=== PATIENT | female | born 1965 | race Caucasian/White ===

== ENCOUNTER 2018-10-11 | Emergency (ER) | payer OTHER ==
[~2018-10-11] VITALS: Ht 175.3 cm; Wt 68.0 kg
[2018-10-11 00:02] VITALS: BP 132/76
== END 2018-10-11 00:31 | disposition home or self-care (01) ==
LOC: ER
DX: S81.802A Unspecified open wound, left lower leg, initial encounter (principal); S81.801A Unspecified open wound, right lower leg, initial encounter; N89.8 Other specified noninflammatory disorders of vagina; Z86.14 Personal history of Methicillin resistant Staphylococcus aureus infection; X58.XXXA Exposure to other specified factors, initial encounter; Y93.89 Activity, other specified; Y92.89 Other specified places as the place of occurrence of the external cause; Y99.8 Other external cause status

== ENCOUNTER 2018-12-15 23:40 | Inpatient (IN) | payer OTHER ==
[~2018-12-15] VITALS: Ht 175.3 cm; Wt 68.5 kg
[2018-12-15 23:43] VITALS: BP 124/65; BP 134/65
[2018-12-16 00:36] LABS: ABSOLUTE NEUTROPHILS 4.2 thou/uL (1.4-8.2); BASOPHILS 0.7 % (0.0-2.0); EOSINOPHILS 11.8 % (0.0-3.0); HEMATOCRIT 31.1 % (37.0-47.0); HEMOGLOBIN 10.6 gm/dL (12.0-15.0); LYMPHOCYTES 20.8 % (24.0-44.0); MCH 29.1 pg (26.0-34.0); MCHC 33.9 g/dL (28.0-37.0); MCV 85.7 fL (80.0-100.0); MONOCYTES 7.7 % (1.0-8.0); PLATELET COUNT 303 thou/uL (150-400); RBC 3.63 mil/uL (4.20-5.00); RDW 14.3 % (10.5-14.5); WBC 7.1 thou/uL (4.0-11.0)
[2018-12-16 00:48] LABS: CALCIUM 8.6 mg/dL (8.5-10.1); CREATININE 0.6 mg/dL (0.6-1.0); POTASSIUM 3.3 mmol/L (3.5-5.1)
[2018-12-16 00:53] LABS: ALBUMIN 2.9 g/dL (3.4-5.0); DIRECT BILIRUBIN < 0.1 mg/dL (<0.1-0.3); SGOT 21 U/L (15-37); SGPT 22 U/L (30-65); TOTAL BILIRUBIN 0.3 mg/dL (<0.1-1.0); TOTAL PROTEIN 6.9 g/dL (6.4-8.2)
[2018-12-16 04:03] VITALS: BP 101/72
[2018-12-16 04:50] VITALS: BP 130/75
--- NOTE | 2018-12-16 06:23 | NUR ---
FOLLOWING POC WITH IVF/IVPB. ADMISSION CAME HERE AT 0400. ADMISSION COMPLETED, CARE PLAN UPDATED WITH DATES, AND INTERVENTIONS. 3 WOUND PICTURES TAKEN. PT IN ISOLATION FOR MRSA PER VISIT IN SEPTEMBER 2018. PT HAS NO COMPLAINTS OF PAIN. K+ REPLACED ORALLY.
[2018-12-16 07:46] VITALS: BP 104/59
[2018-12-16 16:19] VITALS: BP 125/65
[2018-12-16 19:45] VITALS: BP 115/68
[2018-12-17 04:55] VITALS: BP 131/73
[2018-12-17 05:48] LABS: HEMATOCRIT 30.6 % (37.0-47.0); HEMOGLOBIN 10.5 gm/dL (12.0-15.0); MCH 29.1 pg (26.0-34.0); MCHC 34.2 g/dL (28.0-37.0); MCV 85.1 fL (80.0-100.0); RBC 3.6 mil/uL (4.20-5.00); RDW 13.9 % (10.5-14.5); WBC 8.1 thou/uL (4.0-11.0)
--- NOTE | 2018-12-17 05:56 | NUR ---
DRESSING CHANGE TO LOWER EXTREMITIES COMPLETED. DENIES PAIN. SHE IS VERY COOPERATIVE AND FRIENDLY. CONTINUES ON IV FLUIDS.
--- NOTE | 2018-12-17 06:03 | NUR ---
READY FOR HER DEBRIDMENT THIS MORNING. SHE HAS BEEN NPO SINCE MIDNIGHT. SHE IS AWARE OF THE PLAN FOR THE DAY. PRGRESSING SLOWLY TOWARD DISCHARGE GOALS. CAREPLAN REVIEWED.
[2018-12-17 06:09] LABS: CALCIUM 8.5 mg/dL (8.5-10.1); CREATININE 0.8 mg/dL (0.6-1.0); POTASSIUM 3.9 mmol/L (3.5-5.1)
[2018-12-17 08:00] VITALS: BP 122/72
--- NOTE | 2018-12-17 09:21 | NUR ---
RD consult received for pt with BLLE wounds, venous stasis. NPO for debridement, previously on regular diet. No wt loss, no concerns appetite. Can add leticia bid once diet readvanced. Physician has indicated moderate protein calorie malnutrition: Will defer. Consider low nutrition risk at this time
--- NOTE | 2018-12-17 11:51 | HC ---
[facility] [address] [place] [address] CONSULTATION Name: JOSSELYN HARRIS Room #: 353-P ADM IN M.R.#: [id number] Admission: 12/16/18 Attend Phys: Sandra Leon Discharge: Date of : 63 Report #: [id number] THIS REPORT FOR: //name// CC: TEX physician/PCP Curry Valdez DATE OF SERVICE: 12/16/2018 WOUND CARE CONSULTATION NOTE REASON FOR CONSULTATION: Ulcers of both legs. HISTORY OF PRESENT ILLNESS: The patient is a very pleasant 53-year-old woman, who gives a history of having had ulcers of her medial aspect of her left lower leg for the past 2-1/2 years, followed by 1 year ago new ulcer on the inner aspect of her right leg. These have been diagnosed as venous stasis ulcer. She had been treated at [facility], but has not been seen in [facility] Care Center on a constant basis. The patient came in because she felt the ulcers were worse with more pain, drainage, swelling and they appeared worse. She felt her legs were more swollen, more sharp pain, gotten worse over the past 2 weeks. She does have a history of MRSA in the past. Has had debridements in the past. She was seen at [facility] 5 months ago and has been treated at [facility]. She has not had any routine followup in Wound Care Center. PAST MEDICAL HISTORY: The patient is nondiabetic. She is a nonsmoker. ALLERGIES: No known drug allergies. PAST MEDICAL HISTORY: Chronic wounds of the legs and history of MRSA. PAST SURGICAL HISTORY: Surgical debridement of ulcer of the left lower extremity in the past. PHYSICAL EXAMINATION: GENERAL: Shows a thin, well-appearing woman, who is alert, conversant, pleasant and oriented. She talks very fast, but is completely articulate and lucid. HEENT: Mucous membranes are moist. NECK: Supple. LUNGS: Respirations unlabored. ABDOMEN: Scaphoid and soft. EXTREMITIES: Examination of the lower extremities shows left leg appears to be slightly more swollen than the right. Ultrasound of both legs done in the Emergency Room showed no evidence of deep venous thrombosis. There are some signs of chronic venous stasis of both legs, particularly on the left with some skin discoloration and hemosiderin deposition. There is a major large ulcer of [address] [address] CONSULTATION Name: JOSSELYN HARRIS Room #: 353-P [facility] IN ..#: [id number] Admission: 12/16/18 Attend Phys: Sandra Leon Discharge: Date of : 63 Report #: [id number] her left medial lower leg measuring approximately 12 cm x 4 cm, which is irregular and demarcated in a typical location for venous stasis ulcer. The majority of this wound is coated with a very dense, thick, necrotic eschar, wound cultures of which are taken. The patient has a smaller ulcer approximately 2 x 3 cm on the right medial leg. Pulses are not easily palpable. IMPRESSION: Clinical venous stasis ulcers, chronic of bilateral lower extremities in typical location for venous stasis ulcers, negative for deep venous thrombosis by ultrasound. Ulcers appear clinically infected. The patient is on piperacillin and Zosyn. PLAN: Wound culture done of the left leg. Ordered lower extremity arterial Dopplers of both lower extremities. We will apply Silvadene, Xeroform, Kerlix, ABD. If arterial supply is good, then more effective long-term compression will be needed. I have consulted with Dr. Britt Alvarado, general surgeon director internal control today for a surgical debridement of the venous stasis ulcer of the left leg. Wound Care team will follow. <ELECTRONICALLY SIGNED> By: Olvin Lee MD 12/17/18 1151 [id number] Olvin Lee MD /nt
--- NOTE | 2018-12-17 12:08 | NUR ---
INITIAL ASSESSMENT: Received consult for discharge planning. AZAM reviewed chart and spoke with nursing and attending physician. Pt was admitted from home due to BLE ulcers. Pt has had chronic leg ulcers since 2017. Pt to have debridement today. Pt is on IV abx: vanco and zosyn. Awaiting culture results. AZAM met with pt at bedside. Introduced role of SW. Pt is alert/orientated x 4. Pt reports she lives at home alone. Pt was independent with ADLs prior to admission. No use of DME. Pt states she has been contacting insurance companies ([employer] policies) to get insurance. Pt has been unable to get connected with an insurance company. Pt states she is not employed at the time and is looking for a job. Pt has received care at [facility] in the past. The physician she was seeing graduated and she does not have a PCP. Pt states she would like HH services at time of discharge. AZAM explained that she may have to pay privately for HH. Pt verbalized understanding. AZAM faxed face sheet to [employer]. Plan is for pt to discharge home when medically stable. AZAM is following to assist as needed with discharge planning.
--- NOTE | 2018-12-17 18:03 | NUR ---
RECEIVED PT APPROX 1700. A/O. PAIN MANAGED BY MEDS ORDERED. NO NOTED SOA. NO NV. PT RESTING IN BED AT THIS TIME. BLE DRESSING CDI. ANTIBIOTIC INFUSING. WILL CONT. TO MONITOR.
[2018-12-17 19:28] VITALS: BP 92/50
--- NOTE | 2018-12-18 03:47 | NUR ---
ASSESSMENT COMPLETED.PT DENIED PAIN SO FAR.BLE DRSG C/D/I.PT STATED THAT SHE DIDN'T EAT DINNER,PER REPORT SHE GOT TWO TRAYS.PT RECIEVED BOX LUNCH WITH SOME JUICE,ATE EVERYTHING.PT CONT ON IVF AND IV ABX ORDRED.FALL AND ISOLATION PRECAUTIONS MAINTAINED.CALL LIGHT WITHIN REACH.
[2018-12-18 05:27] VITALS: BP 116/69
[2018-12-18 07:21] VITALS: BP 122/70
[2018-12-18 16:08] VITALS: BP 129/75
--- NOTE | 2018-12-18 17:03 | NUR ---
AAOX4 PLESANT AND COOPERTIVE. DENIES PAIN. GOOD APPETITE FOR MEALS. DRESSING CHANGE COMPLETED WITH MORPHINE/SYLVADYNE CREAM AND WRAPPED WTIH KERLIX - WOUNDS APPEAR CLEAN WITH GOOD GRANULATION TISSUE. IV INFUSING RIGHT ARM WITHOUT SIGNS OF INFILTRATION.
[2018-12-18 19:26] VITALS: BP 122/71
--- NOTE | 2018-12-19 04:26 | NUR ---
Assumed care at 1900. Pt. continues on IV ABT Zosyn and NS at 125 ml/hr. She c.o. pain bilateral LE and requested Tylenol and it was effective. She asked about when she was going to be discharged. A MRSA test swab per mouth was collected per lab reqest. She was talkative with a bright affect when caring for her. Bilateral LE wounds were treated per order.
[2018-12-19 04:28] VITALS: BP 119/69
[2018-12-19 08:17] VITALS: BP 120/77
--- NOTE | 2018-12-19 15:57 | NUR ---
CASE DISCUSSED WITH ATTENDING, DR Lizbet CONNELL AND WITH WOUND CARE TEAM. PLAN WILL BE FOR ADDITIONAL SURGICAL PROCEDURE TOMORROW. AWAITING CULTURES FOR APPROPRIATE DC ABX. FOLLOWING TO ASSIST WITH DC PLANNING.
--- NOTE | 2018-12-19 16:06 | NUR ---
CARE TEAM INDICATED THAT PT IS TO GO TO THE OR TOMORROW 12/20/18 FOR ECM PLACEMENT. CM TO FOLLOW INDICATED WITH DC PLANNING.
[2018-12-19 17:06] VITALS: BP 122/79
[2018-12-19 19:26] VITALS: BP 125/67
--- NOTE | 2018-12-20 02:05 | NUR ---
ASSUMED CARE FROM DAY SHIFT PT RESTING IN BED DRESSING CHANGES ORDERD TOLERATED WELL TYLENOL PO GIVEN FOR PAIN.DISCUSSED PLAN OF CARE AND VERBALIZED UNDERSTANDING , PT RESTING WEL THROUGHOUT HOURLY ROUNDS, WILL REPORT CHANGES OR ANBORMAL FINDINSG.
[2018-12-20 04:31] VITALS: BP 107/66
[2018-12-20 07:30] VITALS: BP 98/62
--- NOTE | 2018-12-20 16:40 | NUR ---
PATIENT RETURNED TO ROOM FROM POST OP. SLEEPY BUT EASILY AROUSED. DRESSING'S TO [place] [facility]. DRY AND INTACT. PT STATES NO PAIN NO RESP DISTRESS NOTED. WILL LET PATIENT SLEEP UNTIL DINNER.
[2018-12-20 19:10] VITALS: BP 119/50
[2018-12-20 20:25] VITALS: BP 99/60
[2018-12-20 20:45] VITALS: BP 108/64
--- NOTE | 2018-12-21 03:12 | NUR ---
ASSUMED PT CARE 1899. PT ALERT AND ORIENTED. REASSESSMENT COMPLETE. VSS. IV DRESSING C/D/I. DENEIS N/V. REPORTS PAIN, SEE EMAR. UP X1 ASSIST TO BATHROOM, STEADY ON FEET. LLE DRESSING REINFORCED WITH ABD AND KURLEX. WORKING TOWARD POC. CALL LIGHT AND PERSONAL BELONGINGS WITHIN REACH. WILL CONTINUE POC UNTIL EOS.
[2018-12-21 04:10] VITALS: BP 112/62
[2018-12-21 07:55] VITALS: BP 112/61
--- NOTE | 2018-12-21 08:09 | NUR ---
LATE ENTRY: AT 1715 PT UP TO BATHROOM GETTING READY FOR DINNER. VS: 98.1 18 72 120/68 PT STATES LE'S FEEL BETTER. DRSG'S INTACT TO [place] [facility].
--- NOTE | 2018-12-21 08:59 | NUR ---
AT THIS TIME WOUND DOCTOR HERE TO SEE PATIENT. DRESSINGS REMOVED. NEW TREATMENT ORDERS FOLLOWED TO REDRESS ALSO WOUND PICTURES TAKEN AT THIS TIME. PT GIVEN PRN PAIN MED BEFORE TX STARTED.
--- NOTE | 2018-12-21 16:05 | NUR ---
CASE DISCUSSED WITH ATTENDING, IElvin. AND WITH DR PINO FROM WOUND CARE. CHECKING TO SEE IF PT CAN BE SEEN IN THE WOUND CARE CLINIC FOR FOLLOW-UP IN 2 WEEKS. ANTICIPATE PO ABX PER DR CONNELL AT [place].
[2018-12-21 16:56] VITALS: BP 112/69
[2018-12-21 20:45] VITALS: BP 115/66
--- NOTE | 2018-12-22 04:52 | NUR ---
ASSUMED PT CARE 1899. PT ALERT AND ORIENTED. REASSESSMENT COMPLETE. VSS. IV DRESSING C/D/I. DENIES PAIN, DENIES N/V. WORKING TOWARD POC. CALL LIGHT AND PERSONAL BELONIGNS WITHIN REACH, WILL CONTINUE POC UNTIL POC.
[2018-12-22 05:15] VITALS: BP 121/76
[2018-12-22 07:53] VITALS: BP 121/76
[2018-12-22] MEDS ORDERED: ACETAMINOPHEN325 M1 PO (10:28)
[2018-12-22] MEDS ORDERED: AMPICILLIN TRI500 MG PO (10:28)
[2018-12-22 13:40] VITALS: BP 121/76
--- NOTE | 2018-12-22 16:29 | NUR ---
DC ORDERS RECEIVED. IV REMOVED FROM R HAND. DC INSTRUCTIONS, SCRIPTS AND FOLLOW APPOINTMENT WITH DR. ALEENA OH. TEACHING PROVIDED FOR DRSG CHANGES, DRSG SUPPLIES ALSO POVIDED. PT CALLED CAB SERVICE FOR RIDE HOME. [facility]BUL[facility] TRANSFERED PT BY W/C TO ED ENTRANCE.
== END 2018-12-22 16:10 | disposition home or self-care (01) | DRG 580 ==
LOC: ER 23:40 → 3W 12-16 02:59 → 4E 12-16 02:59 → EROBS 12-16 02:59 → 3W 12-16 04:16 → 4E 12-17 17:10
PROVIDERS: Emergency Medicine; Nurse Practitioner Family; ADMIT Hospitalist
PROC: 0KBT0ZZ Excision of Left Lower Leg Muscle, Open Approach (ICD-10-PCS; 2018-12-17)
PROC: 0KBS0ZZ Excision of Right Lower Leg Muscle, Open Approach (ICD-10-PCS; 2018-12-17)
PROC: 0KBS0ZZ Excision of Right Lower Leg Muscle, Open Approach (ICD-10-PCS; principal; 2018-12-20)
PROC: 0KBT0ZZ Excision of Left Lower Leg Muscle, Open Approach (ICD-10-PCS; principal; 2018-12-20)
DX: L03.116 Cellulitis of left lower limb (principal); L97.929 Non-pressure chronic ulcer of unspecified part of left lower leg with unspecified severity; L97.919 Non-pressure chronic ulcer of unspecified part of right lower leg with unspecified severity; E44.0 Moderate protein-calorie malnutrition; I87.2 Venous insufficiency (chronic) (peripheral); B95.2 Enterococcus as the cause of diseases classified elsewhere; Z86.14 Personal history of Methicillin resistant Staphylococcus aureus infection; Z91.048 Other nonmedicinal substance allergy status; Z68.22 Body mass index [BMI] 22.0-22.9, adult; Z79.899 Other long term (current) drug therapy
CPT/HCPCS: 10080; 10783; 50010; 50101; 50386; 51412; 56524; 57091; 57119; 57120; 57141; 62110; 62900; 70005

== ENCOUNTER 2019-01-11 16:03 | Inpatient (IN) | payer OTHER ==
[~2019-01-11] VITALS: Ht 175.3 cm; Wt 63.5 kg
--- NOTE | ~2019-01-11 | HC ---
[facility] [address] [place] [address] CONSULTATION Name: JOSSELYN HARRIS Room #: 443-P ADM IN M.R.#: [id number] Admission: 01/11/19 ������������������ Attend Phys: Haroldo Dickens MD Discharge: ������������������ Date of : 63 Report #: [id number] THIS REPORT FOR: //name// CC: Haroldo Dickens [facility] physician/PCP DATE OF SERVICE: 01/12/2019 WOUND CARE CONSULTATION REASON FOR CONSULTATION: Bilateral chronic venous stasis ulcers, status post allograft application several weeks ago. HISTORY OF PRESENT ILLNESS: The patient is a 54-year-old woman, very well known to the wound care service. She has large chronic venous stasis ulcers of bilateral lower extremities, larger on the left than on the right. Several weeks ago, the patient underwent operative debridement by Dr. Chavez and Dr. Villela at [facility] operating room with placement of allograft staple to the wound. The patient gives a history that she attempted to make a followup visits in wound care clinic, but for insurance reasons, was not able to be seen. She had more pain of the leg ulcers, was admitted through the Emergency Room. PAST MEDICAL HISTORY: 1. Chronic venous stasis of lower extremities. 2. History of cerebral edema. 3. Recent fall, admitted to the Emergency Room. ALLERGIES: No drug allergies. MEDICATIONS: Include acetaminophen and ampicillin. PAST SURGICAL HISTORY: Tonsillectomy, lower extremity wound debridement, and allograft placement. SOCIAL HISTORY: The patient does not smoke or drink. REVIEW OF SYSTEMS: Leg pain. PHYSICAL EXAMINATION: GENERAL: Shows a thin, alert woman appearing her stated age. HEENT: Mucous membranes are moist. NECK: Supple. LUNGS: Respirations unlabored. ABDOMEN: Soft. EXTREMITIES: Examination of the legs shows Kerlix dressings, which are removed. [facility] [address] [place] [address] CONSULTATION Name: JOSSELYN HARRIS Room #: 443-P [facility] IN [facility].#: [id number] Admission: 01/11/19 ������������������ Attend Phys: Haroldo Dickens MD Discharge: ������������������ Date of : 63 Report #: [id number] On the right leg, there is a chronic venous stasis ulceration measuring approximately 3.5 x 4 cm on the medial ankle. Surgical ramon are present around the periphery, these are removed. There is granulation tissue at the base with some adherent fibrinous exudate. Examination of the left leg shows a much larger ulcer measuring approximately 10 cm x 12 cm circumferential around the posterior leg. This also has ramon around the periphery, which are removed. There is granulation tissue at the wound base and some adherent slough and fibrinous exudate. No overt cellulitis, but wounds are mildly tender. IMPRESSION: Chronic venous stasis ulcerations of bilateral lower extremities with status post OR debridement several weeks ago and allograft placement. All the ramon have been removed. Wounds have some adherent slough. PLAN: Order morphine, Silvadene dressings covered with Xeroform, Kerlix wrap to be changed twice daily. Dr. Villela and Dr. Chavez will reassess. ��������������������������������������������� ���������������������������������������� By: ��������������������������������������������� [id number] Olvin Lee MD /nt
[~2019-01-11 16:03] MED LIST: ACETAMINOPHEN325 M1 PO; AMPICILLIN TRI500 MG PO
[2019-01-11 16:04] VITALS: BP 120/74
[2019-01-11 17:00] LABS: HEMATOCRIT 30.7 % (37.0-47.0); HEMOGLOBIN 10.3 gm/dL (12.0-15.0); MCH 29.1 pg (26.0-34.0); MCHC 33.6 g/dL (28.0-37.0); RBC 3.55 mil/uL (4.20-5.00)
[2019-01-11 17:02] LABS: MCV 86.5 fL (80.0-100.0); RDW 14.7 % (10.5-14.5); WBC 12.6 thou/uL (4.0-11.0)
[2019-01-11 18:06] LABS: ANION GAP 10 mmol/L (7-16); BUN 10 mg/dL (7-18); CALCIUM 8.5 mg/dL (8.5-10.1); CHLORIDE 98 mmol/L (98-107); CO2 25 mmol/L (21-32); CREATININE 0.7 mg/dL (0.6-1.0); GLUCOSE 117 mg/dL (74-106); POTASSIUM 3.2 mmol/L (3.5-5.1); SODIUM 133 mmol/L (136-145)
[2019-01-11 18:07] LABS: ABSOLUTE NEUTROPHILS 9.1 thou/uL (1.4-8.2)
[2019-01-11 18:08] LABS: ANISOCYTOSIS SLIGHT; LARGE PLATELETS OCCASIONAL; PLATELET COUNT 465 thou/uL (150-400); POIKILOCYTOSIS SLIGHT
[2019-01-11 18:11] VITALS: BP 118/68
[2019-01-11 18:11] LABS: ALBUMIN 3.1 g/dL (3.4-5.0); MAGNESIUM 1.8 mg/dL (1.8-2.4); SGOT 20 U/L (15-37); SGPT 12 U/L (30-65); TOTAL BILIRUBIN 0.4 mg/dL (<0.1-1.0); TOTAL PROTEIN 7.2 g/dL (6.4-8.2); TROPONIN-I <0.06 ng/mL (<0.06)
[2019-01-11 19:19] VITALS: BP 104/62
[2019-01-11 19:45] VITALS: BP 113/63
[2019-01-12] VITALS (7 sets, daily range): BP systolic 103–130; BP diastolic 61–74
[2019-01-12 05:27] LABS: HEMATOCRIT 26.1 % (37.0-47.0); HEMOGLOBIN 8.7 gm/dL (12.0-15.0); MCHC 33.3 g/dL (28.0-37.0); RDW 14.9 % (10.5-14.5); WBC 6.1 thou/uL (4.0-11.0)
--- NOTE | 2019-01-12 05:33 | NUR ---
PT ARRIVED TO UNIT APPROX 192, RECEIVED BEDSIDE REPORT FROM ED NURSE. ADMISSION AND ASSESSMENT COMPLETED, CONSENTS SIGNED INCLUDING TELE DISCLAIMER. PT A&Ox4, DENIES SOB OR NAUSEA. REPORTS OCCASIONAL PAIN IN LEGS AND BACK OF HEAD. FELL RECENTLY, HITTING HER HEAD ON THE STAIRS, HAS A NICKEL-SIZED WOUND AT LEFT OCCIPITAL SKULL, WITH DRIED/SCABBED BLOOD. FALL PRECAUTIONS IN PLACE D/T RECENT FALL AND THAT PT REPORTS OCCASIONAL DIZZINESS. PT HAS A LARGE WOUND ON LEFT CALF THAT WRAPS FROM MEDIAL TO POSTERIOR SIDE, AND ANOTHER WOUND ON THE RIGHT MEDIAL CALF; PHOTOGRAPHS TAKEN OF BOTH LEG WOUNDS THEN CLEANED AND DRESSED WITH XEROFORM, ABD, AND KERLIX. MRI SCREENING FILLED OUT AND FAXED. NO OTHER CONCERNS, WILL CONTINUE TO MONITOR.
[2019-01-12 05:46] LABS: CALCIUM 8.2 mg/dL (8.5-10.1); CREATININE 0.7 mg/dL (0.6-1.0); POTASSIUM 3.9 mmol/L (3.5-5.1)
--- NOTE | 2019-01-12 17:22 | NUR ---
ASSUMED CARE OF PATIENT 0700. CARE TODAY CONSISTED OF WOUND CARE AND NEURLOGICAL CHECKS DUE TO HER LOWER EXTREMITY WOUNDS AND PREVIOUS FALL. PATIENT'S DYLAN FROM PREVIOUS GRAFT WERE TAKEN OUT BY PHYSICIAN AND NURSES REAPPLIED WOUND TREATMENT AND BANDAGES. PATIENT HAS SILVERDYNE AND MORPHINE APPLIED TO WOUND BED AND COVERED WITH XEROFORM, GAUZE, AND ABD PADS. PATIENT HAD REMAINED AT BASELINE TODAY FOR NEUROLOGICAL CHECKS WITH NO NEUROLOGICAL DEFICITS. PATIENT RECIEVED IV ANITBIOTIC THERAPY THROUGHOUT DAY.
[2019-01-13 03:34] VITALS: BP 103/58
--- NOTE | 2019-01-13 05:09 | NUR ---
Patient making slow progress towards outcome goals. Vital sings and rhythm stable. Uses call light appropriately for needs. Wound care as ordered.
[2019-01-13 07:18] VITALS: BP 85/53
--- NOTE | 2019-01-13 14:11 | EKG ---
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 : 1965 Requested By: [place] Order Number: [id number] MD: Artur Palma Measurements Intervals [place] Rate: 81 P: 50 IN: 141 QRS: 20 QRSD: 107 T: 27 QT: 398 QTc: 462 Interpretive Statements Sinus rhythm RSR' in V1 or V2, right VCD No previous ECG available for comparison Electronically Signed On 01-13-2019 14:10:47 CDT by Artur Palma [email or web address] ��������������������������������������������� <ELECTRONICALLY SIGNED> ���������������������������������������� By: Artur Palma MD, [facility] ��������������������������������������������� 01/13/19 1410 [id number] Artur Palma MD, [facility] /EPI
[2019-01-13 15:48] VITALS: BP 99/62
--- NOTE | 2019-01-13 18:31 | NUR ---
PT is A&OX3, PT is continuing wound care and iv abt, pt's vs are stable, pt denies pain at this time.pt has slowly meeting care plan goals.
[2019-01-13 19:03] VITALS: BP 108/53
[2019-01-14] VITALS (11 sets, daily range): BP systolic 98–139; BP diastolic 56–79
--- NOTE | 2019-01-14 03:37 | NUR ---
Patient making slow progress towards outcome goals. Vital signs and rhythm stable. Up with standby assists. Wound care done. Appetite excellent blood sugars 60-70 patient is asymptomatic and states that is usual for her. Wounds pool cleaner looking and patient states they look better.
[2019-01-14] MEDS ORDERED: NEURONTIN 300300 M1 PO (11:58)
--- NOTE | 2019-01-14 13:25 | NUR ---
Nutrition: pt admitted with BLE wounds, S/P fall with SDH. Wound to L occipital skull in addition to chronic vascular wounds. PO 100% most meals. Understands protein needs and how to order meals. Agrees to beneprotein powder on trays, leticia BID to assist with wound healing. Stable weights reported. Should discharge today. Low risk.
--- NOTE | 2019-01-14 14:58 | NUR ---
LIDA SENT REFERRAL TO Katie AT [facility], ALSO LEFT KATIE A MESSAGE TO LET HER KNOW FAX WAS SENT OVER.
--- NOTE | 2019-01-14 16:55 | NUR ---
CM RECEIVED CALL FROM BEDSIDE RN STATING PATIENT NEEDS A CAB/HELP WITH MEDICATION. CM MET WITH BEDSIDE RN AND PHYSICIAN ON THE UNIT. PT HAS NO INSURANCE. SW/CLIENT RELATIONS REPRESENTATIVE HAVE ASKED [facility] IF THEY CAN DO MU VISITS FOR HH FOR PATIENT SHE HAS NO INSURANCE, THEY ARE REVIEWING AND WE ARE WAITING TO HEAR BACK. LON SPOKE WITH BEDSIDE RN ABOUT GIVING PATIENT SUPPLIES FOR HOME AND SHE IS TO FOLLOW UP OUTPATIENT WITH PHYSICIAN. PT WILL NEED MORPHINE SILVADENE CREAM 200G WHICH CAN BE COMPUNDED AT OUR OUTPATIENT PHARMACY. CM SPOKE WITH OUTPATIENT PHARMACY WHO STATES THEY CAN COMPOUND IT BUT WILL TAKE ABOUT 45 MINS. CM UPDATED BEDSIDE RN, TOOK SCRIPT TO PHARMACY AND THEY ARE TO CALL BEDSIDE RN WHEN IT IS READY. CM WILL VOUCHER FOR SILVADENE CREAM WELL GABAPENTIN. CM APPROVED THIS THROUGH CM DIRECTOR. CM ALSO PROVIDED PATIENT WITH A CAB VOUCHER AND HEALTH RESOURCE GUIDE.
--- NOTE | 2019-01-14 18:00 | NUR ---
PT DISCHARGED HOME WITH HOME HEALTH IF THEY WILL DO MU VISITS...GIVEN MEDS PROVIDED FROM OUR PHARMACY AND SUPPLIES...
== END 2019-01-14 18:40 | disposition home health service (06) | DRG 82 ==
LOC: ER 16:03 → EROBS 18:00 → 4S 19:20
PROVIDERS: Emergency Medicine; ADMIT Hospitalist
DX: S06.5X9A Traumatic subdural hemorrhage with loss of consciousness of unspecified duration, initial encounter (principal); G93.6 Cerebral edema; L03.116 Cellulitis of left lower limb; L97.829 Non-pressure chronic ulcer of other part of left lower leg with unspecified severity; L97.819 Non-pressure chronic ulcer of other part of right lower leg with unspecified severity; E44.1 Mild protein-calorie malnutrition; L03.115 Cellulitis of right lower limb; I87.2 Venous insufficiency (chronic) (peripheral); I73.9 Peripheral vascular disease, unspecified; G89.29 Other chronic pain; Z68.20 Body mass index [BMI] 20.0-20.9, adult; Z86.14 Personal history of Methicillin resistant Staphylococcus aureus infection; Z79.899 Other long term (current) drug therapy; Z88.8 Allergy status to other drugs, medicaments and biological substances; Z91.018 Allergy to other foods; W18.39XA Other fall on same level, initial encounter; Y93.89 Activity, other specified; Y92.89 Other specified places as the place of occurrence of the external cause; Y99.8 Other external cause status
CPT/HCPCS: 10100

== ENCOUNTER 2019-01-24 21:17 | Emergency (ER) | payer OTHER ==
[~2019-01-24] VITALS: Ht 175.3 cm; Wt 68.0 kg
[~2019-01-24 21:17] MED LIST changes: +NEURONTIN 300300 M1 PO
[2019-01-25] MEDS ORDERED: NORCO 5-325 TA1 EAC1 PO (00:52)
[2019-01-25 01:11] VITALS: BP 106/70
== END 2019-01-25 01:00 | disposition home or self-care (01) ==
LOC: ER 21:17
DX: S92.402A Displaced unspecified fracture of left great toe, initial encounter for closed fracture (principal); S92.502A Displaced unspecified fracture of left lesser toe(s), initial encounter for closed fracture; Z86.14 Personal history of Methicillin resistant Staphylococcus aureus infection; Z90.89 Acquired absence of other organs; Z91.018 Allergy to other foods; Z91.048 Other nonmedicinal substance allergy status; W10.9XXA Fall (on) (from) unspecified stairs and steps, initial encounter; Y92.89 Other specified places as the place of occurrence of the external cause; Y93.89 Activity, other specified; Y99.8 Other external cause status

== ENCOUNTER 2019-02-07 02:04 | Inpatient (IN) | payer OTHER ==
[~2019-02-07] VITALS: Ht 175.3 cm; Wt 68.9 kg
[~2019-02-07 02:04] MED LIST changes: +NORCO 5-325 TA1 EAC1 PO
[2019-02-07 02:09] VITALS: BP 122/77
[2019-02-07 02:49] LABS: ABSOLUTE NEUTROPHILS 3.7 thou/uL (1.4-8.2); BASOPHILS 1.1 % (0.0-2.0); EOSINOPHILS 13.6 % (0.0-3.0); HEMATOCRIT 33.9 % (37.0-47.0); LYMPHOCYTES 22.7 % (24.0-44.0); MCH 28.1 pg (26.0-34.0); MCHC 32.5 g/dL (28.0-37.0); MCV 86.7 fL (80.0-100.0); MONOCYTES 7.8 % (1.0-8.0); PLATELET COUNT 334 thou/uL (150-400); POLYS 54.8 % (36.0-66.0); RBC 3.91 mil/uL (4.20-5.00); RDW 15.4 % (10.5-14.5); WBC 6.7 thou/uL (4.0-11.0)
[2019-02-07 02:52] LABS: CALCIUM 8.7 mg/dL (8.5-10.1); CREATININE 0.8 mg/dL (0.6-1.0); POTASSIUM 3.4 mmol/L (3.5-5.1)
[2019-02-07 02:58] LABS: ALBUMIN 3.2 g/dL (3.4-5.0); TOTAL BILIRUBIN 0.1 mg/dL (<0.1-1.0); TOTAL PROTEIN 7.2 g/dL (6.4-8.2)
[2019-02-07 04:47] VITALS: BP 116/67
[2019-02-07 05:25] VITALS: BP 125/77
[2019-02-07 08:00] VITALS: BP 124/73
[2019-02-07 15:00] VITALS: BP 112/62
[2019-02-07 19:38] VITALS: BP 101/61
[2019-02-08] VITALS (8 sets, daily range): BP systolic 95–131; BP diastolic 47–73
[2019-02-08 05:31] LABS: HEMATOCRIT 32.4 % (37.0-47.0); HEMOGLOBIN 10.9 gm/dL (12.0-15.0); MCH 29.3 pg (26.0-34.0); MCHC 33.6 g/dL (28.0-37.0); MCV 87.4 fL (80.0-100.0); RBC 3.71 mil/uL (4.20-5.00); RDW 15.3 % (10.5-14.5); WBC 6.9 thou/uL (4.0-11.0)
[2019-02-08 05:48] LABS: CALCIUM 8.6 mg/dL (8.5-10.1); CREATININE 0.7 mg/dL (0.6-1.0); POTASSIUM 4.3 mmol/L (3.5-5.1)
[2019-02-09 00:21] VITALS: BP 121/64
[2019-02-09 04:24] VITALS: BP 105/60
[2019-02-09 08:12] VITALS: BP 107/69
[2019-02-09 15:20] VITALS: BP 103/45
[2019-02-09 19:10] VITALS: BP 100/55
[2019-02-10 05:16] VITALS: BP 112/71
[2019-02-10 07:26] VITALS: BP 109/72
[2019-02-10 15:14] VITALS: BP 108/73
--- NOTE | 2019-02-10 16:17 | HC ---
[facility] [address] [place] [address] CONSULTATION Name: JOSSELYN HARRIS Room #: 459-P ADM IN M.R.#: [id number] Admission: 02/07/19 Attend Phys: Trina Carlisle MD Discharge: Date of : 63 Report #: [id number] THIS REPORT FOR: //name// CC: NO PCP Trina Carlisle DATE OF SERVICE: 02/07/2019 REQUESTING PHYSICIAN: Dr. Valdez. CHIEF COMPLAINT: Bilateral lower extremity ulcers. HISTORY OF PRESENT ILLNESS: This is a 54-year-old white female with chronic venous insufficiency and chronic bilateral lower extremity ulcers, who states that over the past several days, she has noticed increasing pain, swelling and a foul odor coming from her lower extremity ulcerations, which prompted her to come to the Emergency Department last night, will be admitted to the hospital. The patient states that she felt like she had a fever; however, was afebrile here in the Emergency Department. Due to her lack of insurance, the patient has been unable to follow up in our clinic for continued care. However, had been referred to [facility] given that she is a [place] resident. The patient, however, states that she has not followed up with anyone since her last hospitalization, which was approximately 6 weeks ago. The patient also states that she was since last time she was evaluated, she had a head injury and was evaluated for possible concussion. The patient states that with that she still reports ongoing headache, dizziness, nausea, memory issues. The patient denies any other new wounds at this time. We were asked to follow the patient for the wound care while she is here. PAST MEDICAL HISTORY: Significant for chronic venous stasis ulcerations, venous insufficiency with edema, mild peripheral arterial disease, recent head injury. CURRENT MEDICATIONS: Multiple, I reviewed the patient's medication list. DRUG ALLERGIES: INCLUDE CLOTRIMAZOLE, MICONAZOLE. SOCIAL HISTORY: The patient does not smoke. Drinks alcohol socially. FAMILY HISTORY: Not pertinent to current medical condition. REVIEW OF SYSTEMS: CONSTITUTIONAL: The patient states she has a subjective fever at home, but denies chills or sweats. EYES: No complaints. ENT: No complaints. CARDIAC: The patient has chronic lower extremity edema, but no associated chest [address] [address] CONSULTATION Name: JOSSELYN HARRIS Room #: 459-P [facility] IN [facility].#: [id number] Admission: 02/07/19 Attend Phys: Trina Carlisle MD Discharge: Date of : 63 Report #: [id number] pain or palpitation. RESPIRATORY: The patient denies shortness of breath, cough or wheezes. GASTROINTESTINAL: The patient complains of nausea, but no vomiting, diarrhea or abdominal pain. GENITOURINARY: The patient denies urgency or frequency. MUSCULOSKELETAL: No complaints. SKIN: There are chronic ulcerations on bilateral lower extremities. PHYSICAL EXAMINATION: VITAL SIGNS: Temperature 36.3, pulse 77, respirations 20, BP 124/73. GENERAL: This is an alert and oriented x 3 white female who is in absolutely no distress. HEENT: Normocephalic, atraumatic. Mucous membranes are moist. Pupils are round. Sclerae white. NECK: Supple, nontender. LUNGS: Clear. HEART: Regular. ABDOMEN: Soft, nontender. EXTREMITIES: The patient moves all extremities without difficulty. There is 2+ edema bilateral lower extremities. There is mild increased erythema, warmth and tenderness to bilateral lower extremities along the pretibial region. Both pretibial regions have open ulcerations, which are full thickness with exposed subcutaneous tissue. They are mix of approximately 25% granulation tissue, 75% yellowish slough. There is a slight odor noted from the serosanguineous drainage, which is moderate. Periwound is erythematous and tender. There is no significant undermining or tunneling. Distal pulses are 1+ and symmetric. NEUROLOGIC: Cranial nerves 2-12 grossly intact. Motor and sensory grossly intact. WOUND CARE COURSE: I spoke to the patient about possible bedside debridement; however, she adamantly refused as it was too painful and if any debridement will be performed, she needed to be sedated in the operating room where she had approximately 6 weeks ago. I said I will speak with the surgeon and see if that was a possibility. LABORATORY DATA: White count 6.7, hemoglobin 11.0. BUN 18, creatinine 0.8, albumin 3.2. Lower extremity venous Doppler showed the left leg shows no evidence of DVT. CT scan of the head shows no intracranial process. IMPRESSION: 1. Chronic ulceration, left lower extremity limited to breakdown of subcutaneous tissue with concern for cellulitis. 2. Chronic ulcer, right lower extremity, limited breakdown subcutaneous tissue with concern for cellulitis. [address] [address] CONSULTATION Name: GOLDIE HARRISSE Medrano Room #: 459-P [facility] IN M.R.#: [id number] Admission: 02/07/19 Attend Phys: Trina Carlisle MD Discharge: Date of : 63 Report #: [id number] 3. Venous insufficiency with edema. 4. Protein-calorie malnutrition -- mild. Albumin 3.2. 5. History of recent closed head injury with persistent postconcussion syndrome symptoms. 6. Generalized debility. PLAN: We will place Xeroform over both the open ulcerations at this time, cover this with ABD and Kerlix. We will put a consult out to Dr. Villela who has done previous Misonix debridements on this patient in the past. We will make sure we maximize the patient's oral protein supplementation for healing. Continue all other current medications including antibiotics. We will continue to follow the patient. <ELECTRONICALLY SIGNED> By: Eric Chavez MD 02/10/19 1617 1207 [id number] Eric Chavez MD /nt
[2019-02-10 20:42] VITALS: BP 105/63
[2019-02-11 04:23] VITALS: BP 120/74
[2019-02-11 07:56] VITALS: BP 111/66
[2019-02-11 15:45] VITALS: BP 111/65
[2019-02-11 19:43] VITALS: BP 109/67
[2019-02-12 05:51] LABS: CALCIUM 8.9 mg/dL (8.5-10.1); CREATININE 0.8 mg/dL (0.6-1.0); POTASSIUM 4.2 mmol/L (3.5-5.1)
[2019-02-12 05:53] LABS: HEMATOCRIT 35.1 % (37.0-47.0); HEMOGLOBIN 11.6 gm/dL (12.0-15.0); MCH 28.7 pg (26.0-34.0); MCHC 32.9 g/dL (28.0-37.0); MCV 87.2 fL (80.0-100.0); RBC 4.03 mil/uL (4.20-5.00); RDW 14.9 % (10.5-14.5); WBC 5.8 thou/uL (4.0-11.0)
[2019-02-12 08:25] VITALS: BP 110/68
[2019-02-12 16:49] VITALS: BP 114/62
[2019-02-12 20:20] VITALS: BP 126/66
[2019-02-13 07:51] VITALS: BP 114/64
[2019-02-13] MEDS ORDERED: ACETAMINOPHEN325 M1 PO (13:20)
[2019-02-13] MEDS ORDERED: TRAMADOL 50 MG50 MG PO (13:20)
[2019-02-13] MEDS ORDERED: TRIAMCINOLONE A15 G3 TOP (13:20)
[2019-02-13] MEDS ORDERED: AUGMENTIN 875-1 EACH PO (13:20)
[2019-02-13 17:29] VITALS: BP 122/70
[2019-02-13 17:46] VITALS: BP 122/70
== END 2019-02-13 19:32 | disposition home or self-care (01) | DRG 580 ==
LOC: ER 02:04 → EROBS 04:16 → 4W 04:16 → EROBS 04:16 → 4W 05:04
PROVIDERS: Emergency Medicine; Nurse Practitioner Family; ADMIT Internal Medicine
PROC: 0KBS0ZZ Excision of Right Lower Leg Muscle, Open Approach (ICD-10-PCS; principal; 2019-02-08)
PROC: 0KBT0ZZ Excision of Left Lower Leg Muscle, Open Approach (ICD-10-PCS; principal; 2019-02-08)
DX: L03.116 Cellulitis of left lower limb (principal); L97.929 Non-pressure chronic ulcer of unspecified part of left lower leg with unspecified severity; L97.919 Non-pressure chronic ulcer of unspecified part of right lower leg with unspecified severity; E44.1 Mild protein-calorie malnutrition; I73.9 Peripheral vascular disease, unspecified; I87.2 Venous insufficiency (chronic) (peripheral); G62.9 Polyneuropathy, unspecified; Z28.21 Immunization not carried out because of patient refusal; Z88.8 Allergy status to other drugs, medicaments and biological substances; Z91.02 Food additives allergy status; Z68.22 Body mass index [BMI] 22.0-22.9, adult; Z86.14 Personal history of Methicillin resistant Staphylococcus aureus infection; Z79.899 Other long term (current) drug therapy
CPT/HCPCS: 10040; 50010; 50101; 50386; 57091; 57119; 57120; 62110; 62850; 70005

== ENCOUNTER 2019-02-23 05:09 | Emergency (ER) | payer OTHER ==
[~2019-02-23] VITALS: Ht 175.3 cm; Wt 61.2 kg
[~2019-02-23 05:09] MED LIST changes: +AUGMENTIN 875-1 EACH PO; +TRAMADOL 50 MG50 MG PO; +TRIAMCINOLONE A15 G3 TOP
[2019-02-23] MEDS ORDERED: CIPROFLOXACIN500 M1 PO (07:17)
[2019-02-23 07:56] VITALS: BP 151/76
== END 2019-02-23 07:57 | disposition home or self-care (01) ==
LOC: ER 05:09
DX: L03.115 Cellulitis of right lower limb (principal); L03.116 Cellulitis of left lower limb; L97.228 Non-pressure chronic ulcer of left calf with other specified severity; L97.218 Non-pressure chronic ulcer of right calf with other specified severity; Z90.89 Acquired absence of other organs; Z86.14 Personal history of Methicillin resistant Staphylococcus aureus infection; Z91.018 Allergy to other foods; Z88.1 Allergy status to other antibiotic agents

== ENCOUNTER 2019-02-27 21:50 | Inpatient (IN) | payer OTHER ==
[~2019-02-27] VITALS: Ht 175.3 cm; Wt 70.3 kg
[~2019-02-27 21:50] MED LIST changes: +CIPROFLOXACIN500 M1 PO
[2019-02-27 21:55] VITALS: BP 116/66
[2019-02-28 00:35] LABS: ABSOLUTE NEUTROPHILS 3.2 thou/uL (1.4-8.2); BASOPHILS 1.1 % (0.0-2.0); EOSINOPHILS 12.6 % (0.0-3.0); HEMATOCRIT 32.8 % (37.0-47.0); HEMOGLOBIN 10.8 gm/dL (12.0-15.0); LYMPHOCYTES 24.9 % (24.0-44.0); MCH 28.4 pg (26.0-34.0); MCHC 32.8 g/dL (28.0-37.0); MCV 86.8 fL (80.0-100.0); MONOCYTES 9.5 % (1.0-8.0); PLATELET COUNT 302 thou/uL (150-400); POLYS 51.9 % (36.0-66.0); RBC 3.79 mil/uL (4.20-5.00); RDW 14.8 % (10.5-14.5); WBC 6.2 thou/uL (4.0-11.0)
[2019-02-28 00:44] LABS: CALCIUM 8.6 mg/dL (8.5-10.1); CREATININE 0.7 mg/dL (0.6-1.0); POTASSIUM 3.3 mmol/L (3.5-5.1)
[2019-02-28 00:50] LABS: ALBUMIN 3.1 g/dL (3.4-5.0); TOTAL BILIRUBIN 0.2 mg/dL (<0.1-1.0); TOTAL PROTEIN 6.9 g/dL (6.4-8.2)
[2019-02-28 01:06] LABS: URINE BILIRUBIN NEGATIVE (Negative); URINE BLOOD NEGATIVE (Negative); URINE CLARITY CLEAR; URINE COLOR YELLOW; URINE GLUCOSE-RANDOM* NEGATIVE (Negative); URINE KETONES NEGATIVE (Negative); URINE LEUKOCYTES-REFLEX NEGATIVE (Negative); URINE NITRITE-REFLEX NEGATIVE (Negative); URINE PROTEIN (DIPSTICK) NEGATIVE (Negative); URINE SPECIFIC GRAVITY >= 1.030 (1.005-1.035); URINE UROBILINOGEN 0.2 E.U./dl (0.2-1.0)
[2019-02-28 12:00] VITALS: BP 115/59
[2019-02-28 18:35] VITALS: BP 113/56
[2019-02-28 18:48] VITALS: BP 110/61
[2019-02-28 18:54] VITALS: BP 110/61
--- NOTE | 2019-02-28 19:30 | NUR ---
PT TRANSFERED TO INPATIENT CARE, ALL BELONGINGS SENT WITH PT.
[2019-02-28 19:55] VITALS: BP 130/76
--- NOTE | 2019-03-01 | NUR ---
Pt came up from ED at change of shift. pt originally came in the hospital on 02/27/2019 but was being held in the ER. pt has bilateral wounds that are infected. pt on contact prec for MRSA. pictures were taken. pt is a&ox4. ambulates with standby assist to the bathroom. wound dressing changes and covered with xeroform, kerlix, abd and tape. pt recieved pain med onces overnight. no concerns overnight. legs elevated with pillows. fall prec in place. call light within reach. no s/s of distress. will cont to monitor
[2019-03-01 03:00] VITALS: BP 132/73
--- NOTE | 2019-03-01 05:14 | NUR ---
assumed care of pt @1900. pt a&ox3. pt can be confused at times. pt was stting in the chair, pt transfered with 1 person assist with a walker back to bed. pt used the bedpan. Picc line intact and patent but not able to be used for line draw. Line doesnot produces enough blood return for lab testing. lab is aware and will come and draw pt morning labs. no c/o of pain overnight. no s/s of distress. call galvez within reach. fall prec in place. will cont to measure
--- NOTE | 2019-03-01 08:57 | NUR ---
Recurrent admit from earlier this month for pt with chronic venous stasis wounds, PVD. Appetite is good, wts stable at 155 lb. Has received multiple educations on high protein intake adequacy. Note food allergies to mushrooms and strawberries. Restart Roel bid. Otherwise low nutrition risk.
[2019-03-01 09:19] VITALS: BP 118/60
[2019-03-01 15:50] VITALS: BP 122/70
--- NOTE | 2019-03-01 16:44 | NUR ---
PT ADMITTED RELATED TO BLE WOUNDS THAT ARE PAINFUL. CM REVIEWED CHART AND SPOKE WITH CARE TEAM. PT IS FAMILIAR TO CM FROM PREVIOUS ADMISSIONS. FROM CHART REVIEW PT RESIDES IN A HOUSE ALONE AND HAD BEEN INDEPDENENT WITH GAIT AND ADLS [employer] MA[employer]. PT IS PATIENT PAY BUT IS ABLE TO AFFORD MEDICATIONS AND WOUND CARE SUPPLIES UPON DC. PT HAD BEEN TRYING TO PAY AKERS FOR TREATMENT IN [facility]. PT IS TO REACH OUT TO BUSINESS OFFICE TO ARRANGE NUMBER PUT IN DC INFO. CM TO FOLLOW INDICATED WITH DC PLANNING.
[2019-03-01 16:47] VITALS: BP 122/70
--- NOTE | 2019-03-01 16:50 | HC ---
[facility] [place] [address] CONSULTATION Name: JOSSELYN HARRIS BRANDI Room #: 459-P ADM IN M.R.#: [id number] Admission: 02/28/19 Attend Phys: Janis Metz MD Discharge: Date of : 63 Report #: [id number] THIS REPORT FOR: //name// CC: Janis Metz [facility] physician/PCP DATE OF SERVICE: 02/28/2019 INFECTIOUS DISEASE CONSULTATION REASON FOR CONSULTATION: I was asked to evaluate concerning polymicrobial infection of bilateral lower extremity wounds. HISTORY OF PRESENT ILLNESS: A 54-year-old with chronic venous stasis disease and lower extremity nonhealing wounds. She has been hospitalized several times within the last 3 months regarding this issue. Presents now with increased pain and darkening of her wounds. She was concerned about further tissue loss. No fever, chills, or sweats. Occasional nausea and reflux symptoms. No definite vomiting, abdominal pain, or diarrhea. No dysuria or frequency. No cough or sputum production. She has been on several different antibiotics over the last several months and her most recent hospitalization was completed on 02/13/2019. She was discharged on Augmentin. Most recent cultures from the wound have revealed Proteus and Serratia. REVIEW OF SYSTEMS: A 10-point review was negative other than what has been described above. ALLERGIES: CLOTRIMAZOLE, MICONAZOLE, MOLD, MUSHROOMS, and STRAWBERRIES. MEDICATIONS: As noted on her JUN. Now, on meropenem. She did receive vancomycin and Zosyn in the Emergency Room. Review of her previous medications, most recently was on Augmentin and then later ciprofloxacin was added prior to this hospital stay. PAST MEDICAL HISTORY: Tonsillectomy, chronic wounds since 2017, peripheral vascular disease, several debridements of her wounds, and concussion. FAMILY HISTORY: Noncontributory. SOCIAL HISTORY: Nonsmoker and occasional alcohol use. PHYSICAL EXAMINATION: GENERAL: She was afebrile and hemodynamically stable. She is alert, cooperative, pleasant, and in no acute distress. VITAL SIGNS: Stable. EYES: Without scleral icterus. [facility] [address] [place] [address] CONSULTATION Name: GOLDIE HARRISSE [facility] Room #: 459-P ADM IN M.R.#: [id number] Admission: 02/28/19 Attend Phys: Janis Metz MD Discharge: Date of : 63 Report #: [id number] MOUTH: Without mucositis. NECK: Supple. LUNGS: Clear. HEART: Regular, without murmur. ABDOMEN: Soft and nontender. EXTREMITIES: With 1+ right lower extremity edema and 2+ left lower extremity edema with right lower leg medial wound with a fairly large left medial and posterior wound in the similar location. These were significantly tender with a rim of erythema surrounding. No purulent drainage. Pulse in her feet was palpable. Sensation in her feet was normal. Strength was normal. LABORATORY STUDIES: Arterial ultrasound showed no high-grade arterial obstruction. Creatinine 0.7 and liver function test is normal. Hemoglobin 10.8, WBC is 6.2, and platelet count 302,000. Differential showed 12% eosinophils. Urinalysis unremarkable. Review of her previous cultures dated 02/12/2019, Proteus vulgaris sensitive to third generation cephalosporins, quinolones, carbapenems, Zosyn, tobramycin, gentamicin, and Bactrim and Serratia marcescens sensitive to third generation cephalosporins, quinolones, aminoglycosides, carbapenems, and sulfa. On 02/07/2019, she had venous ultrasound, which showed no evidence of left leg thrombus. IMPRESSION: Venous stasis disease with nonhealing venous stasis wounds and polymicrobial gram-negative secondary infection. RECOMMENDATIONS: Agree with meropenem and will continue this as wound care continues. Attempt to control edema. The patient may benefit from a venous ablation procedure, especially on the left side. We will discuss further with the wound care service after their evaluation. <ELECTRONICALLY SIGNED> By: Tacos Aponte MD 03/01/19 1650 [id number] Tacos Aponte MD /nt
[2019-03-01 19:44] VITALS: BP 125/67
--- NOTE | 2019-03-01 20:04 | NUR ---
Received awake on bed. Due medications given as prescribed. A+O 3-4. On room lair. On heart healthy diet- tolerating well; no nausea, no vomiting or abdominal pain noted. Complained of headache, PRN pain medication given as prescribed. With NS at 80cc/hr, infusing well at L AC. Pt had a bowel movement today. AO1 going to the bathroom. With bilateral leg dressings, C/D/I. Pt seen by hospitalist today, MRI requested and done. Maintained on isolation due to MRSA in wound. Assisted in ADLs. Falls bundle in place.
--- NOTE | 2019-03-02 05:48 | NUR ---
patient aox4 makes needs known. patient denied pain or discomfort. ble wounds done minimum drainage no odor, no s/s of infection.patient ambulates with steady gaits to the bathroom. patient in bed asleep at this time breathing regular and unlaboured.
[2019-03-02 07:37] VITALS: BP 99/66
--- NOTE | 2019-03-02 14:23 | NUR ---
Received awake on bed. Due medications given as prescribed, able to swallow meds w/o difficulty. On room air. On heart healthy diet- tolerating well; no nausea, no vomiting, no abdominal pain noted. With NS at 80cc/hr, infusing well at L AC- intact and flushing. AO1 going to the bathroom. Vital signs stable. With bilateral leg dressing- C/D/I. A+Ox4.
[2019-03-02 16:42] VITALS: BP 113/62
[2019-03-02 19:50] VITALS: BP 112/72
[2019-03-03 07:52] VITALS: BP 102/67
--- NOTE | 2019-03-03 08:54 | NUR ---
progress pt a/o x 4 gets a little confused at times states its related to her concussion from december. vss, bilateral wounds cleansed and redressed. iv antibiotics continue pt up with sba continue poc.
--- NOTE | 2019-03-03 17:21 | NUR ---
PT HAS BILAT LOWER EXTREMITY WOUNDS WITH DAILY
--- NOTE | 2019-03-03 17:22 | NUR ---
ASSUMED CARE AT 0700. PT IS A&OX4. PT EXPLAINED TO RN AT BEGINNING OF SHIFT THAT SHE OCCASIONALLY HAS BILAT LOWER LEG PAIN. PT HAS DENIED PAIN THIS SHIFT. PT ALSO STATES SHE HAD HEADACHES FROM RECENT CONCUSSION. PT HAS DENIED HEADACHE PAIN WELL. PT GET UP WITH STANDBY ASSIST. WILL CONTINUE TO MONITOR PT.
[2019-03-03 17:31] VITALS: BP 116/67
[2019-03-03 20:03] VITALS: BP 97/60
[2019-03-04 00:46] VITALS: BP 109/72
--- NOTE | 2019-03-04 07:43 | NUR ---
ASSUMED CARE AROUND 193. AXOX4. BLE DRESSING DONE AROUND 010. NO S/S ACUTE DISTRESS NOTED OR REPORTED AT THIS TIME. CARE TRANSFRERRED TO DAY RN AT THIS TIME.
[2019-03-04 08:50] VITALS: BP 107/64
[2019-03-04 11:43] LABS: HEMATOCRIT 40.2 % (37.0-47.0); MCHC 32.2 g/dL (28.0-37.0); MCV 86.8 fL (80.0-100.0); RBC 4.64 mil/uL (4.20-5.00); RDW 15.3 % (10.5-14.5); WBC 4.6 thou/uL (4.0-11.0)
[2019-03-04 11:55] LABS: CALCIUM 9.8 mg/dL (8.5-10.1); CREATININE 0.8 mg/dL (0.6-1.0); POTASSIUM 3.9 mmol/L (3.5-5.1)
--- NOTE | 2019-03-04 14:06 | NUR ---
AZAM reviewed chart and spoke with nursing and attending physician. Pt is progressing towards goals for discharge. Pt remains on IV abx at this time. Pt may need to continue on IV abx at time of discharge. AZAM paged ID physician in house and through his office. Awaiting call back at this time. Depending on timeframe, pt may be able to do outpatient infusion. AZAM discussed with Director of Case Mgmt, who will authorize transportation to and from [facility] for outpt infusion. AZAM is following to assist as needed with discharge planning.
[2019-03-04 15:05] VITALS: BP 113/75
--- NOTE | 2019-03-04 19:37 | NUR ---
Assumed patient care at 0715. Patient's vital signs have been stable throughout this shift. She has not complained of pain to her lower extremity ulcers. Patient has been compliant with all medications and treatments. Patient has a good appetite, has been consuming 100% of all meals and consuming adequate fluids. Patient to possibly Discharge tommorow.
[2019-03-04 21:23] VITALS: BP 106/70
--- NOTE | 2019-03-05 05:55 | NUR ---
PROGRESS PT A/O X4. UP WITH SBA. LUNGS CLEAR, ABDOMEN SOFT WITH POSITIVE BS. VOIDING QS, PT REPORTS A DAILY STOOL THAT IS GETTING A LITTLE LOOSE FROM ANTIBIOTICS. BILATERAL LEG WOUNDS CLEANSED WITH SALINE AND DRESSED WITH XEROFORM ABD'S AND KERLIX AND KOBAN. IV ANTIBIOTICS ADMINISTERED ORDERED CONTINUE POC.
[2019-03-05 08:33] VITALS: BP 104/74
[2019-03-05] MEDS ORDERED: CEFDINIR300 MG PO (10:42)
--- NOTE | 2019-03-05 11:23 | NUR ---
Assumed patient care at 0715. Patient's vital signs are stable. She rates her pain to her bilateral lower extremeties at a leven "two", she was given Tylenol 650mg po at 1033. Patient continues to have a good appetite consuming 100% of all meals. She is drinking plenty of fluids. Dressings are clean, dry et intact to bilateral lower extremeties. Patient is to Discharge today on oral antibiotics.
[2019-03-05 14:13] VITALS: BP 122/70
--- NOTE | 2019-03-05 16:27 | NUR ---
CARE TEAM INDICATED THAT PT IS MEDICALLY STABLE TO DC HOME THIS DAY WITH PO ABX AND OP WOUND CARE. CM MET WITH PT AND PROVIDED HER THE NUMBER FOR [employer] SO SHE COULD CALL FOR A CONTINUATUATION FOR A COURT APPEARANCE. CM PROVIDED PT WITH PHONE NUMBERS AND CONTACT PEOPLE IN BUSINESS OFFICE AND AT [facility]'S OFFICE TO ARRANGE AKERS PAYMENTS FOR FOLLOW UP CARES. NO OTHER CM INTERVENTION INDICATED. CASE CLOSED.
== END 2019-03-05 19:33 | disposition home or self-care (01) | DRG 603 ==
LOC: ER 21:50 → EROBS 02-28 00:47 → 4W 02-28 00:47
PROVIDERS: Emergency Medicine; Internal Medicine; ADMIT Hospitalist
DX: L03.116 Cellulitis of left lower limb (principal); L97.829 Non-pressure chronic ulcer of other part of left lower leg with unspecified severity; L97.819 Non-pressure chronic ulcer of other part of right lower leg with unspecified severity; E44.1 Mild protein-calorie malnutrition; I10 Essential (primary) hypertension; L03.115 Cellulitis of right lower limb; I87.8 Other specified disorders of veins; E83.42 Hypomagnesemia; E87.6 Hypokalemia; E11.51 Type 2 diabetes mellitus with diabetic peripheral angiopathy without gangrene; I73.9 Peripheral vascular disease, unspecified; D64.9 Anemia, unspecified; Z86.14 Personal history of Methicillin resistant Staphylococcus aureus infection; Z88.1 Allergy status to other antibiotic agents; Z88.8 Allergy status to other drugs, medicaments and biological substances; Z91.018 Allergy to other foods; Z79.84 Long term (current) use of oral hypoglycemic drugs; Z68.22 Body mass index [BMI] 22.0-22.9, adult
CPT/HCPCS: 10040

== ENCOUNTER 2019-03-17 20:16 | Emergency (ER) | payer OTHER ==
[~2019-03-17] VITALS: Ht 175.3 cm; Wt 63.5 kg
[~2019-03-17 20:16] MED LIST changes: +CEFDINIR300 MG PO
[2019-03-17 21:24] VITALS: BP 138/80
== END 2019-03-17 21:24 | disposition home or self-care (01) ==
LOC: ER 20:16
DX: L97.929 Non-pressure chronic ulcer of unspecified part of left lower leg with unspecified severity (principal); L97.919 Non-pressure chronic ulcer of unspecified part of right lower leg with unspecified severity; Z90.49 Acquired absence of other specified parts of digestive tract; Z86.14 Personal history of Methicillin resistant Staphylococcus aureus infection; Z86.711 Personal history of pulmonary embolism; Z77.120 Contact with and (suspected) exposure to mold (toxic); Z91.018 Allergy to other foods; Z88.8 Allergy status to other drugs, medicaments and biological substances

== ENCOUNTER 2019-04-13 18:22 | Emergency (ER) | payer OTHER ==
[~2019-04-13] VITALS: Ht 175.3 cm; Wt 63.5 kg
[2019-04-13 21:35] LABS: CALCIUM 8.9 mg/dL (8.5-10.1); CREATININE 0.7 mg/dL (0.6-1.0); POTASSIUM 3.2 mmol/L (3.5-5.1)
[2019-04-13 21:36] LABS: ABSOLUTE NEUTROPHILS 5.1 thou/uL (1.4-8.2); BASOPHILS 0.7 % (0.0-2.0); EOSINOPHILS 5.7 % (0.0-3.0); HEMOGLOBIN 10.9 gm/dL (12.0-15.0); LYMPHOCYTES 18.7 % (24.0-44.0); MCH 28.6 pg (26.0-34.0); MCV 86.4 fL (80.0-100.0); MONOCYTES 6.8 % (1.0-8.0); PLATELET COUNT 258 thou/uL (150-400); POLYS 68.1 % (36.0-66.0); RBC 3.81 mil/uL (4.20-5.00); RDW 14.7 % (10.5-14.5); WBC 7.4 thou/uL (4.0-11.0)
[2019-04-13] MEDS ORDERED: CEFDINIR300 MG PO (23:20)
[2019-04-13 23:59] VITALS: BP 122/68
== END 2019-04-13 23:59 | disposition home or self-care (01) ==
LOC: ER 18:22
PROVIDERS: Emergency Medicine
DX: L97.829 Non-pressure chronic ulcer of other part of left lower leg with unspecified severity (principal); L97.819 Non-pressure chronic ulcer of other part of right lower leg with unspecified severity; Z90.89 Acquired absence of other organs; Z86.14 Personal history of Methicillin resistant Staphylococcus aureus infection; Z91.018 Allergy to other foods; Z88.8 Allergy status to other drugs, medicaments and biological substances

== ENCOUNTER 2019-04-23 17:33 | Inpatient (IN) | payer OTHER ==
[~2019-04-23] VITALS: Ht 175.3 cm; Wt 61.2 kg
--- NOTE | ~2019-04-23 | HC ---
[facility] [place] [address] CONSULTATION Name: JOSSELYN HARRIS BRANDI Room #: 441-P ADM IN M.R.#: [id number] Admission: 04/23/19 Attend Phys: Haroldo Dickens MD Discharge: Date of : 63 Report #: [id number] THIS REPORT FOR: //name// CC: Haroldo Dickens [facility] physician/PCP DATE OF SERVICE: 04/24/2019 CHIEF COMPLAINT: Bilateral lower extremity ulcerations and wound infection. HISTORY OF PRESENT ILLNESS: This is a 54-year-old female patient with whom I am familiar from multiple hospitalizations. She has had multiple visits to the Emergency Department with increasing drainage and odor from her lower extremity ulcerations. She feels overall she has been doing better. Her care has certainly been hampered by the fact that she has had no insurance and has not been able to arrange any followup with anyone including primary care outside of the hospital. She notes some pain associated with this, but notes also some increased drainage and odor, but denies any fever, chills, or nausea or vomiting at this time. PAST MEDICAL HISTORY: Positive for history of chronic venous ulcers, bilateral lower extremities. She has had previous surgical debridement and placement of skin substitutes. She has had a closed head injury in the past and has had a history of mild protein-calorie malnutrition. ALLERGIES: Include CLOTRIMAZOLE, MICONAZOLE, MOLD, MUSHROOMS and STRAWBERRIES. CURRENT MEDICATIONS: Include acetaminophen, ceftriaxone, enoxaparin, ondansetron and vancomycin. SOCIAL HISTORY: Negative for tobacco or drug use. Occasional alcohol consumption on special occasions only. FAMILY HISTORY: Noncontributory. REVIEW OF SYSTEMS: CONSTITUTIONAL: The patient denies fever, chills, or weight loss. NEUROLOGICAL: The patient denies focal weakness, numbness and tingling. EYES: The patient denies visual changes, redness, or drainage. ENT: The patient denies earache, nasal drainage, sore throat. CARDIOVASCULAR: The patient denies chest pain, palpitations or diaphoresis. PULMONARY: The patient denies cough or shortness of breath. GASTROINTESTINAL: The patient denies nausea, vomiting, diarrhea or abdominal pain. ORTHOPEDIC: The patient does complain of pain, swelling, drainage and redness from both lower extremities. Other systems in a 14-point review of systems are [address] [address] CONSULTATION Name: JOSSELYN HARRIS [facility] Room #: 441-P [facility] IN M.R.#: [id number] Admission: 04/23/19 Attend Phys: Haroldo Dickens MD Discharge: Date of : 63 Report #: [id number]. PHYSICAL EXAMINATION: VITAL SIGNS: At this time include temperature 36.7, pulse 71, respiratory rate 17, and blood pressure 129/71. GENERAL: This is a chronically ill-appearing female patient who appears to be in minimal distress. HEENT: Head normocephalic. Nose and throat are clear. NECK: Supple. LUNGS: Diminished. HEART: Regular rate. ABDOMEN: Soft. Bowel sounds present. EXTREMITIES: Lower extremities demonstrate palpable distal pulses. She has venous ulcers on both lower extremities, both ____ infected and draining. The right side is much improved since I last saw her. The left side is still quite large covered with a very thick leathery layer of slough with a ring of granulation tissue. I am not able to mechanically debride it at the bedside today. NEUROLOGIC: The patient is alert and oriented and appropriate. LABORATORY DATA: Include wound culture and sensitivity pending. White blood cell count 6.1, hemoglobin 12.0, hematocrit 35.8. Sodium 143; potassium 3.3, up from 2.8 on admission. Chloride 106, CO2 of 25, BUN 10, creatinine 0.9, and albumin is 3.5. CLINICAL IMPRESSION: 1. Chronic venous ulcerations, bilateral lower extremities. 2. Wound infection and cellulitis, bilateral lower extremities. 3. History of peripheral vascular disease. 4. History of mild protein-calorie malnutrition. 5. Questionable history of previous diabetes. 6. Medical noncompliance due to lack of insurance and resources to obtain medical care outside of the hospital. RECOMMENDATIONS: At this point in time, I have discussed with the patient in detail that I think that she would need surgical debridement of the left lower extremity such as with Misonix device. She is reluctant to consider such and does not want me to ask one of the surgeons to see her at this point in time. We will recommend pulsatile lavage to both legs and then quarter strength Dakin's moist gauze wet to dry type dressings b.i.d. If we are able to get more of the slough off the wound surface at the bedside, we can continue with local care; however, if not, I will once again recommend a surgical debridement for optimal wound healing and retreatment of the underlying infection. She is on empiric antibiotic therapy, with which I agree. She will need aggressive nutritional support. We will recommend compression with Kerlix and Eduardo, elevation of lower extremities. Edema control will certainly also be a sharma in [address] [place] [address] CONSULTATION Name: JOSSELYN HARRIS BRANDI Room #: 441-P ADM IN M.R.#: [id number] Admission: 04/23/19 Attend Phys: Haroldo Dickens MD Discharge: Date of : 63 Report #: [id number] her recovery here. The patient also notes that she believes that she will have medical insurance beginning 05/01/2019 which will certainly make it easier for her to obtain outpatient care. I appreciate being asked to see her in consultation. By: [id number] Rohan Pugh MD /ainsley
[2019-04-23 17:34] VITALS: BP 139/80
[2019-04-23 18:41] LABS: BASOPHILS 0.7 % (0.0-2.0); HEMATOCRIT 35.8 % (37.0-47.0); LYMPHOCYTES 18.6 % (24.0-44.0); MCH 28.1 pg (26.0-34.0); MCHC 33.6 g/dL (28.0-37.0); MCV 83.7 fL (80.0-100.0); MONOCYTES 6.8 % (1.0-8.0); PLATELET COUNT 291 thou/uL (150-400); POLYS 65.9 % (36.0-66.0); RBC 4.28 mil/uL (4.20-5.00); RDW 14.7 % (10.5-14.5); WBC 6.1 thou/uL (4.0-11.0)
[2019-04-23 18:57] LABS: ALBUMIN 3.5 g/dL (3.4-5.0); CALCIUM 9.2 mg/dL (8.5-10.1); CREATININE 0.8 mg/dL (0.6-1.0); TOTAL BILIRUBIN 0.3 mg/dL (<0.1-1.0); TOTAL PROTEIN 7.2 g/dL (6.4-8.2)
[2019-04-23 19:01] LABS: POTASSIUM 2.8 mmol/L (3.5-5.1)
[2019-04-23 20:03] VITALS: BP 139/80
[2019-04-23 20:09] VITALS: BP 139/80
[2019-04-23 20:40] VITALS: BP 139/78
[2019-04-23 20:47] VITALS: BP 136/74
--- NOTE | 2019-04-24 02:28 | NUR ---
New pt from the ER with bilateral lower ext. cellulitis. pt a&ox4. ambulates with standby assist. left leg is worse than right. pictures taken and wound care done-xerofoam and kerlix. K was critical at 2.8 in the ER and was replaced. pt is on contact prec for MRSA. v/s stable. pt declines narco and would only take tylenol for pain. no s/s of distress. will cont to monitor
[2019-04-24 04:00] VITALS: BP 141/78
[2019-04-24 06:40] LABS: CREATININE 0.9 mg/dL (0.6-1.0); POTASSIUM 3.3 mmol/L (3.5-5.1)
[2019-04-24 08:11] VITALS: BP 129/71
--- NOTE | 2019-04-24 13:22 | NUR ---
Received awake on bed. Due medications given as prescribed. A+Ox4. On room air. Vital signs stable. Assisted in ADLs. On regular diet- tolerating well; no nausea, no vomiting and no abdominal pain noted. With bilateral leg ulcers- dressing changed by assistant shift supervisor nurse this AM, dressing C/D/I. With SL at R AC- intact and flushing well, on IV antibiotics.
[2019-04-24 17:21] VITALS: BP 144/84
[2019-04-24 20:15] VITALS: BP 160/77
--- NOTE | 2019-04-25 07:57 | NUR ---
PT AMBULATING TO BATHROOM INDEPENDENTLY AND IS TOLERATING WELL. TYLENOL PROVIDING PAIN RELIEF. RESTING COMFORTABLY. NO NEEDS VOICED. CALL LIGHT WITHIN REACH. WILL CONTINUE TO PROVIDE FREQUENT OBSERVATION.
[2019-04-25 08:07] VITALS: BP 127/73
--- NOTE | 2019-04-25 09:51 | NUR ---
Nutrition: Assessed due to wound consult. Admit: bilateral LE cellulitis w/ ulcerations. Hx chronic ulcers, PVD. Has been seen by RDs 4x in the last 4 months. She denies wt loss, states she usually weighs between 135-140# which is her personal goal. EMR indicated past UBW near 152-155# from Nov-Mar 2019 but pt feels these weights are inaccurate as multiple heavy blankets were always on bed when weighed in past. At W, BMI healthy at 19.9 kg/m2 and no overt wasting noted on exam. Reports good, normal appetite. Given recent increased wound/leg pain, has been sleeping more and can't walk as far to store, but still eating multiple times/day. Nutrition plan includes adding Roel BID to meals, adding double protein portions of eggs at breakfast, and encouraged additional protein snacks between meals such as yogurt, nut butter. Pt ate 100% of all meals yesterday. Low nutrition risk w/ interventions.
--- NOTE | 2019-04-25 13:49 | NUR ---
ASSESSMENT-PT LIVES ALONE IN A HOUSE. SHE USES NO DME. SHE WALKS ON HER OWN AND DOES HER OWN ADLS. PT USES THE BUS TRANSPORTATION. PT SAYS SHE SIGNED UP FOR INS THAT WILL BE EFFECTIVE MAY 01 AND THINKS IT IS [facility]ETTER. PT SAYS SHE WAS UNABLE TO FOLLOW-UP WITH THE WOUND CARE CLINIC AND HAD CALLED A SAFETY NET CLINIC BUT HAD NOT HEARD BACK FROM THEM. FOLLOWING TO ASSIST WITH DC PLANNING.
[2019-04-25 16:32] VITALS: BP 154/74
[2019-04-25 16:55] VITALS: BP 138/75
--- NOTE | 2019-04-25 20:13 | NUR ---
Assumed care of pt at 0700. Alert and oriented x4. Up ad endy. Dressing changed on bilateral extremities. IV antibiotics infusing. Pain meds administered per pt request. Report given to aisha NORMAN.
--- NOTE | 2019-04-26 03:09 | NUR ---
PT C/O PAIN ON HER BLE,MANAGED WITH MED.PT UP ADLIB IN ROOM.PT REF DRSG CHANGE TO BLE,STATED THE DRSG DRY AND INTACT.SNACK PROVIDED PER PT'S REQUEST.PT RESTING ON HER BED AT THIS TIME.ISOLATION PRECAUTIONS IN PLACE.CALL LIGHT WITHIN REACH.
[2019-04-26 03:34] VITALS: BP 139/66
[2019-04-26 07:44] VITALS: BP 155/79
[2019-04-26] MEDS ORDERED: ULTRAM50 MG PO (09:59)
[2019-04-26] MEDS ORDERED: PRENATAL PO (09:59)
[2019-04-26 13:14] VITALS: BP 155/79
--- NOTE | 2019-04-26 15:28 | NUR ---
Assumed care of pt at 0700. Pt a&ox4. Dressing changed. Tolerated well. Up ad endy. Good appetite. Call light within reach. Pt will discharge to home. Cab voucher obtained by case management.
--- NOTE | 2019-04-26 15:51 | NUR ---
PT PROVIDED WITH A CAB VOUCHER FOR A RIDE HOME. PT WILL CALL [facility] TO SEE IF THEY ACCEPT HER NEW INSURANCE NEXT WEEK.
== END 2019-04-26 16:36 | disposition home or self-care (01) | DRG 603 ==
LOC: ER 17:33 → 4S 19:19 → EROBS 19:19 → 4S 20:25
PROVIDERS: Emergency Medicine; Nurse Practitioner Acute Care; ADMIT Hospitalist
DX: L03.116 Cellulitis of left lower limb (principal); L97.829 Non-pressure chronic ulcer of other part of left lower leg with unspecified severity; L97.819 Non-pressure chronic ulcer of other part of right lower leg with unspecified severity; E44.1 Mild protein-calorie malnutrition; L03.115 Cellulitis of right lower limb; I73.9 Peripheral vascular disease, unspecified; I87.2 Venous insufficiency (chronic) (peripheral); E87.6 Hypokalemia; E83.42 Hypomagnesemia; Z91.81 History of falling; Z79.899 Other long term (current) drug therapy; Z88.8 Allergy status to other drugs, medicaments and biological substances; Z68.1 Body mass index [BMI] 19.9 or less, adult; Z86.14 Personal history of Methicillin resistant Staphylococcus aureus infection; Z91.018 Allergy to other foods; Z91.14 Patient's other noncompliance with medication regimen
CPT/HCPCS: 10195

== ENCOUNTER 2019-05-10 18:27 | Inpatient (IN) | payer OTHER ==
[~2019-05-10] VITALS: Ht 175.3 cm; Wt 70.8 kg
[2019-05-10 18:27] VITALS: BP 132/96
[~2019-05-10 18:27] MED LIST changes: +PRENATAL PO; +ULTRAM50 MG PO
[2019-05-10 22:27] LABS: ABSOLUTE NEUTROPHILS 3.6 thou/uL (1.4-8.2); EOSINOPHILS 16.1 % (0.0-3.0); HEMATOCRIT 37.4 % (37.0-47.0); HEMOGLOBIN 12.3 gm/dL (12.0-15.0); LYMPHOCYTES 18.1 % (24.0-44.0); MCHC 32.8 g/dL (28.0-37.0); MCV 85.4 fL (80.0-100.0); PLATELET COUNT 338 thou/uL (150-400); POLYS 58.8 % (36.0-66.0); RBC 4.38 mil/uL (4.20-5.00); RDW 15.1 % (10.5-14.5); WBC 6.2 thou/uL (4.0-11.0)
[2019-05-10 22:31] LABS: ANION GAP 11 mmol/L (7-16); BUN 12 mg/dL (7-18); CALCIUM 9.7 mg/dL (8.5-10.1); CHLORIDE 101 mmol/L (98-107); CO2 26 mmol/L (21-32); CREATININE 0.8 mg/dL (0.6-1.0); GLUCOSE 90 mg/dL (74-106); POTASSIUM 3.5 mmol/L (3.5-5.1); SODIUM 138 mmol/L (136-145)
[2019-05-10 22:37] LABS: ALBUMIN 3.6 g/dL (3.4-5.0); SGOT < 5 U/L (15-37); SGPT 32 U/L (30-65); TOTAL BILIRUBIN 0.3 mg/dL (<0.1-1.0); TOTAL PROTEIN 8.6 g/dL (6.4-8.2)
[2019-05-10 23:28] VITALS: BP 125/68
--- NOTE | 2019-05-10 23:30 | NUR ---
Pt. admitted to the unit from the emergency room accompanied by staff. She is alert and oriented. Pt. requesting something to eat and box lunch was given. No c/o discomfort at this time.
[2019-05-10 23:36] VITALS: BP 149/79
--- NOTE | 2019-05-11 00:31 | NUR ---
Pt. resting quietly in bed watching television. Admission assessment and history is completed. Isolation precautions taken due to history of MRSA in leg wounds. Pictures taken of bilateral leg wounds.
[2019-05-11 05:07] LABS: CREATININE 0.8 mg/dL (0.6-1.0); POTASSIUM 3.7 mmol/L (3.5-5.1)
[2019-05-11 08:57] VITALS: BP 11/67
--- NOTE | 2019-05-11 12:52 | NUR ---
PT ALERT AND ORIENTED TIMES FOUR. VSS, IVF INFUSING PER ORDER. PT C/O PAIN PRN MEDICATIONS GIVEN. PT UP TO RESTROOM WITH STANDBY ASSIST. PT TOLERATES MEDS AND MEALS. DRESSING TO BLE CHANGED. WILL CONTINUE TO MONITOR.
[2019-05-11 17:26] VITALS: BP 132/76
[2019-05-11 19:15] VITALS: BP 115/65
--- NOTE | 2019-05-12 04:33 | NUR ---
AQUIRED CARE OF PATIENT AT 1900. PATIENT ALERT AND ORIENTED X4. DRESSING ON BILATERAL EXT CHANGED. L WOUND HAD YELLOW ESCHAR AND THE RIGHT HAD BLACK ESCHAR. IV PATENT RW. UP AD EDIN TO BATHROOM. REMAINS IN ISO FOR MRSA. WOUND CULTURE OBTAINED AND SENT TO LAB. C/O PAIN. MED GIVEN WITH GOOD RESULTS. SLEPT OFF AND ON DURING NIGHT.
[2019-05-12 08:00] VITALS: BP 135/76
[2019-05-12 15:00] VITALS: BP 134/78
--- NOTE | 2019-05-12 17:21 | NUR ---
A/O, calm and pleasant; vss, afebrile; compains pain in legs, pain medication given and worked; small amount of yellow drainage was found on the left leg dressing, dressing change on both sides; Consent for excisional dehrigement signed. Lying in bed watching TV, will keep monitoring.
[2019-05-12 19:39] VITALS: BP 142/75
--- NOTE | 2019-05-13 03:34 | NUR ---
Assessments completed. pt a&ox4. ambulates independently to the BSC. pain controlled with tylenol. dressings to bilateral lower ext changed. pt had been npo after midnight for a possible surgical debridement by Dr Foster. v/s stable. no s/s of distress. will cont to monitor
[2019-05-13 08:00] VITALS: BP 132/84
--- NOTE | 2019-05-13 10:19 | NUR ---
Nutrition: pt admit with wound infection, need for debridement. Familiar with pt from prior admits. Hx chronic ulcers, PVD. Usual intake is good, noted 95-100% meal intake documented on 05/11. Pt UBW 135-140#. Current weight 156# and suspected inaccurate with bedscale/past RD notes. Will initiate nutrition interventions from recent admit, Roel BID, double eggs at breakfast, encourage high protein snacks. Pt currently in surgery. Will followup 05/14.
[2019-05-13 11:45] VITALS: BP 135/67
--- NOTE | 2019-05-13 15:02 | O ---
[facility] [place] [address] [place] [address] OPERATIVE REPORT Name: JOSSELYN HARRIS BRANDI Room #: 459-P ADM IN M.R.#: [id number] Admission: 05/10/19 Attend Phys: Wolfgang Abarca MD Discharge: Date of : 63 Report #: [id number] THIS REPORT FOR: //name// CC: TEX physician/PCP Wolfgang Abarca DATE OF SERVICE: 05/13/2019 PROCEDURE PERFORMED: Sharp excisional debridement of bilateral lower extremity wounds. PREOPERATIVE DIAGNOSIS: Infected bilateral lower extremity venous stasis wounds. POSTOPERATIVE DIAGNOSIS: Infected bilateral lower extremity venous stasis wounds. SURGEON: Dr. Foster. DIRECTIONAL BORE OPERATOR: None. ANESTHESIA: General. ESTIMATED BLOOD LOSS: Less than 5 mL. URINE OUTPUT: Not measured. SPECIMENS: Left lower extremity tissue sent for culture. INDICATIONS FOR PROCEDURE: The patient is a 54-year-old female with history of bilateral lower extremity venous stasis ulcers, who has had both debrided in the past and underwent grafting in the past as well. She presents with severe infection of bilateral lower extremity wounds. The risks, benefits and alternatives of the procedure were discussed with the patient. The risks discussed included but were not limited to the risk of bleeding, worsening infection, damage to any nearby anatomy such as muscle, bone, nerves, blood vessels, tendons, ligaments, etc., joints, anesthesia (cardiac, pulmonary and neurologic type complications) and . The patient had the opportunity to ask questions. All questions were answered to the best of my ability. At the end of the discussion, she did wish to proceed with surgery. FINDINGS: Right lower extremity wound with 4 x 4 cm x 0.2 cm deep. Left lower extremity wound is 12 x 6 cm x 0.2 cm deep. DESCRIPTION OF PROCEDURE: After informed consent was obtained as above, the patient was taken to the operating room and placed in supine position. [address] [address] OPERATIVE REPORT Name: JOSSELYN HARRIS [facility] Room #: 459-P ADM IN .R.#: [id number] Admission: 05/10/19 Attend Phys: Wolfgang Abarca MD Discharge: Date of : 63 Report #: [id number] anesthesia was induced. Preprocedure antibiotics had already been administered on the floor. Her bilateral lower extremities were prepped and draped in the usual sterile fashion and timeout was performed. Mixture of curette, scissors and electrocautery were used to dissect the tissue off of the wound bed. Misonix device was used to debride the wound entirely free of any necrotic debris. The wound bed was pink and healthy and had the typical punctate bleeding following debridement. Hemostasis was obtained with electrocautery. Wounds were irrigated. The wounds were wrapped with Dakin-soaked dressings. The patient tolerated the procedure well and there were no adverse events throughout the course of the procedure. <ELECTRONICALLY SIGNED> By: Leobardo Foster MD 05/13/19 1502 1013 1045 MD antony Branch
[2019-05-13 19:16] VITALS: BP 144/93
--- NOTE | 2019-05-13 19:52 | NUR ---
ASSUMED CARE OF PT AT APPROX 0700. PT IS ALERT AND ORIENTED. VSS. ASSESSMENT CHARTED. PT WENT FOR I AND D THEN RETURNED TO UNIT. I AND D OF BLE WAS SUCCESSFUL AND PT IS IN STABLE CONDITION. PAIN TREATED WITH PRN PAIN MEDICATIONS. PT UPDATED ON STATUS. NO CURRENT CONCERNS OR COMPLAINTS. WILL CONTINUE TO MONITOR.
--- NOTE | 2019-05-14 01:53 | NUR ---
PATIENT CARE ASSUMED AT 1900 WITH PT WATCHING TV.PT IS A/O X4.PT HAD AN I AND D TODAY.DRESSING STILL INTACT/CLEAN/DRY.PT C/O OF PAIN AND PAIN MANAGEMENT WITH TRAMADOL.WILL CONTINUE TO MONITOR
[2019-05-14 07:24] VITALS: BP 111/67
[2019-05-14 10:34] LABS: HEMATOCRIT 30.4 % (37.0-47.0); HEMOGLOBIN 9.9 gm/dL (12.0-15.0); MCHC 32.6 g/dL (28.0-37.0); MCV 86.1 fL (80.0-100.0); RBC 3.53 mil/uL (4.20-5.00); RDW 14.5 % (10.5-14.5); WBC 10.3 thou/uL (4.0-11.0)
[2019-05-14 10:51] LABS: CALCIUM 9.1 mg/dL (8.5-10.1); CREATININE 0.8 mg/dL (0.6-1.0); MAGNESIUM 1.7 mg/dL (1.8-2.4)
--- NOTE | 2019-05-14 14:20 | NUR ---
WOUND CARE F/U; ROUNDING WITH DR NERI AND LEVI ALDRIDGE. THE WOUNDS SHOW SOMWE IMPROVEMENT SINCE LAST VISIT. THERE IS SOME NECROTIC TISSUE TO THE RIGHT LE POSTERIOR. NO CHANGES NEEDED AT THIS TIME. CONTINUE CURRENT TREATMENT.
[2019-05-14 16:26] VITALS: BP 113/64
[2019-05-14 19:08] VITALS: BP 118/63
--- NOTE | 2019-05-15 03:52 | NUR ---
PT CARE ASSUMED WITH PT IN BED WATCHING TV.PT IS A/O X4.PT APPEARED TO BE IN NO DISTRESS .PT DIDNOT C/O OF PAIN OF THIS TIME.PT IS ON ABX AND NS AT 100CC/HR.PT IV ACCESS ON RFA AND LH.PT WOUND DRESSING I/D/C.DRESSING WAS DONE BT WOUND NURSE 05/14/2019.WILL CONTINUE TO MONITOR POC
[2019-05-15 06:26] LABS: HEMATOCRIT 28.7 % (37.0-47.0); HEMOGLOBIN 9.4 gm/dL (12.0-15.0); MCH 28.1 pg (26.0-34.0); MCHC 32.6 g/dL (28.0-37.0); MCV 86.4 fL (80.0-100.0); RBC 3.33 mil/uL (4.20-5.00); RDW 15.3 % (10.5-14.5); WBC 7.7 thou/uL (4.0-11.0)
[2019-05-15 06:40] LABS: CALCIUM 8.3 mg/dL (8.5-10.1); CREATININE 0.8 mg/dL (0.6-1.0); MAGNESIUM 1.6 mg/dL (1.8-2.4); POTASSIUM 4.3 mmol/L (3.5-5.1)
[2019-05-15 07:15] VITALS: BP 116/54
--- NOTE | 2019-05-15 10:17 | NUR ---
PT ADMITTED RELATED TO INFECTED ULCER OF SKIN. CM REVIEWED CHART AND SPOKE WITH CARE TEAM. PT IS FAMILIAR TO CM FROM PREVIOUS ADMIT. PT RESIDES IN A HOUSE ALONE WITH 1 STEP TO ENTER AND NO STEPS INSIDE. 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 PT GOT [facility] INSURANCE COVERAGE OF 05/01/19. PT HAD BEEN PROVIDED INFO TO ARRANGE [facility] PAYMENT FOR OP WOUND CARE IN OUR WOUND CLINIC IN THE PAST AND HADN'T EVER FOLLOWED THROUGH. PT HAD I&D. WOUND CARE AND ID FOLLOWING. CM TO FOLLOW INDICATED WITH DC PLANNING.
--- NOTE | 2019-05-15 15:26 | NUR ---
WOUND CARE FOLLOW UP; ROUNDING WITH DR NERI. NO CHANGES SINCE LAST ASSESSMENT. THE WOUNDS ARE STABLE AND THE PATIENT IS FREE OF PAIN EXCEPT PROCEEDURAL WITH DRESSING CHANGES. CONTINUE CURRENT POC DISCUSSED WITH ESTER
[2019-05-15 15:40] VITALS: BP 132/74
--- NOTE | 2019-05-15 18:30 | NUR ---
PT ASSESSED AT START OF SHIFT. WOUND DRASSINGS DONE PER WOUND TEAM. PT STATES ICE PACK HELPS PAIN ALMOST BETTER THAN PAIN MED. EATING AND DRINKING WELL. AMBULATED THE HALLS SOME THIS AFTERNOON.
[2019-05-16 05:55] LABS: HEMATOCRIT 30.7 % (37.0-47.0); HEMOGLOBIN 10.1 gm/dL (12.0-15.0); MCH 28.3 pg (26.0-34.0); MCV 85.8 fL (80.0-100.0); RBC 3.58 mil/uL (4.20-5.00); RDW 14.8 % (10.5-14.5); WBC 6.4 thou/uL (4.0-11.0)
--- NOTE | 2019-05-16 06:00 | NUR ---
Pt. rested quietly at intervals during the night when checked on during frequent rounds. She was given pain meds (see emar) for c/o pain to her bilateral lower legs with some relief noted. Treatment done to her lower legs as ordered and per her request.
[2019-05-16 06:07] LABS: CALCIUM 8.6 mg/dL (8.5-10.1); CREATININE 0.7 mg/dL (0.6-1.0); POTASSIUM 4.1 mmol/L (3.5-5.1)
[2019-05-16 07:38] VITALS: BP 110/62
--- NOTE | 2019-05-16 09:28 | NUR ---
Nutrition: Seen for follow up. S/p sharp excisional debridement on 05/13 of bilateral LE infected wounds. This RD very familiar to pt from multiple recent admits. She is on a regular diet. Readded her common protein modulars with Roel BID that she uses while hospitalized. She ate 95-100% of all meals on 05/11, but no other meals have been recorded since. Pt admits appetite is good, at her baseline and eating normally. Denies any oral intake concerns. Is receiving double egg orders for increased protein needs. Very aware of protein sources and her increased needs. No repeat education needed. Recent BM 05/15. K+ WNL per 05/16, Mag low per 05/15 - recommend replacing. Low nutrition risk.
[2019-05-16] MEDS ORDERED: SSD CREAM 1% 5050 GM TOP (14:51)
[2019-05-16] MEDS ORDERED: LEVAQUIN 750 M750 MG PO (14:51)
--- NOTE | 2019-05-16 15:19 | NUR ---
per voice message from glenn osman with am better they got our letter and if pt is stable and still needs to be in hospital she can go to [facility], [facility] or [facility]. cm notified cm team and notified MD. pt being notified as well by cm team.
[2019-05-16 15:34] VITALS: BP 110/62
--- NOTE | 2019-05-16 16:30 | NUR ---
DISCHARGE ORDERS COMPLETED. DISCHARGE TO HOME WITH HOME HEALTH SERVICES. PATIENT REFERRAL FAXED TO [facility] PER REQUEST. UNIT SW AWARE. AWAITING RESPONSE.
[2019-05-16 17:51] VITALS: BP 110/62
--- NOTE | 2019-05-16 17:54 | NUR ---
Retail Greeter visited with the pt at bedside to discuss hh referral and/or outpt wound clinic options. Pt also notified that this facility is oon with her insurance plan and she does not have oon benefits. She does not anticipate being home bound as she is job hunting. She does not feel hh is needed at this time. She was given a list of clinics and hospitals that are in network with her insurance to include [facility], [facility] and . She is familiar with [facility] and [facility]. She is also interested in coming to our wound clinic as a pt pay per the paymd program. Information provided. Discussed with the care team. HH referral was sent to [facility];however cm will cancel the referral per pt request. Pt to be sent home with wound care supplies. Cab voucher provided for ride home.
--- NOTE | 2019-05-16 18:24 | NUR ---
Assumed pt care this am, VS have been stable. Wound dressing and pictures taken. Pt is up at [facility] and walked the halls this am on her own. Medications and diet are well tolerated. POC followed, IV removed, no signs or verbalizations of distress have been noted.. DC instruction and cab voucher given to the pt. Pt is now DC.
--- NOTE | 2019-05-18 11:55 | HC ---
[facility] [place] [place] [address] CONSULTATION Name: JOSSELYN HARRIS BRANDI Room #: 459-P [facility] IN M.R.#: [id number] Admission: 05/10/19 Attend Phys: Wolfgang Abarca MD Discharge: 05/16/19 Date of : 63 Report #: [id number] THIS REPORT FOR: //name// CC: Janis NICE physician/PCP DATE OF SERVICE: 05/11/2019 WOUND CARE CONSULTATION NOTE LOCATION: [facility]. REASON FOR CONSULTATION: Cellulitis of right and left lower leg associated with chronic venous stasis ulcers, worsened in condition with increased drainage, pain, redness and cellulitis. HISTORY OF PRESENT ILLNESS: The patient is a 54-year-old woman, very well known to the wound care team from previous care. She is nondiabetic. She has a history of severe venous stasis ulcers of bilateral lower extremities, worse on the left than on the right. She had been previously treated by wound care team and debrided by Dr. Villela. She returned to the Emergency Room due to worsening of her lower extremity wound with increased pain, odor, drainage and redness. The patient indicates she had been on antibiotics, but may have resistant organisms. The patient apparently had not had followup in Wound Care Clinic. Admitted now for worsened lower extremity venous ulcers. PAST MEDICAL HISTORY: History of chronic venous stasis ulceration of the lower legs. History of recurrent cellulitis of the legs. History of closed head injury. ALLERGIES: CLOTRIMAZOLE, MICONAZOLE. LABORATORY DATA: Albumin 3.6. White blood count 6.2, creatinine 0.8. X-ray of the lower extremities normal. MEDICATIONS: Include Tramadol, vancomycin. PAST SURGICAL HISTORY: Tonsillectomy, debridement of bilateral lower extremity wounds in the past. Past medical history of MRSA, peripheral vascular disease. Lower extremity wound debridement, 12/16/2018. History of fall with head trauma, loss of consciousness, 12/2018. History of mild protein-calorie malnutrition. PHYSICAL EXAMINATION: GENERAL: Shows chronically ill-appearing, alert, thin 54-year-old woman. She is a good historian. [address] [address] CONSULTATION Name: JOSSELYN HARRIS [facility] Room #: 459-P [facility] IN M.R.#: [id number] Admission: 05/10/19 Attend Phys: Wolfgang Abarca MD Discharge: 05/16/19 Date of : 63 Report #: [id number] VITAL SIGNS: Temperature 36.5, pulse 85, respirations 18, blood pressure is normal. HEENT: Mucous membranes are moist. NECK: Supple. LUNGS: Respirations unlabored. ABDOMEN: Soft. EXTREMITIES: Examination of the lower extremities shows large chronic venous stasis ulcer of the left lower leg medially. There is a large ulcer measuring approximately 15 cm x 10 cm with a thick dense crusted adherent grayish brown eschar with moderate drainage. There is a small venous stasis ulcer of the right medial lower leg. Some tenderness and mild cellulitis. Wounds will be cultured, redressed with Silvadene, Xeroform and a Kerlix wrap. IMPRESSION: 1. History of closed head injury and altered mental status. 2. Peripheral vascular disease of lower extremities. 3. Severe chronic venous stasis ulcers of bilateral lower extremities, left greater than the right. PLAN: We will order wound cultures of both lower extremities. The patient will continue on vancomycin. The patient is being seen by Infectious Disease. We will reconsult Dr. Villela on Monday to consider again surgical debridement. We will base antibiotic coverage on cultures done. We will treat with IV antibiotics over the weekend. Consult Dr. Villela on Monday to consider repeat debridement. Wound care team will follow. <ELECTRONICALLY SIGNED> By: Olvin Lee MD 05/18/19 1155 1147 2043 Olvin Lee MD /nt
== END 2019-05-16 18:37 | disposition home health service (06) | DRG 264 ==
LOC: ER 18:27 → 4W 22:51 → EROBS 22:51 → 4W 23:19
PROVIDERS: Hospitalist; Nurse Practitioner Family; Physician Assistant; ADMIT Internal Medicine
PROC: 0JBN0ZZ Excision of Right Lower Leg Subcutaneous Tissue and Fascia, Open Approach (ICD-10-PCS; principal; 2019-05-13)
PROC: 0JBP0ZZ Excision of Left Lower Leg Subcutaneous Tissue and Fascia, Open Approach (ICD-10-PCS; principal; 2019-05-13)
DX: I87.2 Venous insufficiency (chronic) (peripheral) (principal); L03.116 Cellulitis of left lower limb; I73.9 Peripheral vascular disease, unspecified; Z86.14 Personal history of Methicillin resistant Staphylococcus aureus infection; Z88.8 Allergy status to other drugs, medicaments and biological substances; Z91.048 Other nonmedicinal substance allergy status; Z79.899 Other long term (current) drug therapy
CPT/HCPCS: 10040; 50010; 50101; 50386; 57092; 57119; 57120; 62110; 62900; 70005

== ENCOUNTER 2020-02-27 21:52 | Inpatient (IN) | payer OTHER ==
[~2020-02-27] VITALS: Ht 175.3 cm; Wt 60.6 kg
--- NOTE | ~2020-02-27 | O ---
[facility] [place] [address] [place] [address] OPERATIVE REPORT Name: JOSSELYN HARRIS Room #: 207-P ADM IN M.R.#: [id number] Admission: 02/28/20 Attend Phys: Janis Metz MD Discharge: Date of : 63 Report #: [id number] THIS REPORT FOR: cc: TEX - Belkys family physician/PCP TEX - No family physician/PCP Jose Dueñas MD ~ CC: Janis NICE physician/PCP DATE OF SERVICE: 03/05/2020 PREOPERATIVE DIAGNOSIS: Bilateral lower extremity venous stasis ulcers. POSTOPERATIVE DIAGNOSIS: Bilateral lower extremity venous stasis ulcers. OPERATION: 1. Excision of left lower extremity venous stasis ulcer 13 x 7 cm. 2. Excisional debridement of right lower extremity venous stasis ulcer 7 x 4 cm. SURGEON: Jose Dueñas MD ANESTHESIA: General. ESTIMATED BLOOD LOSS: Minimal. SPECIMEN: None. DESCRIPTION OF PROCEDURE: After informed consent was obtained, the patient was brought to the operating room and placed supine. SCDs were placed and working, preoperative antibiotics were administered, general anesthesia was induced. The bilateral lower extremities were prepped and draped in the usual sterile fashion. These were excisional debridement. Depth was subcutaneous. 100% of the wounds were debrided. Post-debridement wound areas were 13 x 7 x 0.1 cm on the left and a 7 x 6 x 0.1 cm on the right. I used the Misonix device to debride away the necrotic tissue. This was excisional. Depth was subcutaneous. Sterile dressings were applied with Aquacel Ag and sterile gauze. COMPLICATIONS: None. DISPOSITION: The patient was taken to recovery in satisfactory condition. By: 1215 1225 Jose Dueñas MD /nt
[2020-02-27 21:52] VITALS: BP 87/63
[~2020-02-27 21:52] MED LIST changes: +LEVAQUIN 750 M750 MG PO; +SSD CREAM 1% 5050 GM TOP
[2020-02-27 23:18] LABS: ABSOLUTE NEUTROPHILS 8.6 thou/uL (1.4-8.2); BASOPHILS 0.2 % (0.0-2.0); HEMATOCRIT 38.3 % (37.0-47.0); HEMOGLOBIN 12.7 gm/dL (12.0-15.0); LYMPHOCYTES 2.7 % (24.0-44.0); MCH 28.7 pg (26.0-34.0); MCHC 33.2 g/dL (28.0-37.0); MCV 86.4 fL (80.0-100.0); MONOCYTES 2.4 % (1.0-8.0); PLATELET COUNT 283 thou/uL (150-400); POLYS 94.7 % (36.0-66.0); RBC 4.44 mil/uL (4.20-5.00); RDW 15.2 % (10.5-14.5); WBC 9.1 thou/uL (4.0-11.0)
[2020-02-27 23:31] LABS: CREATININE 0.9 mg/dL (0.6-1.0); MAGNESIUM 1.7 mg/dL (1.8-2.4)
[2020-02-28] VITALS (27 sets, daily range): BP systolic 76–135; BP diastolic 40–68
--- NOTE | 2020-02-28 00:10 | NUR ---
Patien's legs are unwrapped at this time. There is much yellowish drainage to dressings. Pt reports she has not changed her dressings in 2 weeks because she ran out of supplies. Xereform gauze is blackened on both leg dressings.
[2020-02-28 00:26] LABS: URINE BILIRUBIN NEGATIVE (Negative); URINE BLOOD TRACE (Negative); URINE CLARITY SL CLOUDY; URINE COLOR YELLOW; URINE GLUCOSE-RANDOM* NEGATIVE (Negative); URINE KETONES 1+ (Negative); URINE LEUKOCYTES-REFLEX TRACE (Negative); URINE NITRITE-REFLEX POSITIVE (Negative); URINE PROTEIN (DIPSTICK) TRACE (Negative); URINE SPECIFIC GRAVITY >= 1.030 (1.005-1.035); URINE UROBILINOGEN 0.2 E.U./dl (0.2-1.0)
[2020-02-28 00:31] LABS: LIPASE 434 U/L (73-393); TROPONIN-I <0.06 ng/mL (<0.06)
[2020-02-28 00:37] LABS: BACTERIA-REFLEX >30 Many /HPF (None Seen); HYALINE CASTS 4-10 Moderate /LPF (None Seen); MUCUS 0-3 Light strn/LPF (None Seen); SQUAMOUS 0-3 Few /LPF (0-3); URINE RBC 3-10 Few /HPF (0-2); URINE WBC-REFLEX 6-15 Few /HPF (0-5)
[2020-02-28 00:38] LABS: CRYSTALS None Seen /LPF (None Seen)
[2020-02-28] MEDS ORDERED: XEROFLO GAUZE1 EAC1 TOP (02:16)
--- NOTE | 2020-02-28 05:50 | NUR ---
ALERT AND ORIENTED X 4, LUNGS CLEAR-ROOM AIR. C/O SIGNIFICANT DIZZINESS, EVEN AT REST. BLOOD PRESSURE STABLE. BLE WOUNDS CLEANSED WITH NS AND DRESSED WITH XEROFORM, AND GAUZE. PICTURES TAKEN, PLACED IN CHART. PAIN PARTIALLY CONTROLLED WITH IV FENTANYL AND PO TYLENOL. DISCUSSED ALL ADMISSION INFORMATION, VERBALIZED UNDERSTANDING. FALL PRECAUTIONS IN PLACE, CALLS APPROPRIATELY FOR ANY NEEDED ASSISTANCE.
--- NOTE | 2020-02-28 06:32 | NUR ---
LEFT TOES HAVE DARK DISCOLORATION, AND ARE PAINFUL TO TOUCH. TOES ARE WARM, AND PATIENT ABLE TO WIGGLE AND MOVE THEM.
[2020-02-28 06:35] LABS: ALBUMIN 2.6 g/dL (3.4-5.0)
--- NOTE | 2020-02-28 07:42 | EKG ---
[facility] [place] [address] [place] [address] ELECTROCARDIOGRAM REPORT Name: JOSSELYN HARRIS BRANDI Room #: 449-I ADM IN M.R.#: [id number] Admission: 02/28/20 Attend Phys: Janis Metz MD Discharge: Date of : 63 Report #: [id number] THIS REPORT FOR: cc: TEX - Belkys family physician/PCP TEX - Belkys family physician/PCP Shiva Garcia MD [facility] THIS REPORT FOR: //name// [facility] ED Test Date: 2020-02-27 Test Time: 22:23:41 Pat Name: JOSSELYN HARRIS Department: Room: [facility] Gender: F Foundry Manager: JUAN DIEGO : 1965 Requested By: Jonathan Babb Order Number: [id number] MD: Shiva Garcia Measurements Intervals [place] Rate: 56 P: 69 OR: 161 QRS: 62 QRSD: 118 T: 60 QT: 553 QTc: 534 Interpretive Statements Sinus rhythm Nonspecific intraventricular conduction delay Compared to ECG 01/11/2019 17:44:21 Intraventricular conduction delay now present Electronically Signed On 02-28-2020 7:42:10 CDT by Shiva Garcia [email or web address] <ELECTRONICALLY SIGNED> By: Shiva Garcia MD, FACC 02/28/20 0742 22 22 Shiva Garcia MD, [facility] /EPI
[2020-02-28 09:47] LABS: CALCIUM 9.2 mg/dL (8.5-10.1); CREATININE 0.8 mg/dL (0.6-1.0); TOTAL BILIRUBIN 0.3 mg/dL (0.2-1.0); TOTAL PROTEIN 5.6 g/dL (6.4-8.2)
--- NOTE | 2020-02-28 10:54 | NUR ---
Assess due to RD consult received. Admit with sepsis, bilateral cellulitis and UTI. Pt has hx multiple debridements and hospitalizations. Venous stasis ulcers. Visit with pt this am, still has NPO order, but pt mentioned not sure about debridement and that diet may advance. Has good appetite and "wants all the protein I can get." Requests double egg portions every am. Agrees to oral supplements-ensure max and ensure enlive. Wt hx shows fluctuating wts 130s or 150s. Pt reports usual is 137 lb. Physician has indicated protein calorie malnutrition: RD will defer. Pt presents at low nutrition risk with appropriate nutrition interventions in place.
--- NOTE | 2020-02-28 14:09 | NUR ---
PT ADMITTED RELATED TO CELLULITIS,SEPSIS,UTI. CM REVIEWED CHART AND SPOKE WITH CARE TEAM. CM CALLED PT AND SPOUSE WITH HER OVER THE PHONE THIS MORNING. PT APPEARED TO BE A&O X4. CM ROLE INTRODUED. PT INDICATED SHE LIVES IN A HOUSE ALONE WITH 9 STEPS TO ENTER AND 12 STEPS INSIDE. 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 PT INDICATED THAT [facility] FOR CARES IN THE COMMUNITY. PT HAD BEEN GIVEN INFO TO RECIEVE WC AN OP HERE IN THE CLINIC IN THE PAST AND NEVER FOLLOWED UP WITH IT. PT INDICATED THAT SHE IS CURRENTLY PATIENT PAY. SHE INDICATED SHE PLANS TO RETURN HOME ONCE MEDICALLY STABLE. PT WILL NEED MEDICATIONS VOUCHERED UPON DC. CM NOTIFIED PHYSICIAN WHO INDICATED PT MAY BE MEDICALLY STABLE TO DC MONDAY. WC CONSULTED. CM TO FOLLOW INDICATED WITH DC PLANNING.
[2020-02-28 17:18] LABS: APTT 33.8 Seconds (24.5-32.8); FIBRINOGEN 263.1 mg/dL (210-360); INR 1.2
--- NOTE | 2020-02-28 18:01 | NUR ---
ASSUMED CARE OF PATIENT AT SHIFT CHANGE. ASSESSMENT CHARTED. MEDS HELD IN AM FOR NPO STATUS. BP WAS LOW; PROVIDER NOTIFIED. BOLUS ADMINISTERED AND BP DID NOT IMPROVE. AFTER SECOND BOLUS BP IMPROVED. PATIENTS R TOES ARE DUSKY W LITTLE CIRCULATION. ULTRASOUND, CT AND XRAY COMPLETED. CURRENTLY RECIEVING NS ON R FA W NO ISSUES. CONTINUES C/O DIZZINESS AND NAUSEA; STATES "SEEING DOUBLE" ORDERS IN TO TRANSFER TO THE INTENSIVE CARE UNIT. REPORT CALLED OVER TO MATERIALS BRANCH CHIEF. PATIENT AWAITING TRANSFER
--- NOTE | 2020-02-28 19:33 | NUR ---
VAT CONSULED FOR A PICC FOR PRESSORS WHEN TSF TO ICU. CXR REVEALS TIP 5.5CM BELOW THE EUGENE AND IN PERFECT POSITION AT THE CAJ. LINE RELEASED TO RN FOR USE. PLEASE SEE NI FOR DETAILS
[2020-02-28 19:54] LABS: BE(vivo) -1.4 mmol/L (-2 to +3); HCO3 22.1 mmol/L (22.0-26.0); PCO2 32.5 mmHg (35.0-45.0); PO2 88.1 mmHg (80.0-100.0); sO2 97.2 % (92.0-98.0)
--- NOTE | 2020-02-28 20:10 | NUR ---
This RN to bedside upon transfer to unit at 1905. Patient started on Levophed and receiving fluids. This RN spoke to Yuri Clinton regarding patient status and care. All questions answered. Blood pressure rising, will continue to monitor.
[2020-02-29] VITALS (88 sets, daily range): BP systolic 40–138; BP diastolic 24–80
[2020-02-29 02:31] LABS: ABSOLUTE NEUTROPHILS 3.6 thou/uL (1.4-8.2); BASOPHILS 0.3 % (0.0-2.0); EOSINOPHILS 0.2 % (0.0-3.0); HEMATOCRIT 29.3 % (37.0-47.0); LYMPHOCYTES 21.7 % (24.0-44.0); MCH 29.5 pg (26.0-34.0); MCHC 33.3 g/dL (28.0-37.0); MCV 88.6 fL (80.0-100.0); MONOCYTES 8.7 % (1.0-8.0); POLYS 69.1 % (36.0-66.0); RDW 15.4 % (10.5-14.5); WBC 5.2 thou/uL (4.0-11.0)
[2020-02-29 02:36] LABS: CREATININE 0.9 mg/dL (0.6-1.0); MAGNESIUM 1.6 mg/dL (1.8-2.4)
[2020-02-29 02:41] LABS: POTASSIUM 4.8 mmol/L (3.5-5.1)
[2020-02-29 02:42] LABS: HEMOGLOBIN 9.8 gm/dL (12.0-15.0); PLATELET COUNT 182 thou/uL (150-400)
--- NOTE | 2020-02-29 05:24 | NUR ---
Patient has been off levophed gtt for over an hour and is sustaining a MAP of 65. Patients blood sugar this morning was 69, this RN gave the patient 2 apple juices to drink, will recheck in an hour. Patient very anxious, and seems to slur words, and talks so fast it is hard to understand. Told this was a residual from prior concussion and subdural hematoma. Patient also requested a neuro consult for her ongoing dizziness. Will pass on to day shift to discuss with hospitalist. VSS and urine output adequate. Overall, patient is progressing towards goals.
[2020-02-29 11:24] LABS: HEMATOCRIT 28.4 % (37.0-47.0); HEMOGLOBIN 9.4 gm/dL (12.0-15.0)
--- NOTE | 2020-02-29 18:03 | NUR ---
PT CONTINUES TO BE HYPOTENSIVE AFTER FLUID BOLUS, PER SEPSIS PROTOCAL. PT LEVOPHED TITRATED FROM 5 TO 1. NO S/S OF BLEEDING. PT IS A & 0 X 4 BUT HAS RAPID SPEECH THAT CAN BE DIFFICULT TO COMPREHEND. WOUNDS ON BILATERAL LEGS HAVE BEEN CLEANED AND DRESSED. AFEBRILE, NO BM. LOMELI CATH WAS INSERTED DUE TO STRICT I/O. POSSIBLE I & D OF LOWER EXTREMITIES TOMORROW. PROBABLE ANGIOGRAM OF LE ON 03/02. PT AND FAMILY HAVE BEEN UPDATED AND EDUCATED ON PT CONDITION AND POC. PT PROGRESSING TOWARDS POC.
--- NOTE | 2020-02-29 23:45 | NUR ---
call to pharmacy to confirm ok to hang next dose of vancomycin with trough of 11. confirmed ok to hang
[2020-03-01] VITALS (62 sets, daily range): BP systolic 87–128; BP diastolic 40–71
[2020-03-01 05:45] LABS: CALCIUM 8.8 mg/dL (8.5-10.1); CREATININE 0.9 mg/dL (0.6-1.0); POTASSIUM 5.3 mmol/L (3.5-5.1)
[2020-03-01 05:49] LABS: ABSOLUTE NEUTROPHILS 2.1 thou/uL (1.4-8.2); BASOPHILS 1.1 % (0.0-2.0); EOSINOPHILS 3.4 % (0.0-3.0); HEMATOCRIT 29.9 % (37.0-47.0); LYMPHOCYTES 39.9 % (24.0-44.0); MCH 29.6 pg (26.0-34.0); MCHC 33.5 g/dL (28.0-37.0); MCV 88.5 fL (80.0-100.0); MONOCYTES 11.1 % (1.0-8.0); PLATELET COUNT 138 thou/uL (150-400); POLYS 44.5 % (36.0-66.0); RBC 3.37 mil/uL (4.20-5.00); RDW 15.9 % (10.5-14.5); WBC 4.7 thou/uL (4.0-11.0)
--- NOTE | 2020-03-01 05:57 | NUR ---
PT HAD 4 BEATS VTACH, FOLLOWED BY A NORMAL BEAT THEN 13 BEATS VTACH ONE NORMAL BEAT THEN 7 BEATS VTACH. STRIP IN CHART. ELECTROLYTES DRAWN, DOROTHY BAR NOTIFIED, ORDERS TO CONSULT CARDIOLOGY. PT WAS ASYMPTOMATIC DURING EVENT, RESTING QUIETLY WITH EYES CLOSED, THIS RN WOKE HER, SHE DENIES CP OR DIZZINESS. BP STABLE
[2020-03-01 06:13] LABS: MAGNESIUM 1.7 mg/dL (1.8-2.4); POTASSIUM 5.6 mmol/L (3.5-5.1)
--- NOTE | 2020-03-01 09:32 | NUR ---
ESTER PAGING DR. HERRERA DUE TO RUNS OF [facility] THIS SHIFT.
--- NOTE | 2020-03-01 18:46 | 2DMMODE ---
[facility] [place] [address] 2 D/M-MODE ECHOCARDIOGRAM Name: JOSSELYN HARRIS BRANDI Room #: 247-P ADM IN M.R.#: [id number] Admission: 02/28/20 Attend Phys: Janis Metz MD Discharge: Date of : 63 Report #: [id number] THIS REPORT FOR: cc: FAM - No family physician/PCP FAM - No family physician/PCP Nba Constantino MD ~ APPROVED REPORT Study performed: 03/01/2020 13:04:47 EXAM: Comprehensive 2D, Doppler, and color-flow Echocardiogram Patient Location: ICU Room #: 247 Status: on-call BSA: 1.76 HR: 93 bpm BP: 100/48 mmHg Rhythm: Sinus arrhtyhmia Other Information Study Quality: Adequate Indications Hypotension, PVD. 2D Dimensions RVDd: 39.74 mm IVSd: 8.45 (7-11mm) LVOT Diam: 18.43 (18-24mm) LVDd: 42.87 mm PWd: 10.27 (7-11mm) Ascending Ao: 31.59 (22-36mm) LVDs: 30.60 (25-40mm) Aortic Root: 38.55 mm Volumes Left Atrial Volume (Systole) Single Plane 4CH: 29.22 mL Aortic Valve AoV Peak Heath.: 1.51 m/s AO Peak Gr.: 9.08 mmHg LVOT Max P.07 mmHg LVOT Max V: 1.13 m/s LLUVIA Vmax: 1.99 cm2 Mitral Valve [facility] [address] [place] [address] 2 D/M-MODE ECHOCARDIOGRAM Name: JOSSELYN HARRIS BRANDI Room #: 247-P ADM IN M.R.#: [id number] Admission: 02/28/20 Attend Phys: Brisa Berger Discharge: Date of : 63 Report #: [id number] E/A Ratio: 0.8 MV Decel. Time: 232.85 ms MV E Max Heath.: 0.73 m/s MV A Heath.: 0.88 m/s MV PHT: 67.53 ms IVRT: 48.44 ms Pulmonary Valve PV Peak Heath.: 1.05 m/s PV Peak Gr.: 4.38 mmHg Tricuspid Valve TR Peak Heath.: 2.99 m/s RAP Estimate: 5.00 mmHg TR Peak Gr.: 36.00 mmHg PA Pressure: 41.00 mmHg Left Ventricle The left ventricle is normal size. There is normal LV segmental wall motion. There is normal left ventricular wall thickness. Left ventricular systolic function is normal. LVEF is 55%. Mild diastolic dysfunction is present (impaired relaxation pattern). Right Ventricle The right ventricle is normal size. The right ventricular systolic function is normal. Atria The left atrium size is normal. The right atrium size is normal. Aortic Valve The aortic valve is normal in structure. No aortic regurgitation is present. There is no aortic valvular stenosis. Mitral Valve The mitral valve is normal in structure. Trace mitral regurgitation. Tricuspid Valve The tricuspid valve is normal in structure. Mild to moderate tricuspid regurgitation. Estimated PAP is 40-45mmHg. Pulmonic Valve The pulmonary valve is normal in structure. There is no pulmonic valvular regurgitation. Great Vessels [facility] [address] [place] [address] 2 D/M-MODE ECHOCARDIOGRAM Name: JOSSELYN HARRIS BRANDI Room #: 247-P ADM IN .R.#: [id number] Admission: 02/28/20 Attend Phys: Brisa Berger Discharge: Date of : 63 Report #: [id number] Aortic root is mildly dilated. IVC is normal in size and collapses >50% with inspiration. Pericardium There is no pericardial effusion. <Conclusion> The left ventricle is normal size. LVEF is 55%. The aortic valve is normal in structure. The mitral valve is normal in structure. Trace mitral regurgitation. The tricuspid valve is normal in structure. Mild to moderate tricuspid regurgitation. Estimated PAP is 40-45mmHg. The pulmonary valve is normal in structure. There is no pericardial effusion. <ELECTRONICALLY SIGNED> By: Nba Constantino MD 03/01/20 1846 45 [id number] Nba Constantino MD /INF
[2020-03-02] VITALS (29 sets, daily range): BP systolic 80–121; BP diastolic 45–76
--- NOTE | 2020-03-02 04:43 | NUR ---
Assumed pt care at 1900. Pt is alert and oriented with no sign of distress noted in pt. Denies pain. Pt is laying in bed, resting comfortably. Assessment completed and documented. Fall precaution in place. Scheduled meds administered to pt. Pt is NPO after midnight for a scheduled arteriogram. No acute events overnight. Continue to monitor. No further needs at this time
[2020-03-02 06:22] LABS: CALCIUM 8.5 mg/dL (8.5-10.1); CREATININE 0.9 mg/dL (0.6-1.0); POTASSIUM 4.7 mmol/L (3.5-5.1)
--- NOTE | 2020-03-02 08:02 | NUR ---
Pt TRANSFERRED TO ICU. WILL PLACE ON HOLD AND AWAIT NEW ORDERS TO RESUME WHEN APPROPRIATE
--- NOTE | 2020-03-02 09:28 | NUR ---
UPON ASSESSMENT, PT STATED SHE HAD A HEADACHE AND RATED PAIN AT A 6. PT DENIED NEED FOR ANY PAIN MEDICATION AT THIS TIME. RN OFFERED IV PAIN MEDICATON AND PT STATED SHE ONLY HAD A HEADACHE BECAUSE SHE IS NPO AND THAT SHE DOES NOT NEED ANY PAIN MEDICATION AT THIS TIME BUT SHE WILL LET RN KNOW IF THAT CHANGES.
--- NOTE | 2020-03-02 14:19 | NUR ---
cm unable to visit with her, she possible going for procedure today. gurwinder tried speak with vu has nurse in with her. will cont following needed for dc needs. she from home.
--- NOTE | 2020-03-02 15:43 | NUR ---
1430- PT ARRIVED BACK TO ROOM FROM IR. RIGHT GROIN SITE SOFT, NO HEMATOMA PRESENT, MYNX CLOSURE DEVICE. PT IS ON BEDREST UNTIL 1730. DENIES PAIN, A&OX4. VSS.
[2020-03-03] VITALS (7 sets, daily range): BP systolic 92–111; BP diastolic 51–74
--- NOTE | 2020-03-03 01:28 | NUR ---
PT UP WITH STAND BY ASSIST. PT HAD LARGE BM. PT HYPOTENSIVE; MAP RANGES FROM 60-70. PT HAD TEMP 101.2 F. PRN TYLENOL GIVEN. TEMP RECHECK WAS 100.7 F. PT TO TRANSFER TO CCU. CALLED PT REPORT TO NEREIDA NORMAN. INFORMED PT OF TRANSFER FROM ICU.
--- NOTE | 2020-03-03 04:22 | NUR ---
PT TRANSFERED FROM ICU TO ROOM 214, RESTARTED FLUIDS AND ANTIBIOTIC IN L UPPER PICC, NO C/O PAIN, DRESSINGS ON LE REMAIN CDI, LOMELI WITH CLEAR YELLOW URINE, VSS, WILL CON'T TO MONITOR PER PPOC.
--- NOTE | 2020-03-03 12:26 | NUR ---
ON-GOING ASSESSMENT: CM REVIEWED CHART. PT REMAINS ON IV ANTIBIOTICS AND SENSITIVITIES ARE PENDING. PT HAS NO INSURANCE AND CURRENTLY FOLLOWS AT [facility]. PT IS NOT MEDICALLY STABLE FOR DISCHARGE AT THIS TIME. PT WILL LIKELY NEED MEDICATIONS VOUCHERED AT DISCHARGE. CM WILL CONTINUE TO FOLLOW TO ASSIST NEEDED.
--- NOTE | 2020-03-03 12:41 | NUR ---
AAOX4. DYSARTHRIA NOTED. DENIES CP, SOA. DRESSINGS CHANGED. SR PER TELE. FOLLOWING CLOSELY.
--- NOTE | 2020-03-04 04:43 | NUR ---
Assumed pt care at 1900. Pt is alert and oriented. No sign of distress noted in pt. Denies pain. Pt is stable. Fall precaution in place. Assessment completed and documented. Scheduled meds administered to pt. No acute events overnight. No further needs at this time.
[2020-03-04 05:22] VITALS: BP 102/62
[2020-03-04 09:16] VITALS: BP 103/58
[2020-03-04 11:08] VITALS: BP 110/60
[2020-03-04 15:06] VITALS: BP 111/73
--- NOTE | 2020-03-04 17:34 | NUR ---
ASSUMED CARE AT CHANGE OF SHIFT. ALERT X4, FROM HOME ALONE, STAND BY ASSIST TO BATHROOM, LOMELI FOR STRICT I/O, LARGE BM TODAY. WOUND CARE GIVEN PER ORDERS WITH PICTURE TAKEN. DENIES PAIN, DENIES SOB. SCHEDULED MEDS GIVEN PER ORDERS. FALL PRECATIONS IN PLACE. CALL LIGHT AND PERSONAL ITEMS IN REACH.
[2020-03-04 20:05] VITALS: BP 103/61
[2020-03-05] VITALS (7 sets, daily range): BP systolic 94–115; BP diastolic 58–69
--- NOTE | 2020-03-05 05:05 | NUR ---
ASSUMED CARE OF PATIENT AT 1900; AOX4 /SPEAKS FAST AND CAN BE HARD TO UNDERSTAND AT TIMES; SR ON THE MONITOR/HR 80-90s; NO C/O OF PAIN; RESTED QUIETLY THROUGHOUT MOST OF THE NOC; NPO AFTER MIDNIGHT FOR PROCEDURE TODAY; WOUNDS TO BOTH LOWER EXTREMITIES/SEE ASSESSMENTS FOR MORE INFO; WILL CONTINUE TO MONITOR
--- NOTE | 2020-03-05 16:58 | NUR ---
Pt had surgical debridement today of le wound. Continues on iv atbs with sensitivities pending. The pt has been screened by [facility] and [place]. [facility] Will ask for PT/OT re evals as she was put on hold when transfered to the ICU. Will follow along for possible home infusion needs. Pt may be able to due private pay for wound care clinic f/u visits.
--- NOTE | 2020-03-05 19:45 | NUR ---
ASSUMED CARE AT CHANGE SHIFT. SURGERY TODAY TO BILATERAL LE. DRESSING INTACT. PT AND OT CONSULTED. LOMELI REMOVED AT SURGERY. UP TO COMMODE TO VOID. FALL PRECAUTIONS IN PLACE. CALLS FOR ASSISTANCE.
[2020-03-06 04:11] VITALS: BP 130/63
--- NOTE | 2020-03-06 05:29 | NUR ---
ASSUMED CARE OF PATIENT AT 1900; ASSESSMENTS CHARTED; AOX4 WITH ASSIST TO TOILET; BILATERAL LOWER EXTREMITY SURGICAL DRESSINGS C/D/I; C/O OF PAIN TO BILATERAL LOWER EXTREMITY MANAGED WELL WITH MEDICATION; PLAN IS TO CONTINUE IV ABX; WILL CONTINUE TO MONITOR
[2020-03-06 07:45] VITALS: BP 118/61
[2020-03-06 12:00] VITALS: BP 109/68
--- NOTE | 2020-03-06 12:33 | HC ---
[facility] [address] [place] [address] CONSULTATION Name: JOSSELYN HARRIS Room #: 207-P ADM IN M.R.#: [id number] Admission: 02/28/20 Attend Phys: Janis Metz MD Discharge: Date of : 63 Report #: [id number] THIS REPORT FOR: cc: FAM - No family physician/PCP FAM - No family physician/PCP Evin Will MD ~ DATE OF SERVICE: 02/28/2020 INFECTIOUS DISEASE CONSULTATION ATTENDING PHYSICIAN: Dr. Metz. REASON FOR EVALUATION: Multiple lower extremity wounds complicated by inflammation, likely secondary skin and soft tissue infection. HISTORY OF PRESENT ILLNESS: Chart reviewed, patient examined. This is a 55-year-old with fairly extensive medical history given her age, admitted through the Emergency Room with complaints of nausea with emesis. She notes had fallen yesterday due to dizziness, diagnosed with intracranial hematoma. She is noted to have chronic lower extremity ulcerations, was hospitalized recently, underwent operative debridement. She reports polymicrobial growth. Had been on parenteral therapy. At this point, she still has persistent dizziness and she is noted to be hypotensive fact they are transferring her to the Intensive Care Unit to add norepinephrine. She is fairly lucid. She complains of bilateral lower extremity pain. She is not clear if she had any fevers, although she does admit to some chills and shakes. Had wound cultured. Gram stain with gram-negative rods and few gram-positive cocci. Arterial Doppler showed multifocal stenosis. Chest x-ray was otherwise unremarkable. Lactic acid was elevated at 2.3 on admission. Urinalysis did show some moderate pyuria. Empirically started on broad-spectrum therapy with meropenem and vancomycin. ALLERGIES: Listed to TOPICAL ANTIFUNGALS. CURRENT MEDICATIONS: Include vancomycin 1 gram q. 12, hydrocodone, famotidine, meropenem, acetaminophen, ondansetron. PAST MEDICAL HISTORY: As noted above, history of bilateral lower extremity venous stasis insufficiency with ulcers, degree of peripheral vascular disease, malnutrition with weight loss. SOCIAL HISTORY: Nonsmoker, occasional ethanol, no illicit drug use. FAMILY HISTORY: Noncontributory. [facility] [address] [place] [address] CONSULTATION Name: STEVENJOSSELYN [facility] Room #: 207-P [facility] IN .R.#: [id number] Admission: 02/28/20 Attend Phys: Janis Metz MD Discharge: Date of : 63 Report #: [id number] REVIEW OF SYSTEMS: Otherwise, unremarkable 10-point review of systems. Denies any pulmonary-related complaints. PHYSICAL EXAMINATION: GENERAL: She appears chronically ill, undernourished. She is generally pleasant, in moderate distress. VITAL SIGNS: Temperature 97.7, pulse 77, respirations 16, blood pressure is 76/42, saturation 100% on room air. SKIN: No rashes. HEENT: Normocephalic. Extraocular muscles intact. NECK: Supple. LUNGS: Diminished breath sounds. HEART: Regular. I do not appreciate a murmur. ABDOMEN: Soft, nontender. EXTREMITIES: Bilateral lower extremities have compressive layered dressings. GENITOURINARY AND RECTAL: Deferred. LABORATORY DATA: Initial CBC: White count 9.1, H and H 12.7 and 38.3, platelets of 283. Electrolytes: Sodium 146, potassium 3.0, chloride 106, bicarbonate is 26, anion gap of 14, BUN and creatinine 30 and 0.9, glucose of 103. GFR 65. CRP of 46.4, lipase of 434 with a troponin of less than 0.06. Urinalysis 6-15 white cells, greater than 30 bacteria. Lactic acid 2.3. Sed rate of 20. Chest x-ray, no acute process. CT of the head is pending. Procalcitonin less than 0.06. Liver function tests otherwise unremarkable. Albumin 2.6, total protein is 5.6. Arterial Doppler showed monophasic waveforms involving the distal aortic or common iliac artery, focal acceleration in the mid to distal right superficial artery with [id number]-ep-[id number] arterial narrowing, left common femoral artery with minimal velocity separation compared to study 05/12. There has been decrease in the pulsatility inflow waveforms area of narrowing velocity developed in the right superficial femoral artery. Culture in progress. ASSESSMENT: Multiple bilateral lower extremity wounds. this is a chronic issue, continue wound care as prescribed. Await culture results. Continue broad spectrum therapy with Merrem and vancomycin. May need additional imaging or vascular evaluation as well. At this point, she is not overtly toxic, but clearly is quite ill at risk for additional nosocomial related complications including infection. We will add incentive spirometry. We will discuss with Dr. Aponte. <ELECTRONICALLY SIGNED> By: Evin Will MD 03/06/20 1233 [id number] Evin Will MD /nt
--- NOTE | 2020-03-06 13:55 | NUR ---
Nutrition followup on pt with venous stasis ulcers, hx multiple debridements/hospitalizations. S/P latest debridement 03/05. Pt continues to eat well 75-100% of meals and drinks ensure enlive and ensure max daily. Likes both supplements and will continue this and double eggs at breakfast per request. Last weight 131#. Questioned accuracy so obtained standing scale weight at 136# which would be accurate. Continue as low nutrition risk.
[2020-03-06 15:50] VITALS: BP 103/64
--- NOTE | 2020-03-06 18:19 | NUR ---
PT CARE ASSUMED AT 0700. ASSESSMENTS CHARTED. MEDICATION CHARTED. AUGUSTIN 2L PICC. SINUS RHYTHM. HX OF HEAD TRAUMA; PT MUMBLES; SPEAKS QUICKLY. SHEEBA LE WOUNDS; DR ODETTE BLANCHARD THE MICHAELA LEFT PT WITH AQUACELL COVERINGS ONLY; 03/07/20 ORDERED TO RESUME WRITTEN.
[2020-03-06 19:00] VITALS: BP 111/62
--- NOTE | 2020-03-07 03:56 | NUR ---
ASSUMED CARE OF PATIENT AT 1900. PATIENT C/O PAIN IN LEFT LOWER EXTREMITY. PATIENT RATED PAIN 6/10. OFFERED HYDROCODONE/APAP. PATIENT DECLINED AND REQUESTED TYLENOL INSTEAD. ADMINISTERED PRN TYLENOL ORDERED. NO FURTHER C/O PAIN AT THIS TIME
[2020-03-07 04:30] VITALS: BP 104/59
[2020-03-07 07:50] VITALS: BP 106/56
[2020-03-07 12:10] VITALS: BP 107/75
[2020-03-07 15:55] VITALS: BP 102/65
--- NOTE | 2020-03-07 17:44 | NUR ---
ASSUMED CARE AT SHIFT CHANGE, VSS AND AFEBRILE. WOUNDCARE COMPLETED, AND PATIENT FOUND PICKING SOME OF THE SCABS OF, PATIENT WAS ADVICED NOT TO TOUCH SCABS AND ULCERS, SHE VERBALIZED UNDERSTANDING AND WILL CONTINUE WITH POC.
[2020-03-07 19:45] VITALS: BP 110/83
--- NOTE | 2020-03-08 02:40 | NUR ---
PATIENT ASSESSED AND IS ALERT X 4. SKIN WARM AND DRY. ASSUMMED CARE. IV SITE ION RIGHT PICC THAT FLUSHES WELL.iv fluids cont with antibiotics.NO NNAUSEA OR VOMITING. UP TYO BSC WITH ASSISTANCE. LUNGS CTA. TELE- SHOWS NSR. TYLENOL GIVEN FOR HEADACHE. DRESSING TO BILAT LEGS WITH DRESSING ON. SHE CONT TO PICK AT HER WOUNDS . ENCOURGED TO LEAVE THEM ALONE. HAD A BM X 3. VOIDING WELL LUNGS CTA-DISM. CONT PLAN OF CARE.
[2020-03-08 03:30] VITALS: BP 105/61
[2020-03-08 08:30] VITALS: BP 110/60
[2020-03-08] MEDS ORDERED: GENTAMICIN SULF15 GM TOP (08:35)
[2020-03-08] MEDS ORDERED: LEVOFLOXACIN750 MG PO (08:37)
[2020-03-08 15:45] VITALS: BP 122/66
--- NOTE | 2020-03-08 17:21 | NUR ---
ASSUMED CARE AT SHIFT CHANGE, ALERT AND ORIENTED X4. ASSESSMENT CHARTED, SR ON THE MONITOR AND VSS. WOUND CARE WAS DONE PER ORDERS. PROGRESSING TOWARDS GOALS, PLAN IS TO DISCHARGE TOMORROW HOME, AND WILL CONTINUE WITH POC.
[2020-03-08 19:45] VITALS: BP 110/74
--- NOTE | 2020-03-09 00:31 | NUR ---
ASSUMED CARE OF PATIENT AT 1900. DAY NURSE, ESTER BASS STATES PATIENT WAS TRANSFERRED FROM CCU TO OUR UNIT AT 1830. VSS. PATIENT A/0X4. PATIENT HAS DRESSINGS ON BLE'S COVERED WITH GAUZE AND BILATERAL TOES WITH OINTMENT AND YELLOW SOCKS ON. LEFT TOES ARE BRUISED AND SORE AND RIGHT GREAT TOE AND ONE NEXT TO IT WITH SOME BRUISING. BLE'S WARM TO TOUCH. POSITIVE PEDAL PULSES 1+. PATIENT HAS DOUBLE LUMEN PICC LINE IN LEFT UPPER ARM. SHE HAS A SALINE LOCK IV SITE IN RIGHT HAND THAT HAS CLEAR DRESSING AND DRY AND INTACT. PATIENT IS ASSIST X 1 WITH AMBULATING. PATIENT IS ON RA. SHE DENIES PAIN AT THIS TIME. SHE IS PLEASANT AND COOPERATIVE AND TAKES HER MEDS WHOLE. SHE DOES HAVE IV ANTIBIOTICS THAT ARE SCHEDULED THRUOUT DAY. BED IN LOW POSITION AND BED ALARM IS ON. CONTINUING TO MONITOR.
--- NOTE | 2020-03-09 04:05 | NUR ---
PATIENT HAVING 5/10 PAIN IN BLE'S. SHE REQUESTED TYLENOL 650MG PO. THIS WAS GIVEN TO HER AT 0400. PATIENT RESTING IN BED. BED IN LOW POSITION AND BED ALARM IS ON. CONTINUING TO MONITOR.
[2020-03-09 10:10] VITALS: BP 99/55
--- NOTE | 2020-03-09 14:10 | NUR ---
ASSUMED CARE OF PT AT APPROXIMATELY 0835. PT IS A&OX4. IS ON ROOM AIR. DENIES PAIN BILAT LES. MALIK C/D/I. THIS NURSE TO TAKE PICS & REDRESS. PT TO BE DISCHARGED TODAY. THIS NURSE LEFT MESSAGE FOR DR. CONNELL. PT IS REQUESTING INFORMATION REGARDING CONTINUED ABT THERAPY POST DISCHARGE. AWAITING RETURN CALL. PT IS STABLE. LABS REVEIWED. VITALS ASSESSED. PT IS CURRENTLY IN ROOM IN BED. CALL LIGHT WITHIN REACH. WILL CONTINUE TO MONITOR.
[2020-03-09 16:23] VITALS: BP 110/74
--- NOTE | 2020-03-09 16:32 | NUR ---
CARE TEAM INDICATED THAT PT IS MEDICALLY STABLE TO DC HOME THIS DAY. PT WAS CHANGED TO ORAL ABX. PT HAD KAY GIVEN INFO ON HOW TO GO ABOUT FOLLOWING UP WITH THE WC CLINIC HERE AT [facility] AND PAYING PRIVATELY. PT TO FOLLOW UP AT THE REFF CLINIC SHE HAD BEEN UPON DC. CM HAD SPOKEN WITH PT AND SHE INDICATED THAT SHE NEEDED CAB TRNASPORT VOUCHER PROVIDED. NO OTHER CM INTERVENTION INDICATED. CASE CLOSED.
--- NOTE | 2020-03-09 18:40 | HC ---
[facility] [place] [address] CONSULTATION Name: JOSSELYN HARRIS Room #: 463-P [facility] IN M.R.#: [id number] Admission: 02/28/20 Attend Phys: Janis Metz MD Discharge: 03/09/20 Date of : 63 Report #: [id number] THIS REPORT FOR: cc: FAM - No family physician/PCP FAM - No family physician/PCP Rohan Pugh MD ~ DATE OF SERVICE: 02/28/2020 CHIEF COMPLAINT: Lower extremity ulcerations and ischemia. HISTORY OF PRESENT ILLNESS: This is a 55-year-old female patient with whom I am familiar from previous evaluations, who was admitted through the Emergency Department with generalized weakness, nausea, and pain in her lower extremities. She has had chronic lower extremity ulcerations that we have seen for her in the past. She has not followed here at the wound clinic; however, she was recently at [facility]. She has had previous arterial Dopplers in the past, which did not show significant peripheral vascular disease. She has undergone previous surgical debridement of the ulcerations. PAST MEDICAL HISTORY: Positive for history of venous stasis dermatitis and venous ulcerations, bilateral lower extremity cellulitis, MRSA, protein-calorie malnutrition, history of a concussion. SOCIAL HISTORY: Negative for alcohol or tobacco use. She normally lives alone at home. FAMILY HISTORY: Positive for diabetes. ALLERGIES: CLOTRIMAZOLE, MICONAZOLE, MOLDS, MUSHROOMS, STRAWBERRIES. MEDICATIONS: Silvadene and tramadol. REVIEW OF SYSTEMS: CONSTITUTIONAL: The patient does complain of mild fever or chills. Denies recent weight loss. ENT: The patient denies earache, nasal drainage or sore throat. NEUROLOGIC: The patient denies focal weakness, numbness or tingling. EYES: The patient denies visual changes, redness, or drainage. ENT: The patient denies earache, nasal drainage, or sore throat. CARDIOVASCULAR: The patient denies chest pain, palpitations or diaphoresis. PULMONARY: The patient denies cough or shortness of breath. GASTROINTESTINAL: Does complain of nausea, but denies abdominal pain. ORTHOPEDIC: The patient complains of significant pain in her lower extremities bilaterally. [facility] [address] [place] [address] CONSULTATION Name: JOSSELYN HARRIS [facility] Room #: 463-P [facility] IN .R.#: [id number] Admission: 02/28/20 Attend Phys: Janis Metz MD Discharge: 03/09/20 Date of : 63 Report #: [id number] Other systems in a 14-point review of systems are negative. PHYSICAL EXAMINATION: VITAL SIGNS: Include temperature 36.5, pulse 77, respiratory rate 16, blood pressure 76/42. GENERAL: This is a chronically ill-appearing female patient who appears to be in moderate distress. HEENT: Head normocephalic. Nose and throat are clear. NECK: Supple. LUNGS: Clear. ABDOMEN: Soft. EXTREMITIES: Lower extremities demonstrate significant breakdown on both lower extremities. She has discoloration of the toes of her left foot that would suggest ischemia. She has venous ulcerations on both lower extremities that appear to be infected with odor and drainage. CLINICAL IMPRESSION: 1. Venous ulcers, bilateral lower extremities. 2. Ischemic toes on the left foot. 3. Moderate protein-calorie malnutrition. 4. Generalized debility. 5. History of alcohol abuse. RECOMMENDATIONS: At this point in time, the patient is going to be transferred to the Intensive Care Unit. We will recommend local care with gentamicin, Xeroform, and Kerlix. She is noted to have an abnormal arterial Doppler today and Interventional Radiology will be consulted for possible intervention for revascularization. She will need antibiotic therapy, intravenous fluids, likely pressor support as well. I appreciate being asked to see her in consultation. We will follow her closely here in the hospital. <ELECTRONICALLY SIGNED> By: Rohan Pugh MD 03/09/20 1840 08 [id number] Rohan Pugh MD /nt
--- NOTE | 2020-03-09 21:29 | NUR ---
PT DC'D HOME THIS EVENING. THIS NURSE DISCUSSED DISCHARGE ORDERS WITH PT & CONFIRMED PHARMACY. PICC & PERIPHERAL IV WAS DC'D, TIPS INTACT. PT PACKED UP ROOM & TOOK BELINGINGS IN WITH HER IN 1 BAG. PT ATE DINNER BEFORE LEAVING. CABE VOUCHER PROVIDED. WOUND CARE COMPLETED. PICS IN CHART.
== END 2020-03-09 17:50 | disposition home or self-care (01) | DRG 853 ==
LOC: ER 21:52 → 4W 02-28 02:05 → EROBS 02-28 02:05 → 4W 02-28 02:39 → ICU 02-28 19:21 → 2N 03-03 02:12 → 4S 03-08 18:04 → 4W 03-08 18:28
PROVIDERS: Emergency Medicine; Internal Medicine Pulmonary Disease; Nurse Practitioner Family; ADMIT Hospitalist; ATTEND Hospitalist
PROC: 02H633Z Insertion of Infusion Device into Right Atrium, Percutaneous Approach (ICD-10-PCS; principal; 2020-02-28)
PROC: 0JBN0ZZ Excision of Right Lower Leg Subcutaneous Tissue and Fascia, Open Approach (ICD-10-PCS; 2020-03-05)
PROC: 0JBP0ZZ Excision of Left Lower Leg Subcutaneous Tissue and Fascia, Open Approach (ICD-10-PCS; 2020-03-05)
DX: A41.9 Sepsis, unspecified organism (principal); R65.21 Severe sepsis with septic shock; L03.116 Cellulitis of left lower limb; L03.115 Cellulitis of right lower limb; E44.0 Moderate protein-calorie malnutrition; I47.2 Ventricular tachycardia; N39.0 Urinary tract infection, site not specified; Z68.1 Body mass index [BMI] 19.9 or less, adult; I73.9 Peripheral vascular disease, unspecified; E87.6 Hypokalemia; E83.42 Hypomagnesemia; F10.11 Alcohol abuse, in remission; D64.9 Anemia, unspecified; Z20.828 Contact with and (suspected) exposure to other viral communicable diseases; Z83.3 Family history of diabetes mellitus; Z88.8 Allergy status to other drugs, medicaments and biological substances; Z90.89 Acquired absence of other organs; Z91.018 Allergy to other foods; Z79.899 Other long term (current) drug therapy
CPT/HCPCS: 10040; 10078; 10081; 10203; 50010; 50101; 50386; 57091; 57119; 57120; 62110; 62900; 70005

== ENCOUNTER 2020-03-24 23:02 | Inpatient (IN) | payer OTHER ==
[~2020-03-24] VITALS: Ht 175.3 cm; Wt 61.7 kg
[~2020-03-24 23:02] MED LIST changes: +GENTAMICIN SULF15 GM TOP; +LEVOFLOXACIN750 MG PO; +XEROFLO GAUZE1 EAC1 TOP
[2020-03-24 23:22] VITALS: BP 100/56
[2020-03-25 02:54] LABS: HEMATOCRIT 33.9 % (37.0-47.0); HEMOGLOBIN 11.4 gm/dL (12.0-15.0); MCH 29.7 pg (26.0-34.0); MCHC 33.6 g/dL (28.0-37.0); MCV 88.4 fL (80.0-100.0); RBC 3.84 mil/uL (4.20-5.00); RDW 14.8 % (10.5-14.5); WBC 9.5 thou/uL (4.0-11.0)
[2020-03-25 03:02] LABS: CALCIUM 9.2 mg/dL (8.5-10.1); CREATININE 0.9 mg/dL (0.6-1.0); POTASSIUM 3.6 mmol/L (3.5-5.1)
[2020-03-25 04:08] VITALS: BP 100/45
[2020-03-25 04:19] VITALS: BP 112/41
[2020-03-25 04:50] VITALS: BP 101/66
--- NOTE | 2020-03-25 07:51 | NUR ---
VSS-AFEBRILE. ROOM AIR. C/O SIGNIFICANT BLE PAIN RELATED TO VASCULAR WOUNDS, PARTIAL RELIEF NOTED WITH PO AND IV PAIN MEDICATIONS. PICTURES TAKEN AND PLACED IN CHART. WOUND CLEANSED WITH NS, AND DRESSED WITH XEROFORM AND KERLEX. FALL PRECAUTIONS IN PLACE.
--- NOTE | 2020-03-25 10:38 | NUR ---
Assess d/t consult for malnutrition. Pt admitted d/t BLE cellulitis and pain, and chronic BLE wounds. PMHx hypotension, PVD, PAD. Pt reports she has been struggling financially and d/t severe pain has been struggling to obtain access to a safe food source/pantry. Reports she has been educated on importance of high protein and requests double protein portions at breakfast and lunch, and Ensure Max in AM and Ensure Enlive at lunch. Eating well since diet advanced. Denies recent wt loss, ubw ~137lb. documents severe protein calorie malnutrition - RD to defer dx. Pt at a low nutrition risk with appropriate interventions in place.
--- NOTE | 2020-03-25 11:42 | NUR ---
WOUND CARE NOTE; ROUNDING W/ DR NERI, PT ALERT AND COOPERATIVE, BILAT LOWER LEG ULCERS, AND R GREAT TOE, TO ORDER GENTAMICIN OINT, UNTIL GENT AVAILABLE ULCERS CLEANED W/ NS AND REWRAPPED W/ XEROFORM AND KERLIX WELL DRILLER AWARE
--- NOTE | 2020-03-25 15:52 | NUR ---
Chart reviewed and case discussed with the care team including wound care. Pt known to cm from several recent admissions for recurrent lower ext cellulitis. The pt dc'd to home on 03-09-20 on po atb and info was provided for her to make appt with our wound clinic as pvt pay pt. She reports that she attempted to make an appt with the [facility], the [facility] used in the past; but they were too busy and could not get her in. She did not fill her script at dc either. The pt lives alone in her own home and has 9 steps to enter and 12 inside. She has been indep with gait and adl's. Follow through with dc instructions is a concern and she has been over resourced when screened for [place] medicaid application. DC timeframe is uncertain. Will ask [employer] to revisit with her regarding her financial resources and application for [place] Medicaid. She reports she can not afford f/u care. Dc need are uncertain at this time pending her plan of care. Will follow.
[2020-03-25 17:28] VITALS: BP 93/63
--- NOTE | 2020-03-25 18:04 | NUR ---
ASSUMED CARE OF PATIENT AT APPROX 0730. ASSESSMENT CHARTED. MEDS GIVEN PER JUN. VSS; SOFT BP BASELINE. PATIENT IS A&OX4 AND MAKES NEEDS KNOWN. C/O PAIN ON BLE 12/08. PRN ANALGESICS ADMINISTERED PER ORDERS. WOUND CARE DONE ON ADMISSION BY GEENA RN. WOUND CARE COMPLETED BY SENIOR ENVIRONMENTAL SCIENTIST AND PROVIDER AGAIN AT APPROX 1130. THIS NURSE ATTEMPTED TO PERFORM WOUND CARE ON PATIENT BUT IT WAS TOO PAINFUL TO TOLERATE EVEN AFTER PAIN MED WAS GIVEN. C/O OCCASIONAL NAUSEA RELIEVED BY EATING. TOO PAINFUL TO AMBULATE; PATIENT ENCOURAGED TO REPOSITION OFTEN. FLUIDS INFUSING ON R AC W NO ISSUES. FALL PRECAUTIONS IN PLACE. WILL CONTINUE TO MONITOR AND ENDORSE TO GEENA RN.
[2020-03-25 20:21] VITALS: BP 90/46
--- NOTE | 2020-03-25 21:07 | NUR ---
I AGREE WITH NURSING ASSESSMENT AND NURSING NOTE DONE BY MELANY/LAYOUT ARTIST.
--- NOTE | 2020-03-26 05:31 | NUR ---
PATIENT AOX4 MAKES NEEDS KNOWN. PATIENT NEEDS MINIMUM ASSISTASNCE WITH ADL, BED MOBILITY, TRANSFER AND TOILETING.PAIN CONTROLLED THIS SHIFT. DRESSING ON BLE ARE C/D/I. PATIENT USES BEDSIDE COMMODE. PATIENT IN BED ASLEEP AT THIS TIME BREATHING REGULAR AND UNLABOURED.
[2020-03-26 05:55] LABS: HEMATOCRIT 26.8 % (37.0-47.0); MCH 29.6 pg (26.0-34.0); MCV 89.8 fL (80.0-100.0); RBC 2.98 mil/uL (4.20-5.00); RDW 15.2 % (10.5-14.5); WBC 5.5 thou/uL (4.0-11.0)
[2020-03-26 06:13] LABS: HEMOGLOBIN 8.8 gm/dL (12.0-15.0)
[2020-03-26 06:32] LABS: CALCIUM 8.1 mg/dL (8.5-10.1); MAGNESIUM 1.4 mg/dL (1.8-2.4); POTASSIUM 4.5 mmol/L (3.5-5.1)
[2020-03-26 07:48] VITALS: BP 95/53
--- NOTE | 2020-03-26 11:17 | NUR ---
legs dressing changed, tolerated well.
[2020-03-26 20:13] VITALS: BP 11/58
[2020-03-27 07:04] VITALS: BP 118/63
--- NOTE | 2020-03-27 08:21 | NUR ---
PROGRESS PT A/O X4 VSS, DRSG TO LEFT LEG C/D/I RIGHT LEG DRSG SOILED SO CHANGED WITH ABD'S KERLIX XEROFORM. TOOK ONE HYDROCODONE FOR PAIN AND THEN WAS NAUSEOUS AND ZOFRAN GIVEN WITH EFFECT PT SLEPT AFTER VANCO TROUGH WAS 13 MANAGED BY PHARMACY THEY GAVE THE GO AHEAD AND GIVE DOSE SHE WAS WITHIN THE GUIDELINES. UP WITH SBA CONTINUE POC.
[2020-03-27 16:49] VITALS: BP 97/31
--- NOTE | 2020-03-27 18:34 | NUR ---
ASSUMED CARE OF PATIENT CARE AT APPROX 0900. ASSESSMENT CHARTED. MEDICATIONS ADMINISTERED PER MAR. VSS. PATIENT IS A&OX4 AND VOICES NEEDS. WOUNDS ON BLE C/D/I. VOICES PAIN MOSTLY ON LLE. PRN ANALGESICS ADMINISTERED. PATIENT REMAINS ON FLUIDS INFUSING ON R AC. ID PHYSICIAN SAW PATIENT TODAY; WILL REMAIN ON IV ABX. TOLERATES PO INTAKE WELL AND GETS UP SBA/X1 TO BATHROOM SLOWLY AND PAINFUL. FALL PRECAUTIONS IN PLACE AND AGREES TO CALL FOR ASSISTANCE. VOICED NO FURTHER NEEDS. WILL CONTINUE TO MONITOR AND ENDORSE TO NOC ESTER
[2020-03-27 18:56] VITALS: BP 111/52
[2020-03-28 07:53] VITALS: BP 119/71
--- NOTE | 2020-03-28 14:44 | HC ---
[facility] [place] [address] CONSULTATION Name: JOSSELYN HARRIS Room #: 464-P ADM IN M.R.#: [id number] Admission: 03/25/20 Attend Phys: Wolfgang Abarca MD Discharge: Date of : 63 Report #: [id number] THIS REPORT FOR: cc: [facility] - Clinic physician unknown [facility] - Clinic physician unknown Rohan Pugh MD ~ DATE OF SERVICE: 03/25/2020 CHIEF COMPLAINT: Lower extremity ulcerations. HISTORY OF PRESENT ILLNESS: This is a 55-year-old female patient with whom we are familiar from multiple hospitalizations. She was hospitalized earlier this month and underwent a debridement by Dr. Dueñas. She has now been readmitted with increasing pain and drainage from her lower extremities. She received intravenous meropenem and was discharged home on Levaquin. She did not make any followup arrangements. She normally goes to a free clinic at [address] [place] [address]. She did not make any attempt to have an appointment in the Wound Center here. She bandages her legs as best she can with materials that she has at her home. PAST MEDICAL HISTORY: Positive for peripheral vascular disease, stasis dermatitis and ulcerations, MRSA. SOCIAL HISTORY: Negative for any tobacco or alcohol use. Currently lives at home by herself. FAMILY HISTORY: Positive for diabetes. ALLERGIES: INCLUDE CLOTRIMAZOLE, MICONAZOLE, MOLD, MUSHROOMS AND STRAWBERRIES. MEDICATIONS: Include gentamicin topical and Levaquin. REVIEW OF SYSTEMS: CONSTITUTIONAL: The patient denies fever, chills or weight loss. NEUROLOGICAL: The patient denies focal weakness, numbness or tingling. EYES: The patient denies visual changes, redness, or drainage. ENT: The patient denies earache, nasal drainage or sore throat. CARDIOVASCULAR: The patient denies chest pain, palpitation or diaphoresis. PULMONARY: The patient denies cough or shortness of breath. GASTROINTESTINAL: The patient denies nausea, vomiting, diarrhea or abdominal pain. ORTHOPEDIC: The patient does complain of pain, swelling, drainage and ulcerations to both lower extremities as well as the toes of both feet. Other systems in a 14-point review of systems are negative. [facility] [address] [place] [address] CONSULTATION Name: JOSSELYN HARRIS [facility] Room #: 464-P ADM IN .R.#: [id number] Admission: 03/25/20 Attend Phys: Wolfgang Abarca MD Discharge: Date of : 63 Report #: [id number] PHYSICAL EXAMINATION: VITAL SIGNS: At this time include temperature 36.6, pulse 84, respiratory rate 18, blood pressure 101/66. GENERAL: This is a well-developed, well-nourished female patient who appears to be in minimal distress. HEENT: Head normocephalic. Nose and throat are clear. NECK: Supple. ABDOMEN: Bowel sounds present. EXTREMITIES: Examination of the lower extremities demonstrates palpable distal pulses. She has open ulcerations to both lower legs as well as to the toes, mainly on the left, but some on the right as well. There is granulation tissue, a little bit of superficial eschar, but overall seem improved from previous evaluations. LABORATORY STUDIES: Include sodium 138, potassium 3.6, chloride 104, CO2 of 19, BUN 16, creatinine 0.9, glucose of 81. White blood cell count 9.5 with hemoglobin 11.4. CLINICAL IMPRESSION: 1. Venous type ulcerations, bilateral lower extremities including the toes of both feet, left greater than right. 2. Cellulitis, bilateral lower extremities. 3. Previous angiogram noted no significant stenoses. 4. Moderate protein-calorie malnutrition. RECOMMENDATIONS: At this point in time, we will recommend topical gentamicin, Xeroform gauze and Eduardo wrap to both lower extremities. I do not think she will need a surgical debridement on this admission. We will recommend antibiotics per Infectious Disease. No further vascular intervention or workup will be required at this time. We will recommend aggressive nutritional support to maximize wound healing. Recommend elevation of her legs, do recommend compression. She often refuses the Eduardo wraps; however. <ELECTRONICALLY SIGNED> By: Rohan Pugh MD 03/28/20 1444 [id number] [id number] Rohan Pugh MD /nt
[2020-03-28 15:36] VITALS: BP 128/75
--- NOTE | 2020-03-28 19:33 | NUR ---
Wound dressing changed, tolerated well.
--- NOTE | 2020-03-28 20:11 | HC ---
[facility] [place] [address] CONSULTATION Name: JOSSELYN HARRIS Room #: 464-P ADM IN M.R.#: [id number] Admission: 03/25/20 Attend Phys: Wolfgang Abarca MD Discharge: Date of : 63 Report #: [id number] THIS REPORT FOR: cc: [facility] - Clinic physician unknown [facility] - Clinic physician unknown Tacos Aopnte MD ~ DATE OF SERVICE: 03/25/2020 INFECTIOUS DISEASE CONSULTATION REASON FOR CONSULTATION: Evaluate lower extremity wound infection. HISTORY OF PRESENT ILLNESS: A 55-year-old with chronic venous stasis disease, who has been in and out of the hospital multiple times over the last year. Last seen end of January. Treated with IV antibiotic therapy and discharged on Levaquin. She had polymicrobial growth from her lower extremity wounds, left greater than right. She does have underlying venous stasis disease and noncompliance with some of her medical care. She does attempt to care for herself, but has limited resources. Returns now with worsening wounds. No fever, chills or sweats. Has significant amount of pain. No nausea, vomiting or diarrhea. No dysuria or frequency. No cough or sputum production. PHYSICAL EXAMINATION: VITAL SIGNS: She was afebrile and hemodynamically stable. GENERAL: Alert and cooperative. She was in no distress. Wounds were dressed. She did have healing wounds to her toes on the left. CHEST: Clear. HEART: Regular. ABDOMEN: Soft and nontender. EXTREMITIES: Pulses were palpable in her feet. LABORATORY STUDIES: Reviewed. IMPRESSION: Bilateral lower extremity venous stasis ulcers with associated cellulitis. Peripheral vascular disease. Malnutrition. Chronic pain. [facility] [address] [place] [address] CONSULTATION Name: JOSSELYN HARRIS BRANDI Room #: 464-P ADM IN M.R.#: [id number] Admission: 03/25/20 Attend Phys: Wolfgang Abarca MD Discharge: Date of : 63 Report #: [id number] RECOMMENDATIONS: We will continue IV antibiotic therapy, wound care and director social assistance. <ELECTRONICALLY SIGNED> By: Tacos Aponte MD 03/28/202010 2207 0507 Tacos Aponte MD /nt
[2020-03-28 20:17] VITALS: BP 119/61
--- NOTE | 2020-03-28 22:28 | NUR ---
Care assumed of patient at 1915: Patient seated quietly in bed at start of shift. Patient alert and oriented x4. Calm, pleasant and cooperative. Dressings in place to bilateral lower extremities. 1+ pitting edema to left lower extremity, trace pitting edema to right lower extremity. When asked if experiencing any pain, patient states "I don't know". Reports that PRN Fentanyl was effective in reducing pain. Fluids infusing right AC. Education completed on using call light before using bedside commode. High fall risk precautions in place. Ate 100% HS snack. Took HS medication without difficulty. Watching TV in bed at this time.
[2020-03-29 07:00] VITALS: BP 103/57
--- NOTE | 2020-03-29 11:52 | NUR ---
Pt transferred from 4W at change of shift this am. C/o some pain in lower extremities. Dressings changed. A&ox4. SBA to bedside commode. Room air. Call light within reach. Will continue to monitor.
[2020-03-29 16:40] VITALS: BP 97/58
[2020-03-29 18:59] VITALS: BP 118/61
[2020-03-29 21:21] VITALS: BP 118/61
--- NOTE | 2020-03-30 03:25 | NUR ---
PT AOX4. PT REPORTS PAIN IN BOTH FEET, NOTED TO WORSEN WITH TACTILE STIMULATION AND ACTIVITY. PT RECEIVING PRN PO NORCO Q6HR AND PRN PO APAP Q6HR WITH PRN IV FENTANYL Q4HR AVAILABLE. PT REPORTS RELUCTANCY IN TAKING FENTANYL DUE TO INCREASED DROWSINESS AND CLOUDY THOUGHTS AFTER PREVIOUS ADMINISTRATION. PT REPORTS NUMBNESS IN BILATERAL TOES, CAPILLARY REFILL INTACT LESS THAN 3SEC IN ALL EXTREMITIES. PT TOLERATING PO INTAKE OF FLUIDS AND REGULAR DIET WITHOUT ISSUE. PT REPORTS NAUSEA X1 WITHOUT EMESIS. PT REFUSING PRN IV ZOFRAN Q6HR, PREFERS TO LET NAUSEA RESOLVE WITHOUT MEDICATION. PT DENIES SOB WHILE ON ROOM AIR. PT AMBULATING WITH STANDBY ASSIST TO BEDSIDE COMMODE. PT ENCOURAGED TO NOTIFY STAFF FOR ALL NEEDS, CALL LIGHT WITHIN REACH, BED ALARM ON, BED IN LOWEST POSITION, FREQUENT MONITORING WILL CONTINUE.
[2020-03-30 03:28] VITALS: BP 118/64
[2020-03-30 05:41] LABS: ALBUMIN 2.5 g/dL (3.4-5.0); CALCIUM 8.3 mg/dL (8.5-10.1); PHOSPHORUS 4.7 mg/dL (2.5-4.9); POTASSIUM 4.1 mmol/L (3.5-5.1)
[2020-03-30 08:04] VITALS: BP 112/67
[2020-03-30] MEDS ORDERED: LEVOFLOXACIN500 MG PO (10:56)
--- NOTE | 2020-03-30 11:16 | NUR ---
ASSUMED CARE AT 0700. PT IS A&O X 4. PT HAS IV ON RIGHT AC GOING AT 75 ML/HR. IV SHOWS NO SIGNS OF REDNESS OR SWELLING. PT DENIES ANY PAIN RIGHT NOW BUT PT WILL LET ME KNOW IF SHE WANTS MORE PAIN MEDICATION. WOUND CARE WAS GIVEN THIS AM WITH GENATANCIN, XEROFORM, ABD, AND KHOA WRAPPING. PT COMPLAINS OF NUMBNESS AND TINGLING WHEN I WAS CHANGING THE DRESSING BUT ABSIDE AFTER 1 HOUR OF CHANGING DRESSING. PT DENIES SOA, DIZZINES, N/V. PT IS ON STANDBY ASSIST. FAL PRECAUTION. CALL LIGHT WITHIN REACH.
--- NOTE | 2020-03-30 13:23 | NUR ---
I have reviewed the documentation by JUAN PABLO COSTA from 03/30/20 to 03/30/20 and I concur with it. RADHA SULLIVAN, PT, DPT
--- NOTE | 2020-03-30 13:47 | NUR ---
on-going assessment: CM REVIWED CHART AND SPOKE WITH ATTENDING. PT WAS MEDICALLY STABLE FOR DISCHARGE AND HAS NO INSURANCE. MED-ASSIST MED WITH PT BUT SHE IS NOT WILLING TO SPEND DOWN HER MONEY TO QUALIFY FOR ASSISTANCE WITH MEDICAID. PT NEEDING ASSISTANCE WITH FILLING PRESCRIPTION. CM RECEIVED RX FOR LEVAQUIN FROM ATTENDING FOR 7 DAYS AND CM SPOKE WITH OUTPATIENT PHARMACY AT [facility] AND COST $10. THIS MEDICATION WILL BE VOUCHERED THROUGH CASE MANAGEMENT. CM ALSO SPOKE WITH WOUND CARE WHO PUT TOGETHER A PACKAGE FOR PATIENT TO TAKE HOME SOME SUPPLIES TO ASSIST WITH WOUNDCARE DUE TO HER NO INSURANCE. CM PROVIDED PT WITH OUTPATIENT RESOURCES FOR FOLLOW UP (HEALTH/RESOURCE PACKET). CM MET WITH PT WHO IS REQUESTING TO DISCHARGE TOMORROW DUE TO HER HEATER NOT WORKING. SHE REPORTS IF WE CAN KEEP HER THIS EVENING SHE WILL CONTACT SOMEONE TO MEET HERE THERE TOMORROW TO FIX IT. LON ALSO PROVIDED PT WITH THE [employer] CONTACT NUMBER [phone]. CM SPOKE WITH [employer] WHO REPORTS THEY ARE THERE 21/11 TO HELP PROVIDE ASSISTANCE/RESOURCES AND STATED TO HAVE THE PATIENT CALL THEM. THEY ALSO PROVIDED PT WITH [employer] WHO HAS A WEATHERIZATION PROGRAM TO HELP ASSIST WITH HEATING BILLS [phone]. CM PROVIDED THIS TO PATIENT. CM NOTIFIED CM DIRECTOR WELL ATTENDING. PLAN IS TO DISCHARGE PATIENT HOME TOMORROW.
[2020-03-30 14:59] VITALS: BP 112/67
[2020-03-30 16:45] VITALS: BP 117/64
[2020-03-30 19:04] VITALS: BP 118/63
--- NOTE | 2020-03-31 00:54 | NUR ---
Care assumed of patient at 1915: Patient alert and oriented x4. Calm, cooperative. Reports pain 2/10 to left lower extremity, requested PRN Tylenol, medication provided, reports reduced pain to 1/10. Dressings re-enforced to bilateral lower extremities. Denies numbness, tingling to BLE. Denies N/V. Fluid running in right AC without issue. Up to BS with stand by assist x1. Gait steady, good balance. Happy to be returning to home 03/31/20. Resting quietly in bed at this time.
[2020-03-31 04:46] VITALS: BP 114/70
[2020-03-31 08:10] VITALS: BP 107/68
--- NOTE | 2020-03-31 09:47 | NUR ---
assumed care at 0700. pt is a&o x 4. pt complains of numbness of foot when dressing is being changed. pt complains of pain and was given tynolel. pt denies n, v, d. vss. pt last bm was 03/30/20. wound care was changed during this morning. skilled nursing case manager gave me antibiotics to give to pt and wound care supply. pt is being taught how to change wound on bilateral legs. right ac iv is intact and shows no signs of redness or swelling. fall precaution. call light within reach. pt will be d/c today.
--- NOTE | 2020-03-31 10:15 | NUR ---
ON-GOING ASSESSMENT: LON REVIEWED CHART AND SPOKE WITH PT. PT REPORTS SHE GOT [employer] OF A COMPANY THAT IS COMING TO REPLACE HER MOTOR IN HER HEATER AT HOME. SHE REPORTS IF IT IS NOT FIXED BY TONIGHT SHE WILL STAY WITH HER NEIGHBOR. LON PROVIDED BEDSIDE RN WITH LEVAQUIN ANTIBIOTIC THAT LON VOUCHERED FOR AT [facility] (APPROVAL FROM CM DIRECTOR COSTING 9.24). BEDSIDE RN ALSO HAS PACKAGE OF SOME WOUND CARE SUPPLIES TO SEND WITH PATIENT. CM PROVIDED PT WITH HEALTH RESOURCE PACKET AND ENCOURAGED HER TO FOLLOW UP OUTPATIENT. MED ASSIST FOLLOWED PT BUT SHE IS NOT WILLING TO SPEND DOWN HER RESOURCES TO QUALIFY FOR MEDICAID.
--- NOTE | 2020-03-31 10:36 | NUR ---
Patient is comfortably resting in bed, has eaten breakfast, waiting dishcarge home. Last bowel movement was 03/31. Dressing change included gentamicin gel, gauze, abd pads, saline water, and krillex wrap. Patient tollerated well, did not have any compaints of pain.
[2020-03-31] MEDS ORDERED: ACETAMINOPHEN325 M1 PO (11:26)
[2020-03-31] MEDS ORDERED: HYDROCODON-ACE1 EAC7 PO (11:26)
--- NOTE | 2020-03-31 12:00 | NUR ---
I have reviewed the student documentation.
== END 2020-03-31 15:45 | disposition home or self-care (01) | DRG 603 ==
LOC: ER 23:02 → EROBS 03-25 03:28 → 4W 03-25 03:28 → EROBS 03-25 03:28 → 4W 03-25 04:20 → 4S 03-29 07:13
PROVIDERS: Emergency Medicine; Nurse Practitioner Family; ADMIT Internal Medicine; ATTEND Internal Medicine
DX: L03.116 Cellulitis of left lower limb (principal); L97.829 Non-pressure chronic ulcer of other part of left lower leg with unspecified severity; L97.819 Non-pressure chronic ulcer of other part of right lower leg with unspecified severity; E44.0 Moderate protein-calorie malnutrition; L03.115 Cellulitis of right lower limb; I87.8 Other specified disorders of veins; I73.9 Peripheral vascular disease, unspecified; G89.29 Other chronic pain; I95.9 Hypotension, unspecified; Z91.14 Patient's other noncompliance with medication regimen; Z88.8 Allergy status to other drugs, medicaments and biological substances; Z68.20 Body mass index [BMI] 20.0-20.9, adult; Z83.3 Family history of diabetes mellitus; Z79.899 Other long term (current) drug therapy
CPT/HCPCS: 10040; 10102

== ENCOUNTER 2020-04-07 18:21 | Emergency (ER) | payer OTHER ==
[~2020-04-07] VITALS: Ht 175.3 cm; Wt 62.1 kg
[~2020-04-07 18:21] MED LIST changes: +HYDROCODON-ACE1 EAC7 PO; +LEVOFLOXACIN500 MG PO
[2020-04-07 20:03] LABS: ABSOLUTE NEUTROPHILS 5.3 thou/uL (1.4-8.2); BASOPHILS 0.7 % (0.0-2.0); HEMATOCRIT 32.7 % (37.0-47.0); HEMOGLOBIN 11.4 gm/dL (12.0-15.0); LYMPHOCYTES 13.6 % (24.0-44.0); MCH 31.2 pg (26.0-34.0); MCHC 34.8 g/dL (28.0-37.0); MCV 89.5 fL (80.0-100.0); MONOCYTES 6.3 % (1.0-8.0); PLATELET COUNT 429 thou/uL (150-400); POLYS 76.4 % (36.0-66.0); RBC 3.66 mil/uL (4.20-5.00); RDW 15.7 % (10.5-14.5)
[2020-04-07 20:10] LABS: CALCIUM 9.2 mg/dL (8.5-10.1); CREATININE 0.7 mg/dL (0.6-1.0); MAGNESIUM 2.1 mg/dL (1.8-2.4)
[2020-04-07 20:11] LABS: POTASSIUM 5.7 mmol/L (3.5-5.1)
[2020-04-07 21:41] VITALS: BP 131/68
--- NOTE | 2020-04-08 07:22 | EKG ---
[facility] [place] [address] ELECTROCARDIOGRAM REPORT Name: JOSSELYN HARRIS BRANDI Room #: DEP M.R.#: [id number] Admission: 04/07/20 Attend Phys: Discharge: 04/07/20 Date of : 63 Report #: [id number] THIS REPORT FOR: cc: TEX Rizvi family physician/PCP TEX Rizvi family physician/PCP Shiva Garcia MD MERGED WITH [facility] THIS REPORT FOR: //name// [facility] ED Test Date: 2020-04-07 Test Time: 20:26:48 Pat Name: JOSSELYN HARRIS Department: Room: Gender: F Tree Specialist: ankush : 1965 Requested By: Jonathan Babb Order Number: [id number] MD: Shiva Garcia Measurements Intervals [place] Rate: 78 P: 79 HI: 145 QRS: 48 QRSD: 83 T: 64 QT: 395 QTc: 450 Interpretive Statements Sinus rhythm Probable left atrial enlargement RSR' in V1 or V2, right VCD or RVH Compared to ECG 02/27/2020 22:23:41 Right ventricular hypertrophy now present RSR' in V1 or V2 now present Intraventricular conduction delay no longer present Electronically Signed On 04-08-2020 7:22:31 [employer] by Shiva Garcia [email or web address] <ELECTRONICALLY SIGNED> By: Shiva Garcia MD, FACC 04/08/20721 25 25 Shiva Garcia MD, [facility] /EPI
== END 2020-04-07 21:41 | disposition home or self-care (01) ==
LOC: ER 18:21
PROVIDERS: Emergency Medicine
DX: L97.929 Non-pressure chronic ulcer of unspecified part of left lower leg with unspecified severity (principal); L97.919 Non-pressure chronic ulcer of unspecified part of right lower leg with unspecified severity; Z90.49 Acquired absence of other specified parts of digestive tract; Z79.899 Other long term (current) drug therapy; Z88.8 Allergy status to other drugs, medicaments and biological substances; Z91.018 Allergy to other foods

== ENCOUNTER 2020-05-16 12:58 | Inpatient (IN) | payer OTHER ==
[~2020-05-16] VITALS: Ht 175.3 cm; Wt 64.3 kg
[2020-05-16 13:03] VITALS: BP 136/80
[2020-05-16 16:21] LABS: ABSOLUTE NEUTROPHILS 6.9 thou/uL (1.4-8.2); BASOPHILS 0.5 % (0.0-2.0); EOSINOPHILS 0.7 % (0.0-3.0); HEMATOCRIT 34.8 % (37.0-47.0); HEMOGLOBIN 11.3 gm/dL (12.0-15.0); LYMPHOCYTES 10.3 % (24.0-44.0); MCH 28.9 pg (26.0-34.0); MCHC 32.3 g/dL (28.0-37.0); MCV 89.4 fL (80.0-100.0); PLATELET COUNT 316 thou/uL (150-400); POLYS 79.5 % (36.0-66.0); RDW 14.7 % (10.5-14.5); WBC 8.7 thou/uL (4.0-11.0)
[2020-05-16 16:32] LABS: CALCIUM 9.3 mg/dL (8.5-10.1); CREATININE 0.8 mg/dL (0.6-1.0); POTASSIUM 3.6 mmol/L (3.5-5.1)
[2020-05-16 17:58] VITALS: BP 136/80
[2020-05-16 18:47] VITALS: BP 126/41
[2020-05-16 19:24] VITALS: BP 112/59
--- NOTE | 2020-05-16 22:31 | NUR ---
PT ARRIVED FROM THE ER @1900 A&0X4. CELLULITIS ON BLE NOTED. WOUND PICTURES TAKEN. ADMISSION DONE AND PT ORIENTED TO THE UNIT. IV INTACT WITH FLUIDS INFUSING. WOUND DRESSED IN KHOA WRAP AND KYRLIX. FALL PREC IN PLACE AND CALL LIGHT AT REACH.
--- NOTE | 2020-05-17 04:59 | NUR ---
THIS NURSE ASSUMED CARE OF PATIENT AT APPROX. 2300. PATIENT IS A NEW ADMIT FROM THE ED 05/16/20. COOPERATIVE AND PLEASANT. IVF INFUSING W/O COMPLICATION. UP TO BSC WITH ONE ASSIST TO VOID AND HAVE A BM DURING THE NIGHT. DRESSING TO LOWER LEGS D/I. REQUESTED AND GIVEN SNACK. WILL MONITOR.
[2020-05-17 05:23] LABS: HEMATOCRIT 31.2 % (37.0-47.0); HEMOGLOBIN 10.3 gm/dL (12.0-15.0); MCHC 32.9 g/dL (28.0-37.0); RBC 3.54 mil/uL (4.20-5.00); RDW 14.3 % (10.5-14.5)
[2020-05-17 05:24] LABS: CALCIUM 8.5 mg/dL (8.5-10.1); CREATININE 0.7 mg/dL (0.6-1.0); POTASSIUM 3.6 mmol/L (3.5-5.1)
[2020-05-17 08:31] VITALS: BP 114/68
--- NOTE | 2020-05-17 16:57 | NUR ---
PT CARE ASSUMED AT 0700. A&Ox4. IV PATENT WITH NO REDNESS OR EDEMA, FLUIDS INFUSING. TYLENOL GIVEN FOR PAIN. SWABBED FOR MRSA OF THE NARES TODAY. PT/OT/ST ON BOARD. WOUNDCARE CONSULTED. ARTERIAL DOPPLER COMPLEETED TODAY. UP TO THE BEDSIDE COMMODE OR BATHROOM. FALL PROTOCOL IN PLACE. CALL LIGHT IN REACH. WILL CONTINUE TO MONITOR.
[2020-05-17 17:10] VITALS: BP 108/61
[2020-05-17 19:40] VITALS: BP 116/58
--- NOTE | 2020-05-18 05:46 | NUR ---
PATIENT ALERT AND ORIENTED X4. REQUESTED TO GET OOB AND WALK AT SHIFT CHANGE. THIS NURSE ASSISTED PATIENT. GIVEN TYLENOL PER REQUEST FOR LOWER LEG PAIN WITH GOOD RESULTS. DR. FARRELL IN DURING THE LATE EVENING AND GAVE DRESSING CHANGE ORDERS - THIS WAS DONE AND PATIENT TOLERATED WELL. IVF REDUCED FROM 80ML/HR TO 40ML/HR AND ABX ADDED. COOPERATIVE AND PLEASANT. WILL MONITOR.
[2020-05-18 06:11] LABS: ABSOLUTE NEUTROPHILS 2.5 thou/uL (1.4-8.2); BASOPHILS 0.6 % (0.0-2.0); EOSINOPHILS 3.2 % (0.0-3.0); HEMATOCRIT 32.9 % (37.0-47.0); HEMOGLOBIN 10.8 gm/dL (12.0-15.0); LYMPHOCYTES 29.5 % (24.0-44.0); MCHC 32.8 g/dL (28.0-37.0); MCV 88.6 fL (80.0-100.0); MONOCYTES 13.1 % (1.0-8.0); PLATELET COUNT 262 thou/uL (150-400); POLYS 53.6 % (36.0-66.0); RBC 3.71 mil/uL (4.20-5.00); RDW 14.4 % (10.5-14.5); WBC 4.7 thou/uL (4.0-11.0)
[2020-05-18 06:33] LABS: ALBUMIN 2.4 g/dL (3.4-5.0); CALCIUM 8.4 mg/dL (8.5-10.1); CREATININE 0.8 mg/dL (0.6-1.0); MAGNESIUM 1.6 mg/dL (1.8-2.4); POTASSIUM 3.9 mmol/L (3.5-5.1); TOTAL BILIRUBIN 0.1 mg/dL (0.2-1.0); TOTAL PROTEIN 5.7 g/dL (6.4-8.2)
[2020-05-18 08:23] VITALS: BP 135/79
--- NOTE | 2020-05-18 08:24 | NUR ---
Assumed care of pt at 0700. Pt a&ox4. States pain is minimal this am. IVF and IV antibiotics infusing. Pt wants dressing changed after wound care has seen her today. OT working with pt at the moment. Call light within reach. SBA to bedside commode. Will continue to monitor.
--- NOTE | 2020-05-18 09:05 | NUR ---
ASSESSMENT: CM REVIEWED CHART AND SPOKE WITH PT. PT HAS HAD PREVIOUS ADMISSIONS HERE AT [facility] DUE TO HER CELLULITIS. PT REPORTS THAT SHE LIVES IN A HOUSE BY HERSELF. PT REPORTS ABOUT 12 STEPS WITH HANDRAILS FROM THE GARAGE TO HER TOP FLOOR. PT STATES ABOUT 9 STEPS WITH HANDRAILS TO HER BEDROOM. PT REPORTS BEING FULLY INDEPENDENT WITH ADLS AND AMBULATION. PT CURRENTLY HAS NO INSURANCE AND HAS BEED SCREENED BY MED ASSIST HERE RECENTLY BUT WAS UNWILLING TO SPEND DOWN. PT REPORTS THAT SHE FOLLOWS UP AT [facility] AT [address]. PT DOES NOT ANTICIPATE HAVING ANY NEEDS FROM CM. CM WILL CONTINUE TO FOLLOW TO ASSIST NEEDED.
--- NOTE | 2020-05-18 14:25 | NUR ---
Multiple admission for pt with chronic bilateral lower extremity wound and multiple toe wounds. Pt generally eats better in hospital vs home. Likes to drink oral supplements and aware of high protein needs. Double eggs for breakfast. On B12, folate, thiamine supplementation. Add ensure enlive and Max. Wts are very stable past year. Physician has indicated chronic malnutrition: RD will defer. Low nutrition risk with interventions in place
[2020-05-18 16:10] VITALS: BP 157/91
[2020-05-18 20:18] VITALS: BP 128/66
--- NOTE | 2020-05-19 04:45 | NUR ---
ASSUMED PT CARE AT AROUND 1915 HRS. PT ALERT AND ORIENTED. MAKES NEEDS KNOWN. DRSG TO LLE FRESHLY CHANGED BY WOUND CARE AT ABOUT SHIFT CHANGE TIME. PT GIVEN TYLENOL FOR C/O BURNING PAIN TO THE LEGS. PT HAS A STEADY BALANCE WHILE TRANFERRING.SHE USES THE BSC, VOIDING ADEQUATELY, ALSO HAD A BM. PT HAS GOOD APPETITE, ASKING FOR SNACKS THRO THE NOC. PT IS AFEBRILE. CONTINUES ON GENTLE HYDRATION WELL IV ABTS.NO FURTHER CONCERNS AT THIS TIME.
[2020-05-19 08:31] VITALS: BP 125/69
--- NOTE | 2020-05-19 09:08 | NUR ---
ASSUMED CARE AT 0700. PT IS CALM AND A&O X4. PT STATES THAT SHE WAS VERY HUNGRY AND FOOD WAS PROVIDED FOR HER. TOOK PILLS WHOLE. CHANGED WOUND DRESSING OF LLE, RLE, L. TOE WITH WOUND CLEANSER, DAKIN, ABD, KERLIX AND KHOA WRAP WITH TAPE. PT DENIES PAIN AT THIS MOMENT BUT SHE WOULD LET ME KNOW WHEN SHE WANTS PAIN MEDICATION. PT DENIES SOA, N/V. LUNGS AND HEART SOUNDS ARE REGULAR AND CLEAR. SKIN INTACT. IV ON L . AC IS INTACT AND SHOWS NO SIGNS OF REDNESS OR SWELLLING .WILL CONTINUE TO MONITOR.
[2020-05-19] MEDS ORDERED: CIPRO500 M1 PO (10:37)
[2020-05-19 12:03] VITALS: BP 125/69
--- NOTE | 2020-05-19 13:24 | NUR ---
ON-GOING ASSESSMENT: CM REVIEWED CHART AND SPOKE WITH ATTENDING. PT IS MEDICALLY STABLE TO DISCHARGE TODAY. PT WAS CHANGED TO ORAL ANBX. PT REPORTS NEEDING ASSISTANCE WITH ANBX COVERAGE. CM REACHED OUT TO [facility] AND ANTIBIOTIC COST 9.75. (APPROVED BY CM DIRECTOR). PT STATES SHE WILL FOLLOW UP AT [facility] AND HAS BEEN FOLLOWING UP THERE SHE HAS NO INSURANCE. PT REPORTS NO FURTHER NEEDS FROM CM.
== END 2020-05-19 18:15 | disposition home or self-care (01) | DRG 603 ==
LOC: ER 12:58 → EROBS 17:40 → 4S 19:03
PROVIDERS: Nurse Practitioner; ADMIT Internal Medicine; ATTEND Internal Medicine
DX: L03.115 Cellulitis of right lower limb (principal); D63.8 Anemia in other chronic diseases classified elsewhere; E44.0 Moderate protein-calorie malnutrition; I73.9 Peripheral vascular disease, unspecified; Z86.14 Personal history of Methicillin resistant Staphylococcus aureus infection; Z88.8 Allergy status to other drugs, medicaments and biological substances; Z91.02 Food additives allergy status; Z83.3 Family history of diabetes mellitus; Z82.49 Family history of ischemic heart disease and other diseases of the circulatory system; Z68.20 Body mass index [BMI] 20.0-20.9, adult; Z72.89 Other problems related to lifestyle; Z79.899 Other long term (current) drug therapy
CPT/HCPCS: 10195

== ENCOUNTER 2020-06-12 20:38 | Emergency (ER) | payer OTHER ==
[~2020-06-12] VITALS: Ht 175.3 cm; Wt 63.5 kg
[~2020-06-12 20:38] MED LIST changes: +CIPRO500 M1 PO
[2020-06-12 21:20] LABS: ABSOLUTE NEUTROPHILS 4.6 thou/uL (1.4-8.2); BASOPHILS 0.6 % (0.0-2.0); EOSINOPHILS 3.4 % (0.0-3.0); HEMATOCRIT 35.6 % (37.0-47.0); HEMOGLOBIN 11.6 gm/dL (12.0-15.0); LYMPHOCYTES 18.2 % (24.0-44.0); MCH 28.7 pg (26.0-34.0); MCHC 32.5 g/dL (28.0-37.0); MCV 88.4 fL (80.0-100.0); MONOCYTES 7.1 % (1.0-8.0); PLATELET COUNT 237 thou/uL (150-400); POLYS 70.7 % (36.0-66.0); RBC 4.03 mil/uL (4.20-5.00); RDW 14.9 % (10.5-14.5); WBC 6.5 thou/uL (4.0-11.0)
[2020-06-12 21:44] LABS: CALCIUM 8.7 mg/dL (8.5-10.1); CREATININE 0.8 mg/dL (0.6-1.0); POTASSIUM 3.2 mmol/L (3.5-5.1)
[2020-06-12 22:02] VITALS: BP 126/78
== END 2020-06-12 22:05 | disposition home or self-care (01) ==
LOC: ER 20:38
PROVIDERS: Nurse Practitioner
DX: I87.2 Venous insufficiency (chronic) (peripheral) (principal); I73.9 Peripheral vascular disease, unspecified; Z86.14 Personal history of Methicillin resistant Staphylococcus aureus infection; Z90.89 Acquired absence of other organs; Z88.8 Allergy status to other drugs, medicaments and biological substances; Z91.018 Allergy to other foods

== ENCOUNTER 2020-06-30 17:43 | Inpatient (IN) | payer OTHER ==
[~2020-06-30] VITALS: Ht 175.3 cm; Wt 63.0 kg
[2020-06-30 18:00] VITALS: BP 118/64
[2020-06-30 19:16] LABS: BASOPHILS 0.6 % (0.0-2.0); EOSINOPHILS 2.5 % (0.0-3.0); HEMATOCRIT 29.2 % (37.0-47.0); HEMOGLOBIN 9.7 gm/dL (12.0-15.0); LYMPHOCYTES 18.9 % (24.0-44.0); MCH 28.8 pg (26.0-34.0); MCHC 33.4 g/dL (28.0-37.0); MCV 86.2 fL (80.0-100.0); MONOCYTES 9.1 % (1.0-8.0); PLATELET COUNT 295 thou/uL (150-400); POLYS 68.9 % (36.0-66.0); RBC 3.38 mil/uL (4.20-5.00); RDW 14.4 % (10.5-14.5); WBC 7.3 thou/uL (4.0-11.0)
[2020-06-30 19:34] LABS: CALCIUM 8.5 mg/dL (8.5-10.1); CREATININE 0.8 mg/dL (0.6-1.0); POTASSIUM 3.2 mmol/L (3.5-5.1)
[2020-06-30 19:45] LABS: ALBUMIN 2.9 g/dL (3.4-5.0); TOTAL BILIRUBIN 0.2 mg/dL (0.2-1.0); TOTAL PROTEIN 6.8 g/dL (6.4-8.2)
[2020-07-01 00:08] VITALS: BP 103/58; BP 103/711
[2020-07-01 01:13] VITALS: BP 103/58
[2020-07-01 02:08] VITALS: BP 102/60
--- NOTE | 2020-07-01 02:27 | NUR ---
ADMISSION COMPLETED. PT IS ALERT AND ORIENTED, VERY PLEASANT AND COOPERATIVE. WOUND PIC TAKEN AND DRSG DONE TO BLE. PT IS AFEBRILE. ONLY WANTS TYLENOL FOR PAIN. DENIES ANY GI OR DISCOMFORT. ON ROOM AIR W/O ANY DISTRESS. CALLS WITH NEEDS. IVF INFUSING VIA RFA. CALL LIGHT WITHIN REACH, WILL CONTINUE WITH POC TILL EOS.
[2020-07-01 05:03] LABS: HEMATOCRIT 30.4 % (37.0-47.0); HEMOGLOBIN 10.2 gm/dL (12.0-15.0); MCH 29.4 pg (26.0-34.0); MCHC 33.6 g/dL (28.0-37.0); MCV 87.4 fL (80.0-100.0); RBC 3.48 mil/uL (4.20-5.00); RDW 14.5 % (10.5-14.5); WBC 6.8 thou/uL (4.0-11.0)
[2020-07-01 05:12] LABS: CALCIUM 8.1 mg/dL (8.5-10.1); CREATININE 0.9 mg/dL (0.6-1.0)
[2020-07-01 05:39] LABS: POTASSIUM 4.5 mmol/L (3.5-5.1)
[2020-07-01 07:20] VITALS: BP 100/62
--- NOTE | 2020-07-01 09:05 | NUR ---
Multiple admissions for pt with chronic venous stasis wounds/PVD. Pt eats well, maintains wt, and uses oral supplement drinks. Low nutrition risk.
--- NOTE | 2020-07-01 11:34 | NUR ---
ASSESSMENT: CM REVIEWED CHART AND SPOKE WITH PATIENT AT THE BEDSIDE. PT IS KNOWN TO CASE MANAGEMENT FROM PAST VISITS. PT CURRENTLY LIVES IN A HOME ALONE. PT HAS NO ACTIVE INSURANCE AND GETS FOLLOW UP CARE AT THE [facility]. PT IS ADMITTED WITH BILATERAL LEG ULCERS. GENERAL SURGERY HAS BEEN CONSULTED AND PT MAY NEED POSSIBLE DEBRIDEMENT AND IS ON IV ANBX. PT REPORTS THAT SHE HAS BEEN GOING TO [facility] BUT HER LEGS HAVE GOTTEN WORSE SO SHE CAME TO THE HOSPITAL. PT REPORTS THAT SHE IS FULLY INDEPENDENT WITH ADLS AND AMBULATION. PT STATES HAVING ABOUT 14 STEPS FROM WHEN SHE ENTERS THE THROUGH THE GARAGE TO THE MAIN LEVEL. PT DENIES HAVING ANY DME OR THE NEED FOR IT. CM WILL CONTINUE TO FOLLOW TO ASSIST NEEDED.
--- NOTE | 2020-07-01 15:42 | NUR ---
PT ALERT AND ORIENTED TIMES FOUR. VSS, IVF INFUSING PER ORDER. PT DENIES PAIN/SOA AT THIS TIME. PT TOLERATES MEDS AND MEALS. BLE DRESSING CHANGED PER WOUND CARE NURSE. PT UP TO BSC WITH STANDBY ASSIST. PT WILL BE NPO AFTER MIDNIGHT FOR SURGERY TOMORROW. WILL CONTINUE TO MONITOR.
[2020-07-01 16:25] VITALS: BP 105/66
[2020-07-01 18:56] VITALS: BP 105/59
[2020-07-02 04:09] VITALS: BP 90/53
--- NOTE | 2020-07-02 06:00 | NUR ---
NPO SINCE [facility].DRSG CHANGED TO BLE. PLAN FOR I/D TODAY.
[2020-07-02 10:08] VITALS: BP 106/73
[2020-07-02 10:26] LABS: HEMATOCRIT 33.5 % (37.0-47.0); HEMOGLOBIN 10.9 gm/dL (12.0-15.0); MCH 28.7 pg (26.0-34.0); MCHC 32.6 g/dL (28.0-37.0); RBC 3.81 mil/uL (4.20-5.00); RDW 14.6 % (10.5-14.5); WBC 6.6 thou/uL (4.0-11.0)
--- NOTE | 2020-07-02 14:14 | NUR ---
ON-GOING ASSESSMENT: CM REVIEWED CHART. PT HAD DEBRIDEMENT THIS AM. PT REMAINS ON IV ANBX. CM WILL CONTINUE TO FOLLOW TO ASSIST NEEDED.
[2020-07-02 16:00] VITALS: BP 100/54
--- NOTE | 2020-07-02 16:21 | HC ---
[facility] [place] [address] CONSULTATION Name: JOSSELYN HARRIS Room #: 444-P ADM IN M.R.#: [id number] Admission: 06/30/20 Attend Phys: Sandra [place] Discharge: Date of : 63 Report #: [id number] THIS REPORT FOR: cc: TEX - No family physician/PCP TEX - No family physician/PCP Eric Chavez MD ~ DATE OF SERVICE: 07/01/2020 WOUND CARE CONSULTATION PERSONAL PHYSICIAN: None on staff. CHIEF COMPLAINT: Bilateral venous leg ulcers. HISTORY OF PRESENT ILLNESS: This is a 55-year-old white female who has been a patient of ours in the past for chronic ulcerations of bilateral lower extremities. These are venous insufficiency ulcerations. Due to lack of insurance, the patient was not able to follow up in my clinic after her last discharge from the hospital. The patient states she has been going to the free clinic to try to get wound care supplies. The patient states otherwise she has not been able to do any other wound care followup. The patient states approximately 5 days ago, she ran out of her wound care supplies and noticed that the wounds have been getting progressively worse. The patient states when she noticed that the wounds were getting worse, she decided to come to the Emergency Department to be evaluated and was found to have bilateral lower extremity cellulitis and was admitted for IV antibiotics. The patient denies any other associated ulcerations at this time. PAST MEDICAL HISTORY: Significant for chronic venous stasis with venous stasis ulcerations and multiple debridements. Recurrent cellulitis, bilateral lower extremities. Chronic anemia. CURRENT MEDICATIONS: Multiple, I reviewed the patient's medication list. DRUG ALLERGIES: CLOTRIMAZOLE, MICONAZOLE. SOCIAL HISTORY: The patient does not smoke or drink alcohol. FAMILY HISTORY: Not pertinent to current medical condition. REVIEW OF SYSTEMS: CONSTITUTIONAL: The patient denies fevers or chills. NEUROLOGIC: The patient complains of mild overall generalized weakness, but no isolated weakness in arms or legs. EYES: No complaints. [facility] [address] [place] [address] CONSULTATION Name: GOLDIE HARRISSE [facility] Room #: 444-P ADM IN M.R.#: [id number] Admission: 06/30/20 Attend Phys: Sandra [place] Discharge: Date of : 63 Report #: [id number] ENT: No complaints. CARDIAC: The patient has chronic lower extremity edema, but denies chest pain or palpitation. RESPIRATORY: The patient denies shortness of breath, cough or wheezes. GASTROINTESTINAL: The patient denies nausea, vomiting, abdominal pain. GENITOURINARY: The patient denies urgency or frequency. MUSCULOSKELETAL: No complaints. SKIN: There is chronic ulcerations to bilateral pretibial region. PHYSICAL EXAMINATION: VITAL SIGNS: Temperature 36.9, pulse 81, respirations 18, BP 105/66. GENERAL: This is an alert and oriented x 3, pleasant white female who is in absolutely no distress. HEENT: Normocephalic, atraumatic. Mucous membranes are dry. Pupils are round. Sclerae white. NECK: Without JVD. LUNGS: Clear. HEART: Regular. ABDOMEN: Soft, nontender. EXTREMITIES: The patient has 2+ edema bilateral lower extremities. Distal pulses are 1+. Bilateral heels are intact. Pretibial area reveals venous ulcerations, which are 100% slough filled. Periwound is otherwise intact. There is no significant undermining or tunneling. Moderate amount of serosanguineous drainage noted with slight odor. There is increased erythema, warmth and tenderness surrounding the ulcerations. NEUROLOGIC: Cranial nerves 2-12 grossly intact. Motor and sensory grossly intact. LABORATORY DATA: White count 6.8, hemoglobin 10.2. Sed rate 47. BUN 22, creatinine 0.9. C-reactive protein is 24.5, albumin is 2.9. IMPRESSION: 1. Chronic pretibial venous leg ulcers with surrounding cellulitis. 2. Venous insufficiency with edema. 3. Protein-calorie malnutrition, moderate, with an albumin of 2.9. 4. Generalized debility. PLAN: We will start Dakin's quarter strength wet to dry dressings to the venous leg ulcers twice daily and p.r.n. We will elevate her legs as much as possible. We will put on Kerlix and Eduardo from toes to knee bilaterally. I think the patient would benefit from Misonix surgical debridement to clean these ulcerations up better so that I could perform at the bedside. We will make sure we maximize the patient's oral protein supplementation for healing. We utilize [address] [address] CONSULTATION Name: STEVENJOSSELYN BRANDI Room #: 444-P ADM IN M.R.#: [id number] Admission: 06/30/20 Attend Phys: Sandra [place] Discharge: Date of : 63 Report #: [id number] physical and occupational therapy for strengthening. We will continue to follow the patient. We will continue all other current medications. <ELECTRONICALLY SIGNED> By: Eric Chavez MD 07/02/20 1621 1730 [id number] Eric Chavez MD /nt
[2020-07-02 19:13] VITALS: BP 107/60
--- NOTE | 2020-07-02 20:13 | NUR ---
PT A&OX4, VSS, PAIN IN BILAT LEGS. I&D DONE TODAY, DRESSING C/D/I. NO SIGNS OF DISTRESS. WILL CONTINUE TO MONITOR.
[2020-07-03 03:40] VITALS: BP 119/70
--- NOTE | 2020-07-03 04:32 | NUR ---
RECIEVED CARE OF THIS PATIENT AT 1900. PATIENT ALERT AND ORIENTED X4. UP TO BSC. HAS [place]OL[place] DRESSING ON LWER EXTS. C/O MILD PAIN. SLEPT MOST OF NIGHT.
[2020-07-03 08:22] VITALS: BP 121/74
--- NOTE | 2020-07-03 11:54 | NUR ---
Received awake on bed. Due medications given as prescribed, able to swallow meds w/o difficulty. On room air. Vital signs stable. On MS, not on telemetry; no complains and signs of chest pain, crushing sensation and heaviness. Assisted in ADLs. On regular diet- tolerating well; no nausea, no vomiting and no abdominal pain noted. Continent of bowel and bladder, able to use bedside commode. With SL at L hand, on IV antibiotics. Bilat LE wounds- POD 1, s/p I&D- dressing in place; pt initially refused dressing change, wanting physician to see and change wound dressing; pt seen and examined by Dr Foster- wound dressing changed. To continue monitoring patient.
--- NOTE | 2020-07-03 12:49 | NUR ---
ON-GOING ASSESSMENT: CM REVIEWED CHART. PT REMAINS ON IV ANBX AND IS RECEIVING WOUND CARE. PER ATTENDING PT WILL REMAIN IN THE HOSPITAL ON ANBX FOR A FEW MORE PAYS AND WAITING ON C/S. PT HAS NO INSURANCE AND FOLLOWS UP AT THE [facility]. CM WILL CONTINUE TO FOLLOW TO ASSIST NEEDED.
[2020-07-03 16:45] VITALS: BP 117/73
[2020-07-03 20:36] VITALS: BP 115/71
--- NOTE | 2020-07-04 00:39 | NUR ---
PT AOX4. PT REPORTS PAIN IN BLE. PT RECEIVING PRN PO TRAMADOL Q4HR. PT REPORTS PAIN RELIEF WITH DRESSING CHANGE PER ORDERS. PT DENIES SOB WHILE ON ROOM AIR. PT TOLERATING PO INTAKE OF FLUIDS AND REGULAR DIET WITHOUT ISSUE. PT WITHOUT NAUSEA OR EMESIS. PT AMBULATING INDEPENDENTLY TO BEDSIDE COMMODE AND WITH STANDBY ASSIST IN ROOM, RESTING IN BED OTHERWISE. FREQUENT REPOSITIONING ENCOURAGED WHILE IN BED, PT NOTED TO SHIFT INDEPENDENTLY WHILE IN BED. PT ENCOURAGED TO NOTIFY STAFF FOR ALL NEEDS, CALL LIGHT WITHIN REACH, BED LOCKED IN LOWEST POSITION, FREQUENT MONITORING WILL CONTINUE.
[2020-07-04 08:13] VITALS: BP 105/68
[2020-07-04 17:11] VITALS: BP 108/63
--- NOTE | 2020-07-04 19:51 | NUR ---
PT CARE ASSUMED AT 0700.A&Ox4. WOUND DRESSING CHANGED. PT UP WALKING THE HALLWAYS. IV ABX GIVEN. IV PATENT WITH NO REDNESS OR EDEMA, SALINE LOCKED. CALL LIGHT IN REACH. WILL CONTINUE TO MONITOR.
[2020-07-04 20:22] VITALS: BP 109/63
--- NOTE | 2020-07-05 03:05 | NUR ---
ASSUMED CARE OF PT AT 1900. PT IS A/O X4 AND IS UP WITH SBA TO THE BSC OR CHAIR.ROOM AIR. VOIDS PER BSC, NO BM THIS SHIFT. DRSG TO RLE IS C/D/I. REPLACED DRSG WITH LLE DUE TO PINK/YELLOW DRAINAGE. C/O PAIN. PRN PAIN MEDICATION GIVEN DIRECTED. VSS. AFEBRILE. RIGHT FA IV INFILTRATED. REMOVED WITH CATHETER INTACT. REPLACED IV TO RIGHT HAND. HS MEDICATION GIVEN PER JUN. FALL PRECAUTIONS IN PLACE, CALL LIGHT IS WITHIN REACH. WILL CONTINUE TO MONITOR.
[2020-07-05 08:12] VITALS: BP 103/67
--- NOTE | 2020-07-05 11:41 | NUR ---
PT ALERT AND ORIENTED TIMES FOUR. VSS. PT C/O PAIN PRN PAIN MEDICATIONS CONTROLLING PAIN WELL. DRESSING TO BLE CHANGED. PT TOLERATES MEDS AND MEALS. PT UP WITH STANDBY ASSIST. PT PROGRESSING TOWRADS POC GOALS.
[2020-07-05 15:51] VITALS: BP 96/59
[2020-07-05 19:03] VITALS: BP 99/59
[2020-07-06 03:07] VITALS: BP 98/61
--- NOTE | 2020-07-06 06:01 | NUR ---
PT TRANSFERRING TO BEDSIDE COMMODE INDEPENDENTLY AND IS TOLERATING FAIR. TRAMADOL PROVIDING PAIN RELIEF. BILAT LEG DRSGS CHANGED. POSSIBLE DISCHARGE HOME 07/06. RESTING COMFORTABLY. NO NEEDS VOICED. CALL IGHT WITHIN REACH. FREQUENT OBSERVATION.
[2020-07-06 07:50] VITALS: BP 105/60
[2020-07-06] MEDS ORDERED: CLEOCIN HCL300 MG PO (08:38)
[2020-07-06] MEDS ORDERED: LEVOFLOXACIN750 MG PO (08:44)
[2020-07-06 12:55] VITALS: BP 105/60
[2020-07-06 15:02] VITALS: BP 105/60
--- NOTE | 2020-07-06 15:04 | NUR ---
Pt dcing home today. Two atb scripts vouchered per the [facility] pharmacy for a total of $27.21. Nursing to send pt with dressing supplies. Pt indicates she will f/u with [facility] and wound clinic. Pt reports she is job hunting and does not want to [place]. This has been a struggle for her for some time now and she has had mutiple readmissions. She is aware of need for wound care f/u to prevent readmission. Pt is indep with gait and adl's. Case closed.
--- NOTE | 2020-07-06 18:52 | NUR ---
ASSUMED CARE OF PATIENT AT SHIFT CHANGE. ASSESSMENT CHARTED. MEDS/ABX ADMINISTERED PER EMAR. VSS. PATIENT SEEN BY PROVIDER AND DETERMINED MEDICALLY STABLE TO D/C HOME. WOUND CARE COMPLETE W DISCHARGE PICS TAKEN. IV DISCONTINUED AND MEDS GIVEN TO PATIENT W ASSIST FROM RENAL SOCIAL WORKER. DISCHARGE INSTRUCTIONS SENT HOME W PATIENT. PATIENT TO LEAVE W PUBLIC TRANSPORTATION ([facility]) SOON AFTER SHIFT CHANGE. ENDORSED TO UNIT/CONCRETE FORM SETTER
== END 2020-07-06 19:46 | disposition home or self-care (01) | DRG 571 ==
LOC: ER 17:43 → 4S 20:45 → EROBS 20:45 → 4S 07-01 01:14
PROVIDERS: Nurse Practitioner Family; Physician Assistant; ADMIT Hospitalist; ATTEND Hospitalist
PROC: 0JBN0ZZ Excision of Right Lower Leg Subcutaneous Tissue and Fascia, Open Approach (ICD-10-PCS; principal; 2020-07-02)
PROC: 0JBP0ZZ Excision of Left Lower Leg Subcutaneous Tissue and Fascia, Open Approach (ICD-10-PCS; principal; 2020-07-02)
DX: L97.919 Non-pressure chronic ulcer of unspecified part of right lower leg with unspecified severity (principal); E44.0 Moderate protein-calorie malnutrition; L03.116 Cellulitis of left lower limb; L03.115 Cellulitis of right lower limb; L97.929 Non-pressure chronic ulcer of unspecified part of left lower leg with unspecified severity; I87.8 Other specified disorders of veins; D64.9 Anemia, unspecified; I73.9 Peripheral vascular disease, unspecified; Z20.822 Contact with and (suspected) exposure to COVID-19; Z88.8 Allergy status to other drugs, medicaments and biological substances; Z91.018 Allergy to other foods; Z68.20 Body mass index [BMI] 20.0-20.9, adult
CPT/HCPCS: 10195; 50010; 50101; 50386; 57119; 57120; 62110; 62900; 70005

== ENCOUNTER 2020-07-18 19:52 | Inpatient (IN) | payer OTHER ==
[~2020-07-18] VITALS: Ht 152.4 cm; Wt 64.9 kg
[~2020-07-18 19:52] MED LIST changes: +CLEOCIN HCL300 MG PO
[2020-07-18 20:04] VITALS: BP 99/55
[2020-07-18 21:21] LABS: ABSOLUTE NEUTROPHILS 4.4 thou/uL (1.4-8.2); BASOPHILS 0.8 % (0.0-2.0); EOSINOPHILS 1.7 % (0.0-3.0); HEMATOCRIT 32.9 % (37.0-47.0); HEMOGLOBIN 11.1 gm/dL (12.0-15.0); LYMPHOCYTES 21.1 % (24.0-44.0); MCH 29.2 pg (26.0-34.0); MCHC 33.8 g/dL (28.0-37.0); MCV 86.4 fL (80.0-100.0); MONOCYTES 9.3 % (1.0-8.0); PLATELET COUNT 345 thou/uL (150-400); POLYS 67.1 % (36.0-66.0); RBC 3.81 mil/uL (4.20-5.00); RDW 15.1 % (10.5-14.5); WBC 6.6 thou/uL (4.0-11.0)
[2020-07-18 21:30] LABS: CALCIUM 9.2 mg/dL (8.5-10.1); CREATININE 0.9 mg/dL (0.6-1.0)
[2020-07-18 21:36] LABS: POTASSIUM 3.9 mmol/L (3.5-5.1)
[2020-07-18 21:37] LABS: ALBUMIN 3.4 g/dL (3.4-5.0); TOTAL BILIRUBIN 0.6 mg/dL (0.2-1.0); TOTAL PROTEIN 7.5 g/dL (6.4-8.2)
[2020-07-18 21:53] VITALS: BP 111/62
[2020-07-18 22:10] VITALS: BP 117/65
--- NOTE | 2020-07-19 02:06 | NUR ---
ADMISSION COMPLETED. PT ALERT AND COOPERATIVE. DOES NOT APPEAR TO BE IN DISTRESS. WOUND PICS TAKEN. PT ASKING FOR DIFFERENT SNACKS. EDUCATED ABOUT FALL PREVENTION. CALL LIGHT AND NEEDED ITEMS WITHIN REACH.
[2020-07-19 04:50] VITALS: BP 97/58
[2020-07-19 05:39] LABS: HEMATOCRIT 30.3 % (37.0-47.0); HEMOGLOBIN 10.2 gm/dL (12.0-15.0); MCH 29.2 pg (26.0-34.0); MCHC 33.7 g/dL (28.0-37.0); MCV 86.5 fL (80.0-100.0); RBC 3.51 mil/uL (4.20-5.00); RDW 15.1 % (10.5-14.5); WBC 4.8 thou/uL (4.0-11.0)
[2020-07-19 05:41] LABS: CALCIUM 8.5 mg/dL (8.5-10.1); CREATININE 0.8 mg/dL (0.6-1.0); POTASSIUM 3.2 mmol/L (3.5-5.1)
[2020-07-19 08:00] VITALS: BP 102/68
[2020-07-19 12:01] LABS: ABSOLUTE RETIC COUNT 0.0282 10^6/uL; OBSERVED RETIC COUNT 0.79 % (0.6-2.6)
[2020-07-19 12:07] LABS: % SATURATION 17 % (20-39); IRON 48 ug/dL (50-170); TIBC 275 ug/dL (250-450)
[2020-07-19 13:05] LABS: FOLIC ACID 23.9 ng/mL (8.6-58.9)
[2020-07-19 16:45] VITALS: BP 105/67
[2020-07-19 19:33] VITALS: BP 102/72
--- NOTE | 2020-07-19 20:37 | NUR ---
ASSUMED PT CARE AROUND 0730. PT ALERT X ORIENTED X 4. ON ROOM AIR. IV LEFT WRIST/SALINE LOCKED. CONTINENT OF ELIDA SILVEIRA ON 07/18/20.WOUND DRESSINGS ON FEET.REGULAR DIET. FALL PRECAUTION IN PLACE. CALL LIGHT IN REACH. WILL CALL APPROPRIATELY. HOURLY ROUNDING DONE. SHIFT REPORT GIVEN TO FIFI NORMAN.
[2020-07-19 21:19] VITALS: BP 102/72
[2020-07-20 04:43] VITALS: BP 83/52
--- NOTE | 2020-07-20 05:16 | NUR ---
PT AOX4. PT REPORTS PAIN IN BLE. PT RECEIVING PRN PO APAP Q6HR. PT EXPRESSES TRAMADOL EFFECTIVE. REVIEWED MEDICATIONS, TRAMADOL GIVEN IN PAST HOSPITALIZATIONS. ONCALL MATERIALS COORDINATOR NOTIFIED, ORDERS RECEIVED FOR 50MG PRN PO TRAMADOL Q6HR. TRAMADOL GIVEN WITH NOTED POSITIVE EFFECT. PT TOLERATING PO INTAKE OF FLUIDS AND REGULAR DIET WITHOUT ISSUE. PT AMBULATING INDEPENDENTLY AND WITH STANDBY ASSIST TO BEDSIDE COMMODE, RESTING IN BED OTHERWISE. FREQUENT REPOSITIONING ENCOURAGED WHILE IN BED, PT NOTED TO SHIFT INDEPENDENTLY WHILE IN BED. PT DENIES NUMBNESS, REPORTS TINGLING IN LLE. CAPILLARY REFILL LESS THAN 3SEC IN ALL EXTREMITIES. BLE DRESSINGS REMAIN INTACT, NO DRAINAGE NOTED. PT ENCOURAGED TO NOTIFY STAFF FOR ALL NEEDS, CALL LIGHT WITHIN REACH, BED LOCKED IN LOWEST POSITION, FREQUENT MONITORING WILL CONTINUE.
[2020-07-20 08:30] VITALS: BP 92/57
--- NOTE | 2020-07-20 10:58 | NUR ---
Nutrition: consult for pt with chronic BLE wonds, venous stasis/PVD. Intake 40-70% yesterday. Pt reports noraml/good appetite, however, wants supplement changed from Ensure Clear to Ensure Max and Ensure Enlive daily. Also requests double portion protein with all meals. Wt is stable past year 135-140 lb. Pt is aware of nutrition/protein needs for wound healing. Albumin WNL, K 3.2. Probiotic and other meds reveiwed. Assess at low nutrition risk.
--- NOTE | 2020-07-20 11:47 | NUR ---
ASSUMED PT CARE THIS AM. PT VSS, A&OX4. PATIENT PLEASANT, MAKING NEEDS KNOWN. PATIENT UP AD EDIN. DRESSINGS TO BILATERAL LOWER EXTREMETIES. ON ROOM AIR. REPORTING NO PAIN OF YET. PATIENT ABLE TO REPOSITION SELF INDEPENDENTLY. IV PATENT. TOOK MEDS WITHOUT COMPLAINT.
--- NOTE | 2020-07-20 16:26 | NUR ---
ASSESSMENT: CM REVIEWED CHART AND SPOKE WITH AT THE BEDSIDE. PT WAS ADMITTED DUE TO CELLULITIS AND IS ON IV ANBX. PT IS WELL KNOWN TO CM DEPARTMENT FROM PAST ADMISSIONS. PT LIVES AT HOME ALONE AND IS INDEPENDENT WITH ADLS AND AMBULATION. PT CURRENTLY HAS NO INSURANCE AND HAS BEEN SCREENED MULTIPLE TIME FOR MEDICAID BUT DID NOT QUALIFY AT THAT TIME. MED ASSIST WITH SEE PATIENT. PT REPORTS SHE NORMALLY FOLLOWS UP WITH THE [facility] BUT REPORTS IT HAS BEEN HARD TO GET INTO THERE THROUGHOUT THE PANDEMIC. PT REPORTS SHE IS GOING TO ATTEMP TO SHOP AROUND IN ATTEMPTS TO GET INSURANCE AND REPORTS SHE IS NOT CURRENTLY WORKING BUT IS LOOKING FOR EMPLOYMENT. ID HAS BEEN CONSULTED TO SEE PATIENT. CM WILL CONTINUE TO FOLLOW TO ASSIST NEEDED.
[2020-07-20 16:47] VITALS: BP 122/67
[2020-07-20 19:28] VITALS: BP 103/58
[2020-07-21 04:19] VITALS: BP 110/64
--- NOTE | 2020-07-21 04:19 | NUR ---
RECEIVED CARE OF THIS PATIENT AT 1900. PATIENT ALERT AND ORIENTED X4. C/O PAIN AND NAUSEA, MED GIVEN FOR BOTH. DRESSING ON CAROLINA LOWER EXT D/I. UP TO BSC. SLEPT OFF AND ON DURING NIGHT. TRANSFERED TO VIA BED.
[2020-07-21 04:38] VITALS: BP 115/68
[2020-07-21 05:25] LABS: HEMATOCRIT 30.9 % (37.0-47.0); HEMOGLOBIN 10.2 gm/dL (12.0-15.0); MCH 28.6 pg (26.0-34.0); MCHC 33.1 g/dL (28.0-37.0); MCV 86.3 fL (80.0-100.0); RBC 3.58 mil/uL (4.20-5.00); RDW 15.2 % (10.5-14.5); WBC 5.8 thou/uL (4.0-11.0)
[2020-07-21 05:45] LABS: CALCIUM 8.6 mg/dL (8.5-10.1); CREATININE 1.2 mg/dL (0.6-1.0); POTASSIUM 4.3 mmol/L (3.5-5.1)
--- NOTE | 2020-07-21 14:18 | NUR ---
AZAM reviewed chart and spoke with nursing and attending physician. Pt was transferred to from . Pt is progressing towards goals for discharge. Discharge home is anticipated for tomorrow. Pt is currently on IV abx. AZAM met with pt at bedside to discuss discharge plan. Pt states she has been trying to schedule an appt at the [facility], but is unable to successfully talk with someone at the clinic. Pt state she may go as a walk-in. Pt may need new prescriptions vouched for from [facility] upon discharge. Pt states she will take the bus home. Pt states she is going to be looking online at options for private insurance. Plan is for pt to discharge home when medically stable. AZAM is following to assist as needed with discharge planning.
[2020-07-21 15:44] VITALS: BP 102/59
--- NOTE | 2020-07-21 16:49 | HC ---
[facility] [place] [address] [place] [address] CONSULTATION Name: JOSSELYN HARRIS Room #: 362-P ADM IN M.R.#: [id number] Admission: 07/20/20 Attend Phys: Wolfgang Abarca MD Discharge: Date of : 63 Report #: [id number] THIS REPORT FOR: cc: FAM - No family physician/PCP FAM - No family physician/PCP Rohan Pugh MD ~ DATE OF SERVICE: 07/20/2020 CHIEF COMPLAINT: Lower extremity ulcerations. HISTORY OF PRESENT ILLNESS: This is a 55-year-old female patient with whom I am familiar from multiple previous hospitalizations, who was admitted this weekend with increasing pain, redness and swelling and drainage to her lower extremities. She seeks healthcare typically at a [facility]. She has been having difficulty getting in for additional care. She has not been able to follow up with us in the Wound Care Clinic here. I have seen her multiple times. She has undergone multiple previous Misonix type debridements to her lower extremities and I have been asked to see her again for wound care. PAST MEDICAL HISTORY: Includes chronic venous ulcerations on both lower extremities and toes on both feet, history of both subdural and epidural hematomas. She has a history of mild protein-calorie malnutrition as well as previous tonsillectomy. ALLERGIES: INCLUDE CLOTRIMAZOLE, MOLD, MUSHROOMS AND STRAWBERRIES. MEDICATIONS: Currently include no home medications. She is currently receiving enoxaparin, ondansetron, Zosyn and tramadol. SOCIAL HISTORY: Negative for alcohol or tobacco use. FAMILY HISTORY: Noncontributory. REVIEW OF SYSTEMS: CONSTITUTIONAL: The patient denies fever, chills, or weight loss. NEUROLOGICAL: The patient denies focal weakness, numbness or tingling. EYES: The patient denies visual changes, redness, or drainage. ENT: The patient denies earache, nasal drainage, sore throat. CARDIOVASCULAR: The patient denies chest pain, palpitations or diaphoresis. PULMONARY: The patient denies cough or shortness of breath. GASTROINTESTINAL: The patient denies nausea, vomiting, diarrhea or abdominal pain. ORTHOPEDIC: The patient does have pain, swelling, mainly ulceration to her left lower extremity, small areas on the right. Other systems in a 14-point review of systems are negative. [address] [address] CONSULTATION Name: JOSSELYN HARRIS [facility] Room #: 362-P [facility] IN M.R.#: [id number] Admission: 07/20/20 Attend Phys: Wolfgang Abarca MD Discharge: Date of : 63 Report #: [id number] PHYSICAL EXAMINATION: VITAL SIGNS: At this time include temperature 37.2, pulse 85, respiratory rate 18, blood pressure 103/58. GENERAL: This is a well-developed, well-nourished female patient who appears to be in no distress. HEENT: Head normocephalic. Nose and throat clear. NECK: Supple. ABDOMEN: Soft. Bowel sounds present. EXTREMITIES: Examination of the lower extremities demonstrate small ulceration on the right side, larger ulceration on the left medial lower leg and then again on the left lateral ankle region. The areas are mainly covered with fibrin. There is some granulation tissue beneath. They are tender to palpation. The toes on both feet are much improved and have mostly epithelialized. LABORATORY DATA: Include white blood cell count 4.8 with a hemoglobin of 10.2. Sodium 143, potassium 3.2, chloride 105, CO2 of 25, BUN 19, creatinine 0.8, glucose of 119. Lactic acid is 1.0, albumin is 3.4. CLINICAL IMPRESSION: 1. Chronic venous ulcerations to bilateral lower extremities, left greater than right. She is status post debridement 07/02/2020. 2. Recurrent cellulitis/wound infection, bilateral lower extremities. 3. Peripheral arterial disease. 4. Moderate protein-calorie malnutrition with albumin of 2.9. 5. Generalized debility. RECOMMENDATIONS: At this point in time, we will recommend Xeroform gauze to the open areas to be covered with a Dakin's moist gauze, ABD, Kerlix and tape. She has had previous angiography in 03/2020 without significant stenosis, so no additional vascular workup will be required at this time. We will need to maximise nutrition to promote good wound healing. I appreciate being asked to see her in consultation. <ELECTRONICALLY SIGNED> By: Rohan Pugh MD 07/21/209 99 37 Rohan Pugh MD /nt
--- NOTE | 2020-07-21 22:42 | NUR ---
PT REPOSITIONING SELF IN BED. PT REQUESTED ITEMS FOR BED BATH AND PROVIDED. PT USES BSC INDEP. STEADY GAIT. IV ANTIBIOTICS INTACT. BLE DRESSINGS INTACT. PT PROVIDED HS SNACK. PRN FOR HEADACHE. PT VERY TALKATIVE AND CHEERFUL.
[2020-07-22 04:09] VITALS: BP 108/68
--- NOTE | 2020-07-22 07:49 | NUR ---
ASSUMED PT CARE AT SHIFT CHANGE. PT UP TO BSC, DENIES NEED FOR ASSISTANCE. PT STATES MILD PAIN IN LEGS BUT REFUSED PAIN MEDICATION AT THIS TIME.
[2020-07-22 08:15] VITALS: BP 109/72
--- NOTE | 2020-07-22 13:21 | NUR ---
WOUND CARE F/U; ROUNDING WITH DR NERI AND TENZIN GILL TODAY. THE PATIENTS WOUNDS ARE UNREMARKABLE. NO CHANGES SINCE LAST ASSESSMENT. DISCHARGE IS POSSIBLE TOMORROW. NON ODOROUS. RECOMMENDATIONS; CONTINUE CURRENT DOCTORS ORDERS
[2020-07-22 15:44] VITALS: BP 127/64
[2020-07-22 19:25] VITALS: BP 114/58
[2020-07-23 04:27] VITALS: BP 115/61
[2020-07-23 05:54] LABS: HEMOGLOBIN 11.3 gm/dL (12.0-15.0); MCH 28.5 pg (26.0-34.0); MCHC 33.1 g/dL (28.0-37.0); MCV 86.1 fL (80.0-100.0); RBC 3.95 mil/uL (4.20-5.00); RDW 15.3 % (10.5-14.5); WBC 5.9 thou/uL (4.0-11.0)
[2020-07-23 06:09] LABS: CREATININE 0.7 mg/dL (0.6-1.0); POTASSIUM 4.4 mmol/L (3.5-5.1)
[2020-07-23 07:56] VITALS: BP 120/72
--- NOTE | 2020-07-23 14:42 | NUR ---
SW reviewed chart and spoke with nursing and attending physician. Pt remains on IV abx. Awaiting final recommendations from ID at this time. Discharge home is anticipated for tomorrow. SW met with pt at bedside to provide update and discuss discharge plan. Pt is aware and agreeable with plan. Pt may need assistance with medications at time of discharge. Pt does not have health insurance and does not qualify for Medicaid. AZAM is following to assist as needed with discharge planning.
[2020-07-23 15:26] VITALS: BP 123/70
[2020-07-23 20:40] VITALS: BP 124/74
[2020-07-24 04:27] LABS: CREATININE 0.8 mg/dL (0.6-1.0); POTASSIUM 4.5 mmol/L (3.5-5.1)
[2020-07-24 04:31] LABS: HEMATOCRIT 34.7 % (37.0-47.0); HEMOGLOBIN 11.3 gm/dL (12.0-15.0); MCH 28.3 pg (26.0-34.0); MCHC 32.6 g/dL (28.0-37.0); MCV 86.8 fL (80.0-100.0); RDW 15.4 % (10.5-14.5); WBC 5.8 thou/uL (4.0-11.0)
[2020-07-24 05:00] VITALS: BP 114/68
[2020-07-24 05:05] VITALS: BP 114/68
[2020-07-24 07:29] VITALS: BP 119/66
--- NOTE | 2020-07-24 07:53 | NUR ---
PT MAKING PROGRESS TOWARD GOALS. PT UP AD EDIN TO BED SIDE COMMODE. HAS DENIED NEED ASSISTANCE WITH ANY ADL'S. "GIVE ME THE STUFF, I COULD CHANGE MY OWN BANDAGES." CONTINUE TO MONITOR.
[2020-07-24] MEDS ORDERED: AUGMENTIN 875-1 EACH PO (08:56)
[2020-07-24 11:53] VITALS: BP 119/66
--- NOTE | 2020-07-24 15:36 | NUR ---
DISCHARGE NOTE: SW reviewed chart and spoke with nursing and attending physician. Pt is medically stable for discharge home today. SW took new script for abx to [facility]. Case Mgmt Dept to vouch for meds. Cab voucher provided to pt's nurse when pt is ready for discharge. Meds to be picked up at pharmacy. SW met with pt at bedside to discuss discharge plan. Pt is aware and agreeable with plan. No additional SW needs identified at this time, but is available to assist should needs arise.
[2020-07-24 16:12] VITALS: BP 107/63
--- NOTE | 2020-07-24 16:25 | NUR ---
RN TO PROVIDE DISCHARGE REPORT, PT'S WOUNDS HAVE BEEN TAKEN PICTURE OF AND IS GOING TO LEAVE. PILAR RESENDIZ RN HAD WORKED ON PT;S WOUND AND TOOK DC PICTURES WELL. RN TO SIGN OFF AFTER DICHARGE INSTRUCTIONS ARE GIVEN
== END 2020-07-24 19:30 | disposition home or self-care (01) | DRG 603 ==
LOC: ER 19:52 → EROBS 21:28 → 4S 21:28 → 3W 07-21 04:38
PROVIDERS: Emergency Medicine; Hospitalist; ADMIT Internal Medicine; ATTEND Internal Medicine
DX: L03.115 Cellulitis of right lower limb (principal); E44.0 Moderate protein-calorie malnutrition; L97.829 Non-pressure chronic ulcer of other part of left lower leg with unspecified severity; L97.819 Non-pressure chronic ulcer of other part of right lower leg with unspecified severity; I73.9 Peripheral vascular disease, unspecified; L03.116 Cellulitis of left lower limb; D64.9 Anemia, unspecified; E87.6 Hypokalemia; I87.8 Other specified disorders of veins; I10 Essential (primary) hypertension; Z79.899 Other long term (current) drug therapy; Z88.1 Allergy status to other antibiotic agents; Z91.018 Allergy to other foods; Z68.27 Body mass index [BMI] 27.0-27.9, adult
CPT/HCPCS: 10080; 10195

== ENCOUNTER 2020-08-19 19:49 | Inpatient (IN) | payer OTHER ==
[~2020-08-19] VITALS: Ht 175.3 cm; Wt 63.6 kg
[2020-08-19 19:55] VITALS: BP 122/68
[2020-08-19 20:45] LABS: HEMATOCRIT 36.3 % (37.0-47.0); HEMOGLOBIN 11.9 gm/dL (12.0-15.0); MCH 28.5 pg (26.0-34.0); MCHC 32.8 g/dL (28.0-37.0); MCV 86.7 fL (80.0-100.0); RBC 4.18 mil/uL (4.20-5.00); RDW 15.7 % (10.5-14.5); WBC 7.7 thou/uL (4.0-11.0)
[2020-08-19 21:04] LABS: CALCIUM 9.2 mg/dL (8.5-10.1); CREATININE 0.7 mg/dL (0.6-1.0); POTASSIUM 3.1 mmol/L (3.5-5.1)
[2020-08-19 21:07] LABS: ALBUMIN 3.6 g/dL (3.4-5.0); TOTAL BILIRUBIN 0.5 mg/dL (0.2-1.0); TOTAL PROTEIN 7.9 g/dL (6.4-8.2)
[2020-08-20 05:47] LABS: HEMATOCRIT 28.4 % (37.0-47.0); MCH 28.9 pg (26.0-34.0); MCHC 33.4 g/dL (28.0-37.0); MCV 86.5 fL (80.0-100.0); RBC 3.29 mil/uL (4.20-5.00); RDW 15.5 % (10.5-14.5); WBC 4.6 thou/uL (4.0-11.0)
[2020-08-20 06:01] LABS: HEMOGLOBIN 9.5 gm/dL (12.0-15.0)
[2020-08-20 06:17] LABS: CALCIUM 7.8 mg/dL (8.5-10.1); CREATININE 0.7 mg/dL (0.6-1.0)
[2020-08-20 06:26] LABS: POTASSIUM 4.1 mmol/L (3.5-5.1)
[2020-08-20 12:45] VITALS: BP 107/67
[2020-08-20 15:59] VITALS: BP 107/67
[2020-08-20 16:12] VITALS: BP 114/68
[2020-08-20 16:35] VITALS: BP 106/65
--- NOTE | 2020-08-20 18:30 | NUR ---
PT RECEIVED FROM THE ER AT 1630 PER BED ALERT AND IN NO ACUTE DISTRESS. PT ATE LATE LUNCH. NO C/O PAIN. SETTLED INTO ROOM AND ORIENTED TO UNIT.
[2020-08-20 19:31] VITALS: BP 98/56
--- NOTE | 2020-08-21 01:03 | NUR ---
PT IS ALERT AND ORIENTED. GIVEN TYLENOL FOR BLE PAIN. PT EATS WITH GOOD APPETITE, ASKING FOR DIFFERENT SNACKS. WOUND PICS TAKEN. PT IS AFEBRILE.CALLS WITH NEEDS.
[2020-08-21 04:03] VITALS: BP 86/54
[2020-08-21 07:05] VITALS: BP 94/57
--- NOTE | 2020-08-21 09:55 | NUR ---
RD consulted-pt requesting double entree and ensure max/ensure enlive supplements. Has venous stasis ulcers. Wts are stable. Low nutrition risk
--- NOTE | 2020-08-21 12:19 | NUR ---
ASSUMED PT CARE AROUND 0715. PT ALERT X ORIENTED X4. ON ROOM AIR. EATING AND DRINKING WELL. ON REGULAR DIET. WOUNDS COVERED WITH XEROFORM AND ABD'S.SACRUM SLIGHT RED, BUT NOT OPEN. USES BED SIDE COMMODE. IV RT AC.FALL PRECAUTION IN PLACE. WILL CALL APPROPRIATELY. WILL CONTINUE TO MONITOR.
--- NOTE | 2020-08-21 14:27 | NUR ---
ASSESSMENT: CM REVIEWED CHART AND MET WITH PATIENT AT THE BEDSIDE. PT IS ALERT AND ORIENTED X4. PT IS WELL KNOWN TO CM DEPARTMENT. PT WAS ADMITTED DUE TO BLE VENOUS ULCER/CELLULITIS AND IS CURRENTLY ON IV ANBX. PT LIVES IN A HOUSE BY HERSELF AND IS NORMALLY FULLY INDEPENDENT WITH ADLS AND AMBULATION. PT HAS NO INSURANCE. PT REPORTS SHE NORMALLY FOLLOWS UP WITH [facility] BUT REPORTS SINCE THE PANDEMIC SHE HAS HAD A HARD TIME GETTING IN WITH THEM AND REMAINS ON HOLD ALOT WHEN CALLING THEM. PT REPORTS THEY DO HAVE WALK IN APPOINTMENTS THERE. PT STATING SHE IS TRYING TO GET A JOB AND REPORTS SHE MAY BE CLOSE TO GETTING ONE SO MAY GET INSURANCE SOON. MED ASSIST WITH SEE PATIENT BUT PT HAS DECLINED TO SPEND DOWN HER MONEY TO QUALIFY FOR MEDICAID IN THE PAST. CM AGAIN GAVE PATIENT SAFETY NET CLINICS AND RESOURCE PACKET. CM WILL CONTINUE TO FOLLOW TO ASSIST NEEDED.
[2020-08-21 16:10] VITALS: BP 98/54
[2020-08-21 19:26] VITALS: BP 101/57
[2020-08-22 05:00] VITALS: BP 105/57
--- NOTE | 2020-08-22 06:14 | NUR ---
ASSUMED PT CARE AT 1900.PT C/O PAIN TO HER BLE,MANAGED WITH MED.DRSG TO HER BLE COMPLETED WITH ABHILASH RAYO KERLIX.PT AKIRA WELL.UP WITH SBA TO THE BSC.PT ABLE TO MAKE HER NEEDS KNOWN.CALL LIGHT WITHIN REACH.
[2020-08-22 07:20] VITALS: BP 110/64
--- NOTE | 2020-08-22 13:25 | NUR ---
ASSUMED PT CARE AROUND 0715. PT ALERT X ORIENTED X4. ON ROOM AIR. USES BEDSIDE COMMODE.IV RT FA CAME OUT. TRIED PUTTING IV 3 TIMES, HARD STICK. PAGED IV TEAM, ONCE IV TEAM HERE, PT WAS AT LUNCH. WAIT FOR NEW IV. FALL PRECAUTION IN PLACE. CALL LIGHT IN REACH .WILL CALL APPROPRIATELY. PAIN OF 4 NOTIFIED, BUT PATIENT SAID DIDN'T NEED ANY PAIN MEDICINE. DRESSING CHANGE DONE. WILL CONTINUE TO MONITOR.
[2020-08-22 15:28] VITALS: BP 114/64
[2020-08-22 20:10] VITALS: BP 127/71
--- NOTE | 2020-08-23 02:32 | NUR ---
ASSUMED CARE OF PT AT 1900. PT IS A/O X4 AND IS UP WITH SBA. ROOM AIR. VSS. AFEBRILE. C/O PAIN TO LE. PRN TYLENOL GIVEN DIRECTED. VOIDS PER BSC. NO BM THIS SHIFT. WOUND CARE COMPLETED ON TOES TO LEFT FOOT. DRSGS TO LE ARE C/D/I. SPOKE WITH WOUND CARE PHYSCIAN THIS NOC WHO STATED HE WOULD VISIT WITH PT IN THE AM TO SPEAK WITH HER ON CONTINUED PLAN OF CARE FOR WOUNDS TO LE. FALL PRECAUTIONS IMPLEMENTED, CALL LIGHT IS WITHIN REACH. PT CALLS OUT APPROPRIATELY. PROGRESSING TOWARDS PLAN OF CARE DC GOALS.
[2020-08-23 07:30] VITALS: BP 124/77
--- NOTE | 2020-08-23 12:41 | NUR ---
ASSUMED PT CARE AROUND 07. PT ALERT X ORIENTED X 4. ON ROOM AIR. IV LF FA SALINE LOCKED. WOUND SWAB FOR AEROBIC CULTURE COLLECTED AND SENT TO LAB AROUND 0845. WOUND CLEANED AND DRESSED. PT EATING AND DRINKING WELL. PAIN PARTIALLY CONTROLLED BY PAIN MEDICINE. WOUND DOCTOR CAME AND SAW THE PT TODAY. FALL PRECAUTION IN PLACE. CALL LIGHT IN REACH. WILL CALL APPROPRIATELY. WILL CONTINUE TO MONITOR.
[2020-08-23 15:55] VITALS: BP 105/62
[2020-08-23 19:15] VITALS: BP 112/73
--- NOTE | 2020-08-24 03:56 | NUR ---
ASSUMED PT CARE AT 1900.PT C/O PAIN TO HER BLE,MANAGED WITH MED.DRSG TO HER BLE DONE THIS SHIFT.PT WAS IMPRESSED ON HOW HER WOUNDS LOOK.HS SNACK PROVIDED PER PT'S REQUEST.PT ABLE TO REPOSITION SELF WHILE IN BED.CALL LIGHT WITHIN REACH.
[2020-08-24 04:16] VITALS: BP 102/64
[2020-08-24 07:25] VITALS: BP 100/67
[2020-08-24] MEDS ORDERED: TRAMADOL 50 MG50 MG PO (09:59)
[2020-08-24] MEDS ORDERED: LEVOFLOXACIN500 MG PO (09:59)
[2020-08-24 10:37] VITALS: BP 100/67
--- NOTE | 2020-08-24 11:40 | NUR ---
ON-GOING ASSESSMENT: CM REVIEWED CHART AND SPOKE WITH ATTENDING WELL PATIENT. PT HAS ORDERS TO DISCHARGE HOME TODAY. PT IS NEEDING ASSISTANCE WITH FOLLOW UP WOUND CARE AND CM DISCUSSED CM CAN ATTEMPT TO SEE IF A AGENCY CAN DO 1-2 MU VISITS. PT IS AGREEABLE WITH PLAN. CM SPOKE WITH [facility] AGREED TO DO 1-2 MU VISITS FOR PATIENT. CM FAXED REFERRAL AND DISCHARGE ORDERS TO [facility]. THEY ARE NOTIFIED OF DISCHARGE TODAY. PT NEEDING ASSISTANCE WITH TRANSPORTATION HOME. CM PROVIDED BEDSIDE RN WITH CAB VOUCHER WHICH IS ON THE FRONT OF CHART. PT REPORTS NO FURTHER NEEDS FROM CM. PT ALSO GIVEN OUTPATIENT RESOURCES FOR [facility] [place] [facility]/ [facility].
--- NOTE | 2020-08-24 13:00 | NUR ---
Received awake on bed. Due medications given as prescribed, able to swallow meds w/o difficulty. On room air. Vital signs stable. On MS, not on telemetry; no complains and signs of chest pain, crushing sensation and heaviness. On regular diet- tolerating well; no nausea, no vomiting and no abdominal pain noted. Continent of bowel and bladder, able to use bedside commode; pt report to have several bowel movement in a day- hat provided to check bowel movement consistency- not loose/liquid. Assisted in ADLs. With SL at R FA- on IV antibiotics. With bilateral LE wounds- dressing intact. No complains of pain made during assessment. Pt seen and examined by Dr Leon- discharge orders made- CM informed; pt seen and examined by HH nurse at bedside. Pt refusing to discharge, asking if she can stay 1 more day since she is not ready for d/c yet- relayed this to Dr Leon- he said pt is medically stable for d/c- pt informed; CM talked to patient. Patient now requesting to have wound nurse see her first before discharge- CM contacted wound nurse re: this. A/w response from CM and wound team.
--- NOTE | 2020-08-24 13:00 | NUR ---
Received awake on bed
--- NOTE | 2020-08-25 08:10 | HC ---
[facility] [place] [address] CONSULTATION Name: JOSSELYN HARRIS BRANDI Room #: 442-P [facility] IN M.R.#: [id number] Admission: 08/19/20 Attend Phys: Sandra Leon Discharge: 08/24/20 Date of : 63 Report #: [id number] THIS REPORT FOR: cc: TEX - No family physician/PCP FAM - No family physician/PCP Olvin Lee MD ~ DATE OF SERVICE: 08/23/2020 WOUND CARE CONSULTATION NOTE REASON FOR CONSULTATION: Venous stasis ulcers of left ankle, right ankle and left toes. HISTORY OF PRESENT ILLNESS: The patient is a very pleasant 55-year-old woman, very well known to our wound care service from previous admission to [facility] for chronic venous stasis ulcers of the legs. She had been recently admitted and discharged. She was to be seen and an outpatient wound care was not able to get that arranged. She came to the Emergency Room basically because she ran out of Xeroform dressings. There has been no great change in the status of her leg ulcers, although there may be some cellulitis due to lack of dressing changes. Wound Care is consulted. PAST MEDICAL HISTORY: 1. Chronic bilateral lower extremity venous stasis ulcers. 2. Peripheral vascular disease. 3. Recurrent cellulitis of the legs. 4. Chronic anemia. 5. Peripheral vascular disease. 6. History of MRSA. 7. History of head injury in the past. ALLERGIES: Clotrimazole, miconazole. REVIEW OF SYSTEMS: Noncontributory. LABORATORY DATA: White blood count 7.7, albumin 3.6. PHYSICAL EXAMINATION: GENERAL: Shows a thin, well-appearing middle-aged woman who is alert, pleasant, conversant. HEENT: Mucous membranes are moist. NECK: Supple. ABDOMEN: Soft. LUNGS: Respirations unlabored. EXTREMITIES: Shows a large chronic venous stasis ulceration of the left medial [facility] [address] [place] [address] CONSULTATION Name: JOSSELYN HARRIS [facility] Room #: 442-P [facility] IN [facility].#: [id number] Admission: 08/19/20 Attend Phys: Sandra Leon Discharge: 08/24/20 Date of : 63 Report #: [id number] lower leg at the ankle and this measures approximately 9 cm x 5 cm and extends to the lateral side. This has a dense adherent exudate. There is no overt surrounding cellulitis. She also has ulcerations of the left great and second toe on the dorsal aspect, which are superficial. There is a small venous stasis ulcer of the right medial ankle measuring approximately 2.5 x 3 cm ulcer with a heavy exudate. At the bedside, exudate today was coarsely debrided away with a simple dry gauze, Xeroform and Dakin's dressings with Kerlix wrap were placed. Of note, dorsalis pedis pulses are present bilaterally. Arterial Doppler was normal on 05/16/2020. IMPRESSION: Chronic venous stasis ulcers of lower extremities. The patient came to the hospital because of lack of dressings at home. Wounds appeared chronic with a dense heavy exudate, but no overt cellulitis. The patient is on IV Levaquin. Arterial studies have shown no significant arterial disease of the lower extremities. PLAN: Quarter-strength Dakin's dressings to both legs after the wounds are covered with Xeroform, Kerlix wrap. Wound care team will follow. Maximize nutrition. <ELECTRONICALLY SIGNED> By: Olvin Lee MD 08/25/20 0810 0911 [id number] Olvin Lee MD /nt
== END 2020-08-24 17:31 | disposition home health service (06) | DRG 603 ==
LOC: ER 19:49 → EROBS 23:29 → 4S 08-20 16:25
PROVIDERS: Emergency Medicine; Nurse Practitioner Family; ADMIT Hospitalist; ATTEND Hospitalist
DX: L03.116 Cellulitis of left lower limb (principal); E44.0 Moderate protein-calorie malnutrition; L97.929 Non-pressure chronic ulcer of unspecified part of left lower leg with unspecified severity; L97.919 Non-pressure chronic ulcer of unspecified part of right lower leg with unspecified severity; L03.115 Cellulitis of right lower limb; I10 Essential (primary) hypertension; I73.9 Peripheral vascular disease, unspecified; I87.8 Other specified disorders of veins; D64.9 Anemia, unspecified; S81.802A Unspecified open wound, left lower leg, initial encounter; S81.801A Unspecified open wound, right lower leg, initial encounter; X58.XXXA Exposure to other specified factors, initial encounter; Y93.89 Activity, other specified; Z79.899 Other long term (current) drug therapy; Z68.20 Body mass index [BMI] 20.0-20.9, adult; Z88.1 Allergy status to other antibiotic agents; Z88.8 Allergy status to other drugs, medicaments and biological substances; Z91.018 Allergy to other foods; Y92.89 Other specified places as the place of occurrence of the external cause; Y99.8 Other external cause status
CPT/HCPCS: 10195

== ENCOUNTER 2020-09-12 23:17 | Inpatient (IN) | payer OTHER ==
[~2020-09-12] VITALS: Ht 175.3 cm; Wt 63.5 kg
[2020-09-12 23:18] VITALS: BP 112/56
[2020-09-13] VITALS (8 sets, daily range): BP systolic 86–119; BP diastolic 51–75
[2020-09-13 00:18] LABS: ABSOLUTE NEUTROPHILS 3.6 thou/uL (1.4-8.2); BASOPHILS 0.4 % (0.0-2.0); EOSINOPHILS 5.1 % (0.0-3.0); HEMATOCRIT 35.4 % (37.0-47.0); HEMOGLOBIN 11.5 gm/dL (12.0-15.0); MCH 28.8 pg (26.0-34.0); MCHC 32.5 g/dL (28.0-37.0); MCV 88.6 fL (80.0-100.0); MONOCYTES 8.9 % (1.0-8.0); PLATELET COUNT 241 thou/uL (150-400); POLYS 60.6 % (36.0-66.0); RBC 3.99 mil/uL (4.20-5.00); RDW 16.2 % (10.5-14.5); WBC 5.9 thou/uL (4.0-11.0)
[2020-09-13 00:25] LABS: CALCIUM 8.8 mg/dL (8.5-10.1); CREATININE 0.9 mg/dL (0.6-1.0); POTASSIUM 3.3 mmol/L (3.5-5.1)
--- NOTE | 2020-09-13 04:49 | NUR ---
PT ADMITTED IN TO THE UNIT AT 0245 WITH C/O PROBLEMS WITH BLE WOUNDS X2 YRS.PT REPORT WOUND HAS A FOUL SMELL EVEN AFTER TAKING ANTIBIOTICS.PT IS A/O X4.PT IS UP WITH STANDBY ASSIST .PT ADMISSION COMPLETED AND ASSESSMENT DONE.WOUND PICTURES TAKEN.PT C/O PAIN AND PAIN MANAGED WITH TRAMADOL.IV ACCESS ON RT WRIST WITH NS AT 80CC/HR AND ANTIBIOTICS.WILL CONTINUE TO MONITOR PER POC
[2020-09-13 05:39] LABS: MAGNESIUM 1.6 mg/dL (1.8-2.4)
--- NOTE | 2020-09-13 10:31 | NUR ---
ASSUMED PT CARE AROUND 0700. PT ALERT X ORIENTED X 4. ON ROOM AIR. STAND BY ASST. IV RIGHT WRIST/ NS/80MLS/HR. B/L LOWER EXTREMITY CELLULITIS. PT COMPLAINING OF DIZINESS. CALL LIGHT IN REACH. WILL CALL APPROPRIATELY. WILL CONTINUE TO MONITOR.
--- NOTE | 2020-09-14 05:54 | NUR ---
PT AOX4. PT REPORTS 6/10 PAIN IN BLE, NOTED TO WORSEN WITH MOVEMENT. PT RECEIVING PRN PO TRAMADOL Q6HR WITH PRN PO APAP Q6HR AVAILABLE. PT DENIES SOB WHILE ON ROOM AIR. PT TOLERATING PO INTAKE OF FLUIDS AND REGULAR DIET WITHOUT ISSUE. PT INTERMITTENTLY REPORTING NAUSEA WITHOUT EMESIS. PT RECEIVING PRN IV ZOFRAN Q6HR. PT AMBULATING TO BEDSIDE COMMODE INDEPENDENTLY AND WITH STANDBY ASSIST TO BEDSIDE COMMODE, RESTING IN BED OTHERWISE. PT NOTED TO SHIFT INDEPENDENTLY WHILE IN BED. SENSATION INTACT, CAPILLARY REFILL LESS THAN 3SEC IN ALL EXTREMITIES. +1 EDEMA NOTED TO LLE. PT ENCOURAGED TO NOTIFY STAFF FOR ALL NEEDS, CALL LIGHT WITHIN REACH, BED LOCKED IN LOWEST POSITION, FREQUENT MONITORING WILL CONTINUE.
[2020-09-14 08:07] VITALS: BP 100/58
--- NOTE | 2020-09-14 10:02 | NUR ---
Nutrition: Pt admitted with BLE, chronic nonhealing wounds. Some drainage present. RD familiar with pt from prior admits. Chart reviewed. Eating 100% of meals on regular diet, has double protein portions added as per previous admits. Pt reports she eats "like a pig" and never gains weight. Has increased nutrient needs. Will add ensure max and ensure enlive daily to meals. Pt with no other concerns. Consider low risk with interventions in place.
--- NOTE | 2020-09-14 13:36 | NUR ---
PT ADMITTED RELATED TO BLE WOUNDS. CM REVIEWED CHART AND SPOKE WITH CARE TEAM. PT IS FAMILIAR TO CM FROM PREVIOUS ADMISSIONS. PT WAS LAST HERE AND DISCHARGE HOME 08/24/20. PT HAD 1-2 MU VISITS FROM [facility] UPON LAST DC. PT HAD CAB VOUCHER HOME. PER RECORD PT HADN'T INDICATED THAT SHE NEEDED ASSISTANCE WITH FILLING DC MEDS UPON LAST DISCHARGE. PT RESIDES IN A HOUSE ALONE. PT HAD BEEN INDEPEDNENT WITH ADLS AND AMBULATION BAKER BISCUIT. PT GOES FOR FOLLOW UP CARE AT THE [facility]. PT IS PATIENT PAY. SHE HAS BEEN SEEN BY [facility] IN THE PAST AND SHE ISN'T AGREEABLE TO SPENDING DOWN RESOURCES TO QUALIY FOR MEDICAID. PT HAD BEEN GIVEN RESOURSES AND INFO TO PAY OOP WITH WC AN OP IN PAST AND DOESN'T. CM FOLLOWING REGARDING DC PLANNING NEEDS.
[2020-09-14 15:31] VITALS: BP 110/70
--- NOTE | 2020-09-14 18:19 | NUR ---
ALERT AND ORINTED X4, ON ROOM AIR, UP WITH SBA OR INDEPENDENT, USES COMMODE, DRESSING CHANGED PER ORDER, VITALS STABLE, AND AFEBRILE. CALL LIGHT WITH IN REACH. WILL CONTINUE TO MONITOR.
[2020-09-14 19:39] VITALS: BP 120/69
--- NOTE | 2020-09-15 06:48 | NUR ---
RECEIVED CARE OF THIS PATIENT AT 1900. PATIENT ALERT AND ORIENTED X4. UP IN ROOM BY SELF. DRESSING ON [place] LOWER EXT CHANGED. C/O MILD PAIN. SLEPT OFF AND ON DURING SHIFT.
[2020-09-15 08:23] VITALS: BP 110/66
--- NOTE | 2020-09-15 12:12 | NUR ---
PT CONTINUES ON IV ZOSYN. PT TO HAVE DEBRIDEMENT TOMORROW. CM FOLLOWING REGARDING DC PLANNING.
--- NOTE | 2020-09-15 12:21 | HC ---
[facility] [place] [address] CONSULTATION Name: JOSSELYN HARRIS Room #: 456-P ADM IN M.R.#: [id number] Admission: 09/13/20 Attend Phys: Haroldo Dickens MD Discharge: Date of : 63 Report #: [id number] THIS REPORT FOR: cc: FAM - No family physician/PCP FAM - No family physician/PCP Eric Chavez MD ~ DOC #: [id number] Eric Chavez MD DATE OF SERVICE: 09/14/2020 WOUND CARE CONSULTATION REQUESTING PHYSICIAN: None. CHIEF COMPLAINT: Venous insufficiency ulcers. HISTORY OF PRESENT ILLNESS: This is a 55-year-old white female with chronic venous insufficiency ulcers, who states in the past several days, she noticed she was having increased amount of drainage and odor consistent with an infection. She presented to the Emergency Department and was diagnosed with cellulitis and admitted to the hospital and started on IV antibiotics. The patient had previous admissions for these wounds. She has had a previous debridement with Misonix with Dr. Foster. Due to lack of insurance, the patient has been unable to follow up with us in the wound clinic. The patient denies any other new wounds. PAST MEDICAL HISTORY: Significant for venous insufficiency with chronic ulcers, recurrent cellulitis of lower extremities. CURRENT MEDICATIONS: Multiple, I reviewed the patient's medication list. DRUG ALLERGIES: CLOTRIMAZOLE AND MICONAZOLE. SOCIAL HISTORY: The patient denies tobacco use. FAMILY HISTORY: Not pertinent to current medical condition. REVIEW OF SYSTEMS: CONSTITUTIONAL: The patient denies fevers or chills. NEUROLOGIC: The patient complains of mild generalized weakness, but no isolated weakness in arms or legs. EYES: No complaints. ENT: No complaints. CARDIOVASCULAR: The patient denies chest pain or palpitations. She has chronic lower extremity edema. RESPIRATORY: The patient denies shortness of breath, cough, wheeze. [facility] [address] [place] [address] CONSULTATION Name: JOSSELYN HARRIS [facility] Room #: 456-P [facility] IN [facility].#: [id number] Admission: 09/13/20 Attend Phys: Haroldo Dickens MD Discharge: Date of : 63 Report #: [id number] GASTROINTESTINAL: The patient has nausea, vomiting, abdominal pain. GENITOURINARY: The patient denies urgency or frequency. MUSCULOSKELETAL: No complaints. SKIN: There is chronic venous stasis ulcers bilaterally on the lower extremities. PHYSICAL EXAMINATION: VITAL SIGNS: Temperature 36.7, pulse 76, respirations 18, BP 100/58. GENERAL: This is alert and oriented x3, thin, chronically ill-appearing white female who is in no obvious distress. HEENT: Normocephalic, atraumatic. Mucous membranes are somewhat dry. Pupils are round. Sclerae white. NECK: Without JVD. LUNGS: Clear. HEART: Regular. ABDOMEN: Soft, nontender. EXTREMITIES: Evaluation of bilateral lower extremities reveals 1+ edema. There is a near circumferential ulceration on the left lower extremity, which is a mixture of slough and granulation tissue. There is increased erythema and warmth surrounding this area. Distal pulses are 1+. Evaluation of right lower extremity reveals a medial ulceration which is a mixture of granulation and slough. There is mild erythema, but no actual warmth surrounding the ulceration. Distal pulses are intact. NEUROLOGIC: Cranial nerves II-XII grossly intact. Motor and sensory are grossly intact. LABORATORY DATA: White count 5.9, hemoglobin 11.5, BUN 20, creatinine 0.9, albumin 3.6. ASSESSMENT: 1. Bilateral lower extremity venous stasis ulcerations with associated cellulitis. 2. Venous insufficiency with edema. 3. Generalized debility. PLAN: We will start Silvadene, Xeroform, ABD, Kerlix and Eduardo bilateral lower extremities. We will consult Dr. Leobardo Foster for surgical Misonix debridement. We will continue IV antibiotics. We will have the patient elevate her legs as much as at all times. We will continue all other current medications. Eric Chavez MD [facility] [address] CONSULTATION Name: JOSSELYN HARRIS [facility] Room #: 456-P [facility] IN M.R.#: [id number] Admission: 09/13/20 Attend Phys: Hraoldo Dickens MD Discharge: Date of : 63 Report #: [id number] <ELECTRONICALLY SIGNED> By: Eric Chavez MD 09/15/20 1221 1154 0051 Eric Chavez MD /nt
[2020-09-15 16:35] VITALS: BP 109/64
[2020-09-15 19:49] VITALS: BP 129/68
--- NOTE | 2020-09-15 20:04 | NUR ---
Paitent alert and orinted x4, on room air, dressing changed per order patient tolerated well, up and endy, vitals stable, and afbreile. call light with in reach. will continue to monitor.
[2020-09-16] VITALS (10 sets, daily range): BP systolic 91–114; BP diastolic 48–70
--- NOTE | 2020-09-16 01:55 | NUR ---
PT IS A/O X4 AND IS UP AD EDIN TO BSC IN HER ROOM. IS ON ROOM AIR. MEDSURG STATUS, NO TELE. C/O PAIN TO LE. PRN PAIN MEDICATION GIVEN DIRECTED. WOUND CARE COMPLETED TO BILAT LE PRESCRIBED. DRSG C/D/I. PT IS CURRENTLY NPO AWAITING DEBRIDEMENT PROCEDURE TOMORROW. CALL LIGHT IS WITHIN REACH. WILL CONTINUE TO MONITOR.
[2020-09-16 08:36] LABS: HEMATOCRIT 34.3 % (37.0-47.0); HEMOGLOBIN 11.4 gm/dL (12.0-15.0); MCH 29.2 pg (26.0-34.0); MCHC 33.3 g/dL (28.0-37.0); MCV 87.7 fL (80.0-100.0); RBC 3.91 mil/uL (4.20-5.00); RDW 15.6 % (10.5-14.5); WBC 4.9 thou/uL (4.0-11.0)
[2020-09-16 08:44] LABS: CREATININE 0.8 mg/dL (0.6-1.0); POTASSIUM 4.6 mmol/L (3.5-5.1)
--- NOTE | 2020-09-16 12:17 | NUR ---
PT HAVING DEBRIDEMENT THIS DAY. PT CONTINUES ON IV ABX. CM FOLLOWING REGARDING DC PLANNING. WILL NEEDS MEDS VOUCHERED AND LIKELY CAB VOUCHER UPON DC.
--- NOTE | 2020-09-16 17:06 | NUR ---
PATIENT ALERT AND ORINTED X4, UP WITH SBA, ON ROOM AIR, PAIN MEDICATION GIVEN PER MAR, VITAL SIGNS, AND AFBRILE. CALL LIGHT WITH IN REACH. BED ALARM ON. WILL CONTINE TO MONITOR.
--- NOTE | 2020-09-17 03:41 | NUR ---
PATIENT AOX4 CONFUSED AND FORGETFUL.PAIN CONTROLLED THIS SHIFT.PATIENT IS CONTIENT AND USES BEDSIDE COMMODE.PATIENT HAS BLE WOUNDS, PATIENT HAD I&D DONE, DRESSING ON LUE REINFORSED PER PATIENT REQUEST. FALL PRECAUTION IN PLACE. PATIENT IN BED ASLEEP AT THIS TIME BREATHING REGULAR AND UNLABOURED
[2020-09-17 04:07] VITALS: BP 117/65
[2020-09-17 05:57] LABS: HEMATOCRIT 31.2 % (37.0-47.0); HEMOGLOBIN 10.4 gm/dL (12.0-15.0); MCH 29.3 pg (26.0-34.0); MCHC 33.5 g/dL (28.0-37.0); MCV 87.3 fL (80.0-100.0); RBC 3.57 mil/uL (4.20-5.00); WBC 9.8 thou/uL (4.0-11.0)
[2020-09-17 06:07] LABS: CALCIUM 8.8 mg/dL (8.5-10.1); CREATININE 0.8 mg/dL (0.6-1.0); MAGNESIUM 1.9 mg/dL (1.8-2.4); POTASSIUM 4.2 mmol/L (3.5-5.1)
[2020-09-17 07:48] VITALS: BP 114/64
--- NOTE | 2020-09-17 11:30 | NUR ---
PT IS POD#1 FROM DEBRIDEMENT BL LE. CARE TEAM INDICATED PT MAY BE MEDICALLY STABLE TO DC HOME TODAY OR TOMROROW. CM MET WITH PT AT BEDSIDE THIS DAY. CM INDICATED POSSIBLE DC TODAY OR TOMORROW. SHE INDICATED SHE WOULD PREFER TOMORROW IF POSSIBLE. CM CONVEYED PREFERENCE TO PHYSICIAN. CM REACHED OUT TO [facility] TO SEE IF THEY CAN PROVIDE ANOTHER 2 [facility] VISITS UPON DC. CM FAXED REFERRAL. PT WILL NEED MEDS VOUCHERED AND LIKELY TRANSPORT HOME. CM FOLLOWING REGARDING DC PLANNING.
[2020-09-17] MEDS ORDERED: BACTRIM DS TAB1 EACH PO (12:07)
[2020-09-17 13:52] VITALS: BP 114/64
--- NOTE | 2020-09-17 19:48 | NUR ---
ASSUMED CARE OF PATIENT AT SHIFT CHANGE. ASSESSMENT CHARTED. MEDS ADMINISTERED PER JUN. VSS. PATIENT A&OX4 AND MAKES NEEDS KNOWN. POST OP DAY ONE; PROVIDERS ORDERED SPECIAL CREAM FOR PATIENT. WOUND CARE COMPLETE AFTER MEDICATION DELIVERED. CM WORKED WITH GETTING MEDICATIONS FOR PATIENT. PATIENT WAS CLEARED FOR DISCHARGE THIS DAY & SENT HOME WITH SUPPLIES AND A CAB VOUCHER "AFTER DINNER" PER PATIENT REQUEST. PATIENT VOICED NO FURTHER NEEDS AND DISCHARGED VIA WHEELCHAIR TO HOME
== END 2020-09-17 19:36 | disposition home or self-care (01) | DRG 571 ==
LOC: ER 23:17 → EROBS 09-13 01:05 → 4W 09-13 02:38
PROVIDERS: Emergency Medicine; Internal Medicine; Nurse Practitioner Acute Care; ADMIT Hospitalist; ATTEND Hospitalist
PROC: 0JBQ0ZZ Excision of Right Foot Subcutaneous Tissue and Fascia, Open Approach (ICD-10-PCS; principal; 2020-09-16)
PROC: 0JBR0ZZ Excision of Left Foot Subcutaneous Tissue and Fascia, Open Approach (ICD-10-PCS; principal; 2020-09-16)
DX: L03.116 Cellulitis of left lower limb (principal); E44.0 Moderate protein-calorie malnutrition; I73.9 Peripheral vascular disease, unspecified; I10 Essential (primary) hypertension; L03.115 Cellulitis of right lower limb; R53.81 Other malaise; D64.9 Anemia, unspecified; E87.6 Hypokalemia; S81.802A Unspecified open wound, left lower leg, initial encounter; S81.801A Unspecified open wound, right lower leg, initial encounter; Z20.822 Contact with and (suspected) exposure to COVID-19; I87.2 Venous insufficiency (chronic) (peripheral); X58.XXXA Exposure to other specified factors, initial encounter; Y93.89 Activity, other specified; Y92.89 Other specified places as the place of occurrence of the external cause; Y99.8 Other external cause status; Z68.20 Body mass index [BMI] 20.0-20.9, adult; Z91.02 Food additives allergy status; Z88.8 Allergy status to other drugs, medicaments and biological substances
CPT/HCPCS: 10040; 50010; 50101; 50386; 50403; 57119; 57120; 62110; 62900; 70005

== ENCOUNTER 2020-10-13 23:02 | Inpatient (IN) | payer OTHER ==
[~2020-10-13] VITALS: Ht 175.3 cm; Wt 57.0 kg
[~2020-10-13 23:02] MED LIST changes: +BACTRIM DS TAB1 EACH PO
[2020-10-13 23:14] VITALS: BP 104/65
[2020-10-14] VITALS (7 sets, daily range): BP systolic 92–137; BP diastolic 57–91
[2020-10-14 01:33] LABS: ABSOLUTE NEUTROPHILS 4.5 thou/uL (1.4-8.2); BASOPHILS 0.6 % (0.0-2.0); EOSINOPHILS 0.7 % (0.0-3.0); HEMATOCRIT 32.3 % (37.0-47.0); HEMOGLOBIN 10.5 gm/dL (12.0-15.0); LYMPHOCYTES 16.2 % (24.0-44.0); MCHC 32.7 g/dL (28.0-37.0); MCV 88.7 fL (80.0-100.0); MONOCYTES 9.7 % (1.0-8.0); PLATELET COUNT 172 thou/uL (150-400); POLYS 72.8 % (36.0-66.0); RBC 3.64 mil/uL (4.20-5.00); RDW 15.6 % (10.5-14.5); WBC 6.2 thou/uL (4.0-11.0)
[2020-10-14 01:43] LABS: ALBUMIN 2.5 g/dL (3.4-5.0); CALCIUM 7.1 mg/dL (8.5-10.1); CREATININE 0.8 mg/dL (0.6-1.0); TOTAL BILIRUBIN 0.6 mg/dL (0.2-1.0); TOTAL PROTEIN 5.6 g/dL (6.4-8.2)
[2020-10-14 01:48] LABS: POTASSIUM 2.9 mmol/L (3.5-5.1)
--- NOTE | 2020-10-14 07:09 | EKG ---
[address] [address] ELECTROCARDIOGRAM REPORT Name: JOSSELYN HARRIS BRANDI Room #: 170-10 ADM IN M.R.#: [id number] Admission: 10/14/20 Attend Phys: Wolfgang Abarca MD Discharge: Date of : 63 Report #: [id number] [facility] ED Test Date: 2020-10-14 Test Time: 00:17:01 Pat Name: JOSSELYN HARRIS Department: Room: 170 Gender: F Financial Quantitative Analyst: tabitha pires : 1965 Requested By: Audie Phillips Order Number: [id number] MD: Shiva Garcia Measurements Intervals Cedar Rate: 70 P: 68 TN: 141 QRS: 40 QRSD: 102 T: 33 QT: 405 QTc: 437 Interpretive Statements Sinus rhythm Probable left atrial enlargement RSR' in V1 or V2, right VCD or RVH Borderline T abnormalities, anterior leads Compared to ECG 04/07/2020 20:26:48 T-wave abnormality now present Electronically Signed On 10-14-2020 7:09:41 CDT by Shiva Garcia [email or web address] <ELECTRONICALLY SIGNED> By: Shiva Garcia MD, FAC 10/14/20 0709 0017 0017 Shiva Garcia MD, [facility] /EPI
[2020-10-14 09:45] LABS: MAGNESIUM 1.6 mg/dL (1.8-2.4)
[2020-10-14 09:51] LABS: POTASSIUM 3.9 mmol/L (3.5-5.1)
[2020-10-15 05:18] LABS: HEMATOCRIT 32.9 % (37.0-47.0); HEMOGLOBIN 11.2 gm/dL (12.0-15.0); MCHC 33.9 g/dL (28.0-37.0); MCV 88.6 fL (80.0-100.0); RBC 3.72 mil/uL (4.20-5.00); WBC 6.6 thou/uL (4.0-11.0)
[2020-10-15 06:14] LABS: CALCIUM 7.9 mg/dL (8.5-10.1); CREATININE 0.6 mg/dL (0.6-1.0)
[2020-10-15 06:18] LABS: POTASSIUM 4.9 mmol/L (3.5-5.1)
[2020-10-15 07:25] VITALS: BP 98/59
[2020-10-15] MEDS ORDERED: ZOFRAN ODT4 MG PO (13:45)
[2020-10-15] MEDS ORDERED: FLORANEX GRANU1 EACH PO (13:45)
[2020-10-15] MEDS ORDERED: DAKIN'S473 M2 IRRIG (13:45)
[2020-10-15] MEDS ORDERED: LOPERAMIDE 2 MG2 M1 PO (13:45)
[2020-10-15] MEDS ORDERED: AUGMENTIN 875-1 EACH PO (13:45)
[2020-10-15] MEDS ORDERED: ACETAMINOPHEN325 M1 PO (13:45)
[2020-10-15] MEDS ORDERED: GENTAMICIN SULF15 GM TOP (13:45)
[2020-10-15 13:57] VITALS: BP 98/59
[2020-10-15 14:49] VITALS: BP 98/59
[2020-10-15 15:54] VITALS: BP 122/66
[2020-10-15 20:00] VITALS: BP 109/66
[2020-10-16 04:57] VITALS: BP 83/50
[2020-10-16 07:57] VITALS: BP 95/57
== END 2020-10-16 11:07 | disposition home or self-care (01) | DRG 603 ==
LOC: ER 23:02 → EROBS 10-14 01:29 → 4W 10-14 08:42
PROVIDERS: Emergency Medicine; Internal Medicine; Nurse Practitioner Family; ADMIT Hospitalist; ATTEND Hospitalist
DX: L03.116 Cellulitis of left lower limb (principal); E44.0 Moderate protein-calorie malnutrition; L97.929 Non-pressure chronic ulcer of unspecified part of left lower leg with unspecified severity; L97.919 Non-pressure chronic ulcer of unspecified part of right lower leg with unspecified severity; Z68.1 Body mass index [BMI] 19.9 or less, adult; L03.115 Cellulitis of right lower limb; I73.9 Peripheral vascular disease, unspecified; I87.2 Venous insufficiency (chronic) (peripheral); E87.6 Hypokalemia; D63.8 Anemia in other chronic diseases classified elsewhere; R53.81 Other malaise; S06.9X0A Unspecified intracranial injury without loss of consciousness, initial encounter; X58.XXXA Exposure to other specified factors, initial encounter; Y93.89 Activity, other specified; Y92.89 Other specified places as the place of occurrence of the external cause; Z86.14 Personal history of Methicillin resistant Staphylococcus aureus infection; Z88.8 Allergy status to other drugs, medicaments and biological substances; Z91.02 Food additives allergy status; Y99.8 Other external cause status
CPT/HCPCS: 10040

== ENCOUNTER 2020-11-02 19:35 | Inpatient (IN) | payer OTHER ==
[~2020-11-02] VITALS: Ht 175.3 cm; Wt 57.7 kg
[~2020-11-02 19:35] MED LIST changes: +DAKIN'S473 M2 IRRIG; +FLORANEX GRANU1 EACH PO; +LOPERAMIDE 2 MG2 M1 PO; +ZOFRAN ODT4 MG PO
[2020-11-02 19:49] VITALS: BP 115/66
[2020-11-02 21:14] LABS: ABSOLUTE NEUTROPHILS 3.8 thou/uL (1.4-8.2); BASOPHILS 0.9 % (0.0-2.0); EOSINOPHILS 0.9 % (0.0-3.0); HEMATOCRIT 30.1 % (37.0-47.0); HEMOGLOBIN 10.4 gm/dL (12.0-15.0); LYMPHOCYTES 22.7 % (24.0-44.0); MCH 29.5 pg (26.0-34.0); MCHC 34.4 g/dL (28.0-37.0); MCV 85.8 fL (80.0-100.0); MONOCYTES 10.3 % (1.0-8.0); PLATELET COUNT 200 thou/uL (150-400); POLYS 65.2 % (36.0-66.0); RBC 3.51 mil/uL (4.20-5.00); RDW 15.1 % (10.5-14.5); WBC 5.8 thou/uL (4.0-11.0)
[2020-11-02 21:36] LABS: CALCIUM 8.5 mg/dL (8.5-10.1); CREATININE 0.8 mg/dL (0.6-1.0); POTASSIUM 3.7 mmol/L (3.5-5.1)
[2020-11-02 21:41] LABS: ALBUMIN 2.9 g/dL (3.4-5.0); TOTAL BILIRUBIN 0.8 mg/dL (0.2-1.0); TOTAL PROTEIN 6.5 g/dL (6.4-8.2)
[2020-11-02 22:23] VITALS: BP 115/66
[2020-11-02 22:44] VITALS: BP 115/66
--- NOTE | 2020-11-02 23:49 | NUR ---
NOTED RED RAISED AREAS BY IV SITE RFA. VANCOMYCIN RUNNING. MEDICATION STOPPED. PROVIDER NOTIFIED. PROVIDER STATED TO RESTART AND DCD PREVIOUS ORDERS FOR BENADRYL AND PEPCID.
--- NOTE | 2020-11-02 23:53 | NUR ---
ADMIT FROM ED. PT LIVES AT HOME. STATED HER WOUNDS WERE GETTING WORSE AND SHE STARTED TO FEEL DIZZY. PT STATED SHE HAS HAD HER COVID VACCINE. PT CHEERFUL TALKATIVE, STEADY GAIT, REQUESTED MEAL AND PROVIDED. ED PLACED DRESSING ON BLE. PHOTOS TAKEN. MED HX OF PVD, MRSZA, SEPSIS, HTN, HEAD TRAUMA.
--- NOTE | 2020-11-03 01:30 | NUR ---
PROIVDERR WANTED IV SITE DCD AND NEW RESTARTED. SEVERAL ATTEMPTS TO RESTART IV AND NOT ABLE PROVIDER AND PHARMACY UPDATED.
[2020-11-03 03:05] VITALS: BP 93/58
--- NOTE | 2020-11-03 06:01 | NUR ---
PHARM AWARE THAT RATE OF VANC IS SLOW AND ZOSYN WILL NOT BE GIVEN UNTIL CENTRAL LINE OR ADDITIONAL IV OBTAINED.
[2020-11-03 07:23] VITALS: BP 89/58
--- NOTE | 2020-11-03 10:42 | NUR ---
Recommend Case Management consult/intervention r/t pt need for nutrition resources upon d/c inthe community. Pt reports limited access to transportation, financial hardship, unemployment.
[2020-11-03 15:29] VITALS: BP 97/59
--- NOTE | 2020-11-03 18:08 | NUR ---
ASSUMED PATIENT CARE AT 0700. A/O X4. GOOD APPATITE. VSS. REPORTED POSITIVE BLOOD CULTURE TO DR CONNELL. SLOWLY TOWARDS POC GOALS.
[2020-11-03 20:06] VITALS: BP 103/66
--- NOTE | 2020-11-03 21:54 | NUR ---
PT RESTING IN BED. IVF INTACT. PT USING BSC. PT CALLS FOR ASSISTANCE. BLE DRESSINGS INTACT. PRN FOR BLE PAIN PROVIDED.
[2020-11-04 03:26] VITALS: BP 96/57
[2020-11-04 04:26] LABS: HEMATOCRIT 32.6 % (37.0-47.0); HEMOGLOBIN 10.8 gm/dL (12.0-15.0); MCH 29.1 pg (26.0-34.0); MCHC 33.1 g/dL (28.0-37.0); RBC 3.7 mil/uL (4.20-5.00); RDW 15.2 % (10.5-14.5); WBC 5.3 thou/uL (4.0-11.0)
[2020-11-04 04:45] LABS: CALCIUM 8.2 mg/dL (8.5-10.1); CREATININE 0.8 mg/dL (0.6-1.0); POTASSIUM 4.1 mmol/L (3.5-5.1)
--- NOTE | 2020-11-04 06:03 | NUR ---
PT REQUESTING PROBIOTIC AND PHYSICAL THERAPY, WILL HAVE DAY NURSE TALK WITH DR DURING ROUNDS.
[2020-11-04 07:43] VITALS: BP 96/59
--- NOTE | 2020-11-04 14:46 | NUR ---
INITIAL ASSESSMENT: AZAM reviewed chart and spoke with nursing and attending physician. Pt was admitted from home due to BLE cellulitis. Pt is on IV abx. Wound care following. Surgery consulted for possible debridement. AZAM met with pt at bedside. Introduced role of AZAM. Pt is known to AZAM from prior hospitalizations. Pt was recently discharged home on 10/16 with [facility] visits. Pt does not have health insurance and does not have a PCP. Pt states she is in the process of finding a job that will hopefully have insurance. Pt reports that she is waiting for the [employer]ji to open, so she can go use their computers to search for a job and an insurance policy. Pt states she has a long-term pension through the state of [place]. SW discussed [place]. Pt states she will not qualify as the long-term fund puts her over assets. AZAM provided pt with Health Resource Guide and info for [facility] primary care and wound care services. SW encouraged pt to establish care with [facility] to assist with health services and prescriptions. Pt states she does not have transportation easily accessible. Pt does use the bus and states that it becomes too expensive to take a cab. [facility] care. Pt unable to state when her last appointment was at [facility]. [facility] to screen pt. AZAM is following to assist as needed with discharge planning.
[2020-11-04 15:33] VITALS: BP 106/66
[2020-11-04 21:05] VITALS: BP 98/58
[2020-11-04 21:08] VITALS: BP 117/67
[2020-11-05 05:05] VITALS: BP 98/58
[2020-11-05 05:47] LABS: HEMOGLOBIN 10.1 gm/dL (12.0-15.0); MCH 29.5 pg (26.0-34.0); MCHC 33.8 g/dL (28.0-37.0); MCV 87.3 fL (80.0-100.0); RBC 3.43 mil/uL (4.20-5.00); RDW 15.1 % (10.5-14.5); WBC 4.2 thou/uL (4.0-11.0)
[2020-11-05 05:59] LABS: CALCIUM 8.4 mg/dL (8.5-10.1); CREATININE 0.6 mg/dL (0.6-1.0); POTASSIUM 4.3 mmol/L (3.5-5.1)
[2020-11-05 07:27] VITALS: BP 100/66
--- NOTE | 2020-11-05 13:11 | HC ---
[facility] [place] [address] CONSULTATION Name: JOSSELYN HARRIS Room #: 363-P ADM IN M.R.#: [id number] Admission: 11/02/20 Attend Phys: Curry Valdez MD Discharge: Date of : 63 Report #: [id number] THIS REPORT FOR: cc: [facility] - Clinic physician unknown [facility] - Clinic physician unknown Rohan Pugh MD ~ DOC #: [id number] Rohan Pugh MD DATE OF SERVICE: 11/03/2020 CHIEF COMPLAINT: Bilateral lower extremity venous ulcerations. HISTORY OF PRESENT ILLNESS: This is a 55-year-old female patient with whom I am familiar from multiple hospitalizations with a history of some peripheral arterial disease, but mainly venous stasis ulcerations to both lower extremities. She has a history of recurrent infections. She has a great deal of difficulty getting treatment and medications on an outpatient basis that she is not covered by any sort of health insurance and has limited resources. She is here with increasing pain, swelling, and drainage from her lower extremities. She denies any chest pain, shortness of breath, fever, or chills currently. PAST MEDICAL HISTORY: Positive for a history of chronic venous ulcers as detailed above, history of multiple debridements, mild protein calorie malnutrition, tonsillectomy, and hypertension. She has some remotely noted history of peripheral arterial, but her arterial Doppler earlier this year in May was normal. SOCIAL HISTORY: Negative for alcohol or tobacco use. FAMILY HISTORY: Noncontributory. CURRENT MEDICATIONS: Include acetaminophen, loperamide, acidophilus, topical gentamicin, Augmentin, ondansetron, and tramadol. ALLERGIES: Include CLOTRIMAZOLE, MICONAZOLE, MOLD, MUSHROOMS AND STRAWBERRIES. REVIEW OF SYSTEMS: CONSTITUTIONAL: The patient denies fever, chills or weight loss. NEUROLOGICAL: The patient denies focal weakness. EYES: The patient denies visual changes, redness or drainage. ENT: The patient denies earache, nasal drainage, sore throat. CARDIOVASCULAR: Denies chest pain, palpitations, or diaphoresis. PULMONARY: Denies cough or shortness of breath. GASTROINTESTINAL: Denies nausea, vomiting, diarrhea or abdominal pain. ORTHOPEDIC: The patient complains of pain, swelling, ulcerations with increasing redness and drainage to both lower extremities [address] [address] CONSULTATION Name: JOSSELYN HARRIS [facility] Room #: 363-P [facility] IN M.R.#: [id number] Admission: 11/02/20 Attend Phys: Curry Valdez MD Discharge: Date of : 63 Report #: [id number] Others systems in a 14-point review of systems are negative. PHYSICAL EXAMINATION: VITAL SIGNS: Temperature 98.6, pulse ____, respiratory rate 16, and blood pressure ____. GENERAL: This is a somewhat chronically ill-appearing female patient, appears to be in minimal distress. HEENT: Head is normocephalic. Nose and throat are clear. NECK: Supple. LUNGS: Clear. ABDOMEN: Soft. Bowel sounds present. EXTREMITIES: Without clubbing or cyanosis. There is good capillary refill. She has ulcerations to both lower extremities. Both with moderate fibrin present, some surrounding erythema and mild tenderness. The ulcerations are greater on the left than on the right. NEUROLOGIC: The patient is alert and oriented. LABORATORY DATA: Sodium 140, potassium 3.7, chloride 106, CO2 23, BUN 13, creatinine 0.8, glucose 92. Albumin is 2.9. White blood cell count 5.8 with a hemoglobin of 10.4. CLINICAL IMPRESSION: 1. Persistent venous ulcerations, bilateral lower extremities. 2. History of cellulitis and wound infection, bilateral lower extremities. 3. Mild protein calorie malnutrition. 4. Generalized debility. RECOMMENDATIONS: At this point in time, we will recommend Xeroform and Dakin's moist gauze, Kerlix and Eduardo to bilateral lower extremities, perhaps some bedside aggressive cleaning would be beneficial and removing some of the fibrin present on the surface. She has had prior vascular workup and is not noted to have any significant stenoses at this time. We recommend aggressive nutritional support. Antibiotics as ordered. I appreciate being asked to see her in consultation. MD JOSEFINA Anders/SUSAN/XIOMARA <ELECTRONICALLY SIGNED> By: Rohan Pugh MD 11/05/20 1311 [id number] [id number] Rohan Pugh MD /nt
[2020-11-05 15:50] VITALS: BP 102/64
[2020-11-05 19:46] VITALS: BP 110/65
[2020-11-06 03:50] VITALS: BP 107/67
--- NOTE | 2020-11-06 05:16 | NUR ---
Patient making slow progress rowards outcome goals. Vital signs stable. NPO after MN for leg wound debridement. Consent obtained by previous shift, patient express understanding. Leg dressings intact. Up to BSC without difficulty.
[2020-11-06 05:20] LABS: HEMATOCRIT 31.5 % (37.0-47.0); HEMOGLOBIN 10.3 gm/dL (12.0-15.0); MCH 28.8 pg (26.0-34.0); MCHC 32.7 g/dL (28.0-37.0); RBC 3.58 mil/uL (4.20-5.00); RDW 15.5 % (10.5-14.5); WBC 5.3 thou/uL (4.0-11.0)
[2020-11-06 06:05] LABS: CALCIUM 8.4 mg/dL (8.5-10.1); CREATININE 0.7 mg/dL (0.6-1.0); POTASSIUM 4.5 mmol/L (3.5-5.1)
[2020-11-06 07:50] VITALS: BP 107/67
--- NOTE | 2020-11-06 10:18 | NUR ---
PT OFF UNIT TO SURGERY
--- NOTE | 2020-11-06 12:22 | NUR ---
AZAM reviewed chart and spoke with nursing and attending physician. Pt is currently off the unit having debridement. Pt is currently on IV abx. Pt may be ready to d/c home over the weekend. [facility] has screened pt and [facility] business office has met with pt regarding pt's outstanding bill. Pt to make a payment. Pt is over assets and has been informed that she will need to spend down her resources in order to qualify for Medicaid. Discussed with Director of Case Mgmt today. AZAM has provided pt with Health Resource Guide, prescription discount card and info regarding wound care/primary care at [facility]. AZAM placed contact info for [facility] in pt's discharge summary. Pt may need transportation home. Cab voucher to be obtained from hospitality housekeeper if pt is ready for discharge over the weekend. No additional discharge needs identified at this time. AZAM is available to assist should needs arise.
[2020-11-06 12:28] VITALS: BP 107/67
[2020-11-06 14:37] VITALS: BP 105/70
[2020-11-06 16:13] VITALS: BP 134/62
[2020-11-06 20:26] VITALS: BP 112/61
[2020-11-07 05:14] VITALS: BP 105/61
[2020-11-07 08:00] VITALS: BP 110/69
[2020-11-07 16:00] VITALS: BP 106/70
[2020-11-07 20:15] VITALS: BP 114/67
--- NOTE | 2020-11-07 20:59 | NUR ---
PT ALERT AND ORIENTED X4. VSS. DENIED. PAIN. NO S/S DISTRESS. DRESSINGS INTACT. BED DOWN CALL LIGHT IN REACH. BED ALARM ON.
[2020-11-08 04:21] VITALS: BP 109/69
[2020-11-08 07:50] VITALS: BP 136/89
--- NOTE | 2020-11-08 08:30 | NUR ---
PT PROGRESSING TOWARDS D/C GOALS. VSS AFEBRILE. LE DRESSINGS CHANGES ORDERED. MEDICATED FOR C/O PAIN WITH TYLENOL. PT FELL ASLEEP SHORTLY AFTER. NO S/S DISTRESS. NO BLEEDING NOED.
[2020-11-08 09:00] VITALS: BP 116/67
--- NOTE | 2020-11-08 10:43 | O ---
[facility] [place] [address] OPERATIVE REPORT Name: JOSSELYN HARRIS Room #: 363-P ADM IN M.R.#: [id number] Admission: 11/02/20 Attend Phys: Curry Valdez MD Discharge: Date of : 63 Report #: [id number] THIS REPORT FOR: cc: [facility] - Clinic physician unknown [facility] - Clinic physician unknown Jose Dueñas MD ~ DATE OF SERVICE: 11/06/2020 PREOPERATIVE DIAGNOSES: 1. Left leg venous stasis ulcer measuring 15 x 6 cm. 2. Right leg venous ulcer measuring 7 x 4 cm. POSTOPERATIVE DIAGNOSES: 1. Left leg venous stasis ulcer measuring 15 x 6 cm. 2. Right leg venous ulcer measuring 7 x 4 cm. OPERATIONS: 1. Excisional debridement of left leg venous stasis ulcer measuring 15 x 7 cm. 2. Excisional debridement of right leg ulceration measuring 7 x 4 cm. SURGEON: Jose Dueñas MD ANESTHESIA: General. ESTIMATED BLOOD LOSS: Minimal. SPECIMENS: None. DESCRIPTION OF PROCEDURE: After informed consent was obtained, the patient was brought to the operating room and placed supine. SCDs were placed and working, preoperative antibiotics were administered, general anesthesia was induced. The bilateral legs were prepped and draped in the usual sterile fashion. This was an excisional debridement. Depth is subcutaneous. 100% of wounds were debrided. Post-debridement, wound areas were the same as the preop wound areas. I used the Misonix to sharply debride away necrotic tissue down through the skin. 100% of wounds were debrided. Sterile dressings were applied with Vaseline gauze, 4 x 4, and a Kerlix. COMPLICATIONS: None. DISPOSITION: The patient was taken to recovery in satisfactory condition. <ELECTRONICALLY SIGNED> By: Jose Dueñas MD 11/08/20 1043 1549 1740 Jose Dueñas MD /nt
[2020-11-08 15:31] VITALS: BP 112/71
--- NOTE | 2020-11-08 19:33 | NUR ---
RN ASSUMED PT'S CARE AT 0700-1900PM, PT IS A&OX3 ( PERSON, PLACE AND TIME), PT CAN FOLLOW ALL COMMANDS, PT IS CONTINUING IV ABX AND WOUND CARE, PT 'S VS ARE STABLE.
[2020-11-08 19:50] VITALS: BP 116/67
--- NOTE | 2020-11-08 22:44 | NUR ---
PT ALERT AND ORIENTED X4. VSS T 99. NO S/S DISTRESS PRESENTLY MEDICATED FOR PAIN TO LEs 10/08. PT NOW SLEEPING NO C/O. BED DOWN. CALL LIGHT IN REACH. BED ALARM IS ON.
[2020-11-09 03:58] VITALS: BP 120/73
--- NOTE | 2020-11-09 06:17 | NUR ---
PT PROGRESSING TOWARDS D/C GOALS VSS. AFEBRILE. NO C/O PAIN THIS AM NO S/S DISTRESS LE DRESISNG REMAIN CLEAN DRY AND INTACT.
[2020-11-09 08:03] VITALS: BP 108/71
[2020-11-09 09:30] VITALS: BP 122/83
--- NOTE | 2020-11-09 14:21 | NUR ---
DISCHARGE NOTE: AZAM reviewed chart and spoke with nursing and attending physician. Awaiting input from ID at this time for recommendations for abx. Pt will discharge home later today. AZAM discussed case with Director of Case Mgmt and [employer]. [facility] will not be vouching for meds at time of discharge. Pt has agreed to make a small payment towards her hospital bill for multiple hospitalizations. Pt is not willing to spend down her assets to apply/qualify for [place]-Medicaid. AZAM discussed with [facility] liaison, who states pt refused the [facility]athon visits that were arranged during pt's last hospitalization. AZAM has provided pt with prescription discount card and info for [facility] clinics and how to establish care at [facility]. SW met with pt at bedside to discuss discharge plan. Pt states that she thought she was staying until Monday. SW explained that pending ID's input, she will likely discharge home later today. AZAM confirmed pt's home address for cab voucher. Voucher # [id number] provided. Placed on pt's chart. Along with [employer] $4 prescription list. Pt reports she has the packets of info for primary care, but does not think she will be able to go to [facility]. Pt states that it would work better for her to be discharged home tomorrow morning, so she will have time to get some things done. AZAM explained again that once she is discharged, the nurse can assist with arranging the cab ride home. Pt will be provided with scripts to take to her pharmacy. AZAM updated pt's nurse, attending physician and Director of Case Mgmt. Info regarding follow up care at [facility] and Health Resource Guide placed in pt's discharge summary. No additional SW needs identified at this time, but is available to assist should needs arise.
[2020-11-09 15:49] VITALS: BP 122/83
[2020-11-09] MEDS ORDERED: CEFDINIR300 MG PO (16:52)
[2020-11-09] MEDS ORDERED: DAKIN'S473 M2 IRRIG (17:13)
--- NOTE | 2020-11-09 17:43 | NUR ---
RN ASSUMED PT'S CARE AT 0700, PT IS A&OX4, PT IS CONTINUING WOUND CARE AND IV ABX, PT'S VS ARE STABLE, ID DR , WOUND DR AND HOSPITAL DR HAVE SEEING THIS PT, RN RECEIVED ORDER TO DC PT TO HOME, PT UNDERSTANDS DC TECHING WELL . PT IS EATING DINNER NOW, PT DENIES PAIN AND SOB BY THIS TIME.
--- NOTE | 2020-11-09 18:31 | NUR ---
PT HAD A GOOD DINNER, SW HAS ARRANGING CAB RIDE TO HOME, ENERGY CONSULTANT SENT PT TO CAB AT 1830PM.
--- NOTE | 2020-11-11 16:00 | NUR ---
AZAM placed call to [facility] to hotline pt due to self-neglect and to assess pt's living situation/condition of home. AZAM spoke with Guillermina (agent # [id number]). Provided info to Guillermina. Pt has had 7 hospitalizations in 2020 (31 days total). Pt is admitted with cellulites of bilateral lower extremeties. Pt has refused to spend down assets to help qualify for Medicaid. Pt has refused [facility] HH visits that are arranged by the hospital. Pt has been provided with info for safety net clinics and [facility] for follow up PCP and wound care. Pt appears to have limited social support. SW is available to assist should needs arise.
== END 2020-11-09 18:40 | disposition home or self-care (01) | DRG 571 ==
LOC: ER 19:35 → EROBS 21:43 → 3W 21:43
PROVIDERS: Emergency Medicine; ADMIT Hospitalist; ATTEND Hospitalist
PROC: 0JBN0ZZ Excision of Right Lower Leg Subcutaneous Tissue and Fascia, Open Approach (ICD-10-PCS; principal; 2020-11-06)
PROC: 0JBP0ZZ Excision of Left Lower Leg Subcutaneous Tissue and Fascia, Open Approach (ICD-10-PCS; principal; 2020-11-06)
DX: L03.115 Cellulitis of right lower limb (principal); L97.929 Non-pressure chronic ulcer of unspecified part of left lower leg with unspecified severity; Z68.1 Body mass index [BMI] 19.9 or less, adult; E44.0 Moderate protein-calorie malnutrition; L97.919 Non-pressure chronic ulcer of unspecified part of right lower leg with unspecified severity; L03.116 Cellulitis of left lower limb; I73.9 Peripheral vascular disease, unspecified; I10 Essential (primary) hypertension; D64.9 Anemia, unspecified; Z79.899 Other long term (current) drug therapy; Z88.1 Allergy status to other antibiotic agents; Z88.8 Allergy status to other drugs, medicaments and biological substances; Z91.018 Allergy to other foods
CPT/HCPCS: 10080; 50010; 50101; 50386; 57091; 57119; 57120; 62110; 62900; 70005

== ENCOUNTER 2020-11-28 20:30 | Emergency (ER) | payer OTHER ==
[~2020-11-28] VITALS: Ht 175.3 cm; Wt 63.5 kg
--- NOTE | ~2020-11-28 | EMS ---
[place] [address] EMS Patient Care Report Name: JOSSELYN HARRIS BRANDI Room #: DEP ANALY Stovall#: [id number] Admission: 11/28/20 Attend Phys: Discharge: 11/28/20 Date of : 63 Report #: [id number] THIS REPORT FOR: //name// Report Transmitted: 11/30/2020 13:22 EMS Care Summary [place], [place] Incident [id number] @ 11/28/2020 20:02 Incident Location [address] [place] [address] Patient JOSSELYN GOEL Female, 55 Years 1965 Patient Address [address] [place] [address] Patient History Methicillin-resistant Staphylococcus aureus (MRSA), Patient Allergies Mold allergy, Patient Medications None Reported, Chief Complaint Infected wounds to legs Disposition Transported No Lights/[place] Dispatch Reason Sick Person Transported To [facility] Narrative Arrived on the scene for a 55 y/o female that is sitting on her retaining wall. Pt said that she has wounds to her legs and that she believes they are infected. Pt said that she has been on oral antibiotics but finished them. Pt said that the oral hasn't really helped and only [place] [address] EMS Patient Care Report Name: JOSSELYN HARRIS Room #: DEP ANALY Stovall#: [id number] Admission: 11/28/20 Attend Phys: Discharge: 11/28/20 Date of : 63 Report #: [id number] thing that helps. Pt wants to go back to the hospital for further evaluation. See Pt Assessment Infection to legs See Flowchart. Assisted Pt from the wall to the cot. Transported to the hospital with zero change or incidents. Assisted Pt from the cot to the bed. Transferred care to receiving facility. Initial Vitals @20:18P: 105,R: 18,BP: 112/72,Pain: 0/10,GCS: 15,Revised Trauma: 12, @20:25P: 95,R: 18,BP: 94/65,Pain: 0/10,GCS: 15,Revised Trauma: 12, Assessments @20:15MENTAL:Place Oriented,Event Oriented,Person Oriented,Time Oriented,SKIN:HEENT:Head/Face: No Abnormalities,Eyes: No Abnormalities,Neck/Airway: No Abnormalities,LUNG SOUNDS:General: No Abnormalities,Left Upper: No Abnormalities,Right Upper: No Abnormalities,Left Lower: No Abnormalities,Right Lower: No Abnormalities,ABDOMEN:General: No Abnormalities,Left Upper: No Abnormalities,Right Upper: No Abnormalities,Left Lower: No Abnormalities,Right Lower: No Abnormalities,PELVIS//GI:No Abnormalities,EXTREMITIES:Left Leg: Other,Right Leg: Other,Left Arm: No Abnormalities,Right Arm: No Abnormalities,PULSE:Radial: 2+ Normal,NEURO:No Abnormalities, Impression Generalized Weakness Procedures @20:15ALS AssessmentResponse: UnchangedSucceeded Timeline 20:01,Call Received 20:01,Dispatch Notified 20:02,Dispatched 20:04,En Route 20:14,On Scene 20:15,At Patient 20:15,ALS Assessment,Response: UnchangedSucceeded, 20:18,BP: 112/72 M,PULSE: 105,RR: 18 R,SPO2: Ox,ETCO2: ,BG: ,PAIN: 0,GCS: 15, 20:18,Depart Scene 20:25,At Destination 20:25,BP: 94/65 M,PULSE: 95,RR: 18 R,SPO2: Ox,ETCO2: ,BG: ,PAIN: 0,GCS: 15, 20:44,Call Closed [facility] [address] [place] [address] EMS Patient Care Report Name: JOSSELYN HARRIS BRANDI Room #: DEP M.R.#: [id number] Admission: 11/28/20 Attend Phys: Discharge: 11/28/20 Date of : 63 Report #: [id number] Disclaimer v1.1 Copyright 202 [employer] This EMS Care Summary contains data elements from the applicable legal record (which may be displayed differently). It is designed to provide pertinent information for the following purposes: continuity of care, clinical quality, and state data reporting. The complete legal record is available to ED staff and administrators of the receiving hospital in [employer]'s Patient Tracker. All data is provided "as is."
[2020-11-28 21:03] LABS: ABSOLUTE NEUTROPHILS 6.4 thou/uL (1.4-8.2); BASOPHILS 0.3 % (0.0-2.0); EOSINOPHILS 0.1 % (0.0-3.0); HEMATOCRIT 34.3 % (37.0-47.0); HEMOGLOBIN 11.7 gm/dL (12.0-15.0); LYMPHOCYTES 9.3 % (24.0-44.0); MCH 29.4 pg (26.0-34.0); MCHC 34.1 g/dL (28.0-37.0); MCV 86.4 fL (80.0-100.0); MONOCYTES 5.9 % (1.0-8.0); PLATELET COUNT 243 thou/uL (150-400); POLYS 84.4 % (36.0-66.0); RBC 3.98 mil/uL (4.20-5.00); RDW 15.6 % (10.5-14.5); WBC 7.6 thou/uL (4.0-11.0)
[2020-11-28 21:09] LABS: CALCIUM 8.6 mg/dL (8.5-10.1); CREATININE 1.4 mg/dL (0.6-1.0)
[2020-11-28 21:15] LABS: ALBUMIN 3.3 g/dL (3.4-5.0); TOTAL BILIRUBIN 1.3 mg/dL (0.2-1.0); TOTAL PROTEIN 7.3 g/dL (6.4-8.2)
[2020-11-28 23:13] VITALS: BP 115/69
== END 2020-11-28 23:15 | disposition home or self-care (01) ==
LOC: ER 20:30
PROVIDERS: Student in an Organized Health Care Education/Training Program
DX: Z48.00 Encounter for change or removal of nonsurgical wound dressing (principal); I87.2 Venous insufficiency (chronic) (peripheral); I10 Essential (primary) hypertension; Z90.89 Acquired absence of other organs; Z88.1 Allergy status to other antibiotic agents; Z91.02 Food additives allergy status; Z91.018 Allergy to other foods

== ENCOUNTER 2020-12-06 02:17 | Inpatient (IN) | payer OTHER ==
[~2020-12-06] VITALS: Ht 175.3 cm; Wt 65.8 kg
--- NOTE | ~2020-12-06 | EMS ---
[place] [address] EMS Patient Care Report Name: JOSSELYN HARRIS Room #: 170-10 ADM IN M.R.#: [id number] Admission: 12/06/20 Attend Phys: Haroldo Dickens MD Discharge: Date of : 63 Report #: [id number] THIS REPORT FOR: //name// Report Transmitted: 12/06/2020 06:33 EMS Care Summary [facility] Incident [id number] @ 12/06/2020 01:46 Incident Location [address] [place] [address] Patient JOSSELYN HARRIS Female, 55 Years 1965 Patient Address [address] [place] [address] Patient History Other, Patient Allergies No known allergies,Mold allergy,[place] allergy, Patient Medications None Reported, Chief Complaint leg wounds/pain Disposition Transported No Lights/[place] Dispatch Reason Sick Person Transported To [facility] Narrative Dispatched to a mutual aid call for a woman reported to have infected leg wounds. EMS arrived to find the pt alert, standing in her driveway with [facility] crew nearby. She reports a 2+ year history of leg wound issues, that need more assistance than she can do herself every couple of weeks or so. [place] [address] EMS Patient Care Report Name: JOSSELYN HARRIS Room #: 170-10 ADM IN [place]#: [id number] Admission: 12/06/20 Attend Phys: Haroldo Dickens MD Discharge: Date of : 63 Report #: [id number] injury or new concerns, difficulty breathing, or fever. She says that the pain has increased to a point in the legs that she needs to go to the ER for assistance. [facility] requests [facility] and reports that she does not need pain management medication from EMS. Pt walks to the ambulance with no noted difficulty. Pt is secured to the cot for a no lights or sirens transport to [facility] ER. Pt rests while en route without change in complaint. Pt moves herself laterally to the ER bed in room #10. Care transferred to waiting RN. Initial Vitals @02:08P: 76,R: 16,BP: 105/64,SpO2: 98, @01:58P: 80,R: 16,BP: 116/74,Pain: 4/10,GCS: 15,Temp: 98F,SpO2: 98,Revised Trauma: 12, Impression Pain (Non-Traumatic) Procedures @PTASurgical Mask on PatientResponse: Unchanged Timeline SALES DEVELOPMENT SPECIALIST,Surgical Mask on Patient,Response: Unchanged 01:44,Call Received 01:44,Psap Call 01:46,Dispatched 01:47,En Route 01:56,On Scene 01:57,At Patient 01:58,BP: 116/74 M,PULSE: 80,RR: 16 R,SPO2: 98 Ox,ETCO2: ,BG: ,PAIN: 4,GCS: 15, 02:00,Depart Scene 02:08,BP: 105/64 M,PULSE: 76,RR: 16 R,SPO2: 98 Ox,ETCO2: ,BG: ,PAIN: ,GCS: , 02:08,At Destination 02:24,Call Closed Disclaimer v1.1 Copyright 2020 [employer] This EMS Care Summary contains data elements from the applicable legal record (which may be displayed differently). It is designed to provide pertinent information for the following purposes: continuity of care, clinical quality, and state data reporting. The complete legal record is available to ED staff and administrators of the receiving hospital in [employer]'s Patient Tracker. All data is provided "as is."
[2020-12-06 02:18] VITALS: BP 92/60
[2020-12-06 04:00] LABS: ABSOLUTE NEUTROPHILS 6.2 thou/uL (1.4-8.2); BASOPHILS 0.5 % (0.0-2.0); HEMATOCRIT 40.7 % (37.0-47.0); HEMOGLOBIN 13.7 gm/dL (12.0-15.0); MCH 29.3 pg (26.0-34.0); MCHC 33.6 g/dL (28.0-37.0); MCV 87.3 fL (80.0-100.0); MONOCYTES 6.3 % (1.0-8.0); PLATELET COUNT 256 thou/uL (150-400); POLYS 81.2 % (36.0-66.0); RBC 4.67 mil/uL (4.20-5.00); RDW 15.9 % (10.5-14.5); WBC 7.6 thou/uL (4.0-11.0)
[2020-12-06 04:03] LABS: CALCIUM 9.2 mg/dL (8.5-10.1); CREATININE 1.4 mg/dL (0.6-1.0); POTASSIUM 3.8 mmol/L (3.5-5.1)
[2020-12-06 04:09] LABS: ALBUMIN 3.9 g/dL (3.4-5.0); TOTAL BILIRUBIN 1.7 mg/dL (0.2-1.0); TOTAL PROTEIN 8.7 g/dL (6.4-8.2)
[2020-12-06 07:16] VITALS: BP 102/54
[2020-12-06 09:40] VITALS: BP 100/63
[2020-12-06 19:55] VITALS: BP 102/62
[2020-12-06 20:58] VITALS: BP 91/57
--- NOTE | 2020-12-06 22:44 | NUR ---
ADMITTED TO THE UNIT AT APPROXIMATELY 2030. PT IS A/O X 4 AND IS UP AD EDIN. ROOM AIR. ADMISSION COMPLETED. WOUND CARE DONE TO SHEEBA ROMERO. PICTURES IN CHART. VSS. AFEBRILE. C/O NAUSEA. PRN NAUSEA MEDICATION GIVEN DIRECTED. C/O DIARRHEA. WILL CONTINUE TO MONITOR. PT HAS BEEN EDUCATED ON BED CONTROLS AND USE OF CALL LIGHT. WILL CONTINUE TO MONITOR.
--- NOTE | 2020-12-07 05:03 | HC ---
[facility] [address] CONSULTATION Name: JOSSELYN HARRIS Room #: 438-P ADM IN M.R.#: [id number] Admission: 12/06/20 Attend Phys: Haroldo Dickens MD Discharge: Date of : 63 Report #: [id number] THIS REPORT FOR: cc: [facility] - Clinic physician unknown [facility] - Clinic physician unknown Evin Will MD ~ DATE OF SERVICE: 12/06/2020 INFECTIOUS DISEASE CONSULTATION ATTENDING PHYSICIAN: Dr. Dickens. REASON FOR EVALUATION: Bilateral lower extremity inflammatory eruptions, chronic ulcers with exacerbation, likely component of skin and soft tissue infection. HISTORY OF PRESENT ILLNESS: Chart reviewed. The patient examined. This 55-year-old known to our service. She was last hospitalized roughly a month ago. She has chronic bilateral lower extremity nonhealing venous stasis ulcers, also has peripheral arterial disease and an unstable social situation. She notes over the course of the last couple of days, had increasing pain associated with the wounds in particular and drainage, somewhat difficult to get a history. She appears to be at least moderately encephalopathic. She has been admitted on several occasions for same. Not certain if she had a fever, although did admit to some chills, though she has been dizzy and has had a diminished p.o. intake. Denies significant overall change in her pulmonary status. She was evaluated, found to have a mildly elevated creatinine. She was empirically started on therapy with vancomycin. Review of previous cultures back in September most recently had polymicrobial growth including some gram-negative Alcaligenes and Klebsiella. ALLERGIES: LISTED TO MICONAZOLE, CLOTRIMAZOLE. MEDICATIONS: Include vancomycin, hydrocodone, acetaminophen as needed. PAST MEDICAL HISTORY: As noted above, chronic ulcers in the setting of venous stasis insufficiency with dermatitis, frequent secondary infections, anemia, hypertension, peripheral vascular disease. SOCIAL AND FAMILY HISTORY: Available in chart. REVIEW OF SYSTEMS: Somewhat limited given her encephalopathy. She was talking somewhat tangentially. PHYSICAL EXAMINATION: GENERAL: Appears chronically ill and undernourished disheveled. [facility] [address] [place] [address] CONSULTATION Name: JOSSELYN HARRIS [facility] Room #: 438-P ADM IN M.R.#: [id number] Admission: 12/06/20 Attend Phys: Haroldo Dickens MD Discharge: Date of : 63 Report #: [id number] VITAL SIGNS: Temperature 97.7, pulse 72, respirations 16, blood pressure 100/63. SKIN: Warm, dry, no rashes. HEENT: Normocephalic. Extraocular muscles intact. NECK: Supple. LUNGS: Diminished breath sounds, otherwise clear. HEART: Regular. I do not appreciate a murmur. ABDOMEN: Soft, nontender. EXTREMITIES: Bilateral lower extremities have well defined pretibial ulcers that extend less and circumferentially around the lower extremity, moderate to marked degree of inflammation. There is no particular purulence and quite tender to palpation. GENITOURINARY AND RECTAL: Deferred. LABORATORY DATA: Sed rate 37. Electrolytes: Sodium 134, potassium 3, chloride 94, bicarbonate is 20, anion gap of 20, BUN and creatinine 24 and 1.4, AST of 56, ALT of 48, albumin of 39, total protein of 8.7. CRP of 108.6. CBC: White count 7.6, H and H 13.7 and 40.7, platelets of 256. ASSESSMENT AND PLAN: 1. Bilateral lower extremity inflammatory eruption, likely multifactorial. Certainly, has chronic ulcers, actually appeared almost punched out, underlying venous stasis insufficiency and dermopathy suggests arterial disease as well. Continue empiric therapy with vancomycin and cefepime given her history of gram-negatives. At this point, she remains quite tenuous. Certainly at risk for additional complications. Continue wound care as prescribed. 2. Previously had undergone debridement of the wounds, also there is a great degree of necrotic material at this point. <ELECTRONICALLY SIGNED> By: Evin Will MD 12/07/20 0503 0959 15 Evin Will MD /nt
[2020-12-07 05:35] VITALS: BP 95/64
[2020-12-07 07:45] VITALS: BP 118/89
--- NOTE | 2020-12-07 13:28 | NUR ---
ASSESSMENT: CM REVIEWED CHART AND SPOKE WITH PATIENT AT THE BEDSIDE. PT APPEARS TO BE ALERT AND ORIENTED X4. PT WAS ADMITTED DUE TO CELLULITIS. PT IS BEING SEEN BY ID, WOUND CARE AND IS CURRENTLY ON IV ANBX. PT WILL LIKELY NEED FURTHER DEBRIDEMENT OF ULCER. PT IS WELL KNOWN TO CM DEPARTMENT FROM MULTIPLE PREVIOUS ADMISSIONS THIS YEAR. PT LIVES IN A HOUSE ALONE. PT REPORTS HAVING A COUPLE OF STEPS TO ENTER AND NO STEPS ONCE INSIDE. PT REPORTS BEING FULLY INDEPENDENT WITH ADLS AND AMBULATION. PT CURRENTLY HAS NO INSURANCE. PT WILL BE SCREENED BY [employer] FOR MEDICAID BUT PT REPORTS SHE IS OVER ASSETS DUE TO A SENIOR LIVING PENTION SHE RECEIVES FROM [facility]. PT REPORTS THAT SHE IS STILL LOOKING INTO GETTING ANOTHER INSURANCE AND REPORTS SHE HAS BEEN DOING SOME RESEARCH AT THE TIME LIBRARY IN ATTEMPTS TO SIGN UP FOR ONE DURING OPEN ENROLLMENT. PT REPORTS THAT SHE WAS GOING TO THE WOUND CLINIC BUT REPORTS SHE WAS TOLD IT IS NOT COST EFFECTIVE FOR HER TO CONTINUE TO GO THERE SO SHE IS IN THE PROCESS OF ESTABLISHING CARE AT ANOTHER PLACE AND REPORTS HAVING TWO PLACES IN MIND. CM PROVIDED PATIENT WITH HEALTH RESOURCE PACKET AND AGAIN ENCOURAGEMENT PT TO ESTABLISH FOLLOW UP AND THE IMPORTANCE OF THIS. PT REPORTS SHE WAS ALSO ARRANGING A GO FUND ME PAGE TO ATTEMPT TO RAISE SOME MONEY FOR HER CARES/WOUND CARE. PT [facility]. PT IS CURRENTLY ON IV ANBX AND AWAITING CULTURES AT THIS TIME.
--- NOTE | 2020-12-07 16:29 | NUR ---
ASSUMED CARE OF PT AT 0700 THIS MORNING. PT HAS WOUNDS ON BILAT LOWER EXTREMETIES. BOTH HAVE BEEN DRESSED THIS AFTERNOON WITH ZFORM, ABD PADS AND KEERLEX. ASSESSMENTS AND NOTED ON CHART AND OTHERWISE UNREMARKABLE. CALL LIGHT AND OTHER NEEDS ARE WITHIN REACH. IV IN RT AC WITH NS AT 126ML/HR. PT IS ABULATORY MOD INDEP. MEDS AND TX GIVEN NEEDED AND SCHEDULED. WILL MONITOR PT AN NOTE ANY CHANGES.
--- NOTE | 2020-12-07 17:10 | NUR ---
THIS RN AGREES WITH THE FOOD BEVERAGE SUPERVISOR ASSESSMENT.
[2020-12-07 19:21] VITALS: BP 117/71
--- NOTE | 2020-12-08 02:43 | NUR ---
ASSUMED PT CARE AT 1900.PT UP WITH SAB TO THE BSC.PT HAD DIARRHEA AT START OF SHIFT X1.PT C/O NAUSEA,EMESIS X1.PT'S IV INFILTRATED,TRIED TO GET ONE IN BUT PT IS A HARD STICK.LEGAL SUPPORT ANALYST NOTIFIED.DRSG TO HER BLE COMPLETED BY AM NURSE,C/D/I.PT SLEEPING ON HER BED AT THIS TIME.CALL LIGHT WITHIN REACH.
[2020-12-08 08:02] VITALS: BP 106/69
--- NOTE | 2020-12-08 10:29 | NUR ---
Assumed care of pt at 0700. Pt a&ox4. Cultures obtained from bilateral lower extremity wounds. Pain controlled. IVF and IV antibiotics infusing. Call light within reach. Will continue to monitor.
--- NOTE | 2020-12-08 15:29 | NUR ---
on-going assessment: CM REVIEWED CHART. PT REMAINS ON IV ANBX AND CONTINUING TO RECEIVE WOUND CARE. CM RECEIVED CALL FROM POPEYE YI AT [facility] WHO REPORTS SHE HAS TRIED TO VISIT WITH PATIENT AT HER HOME BUT SHE HAS NOT ANSWERED. CM WILL CONTINUE TO FOLLOW TO ASSIST NEEDED.
[2020-12-08 15:31] VITALS: BP 117/71
[2020-12-08 20:10] VITALS: BP 103/62
--- NOTE | 2020-12-09 04:03 | NUR ---
PT DENIED PAIN SO FAR.PT CONT ON IV ABX ORDERED.PT REMOVED TE KHOA WARP TO HER BLE DUE TO PAIN.MAGANG C/D/I.PT SCHEDULED TO HAVE I&D DONE THIS TODAY.[place] N[place]CE [place].EDEMA NOTED TOHER L FOOT,PT ENCOURAGED TO ELEVATE HER LEG.PT HAD AN EPISODE OF INCONTINENCE,HUNTER CARE DONE BY HER.PT SLEEPING ON HER BED AT THIS TIME.CALL LIGHT WITHIN REACH.
[2020-12-09 04:10] VITALS: BP 89/54
[2020-12-09 06:30] LABS: CALCIUM 8.3 mg/dL (8.5-10.1); CREATININE 0.7 mg/dL (0.6-1.0)
--- NOTE | 2020-12-09 13:11 | NUR ---
ON-GOING ASSESSMENT: CM REVIEWED CHART. PT IS HAVING A DEBRIDEMENT TODAY. CM MET WITH PATIENT AND PROVIDED HER WITH HEALTH RESOURCE PACKET, SAFETY NET CLINICS, FIND A PHYSICIAN RESOURCE FORM, DISCOUNT RX CARD, WELL A SENIOR BLUE BOOK FOR RESOURCES IN THE COMMUNITY. CM WILL CONTINUE TO FOLLOW TO ASSIST NEEDED.
--- NOTE | 2020-12-09 14:00 | NUR ---
A/O x 4. Room air. Stand by assist. No current complains of pain. Is currently downstair for an I/D of bilateral. Tolerating IV abt well. Left foraearm flushes well and dressing dry clean and intact
[2020-12-09 20:12] VITALS: BP 90/54
[2020-12-10 04:24] VITALS: BP 100/60
--- NOTE | 2020-12-10 04:26 | NUR ---
PT C/O PAIN TO HER BLE,MANAGED WITH MED.DRSG TO HER BLE C/D/I.PT CONT ON IVF AND IV ABX ORDERED.NO C/O N/V NOTED.PT UP THE BSC WITH SBA.PT ABLE TO MAKE HER NEEDS KNOWN.CALL LIGHT WITHIN REACH.
--- NOTE | 2020-12-10 10:23 | NUR ---
A/O X 4. Room air. Stand by assist. Has bilateral leg wraps with xerofoam and kerlex dry, clean and intact. Ate 100% of breakfast. Has a right forearm IV, infusing NS @ 75 ml/hr. Iv dressing dry clean Intact and its patent, flushes well. Not wanting any pain medication at this time / pain.
--- NOTE | 2020-12-10 13:01 | NUR ---
ON-GOING ASSESSMENT: CM REVIEWED CHART AND SPOKE WITH ATTENDING. PT REMAINS ON IV ANBX. PER ATTENDING PT IS STILL HAVING DRAINAGE FROM LEGS AND WILL LIKELY DISCHARGE TOMORROW. ID AND WOUND CARE ALSO ON THE CASE. CM WILL COTNINUE TO FOLLOW TO ASSIST NEEDED.
--- NOTE | 2020-12-10 14:29 | NUR ---
WOUND CARE F/U; TODAY IS THE FIRST DRESSING CHANGE S/P SURGERY. BILATERAL LE'S HAVE CLEAN WOUNDBEDS THE ARE A PALE RED COLOR AND ARE TENDER. NONE ODOROUS. THE PERIWOUND HAVE NO ERYTHEMA OR MASCERATION. RECOMMENDATIONS; -XEROFORM,DAKINS MOIST GAUZE,ABD,KERLIX. DISCUSSED WITH ESTER.
--- NOTE | 2020-12-10 15:55 | HC ---
[facility] [place] [address] CONSULTATION Name: JOSSELYN HARRIS Room #: 438-P ADM IN M.R.#: [id number] Admission: 12/06/20 Attend Phys: Janis Metz MD Discharge: Date of : 63 Report #: [id number] THIS REPORT FOR: cc: [facility] - Clinic physician unknown [facility] - Clinic physician unknown Eric Chavez MD ~ DATE OF SERVICE: 12/08/2020 WOUND CARE CONSULTATION PERSONAL PHYSICIAN: None on staff. CHIEF COMPLAINT: Bilateral leg ulcers with cellulitis. HISTORY OF PRESENT ILLNESS: This is a 55-year-old white female well known to our service for multiple admissions for recurrent venous stasis ulcerations and cellulitis. The patient was last hospitalized approximately one month ago. At that time, patient had the ulcers debrided with a Misonix debridement. With this debridement, the patient was discharged with instructions to use Dakin's solution with Xeroform, ABD, Kerlix, and Eduardo. The patient states that she has not been doing this up until about past several days when she ran out of her dressings. The patient is noted that once she stopped doing the appropriate dressing, she started having increasing drainage, redness and pain. The patient was evaluated through the Emergency Department, appeared to have cellulitis and was started on IV antibiotics. The patient has been seen by surgery already about a possible debridement. We have been asked to follow the patient as well. Unfortunately, due to the patient's lack of insurance, the patient has never been able to follow up in our wound care clinic. PAST MEDICAL HISTORY: Significant for chronic ulcers of venous insufficiency type, multiple admissions for cellulitis, history of anemia, hypertension, peripheral vascular disease. CURRENT MEDICATIONS: Multiple, I reviewed the patient's medication list. DRUG ALLERGIES: MICONAZOLE AND CLOTRIMAZOLE. SOCIAL HISTORY: The patient does not smoke. Supposedly lives independently at this time. At one point; however, the patient was homeless in the remote past. FAMILY HISTORY: Not pertinent to current medical condition. REVIEW OF SYSTEMS: CONSTITUTIONAL: The patient denies actual fevers. NEUROLOGIC: The patient does complain of tingling in her feet. Denies any numbness or weakness. [facility] [address] [place] [address] CONSULTATION Name: JOSSELYN HARRIS [facility] Room #: 438-P ADM IN .R.#: [id number] Admission: 12/06/20 Attend Phys: Janis Metz MD Discharge: Date of : 63 Report #: [id number] EYES: No complaints. EARS, NOSE AND THROAT: No complaints. CARDIAC: The patient denies chest pain, palpitations. Does have chronic lower extremity edema. RESPIRATORY: The patient denies shortness of breath, cough or wheezes. GASTROINTESTINAL: The patient denies nausea, vomiting or abdominal pain. GENITOURINARY: The patient denies urgency or frequency. MUSCULOSKELETAL: No complaints. SKIN: The patient has chronic venous stasis ulcers which appear to be cellulitic on both lower extremities. PHYSICAL EXAMINATION: VITAL SIGNS: Temperature 36.6, pulse 68, respirations 16, BP 106/69. GENERAL: This is alert and oriented x3, somewhat disheveled white female who is in no acute distress. HEENT: Normocephalic, atraumatic. Mucous membranes are somewhat dry. Pupils are round. Sclerae white. NECK: Without JVD. LUNGS: Clear. HEART: Regular. ABDOMEN: Soft, nontender. EXTREMITIES: The patient has 1+ dorsalis pedis and posterior tibial pulses on the right. Medial ankle region has an ulceration which is 100% slough filled with moderate amount of discharge with slight odor. There is exquisite tenderness, erythema and warmth. On the left leg, there is an almost near circumferential venous leg ulcer, which is 100% slough filled with moderate drainage, which is slightly foul smelling. It is too tender, erythematous and warm to touch. Bilateral heels are intact. NEUROLOGIC: Cranial nerves II-XII grossly intact. Motor and sensory grossly intact. LABORATORY DATA: White count 7.6, hemoglobin 13.7. Sed rate 37, BUN 24, creatinine 1.4. C-reactive protein was 108.6. Albumin is 3.9. Lower extremity arterial Doppler shows no evidence of occlusion or stenosis. IMPRESSION: 1. Recurrent bilateral venous insufficiency ulcers with secondary cellulitis. 2. Chronic venous insufficiency with edema. 3. Generalized debility. PLAN: At this time, we will start Dakin's solution with Xeroform, ABD, Kerlix, Eduardo to bilateral lower extremities. I would agree with Dr. Cleary's notes that the patient would benefit from a Misonix debridement which the patient has done well with in the past. I will contact Dr. Cleary in regards to this. We will consult PT and OT to assist with strengthening and we should maximize the [facility] [address] [place] [address] CONSULTATION Name: JOSSELYN HARRIS BRANDI Room #: 438-P ADM IN M.R.#: [id number] Admission: 12/06/20 Attend Phys: Janis Metz MD Discharge: Date of : 63 Report #: [id number] patient's oral protein. Continue with continued healing. We will continue IV antibiotics per Infectious Disease. We will continue all other current medications. I appreciate ability to consult. <ELECTRONICALLY SIGNED> By: Eric Chavez MD 12/10/20 1555 1025 1333 Eric Chavez MD /nt
[2020-12-10 16:09] VITALS: BP 102/60
[2020-12-10 21:48] VITALS: BP 107/62
--- NOTE | 2020-12-11 05:53 | NUR ---
PT IS A/O X4 AND IS UP AD EDIN. VSS AFEBRILE. DENIES C/O PAIN OR DISCOMFORT. MEDICATION GIVEN PER MAR. FALL PRECAUTIONS IN PLACE, CALL LIGHT IS WITHIN REACH. ADELAIDA C/D/I. PT CALLS OUT APPROPRIATELY FOR ASSISTANCE.
[2020-12-11 08:00] VITALS: BP 113/60
--- NOTE | 2020-12-11 13:10 | NUR ---
PATIENT ALERT AND ORIENTED X4. UP AD EDIN WITH STANDBY ASSIST. BILATERAL LE WOUNDS CHANGED BY WOUND CARE TEAM. DRY AND INTACT. COMPLAINTS OF PAIN THIS AM. PRN MEDICATION GIVEN. SCHEDULED TO GO HOME TODAY. WILL CONTINUE TO MONITOR.
--- NOTE | 2020-12-11 13:11 | NUR ---
on-going assessment: CM REVIEWED CHART AND SPOKE WITH PATIENT. CM DISCUSSED IMPOARTANCE OF FOLLOW UP CARE AND PT REPORTS SHE STILL HAS THE INFORMATION CM PROVIDED TO HER PREVIOUS DAY. PT HAS HEALTH RESOURCE PACKET, SAFETY NET CLINICS, FIND A PHYSICIAN RESOURCE GUIDE, AND NUMBER FOR [employer]. PT WILL NEED TRANSPORTATION HOME SO CM CONFIRMED PATIENTS ADRESSESS AND PROVIDED BEDSIDE RN WITH A CAB VOUCHER #[id number]. PT REPORTS NO FURTHER NEEDS FROM CM PRIOR TO DISCHARGE.
[2020-12-11] MEDS ORDERED: AUGMENTIN 875-1 EACH PO (13:24)
[2020-12-11] MEDS ORDERED: DOXYCYCLINE HY100 M3 PO (13:24)
[2020-12-11] MEDS ORDERED: ACIDOPHILUS1 EAC4 PO (13:24)
[2020-12-11] MEDS ORDERED: ACETAMINOPHEN325 M1 PO (13:24)
[2020-12-11] MEDS ORDERED: PEPCID20 MG PO (13:24)
[2020-12-11 13:54] VITALS: BP 113/60
[2020-12-11 15:14] VITALS: BP 113/60
--- NOTE | 2020-12-11 15:16 | NUR ---
PATIENT DISCHARGED TO HOME. CAB PROVIDED. LEFT OVER WOUNDCARE SUPPLIES GIVEN. ALL BELONGINGS SENT WITH PATIENT. DISCHARGE INSTRUCTIONS. PATIENT VERBALIZED UNDERSTANDING. LEFT UNIT AT 1500.
== END 2020-12-11 14:57 | disposition home or self-care (01) | DRG 573 ==
LOC: ER 02:17 → 4S 04:54 → EROBS 04:54 → 4S 19:54
PROVIDERS: Emergency Medicine; ADMIT Hospitalist; ATTEND Hospitalist
PROC: 0YB90ZZ Excision of Right Lower Extremity, Open Approach (ICD-10-PCS; principal; 2020-12-09)
PROC: 0YBB0ZZ Excision of Left Lower Extremity, Open Approach (ICD-10-PCS; principal; 2020-12-09)
DX: L03.115 Cellulitis of right lower limb (principal); E43 Unspecified severe protein-calorie malnutrition; N17.9 Acute kidney failure, unspecified; E87.1 Hypo-osmolality and hyponatremia; L97.929 Non-pressure chronic ulcer of unspecified part of left lower leg with unspecified severity; L97.919 Non-pressure chronic ulcer of unspecified part of right lower leg with unspecified severity; L03.116 Cellulitis of left lower limb; I73.9 Peripheral vascular disease, unspecified; I10 Essential (primary) hypertension; I87.2 Venous insufficiency (chronic) (peripheral); D64.9 Anemia, unspecified; B95.2 Enterococcus as the cause of diseases classified elsewhere; Z20.822 Contact with and (suspected) exposure to COVID-19; R53.81 Other malaise; E87.6 Hypokalemia; B96.1 Klebsiella pneumoniae [K. pneumoniae] as the cause of diseases classified elsewhere; Z86.14 Personal history of Methicillin resistant Staphylococcus aureus infection; Z88.8 Allergy status to other drugs, medicaments and biological substances; Z83.3 Family history of diabetes mellitus; Z68.20 Body mass index [BMI] 20.0-20.9, adult
CPT/HCPCS: 10195; 50010; 50101; 50386; 57092; 57119; 57120; 62110; 62900; 70005

== ENCOUNTER 2020-12-22 09:31 | Emergency (ER) | payer OTHER ==
[~2020-12-22] VITALS: Ht 175.3 cm; Wt 59.0 kg
[~2020-12-22 09:31] MED LIST changes: +ACIDOPHILUS1 EAC4 PO; +DOXYCYCLINE HY100 M3 PO; +PEPCID20 MG PO
[2020-12-22 10:15] LABS: ABSOLUTE NEUTROPHILS 5.9 thou/uL (1.4-8.2); BASOPHILS 0.7 % (0.0-2.0); CALCIUM 9.5 mg/dL (8.5-10.1); CREATININE 1.4 mg/dL (0.6-1.0); HEMATOCRIT 36.9 % (37.0-47.0); HEMOGLOBIN 11.9 gm/dL (12.0-15.0); LYMPHOCYTES 13.6 % (24.0-44.0); MCH 28.6 pg (26.0-34.0); MCHC 32.3 g/dL (28.0-37.0); MCV 88.4 fL (80.0-100.0); MONOCYTES 6.3 % (1.0-8.0); PLATELET COUNT 372 thou/uL (150-400); POLYS 79.4 % (36.0-66.0); POTASSIUM 3.8 mmol/L (3.5-5.1); RBC 4.18 mil/uL (4.20-5.00); RDW 16.7 % (10.5-14.5); WBC 7.4 thou/uL (4.0-11.0)
[2020-12-22 10:21] LABS: ALBUMIN 3.8 g/dL (3.4-5.0); TOTAL BILIRUBIN 1.5 mg/dL (0.2-1.0); TOTAL PROTEIN 7.9 g/dL (6.4-8.2)
[2020-12-22] MEDS ORDERED: LEVAQUIN 500 M500 MG PO (11:47)
[2020-12-22] MEDS ORDERED: TRAMADOL 50 MG50 MG PO (11:47)
[2020-12-22] MEDS ORDERED: DAKIN'S473 M2 TOP (11:48)
[2020-12-22 14:03] VITALS: BP 91/56
--- NOTE | 2020-12-22 15:01 | EKG ---
[facility] [place] [address] ELECTROCARDIOGRAM REPORT Name: JOSSELYN HARRIS BRADNI [id number] Admission: 12/22/20 Attend Phys: Discharge: 12/22/20 Date of : 63 Report #: [id number] [facility] ED Test Date: 2020-12-22 Test Time: 10:58:58 Pat Name: JOSSELYN HARRIS Department: Room: Gender: F Physician Executive: sara : 1965 Requested By: Rogers Soto Order Number: [id number] MD: hSiva Garcia Measurements Intervals [place] Rate: 71 P: 60 FL: 141 QRS: 44 QRSD: 115 T: 48 QT: 453 QTc: 493 Interpretive Statements Sinus rhythm Probable left atrial enlargement Nonspecific intraventricular conduction delay Borderline T abnormalities, anterior leads Compared to ECG 10/14/2020 00:17:01 Intraventricular conduction delay now present Right ventricular hypertrophy no longer present T-wave abnormality still present Electronically Signed On 12-22-2020 15:00:56 CDT by Shiva Garcia [email or web address] <ELECTRONICALLY SIGNED> By: Shiva Garcia MD, [facility] 12/22/20 1500 1058 1058 Shiva Garcia MD, [facility] /EPI
== END 2020-12-22 14:04 | disposition home or self-care (01) ==
LOC: ER 09:31
PROVIDERS: Emergency Medicine
DX: L03.115 Cellulitis of right lower limb (principal); L03.116 Cellulitis of left lower limb; I10 Essential (primary) hypertension; Z88.8 Allergy status to other drugs, medicaments and biological substances; Z90.89 Acquired absence of other organs; Z91.02 Food additives allergy status

== ENCOUNTER 2020-12-28 23:45 | Emergency (ER) | payer OTHER ==
[~2020-12-28] VITALS: Ht 175.3 cm; Wt 59.0 kg
--- NOTE | ~2020-12-28 | EMS ---
[address] [address] EMS Patient Care Report Name: JOSSELYN HARRIS BRANDI Room #: DEP ANALY Stovall#: [id number] Admission: 12/28/20 Attend Phys: Discharge: 12/29/20 Date of : 63 Report #: [id number] THIS REPORT FOR: //name// Report Transmitted: 12/29/2020 08:25 EMS Care Summary [place], [place]/[facility] Incident [id number] @ 12/28/2020 23:13 Incident Location [address] [place] [address] Patient JOSSELYN HARRIS Female, 55 Years 1965 Patient Address [address] [place] [address] Patient History Subdural Hematoma, Patient Allergies Mold allergy,Mushroom allergy, Patient Medications None Reported, Chief Complaint Infection to legs Disposition Transported No Lights/[place] Dispatch Reason Sick Person Transported To [facility] Narrative Arrived on the scene for a 55 y/o female that is sitting on the retaining wall off her driveway. Pt said that she has infections to both legs and there are burning, weak, and itchy. Pt said that this has been going on and off for the past 3 years. Pt isn't on any antibiotics for it right now [place] [address] EMS Patient Care Report Name: JOSSELYN HARRIS Room #: DEP ANALY St[place]all#: [id number] Admission: 12/28/20 Attend Phys: Discharge: 12/29/20 Date of : 63 Report #: [id number] past. See Pt Assessment Infections to the legs. Assisted Pt from the wall to the cot. Transported to the hospital with zero change or incidents. Assisted Pt from the cot to the bed. Transferred care to receiving facility. Initial Vitals @23:39P: 82,R: 18,BP: 95/65,Pain: 6/10,GCS: 15,Revised Trauma: 12, @23:30P: 89,R: 18,BP: 113/71,Pain: 6/10,GCS: 15,Revised Trauma: 12, Assessments @23:26MENTAL:Place Oriented,Person Oriented,Event Oriented,Time Oriented,SKIN:Other,HEENT:Head/Face: No Abnormalities,Eyes: No Abnormalities,Neck/Airway: No Abnormalities,LUNG SOUNDS:General: No Abnormalities,Left Upper: No Abnormalities,Right Upper: No Abnormalities,Left Lower: No Abnormalities,Right Lower: No Abnormalities,ABDOMEN:General: No Abnormalities,Left Upper: No Abnormalities,Right Upper: No Abnormalities,Left Lower: No Abnormalities,Right Lower: No Abnormalities,PELVIS//GI:No Abnormalities,EXTREMITIES:Right Leg: Other,Left Leg: Other,Left Arm: No Abnormalities,Right Arm: No Abnormalities,PULSE:Radial: 2+ Normal,NEURO:No Abnormalities, Impression Skin infection Procedures @23:26ALS AssessmentResponse: Unchanged Timeline 23:10,Call Received 23:10,Dispatch Notified 23:13,Dispatched 23:15,En Route 23:25,On Scene 23:26,At Patient 23:26,ALS Assessment,Response: Unchanged 23:29,Depart Scene 23:30,BP: 113/71 M,PULSE: 89,RR: 18 R,SPO2: Ox,ETCO2: ,BG: ,PAIN: 6,GCS: 15, 23:39,BP: 95/65 M,PULSE: 82,RR: 18 R,SPO2: Ox,ETCO2: ,BG: ,PAIN: 6,GCS: 15, 23:48,At Destination 23:56,Call Closed [facility] [address] [place] [address] EMS Patient Care Report Name: JOSSELYN HARRIS BRANDI Room #: DEP ANALY [facility]#: [id number] Admission: 12/28/20 Attend Phys: Discharge: 12/29/20 Date of : 63 Report #: [id number] Disclaimer v1.1 Copyright 202 [employer] This EMS Care Summary contains data elements from the applicable legal record (which may be displayed differently). It is designed to provide pertinent information for the following purposes: continuity of care, clinical quality, and state data reporting. The complete legal record is available to ED staff and administrators of the receiving hospital in [facility]'s Patient Tracker. All data is provided "as is."
[~2020-12-28 23:45] MED LIST changes: +DAKIN'S473 M2 TOP; +LEVAQUIN 500 M500 MG PO
[2020-12-28] MEDS ORDERED: NOHOMEMEDICATIONS (23:53)
[2020-12-29 00:42] LABS: ABSOLUTE NEUTROPHILS 4.4 thou/uL (1.4-8.2); BASOPHILS 0.6 % (0.0-2.0); EOSINOPHILS 0.4 % (0.0-3.0); HEMATOCRIT 36.7 % (37.0-47.0); HEMOGLOBIN 12.1 gm/dL (12.0-15.0); LYMPHOCYTES 16.4 % (24.0-44.0); MCHC 33.1 g/dL (28.0-37.0); MCV 87.7 fL (80.0-100.0); MONOCYTES 7.8 % (1.0-8.0); PLATELET COUNT 276 thou/uL (150-400); POLYS 74.8 % (36.0-66.0); RBC 4.18 mil/uL (4.20-5.00); RDW 16.9 % (10.5-14.5); WBC 5.9 thou/uL (4.0-11.0)
[2020-12-29 00:45] LABS: CALCIUM 8.9 mg/dL (8.5-10.1); CREATININE 1.3 mg/dL (0.6-1.0); POTASSIUM 3.2 mmol/L (3.5-5.1)
[2020-12-29] MEDS ORDERED: TRAMADOL 50 MG50 MG PO (01:59)
[2020-12-29 02:40] VITALS: BP 103/63
== END 2020-12-29 02:40 | disposition home or self-care (01) ==
LOC: ER 23:45
PROVIDERS: Student in an Organized Health Care Education/Training Program
DX: S81.801D Unspecified open wound, right lower leg, subsequent encounter (principal); S81.802D Unspecified open wound, left lower leg, subsequent encounter; I73.9 Peripheral vascular disease, unspecified; I10 Essential (primary) hypertension; Z90.89 Acquired absence of other organs; Z88.8 Allergy status to other drugs, medicaments and biological substances; Z91.018 Allergy to other foods; X58.XXXD Exposure to other specified factors, subsequent encounter

== ENCOUNTER 2021-01-05 03:40 | Emergency (ER) | payer OTHER ==
[~2021-01-05] VITALS: Ht 175.3 cm; Wt 63.5 kg
--- NOTE | ~2021-01-05 | EMS ---
[facility] [address] [place] [address] EMS Patient Care Report Name: JOSSELYN HARRIS BRANDI Room #: DEP ANALY Stovall#: [id number] Admission: 01/05/21 Attend Phys: Discharge: 01/05/21 Date of : 63 Report #: [id number] THIS REPORT FOR: //name// Report Transmitted: 01/06/2021 12:27 EMS Care Summary [place], [place]/[facility] Incident [id number] @ 01/05/2021 03:16 Incident Location [address] [place] [address] Patient JOSSELYN HARRIS Female, 56 Years 1965 Patient Address [address] [place] [address] Patient History Subdural Hematoma, Patient Allergies Mold allergy,Mushroom allergy, Patient Medications None Reported, Chief Complaint leg pain Disposition Transported No Lights/[place] Dispatch Reason Sick Person Transported To [facility] Narrative Upon arrival PT was waiting outside for EMS. PT had a CC of bilateral leg pain due to an infection. PT was assisted to stretcher and taken to back of ambulance for further medical evaluation and intervention. PT was then monitored while en route to hospital for any change in condition. [facility] [address] [place] [address] EMS Patient Care Report Name: JOSSELYN HARRIS Room #: DEP ANALY Stovall#: [id number] Admission: 01/05/21 Attend Phys: Discharge: 01/05/21 Date of : 63 Report #: [id number] Initial Vitals @03:29P: 98,R: 18,BP: 113/75,Pain: 10/10,GCS: 15,SpO2: 98,Revised Trauma: 12, @03:33P: 94,BP: 112/76,GCS: 15,SpO2: 98, Assessments @03:26MENTAL:No Abnormalities,SKIN:No Abnormalities,HEENT:Head/Face: No Abnormalities,Eyes: No Abnormalities,Neck/Airway: No Abnormalities,LUNG SOUNDS:General: No Abnormalities,Left Upper: No Abnormalities,Right Upper: No Abnormalities,Left Lower: No Abnormalities,Right Lower: No Abnormalities,ABDOMEN:General: No Abnormalities,Left Upper: No Abnormalities,Right Upper: No Abnormalities,Left Lower: No Abnormalities,Right Lower: No Abnormalities,PELVIS//GI:No Abnormalities,EXTREMITIES:Capillary Refill: Left Upper: < 2 Sec,Capillary Refill: Right Upper: < 2 Sec,Left Arm: No Abnormalities,Right Arm: No Abnormalities,Left Leg: No Abnormalities,Right Leg: No Abnormalities,PULSE:Radial: 2+ Normal,NEURO:No Abnormalities, Impression Extremity Pain Procedures @03:26ALS AssessmentResponse: UnchangedSucceeded Timeline 03:16,Call Received 03:16,Dispatch Notified 03:16,Dispatched 03:18,En Route 03:25,On Scene 03:26,At Patient 03:26,ALS Assessment,Response: UnchangedSucceeded, 03:29,BP: 113/75 M,PULSE: 98,RR: 18 R,SPO2: 98 Ox,ETCO2: ,BG: ,PAIN: 10,GCS: 15, 03:31,Depart Scene 03:33,BP: 112/76 M,PULSE: 94,RR: R,SPO2: 98 Ox,ETCO2: ,BG: ,PAIN: ,GCS: 15, 03:36,At Destination 03:49,Call Closed Disclaimer v1.1 Copyright 2020 [employer] This EMS Care Summary contains data elements from the applicable legal record (which may be displayed differently). It is designed to provide pertinent information for the following purposes: continuity of care, clinical quality, and state data reporting. The complete legal record is available to ED staff and administrators of the receiving hospital in [employer]'s Patient Tracker. All data is provided "as is."
[~2021-01-05 03:40] MED LIST changes: +NOHOMEMEDICATIONS
[2021-01-05 04:52] LABS: ABSOLUTE NEUTROPHILS 3.3 thou/uL (1.4-8.2); BASOPHILS 0.9 % (0.0-2.0); EOSINOPHILS 4.2 % (0.0-3.0); LYMPHOCYTES 22.4 % (24.0-44.0); MCH 29.4 pg (26.0-34.0); MCHC 33.2 g/dL (28.0-37.0); MCV 88.5 fL (80.0-100.0); MONOCYTES 11.7 % (1.0-8.0); PLATELET COUNT 213 thou/uL (150-400); POLYS 60.8 % (36.0-66.0); RBC 3.39 mil/uL (4.20-5.00); RDW 16.7 % (10.5-14.5); WBC 5.4 thou/uL (4.0-11.0)
[2021-01-05 04:55] LABS: CALCIUM 8.3 mg/dL (8.5-10.1); CREATININE 0.8 mg/dL (0.6-1.0); POTASSIUM 3.8 mmol/L (3.5-5.1)
[2021-01-05] MEDS ORDERED: LEVAQUIN 500 M500 MG PO (05:27)
[2021-01-05] MEDS ORDERED: ULTRAM 50MG TAB50 MG PO (05:54)
[2021-01-05 06:00] VITALS: BP 114/63
== END 2021-01-05 06:02 | disposition home or self-care (01) ==
LOC: ER 03:40
PROVIDERS: Student in an Organized Health Care Education/Training Program
DX: S81.801D Unspecified open wound, right lower leg, subsequent encounter (principal); S81.802D Unspecified open wound, left lower leg, subsequent encounter; I73.9 Peripheral vascular disease, unspecified; I10 Essential (primary) hypertension; Z48.00 Encounter for change or removal of nonsurgical wound dressing; Z90.89 Acquired absence of other organs; Z79.1 Long term (current) use of non-steroidal anti-inflammatories (NSAID); Z88.3 Allergy status to other anti-infective agents; Z91.018 Allergy to other foods; X58.XXXD Exposure to other specified factors, subsequent encounter

== ENCOUNTER 2021-01-13 21:08 | Emergency (ER) | payer OTHER ==
[~2021-01-13] VITALS: Ht 170.2 cm; Wt 72.6 kg
[~2021-01-13 21:08] MED LIST changes: +ULTRAM 50MG TAB50 MG PO
[2021-01-13 21:16] VITALS: BP 105/62
== END 2021-01-13 21:54 | disposition home or self-care (01) ==
LOC: ER 21:08
DX: I83.013 Varicose veins of right lower extremity with ulcer of ankle (principal); I83.023 Varicose veins of left lower extremity with ulcer of ankle; L97.318 Non-pressure chronic ulcer of right ankle with other specified severity; L97.328 Non-pressure chronic ulcer of left ankle with other specified severity; M79.605 Pain in left leg; M79.604 Pain in right leg; L97.309 Non-pressure chronic ulcer of unspecified ankle with unspecified severity; I87.8 Other specified disorders of veins; I73.9 Peripheral vascular disease, unspecified; I10 Essential (primary) hypertension; Z98.890 Other specified postprocedural states; Z90.49 Acquired absence of other specified parts of digestive tract; Z79.1 Long term (current) use of non-steroidal anti-inflammatories (NSAID); Z79.899 Other long term (current) drug therapy; Z88.3 Allergy status to other anti-infective agents; Z91.018 Allergy to other foods; Z91.09 Other allergy status, other than to drugs and biological substances

== ENCOUNTER 2021-01-30 01:35 | Inpatient (IN) | payer OTHER ==
[~2021-01-30] VITALS: Ht 175.3 cm; Wt 49.0 kg
--- NOTE | ~2021-01-30 | EMS ---
[place] [address] EMS Patient Care Report Name: JOSSELYN HARRIS BRANDI Room #: REG ANALY Stovall#: [id number] Admission: 01/30/21 Attend Phys: Discharge: Date of : 63 Report #: [id number] THIS REPORT FOR: //name// Report Transmitted: 01/30/2021 01:05 EMS Care Summary [place], [place] Incident [id number] @ 01/30/2021 01:02 Incident Location [address] [place] [address] Patient JOSSELYN HARRIS Female, 56 Years 1965 Patient Address [address] [place] [address] Patient History None Reported, Patient Allergies Mold allergy,[place] allergy, Patient Medications None Reported, Chief Complaint LEG PAIN Disposition Transported No Lights/[place] Dispatch Reason Sick Person Transported To [facility] Narrative ON SCENE FOUND PATIENT IN DRIVEWAY OF HOME WHERE WE ASSISTED HER WALKING TO AMBULANCE AND SAT HER ON STRETCHER AND SEATBEALTED HER . SHE WAS A/O TIMES 4 GCS15 VITAL S WITHIN RANGE HER CHIEF COMPLAINT IS SKIN INFECTION OF 3 YEARS IN LEGS AND PROGRESSIVELY GETTING WORSE THE LAST 2 DAYS. WE TRANSPORTED PATIENT TO [facility] [address] [place] [address] EMS Patient Care Report Name: JOSSELYN HARRIS Room #: REG ANALY Stovall#: [id number] Admission: 01/30/21 Attend Phys: Discharge: Date of : 63 Report #: [id number] [facility] PATIENT WAS COOPERATIVE AND TOOK VITALS WHICH WERE WITHIN RANGE. AT HOSPITAL WE ASSISTED PATIENT OFF STRETCHER AND SHE SAT IN HOSPITAL BED SHE REMAINED A/O TIMES 4 AND GCS 15 WHEN WE LEFT AND GOT SIGNATURE S Initial Vitals @01:16P: 101,R: 13,BP: 116/78,Pain: 4/10,GCS: 15,Revised Trauma: 12, @01:19P: 98,R: 12,BP: 108/71,Pain: 4/10,GCS: 15,CO: 1,SpO2: 99,Revised Trauma: 12, @01:15P: 111,R: 14,BP: 117/80,Pain: 2/10,GCS: 15,SpO2: 99,Revised Trauma: 12, Assessments @01:26MENTAL:Person Oriented,Place Oriented,Event Oriented,Time Oriented,SKIN:HEENT:Head/Face: No Abnormalities,Neck/Airway: No Abnormalities,LUNG SOUNDS:General: No Abnormalities,Left Upper: No Abnormalities,Right Upper: No Abnormalities,Left Lower: No Abnormalities,Right Lower: No Abnormalities,ABDOMEN:General: No Abnormalities,Left Upper: No Abnormalities,Right Upper: No Abnormalities,Left Lower: No Abnormalities,Right Lower: No Abnormalities,PELVIS//GI:No Abnormalities,EXTREMITIES:Left Leg: Edema,Right Leg: Edema,Left Arm: No Abnormalities,Right Arm: No Abnormalities,PULSE:NEURO:No Abnormalities, Impression Extremity Pain Procedures @01:13BLS AssessmentResponse: Unchanged Timeline 01:00,Call Received 01:00,Dispatch Notified 01:02,Dispatched 01:04,En Route 01:12,On Scene 01:13,At Patient 01:13,BLS Assessment,Response: Unchanged 01:15,BP: 117/80 M,PULSE: 111,RR: 14 R,SPO2: 99 Ox,ETCO2: ,BG: ,PAIN: 2,GCS: 15, 01:16,BP: 116/78 M,PULSE: 101,RR: 13 R,SPO2: Ox,ETCO2: ,BG: ,PAIN: 4,GCS: 15, 01:19,BP: 108/71 M,PULSE: 98,RR: 12 R,SPO2: 99 Ox,ETCO2: ,BG: ,PAIN: 4,GCS: 15, 01:19,Depart Scene 01:31,At Destination 01:46,Call Closed Disclaimer v1.1 Copyright 2020 [employer] This EMS Care Summary contains data elements from the applicable legal record [address] [address] EMS Patient Care Report Name: JOSSELYN HARRIS BRANDI Room #: REG ER M.R.#: [id number] Admission: 01/30/21 Attend Phys: Discharge: Date of : 63 Report #: [id number] (which may be displayed differently). It is designed to provide pertinent information for the following purposes: continuity of care, clinical quality, and state data reporting. The complete legal record is available to ED staff and administrators of the receiving hospital in [facility]'s Patient Tracker. All data is provided "as is."
[2021-01-30 01:36] VITALS: BP 115/77
[2021-01-30 02:27] LABS: CALCIUM 8.9 mg/dL (8.5-10.1); CREATININE 0.9 mg/dL (0.6-1.0); POTASSIUM 3.1 mmol/L (3.5-5.1)
[2021-01-30 02:33] LABS: TOTAL BILIRUBIN 0.5 mg/dL (0.2-1.0); TOTAL PROTEIN 7.6 g/dL (6.4-8.2)
[2021-01-30 02:34] LABS: ABSOLUTE NEUTROPHILS 5.4 thou/uL (1.4-8.2); BASOPHILS 0.4 % (0.0-2.0); EOSINOPHILS 0.8 % (0.0-3.0); HEMOGLOBIN 11.2 gm/dL (12.0-15.0); LYMPHOCYTES 15.6 % (24.0-44.0); MCH 28.7 pg (26.0-34.0); MCV 86.8 fL (80.0-100.0); MONOCYTES 8.4 % (1.0-8.0); PLATELET COUNT 308 thou/uL (150-400); POLYS 74.8 % (36.0-66.0); RBC 3.92 mil/uL (4.20-5.00); RDW 15.2 % (10.5-14.5); WBC 7.2 thou/uL (4.0-11.0)
[2021-01-30] MEDS ORDERED: NOHOMEMEDICATIONS (04:00)
[2021-01-30 04:08] VITALS: BP 115/77
[2021-01-30 04:42] VITALS: BP 122/73
[2021-01-30 07:16] VITALS: BP 106/63
--- NOTE | 2021-01-30 07:22 | NUR ---
patient aox4 makes needs known. patient admitted for ble venous statis wounds.pictured taken on ble and put in the chart. meal offered. pain controlled. fall precaution in place. patient in bed asleep at this time breathing regular and unlaboured.
--- NOTE | 2021-01-30 09:13 | NUR ---
ASSUMED PT CARE THIS AM. PT IS ALERT & ORIENTED X4. PT HAS IV SITE ON RAC RUNNING NS @100ML/HR. PT USES BEDSIDE COMMODE. CALLED CONSULTS THIS AM. PT REPORTED THAT L LEG HURTS THAN R LEG. PT IS ON ROOM AIR. PT TOLERATED DIET AND MEDICATION WELL. EDUCATED AND INFORMED PT NOT TO TOUCH BILATERAL WOUNDS ON THE LEGS. AWAITING FOR DR TO SEE THE PATIENT THIS. PT ON THE BED, BED ON THE LOWEST POSITION, SIDE RAILS UP, CALL LIGHT WITHIN REACH. WILL CONTINUE TO MONITOR PT. FOLLOW POC.
[2021-01-30 15:39] VITALS: BP 102/54
[2021-01-30 20:23] VITALS: BP 98/55
--- NOTE | 2021-01-31 02:18 | NUR ---
PT CARE ASSUMED WITH PT IN BED FINISHING UP WITH DINNER.PT IS A/O X4.PT IS UP WITH X1 ASSIST TO THE BSC.PT CALLS APPROPRIETELY FOR HELP AND FALLS PRECAUTIONS IN PLACE.WOUND DRESSING C/D/I AND HAS SILVADINE/MORPHINE IN IV BIN FOR DAILY WOUND CHANGE.PT C/O PAIN ON BLE AND PAIN MANAGED WITH TRAMDOL PRN Q6H.WILL CONTINUE TO MONITOR PER POC
[2021-01-31 07:25] VITALS: BP 96/55
--- NOTE | 2021-01-31 10:04 | NUR ---
ASSUMED PT CARE THIS AM. PT A&OX4, ABLE TO MAKE NEEDS KNOWN. PATIENT UP WITH ASSIST, REMAINS CONTINENT. IV REMAINS PATENT. MEDICAITONS TAKEN WITHOUT ISSUE. PATIENT ON ROOM AIR. FALL PRECAUTIONS ARE IN PLACE, CALL LIGHT WITHIN REACH.
[2021-01-31 15:36] VITALS: BP 135/75
[2021-01-31 19:40] VITALS: BP 144/76
--- NOTE | 2021-02-01 02:39 | NUR ---
ASSUMED PT CARE THIS PM. PT IS ALERT AND ORIENTED X4. PT HAS DRSG TO BLE WHICH WAS CHANGED. PT IS UP X1 TO THE BSC. PT DID NOT C/O PAIN. MEDS WERE GIVEN PER EMAR ORDERS. PT WAS INFORMED AOUT BEING NPO AT MIDNIGHT AND PT VERBALIZED UNDERSTANDING. PT TOLERATING RA. FALL PREACUATIONS IN PLACE. WILL CONTINUE TO MONITOR.
[2021-02-01 07:11] VITALS: BP 105/65
--- NOTE | 2021-02-01 11:17 | NUR ---
RD consult received. Pt with chronic bilateral lower extremity wounds with poor self care, limited financial resources per chart review. Off unit for debridement at time of visit. Large weight differences 118-140 lb past eneida, and now 108 lb, vs 140 lb. Will follow up for accuracy. Past admissions, pt has drank ensure plus requested double protein portions. Intake has been 100%. Physician has indicated protein calorie malnutrition: RD will followup for wt changes once pt available to discuss. Low nutrition risk otherwise
[2021-02-01 11:27] VITALS: BP 100/58
[2021-02-01 14:23] VITALS: BP 118/73
[2021-02-01 16:00] VITALS: BP 104/64
--- NOTE | 2021-02-01 17:54 | NUR ---
Assumed pt care at 7am. Pt in bed very anxious about going for surgery today. Emotional syupport given.Assessment completed.vss.Pt c/o bilateral lower extremities pain. Tramadol given with relief.Pt kept npo but iv meds given as ordered prior to leaving for suragery around 11am and returned at 1410 in stable condition.Late lunch given. Pt ate 100%.Pt in bed at present eating dinner. Lower extremities wound reinforced. Will continue to monitor.
[2021-02-01 19:55] VITALS: BP 113/64
--- NOTE | 2021-02-02 03:11 | NUR ---
ASSUMED PT CARE THIS PM. PT IS ALERT AND ORIENTED X4. PT HAS DRSG TO BLE WITH NO SIGN OF DRAINAGE. PT C/O OF PAIN WHICH WAS MANAGED BY PRN PAIN MEDS. PT CONCSTANTLY ASKED FOR FOOD. PT IS ON RA. MEDS WERE GIVEN PER EMAR ORDERS. FALL PRECAUTIONS IN PLACE. WILL CONTINUE TO MONITOR.
[2021-02-02 07:36] VITALS: BP 98/56
--- NOTE | 2021-02-02 09:20 | NUR ---
PT ADMITTED RLATED TO BL LE CELLULITIS. CM REVIEWED CHART AND SPOKE WITH PATIENT AT THE BEDSIDE. PT APPEARS TO BE ALERT AND ORIENTED X4. PT IS BEING SEEN BY ID, WOUND CARE AND IS CURRENTLY ON IV ANBX. PT HAD I&D BL LE YESTERDAY. PT IS WELL KNOWN TO CM DEPARTMENT FROM MULTIPLE PREVIOUS ADMISSIONS THIS YEAR. PT LIVES IN A HOUSE ALONE. PT REPORTS HAVING A COUPLE OF STEPS TO ENTER AND NO STEPS ONCE INSIDE. PT REPORTS BEING FULLY INDEPENDENT WITH ADLS AND AMBULATION. PT CURRENTLY HAS NO INSURANCE. PT WILL BE SCREENED BY [employer] FOR MEDICAID. CM PROVIDED PATIENT WITH HEALTH RESOURCE PACKET AND AGAIN ENCOURAGEMENT PT TO ESTABLISH FOLLOW UP AND THE IMPORTANCE OF THIS. PT HAS HAD [facility] HH VISITS IN THE PAST WITH [facility] AND [facility]. NOT LIKELY WE'D BE ABLE TO GET [facility] VISITS AGAIN UPON DC. CM FOLLOWING REGARDING DC PLANNING.
--- NOTE | 2021-02-02 13:49 | NUR ---
ASSUMED PT CARE THIS AM. PT A&OX4, ABLE TO MAKE NEEDS KNOWN. PATIENT REPORTING MINIMAL PAIN IN LOWER EXTREMETIES. PATIENT REMAINS CONTINENT, AND IS UP TO COMMODE WITH STANDBY ASSIST. PATIENT TOOK MORNING MEDICATIONS WITHOUT ISSUE. IV STARTED TO RIGHT FOREARM AFTER PRIOR IV BECAME INFILTRATED. PATIENT ON ROOM AIR. DRESSINGS ON LEGS ARE C/D/I. FALL PRECAUTIONS ARE IN PLACE, CALL LIGHT WITHIN REACH.
[2021-02-02 20:12] VITALS: BP 109/65
--- NOTE | 2021-02-03 04:51 | NUR ---
ASSUMED CARE OF PT AT 1900HRS. PT IS AOX4 AND LETS NEEDS BE KNOWN. FALL PRECAUTION IN PLACE, PT NOT ALWAYS COMPLIENT WITH FALL PRECAUTIONS. ABX TREATMENT CONTINUED. BLE DRESSING ARE C/D/I. ASSESSMNT CHARTED. PT REPORTED SOME BLE PAIN; PRNS PROVIDED. PT WAS ABLE TO GET COMFORTABLE AND SLEEP PART OF THE SHIFT. VSS AND NO S/S OF ACUTE DISTRESS. WILL CONTINUE TO MONITOR FOR CHANGES.
[2021-02-03 07:33] VITALS: BP 109/65
--- NOTE | 2021-02-03 14:31 | NUR ---
CARE TEAM INDICATED FINAL CULTURES ARE STILL PENDING. [employer] MET WITH PT AND INDICATE THAT SHE COULD QUALIFY FOR MEDICAID AND THAT THEY COULD ASSIST HE IN COMPLETING AN APPLICATION. PER THEIR RECORD PT REFSUSED INDICATED SHE DIDN'T LIKE HE STIGMA ASSOCIATED WITH MEDICAID AND THAT SHE WAS GOING TO START A GO FUND ME PAGE. IT IS ANTICPATED THAT PT IS TO DC HOME ONCE MEDICALLY STABLE.
[2021-02-03 17:05] VITALS: BP 111/61
--- NOTE | 2021-02-03 19:03 | NUR ---
ssumed pt care at 7am.Pt in and out of bed to bsc with sba. Assessment completed.vss.Pt c/o bilat. legs pain. Tramadol given with partial relief. Vanco trough was 14 today. Pharmacy okay vanco to be given as previously ordered. Piv weant bad and it was replaced.Pt has good appetite at all meals. Drsg change done to both legs by wound care. No further c/o. Will continue to monitor.
[2021-02-03 20:06] VITALS: BP 108/61
--- NOTE | 2021-02-04 02:23 | NUR ---
PT CARE ASSUMED WITH PT IN BED WATCHING TV AND EATING DINNER.PT IS A/O X4.PT IS UP WITH SBA TO BSC AND CALL APPROPRIETELY FOR HELP.IV ACCESS IN LT HAND SL.PT PAIN UNDER CONTROL.PT WOUND DRESSING ON BLE I/D/C .PT APPEAR TO BE IN NO ACUTE DISTRESS.WILL CONTINUE TO MONITOR PER POC
[2021-02-04 07:15] VITALS: BP 115/66
--- NOTE | 2021-02-04 16:42 | NUR ---
IT APPEARS THAT WE ARE STILL WAITING ON FINAL CULTURES AND WC RECS. CM FOLLOWING REGARDING DC PLANNING.
--- NOTE | 2021-02-04 19:46 | NUR ---
Assumed pt care at 7am. Pt in and out of bed with sba. Assessment completed. vss. Pt has good appetite. Dr Chavez and Spenser here ,no new order noted. Nirali change done to bilat. lower legs as ordered.Fall precaution in place. Report off to aisha pires.
[2021-02-04 19:48] VITALS: BP 111/63
[2021-02-05 04:31] LABS: CALCIUM 8.7 mg/dL (8.5-10.1); CREATININE 0.8 mg/dL (0.6-1.0); POTASSIUM 4.4 mmol/L (3.5-5.1)
[2021-02-05 04:36] LABS: HEMATOCRIT 30.2 % (37.0-47.0); HEMOGLOBIN 10.2 gm/dL (12.0-15.0); MCHC 33.8 g/dL (28.0-37.0); MCV 91.6 fL (80.0-100.0); RBC 3.3 mil/uL (4.20-5.00); RDW 15.9 % (10.5-14.5); WBC 10.2 thou/uL (4.0-11.0)
--- NOTE | 2021-02-05 05:04 | NUR ---
PT CARE ASSUMED WITH PT IN BED HAVING SNACKS.PT IS A/O X4.PT IS UP WITH SBA TO THE BSC.PT CALLS APPROPRIETELY FOR HELP.PAIN MANAGED WITH PRN TRAMADOL.BLE WOUND DRESSING C/D/I.WILL CONTINUE TO MONITOR PER POC
[2021-02-05 07:47] VITALS: BP 114/62
--- NOTE | 2021-02-05 13:28 | HC ---
[facility] [address] [place] [address] CONSULTATION Name: JOSSELYN HARRIS Room #: 453-P ADM IN M.R.#: [id number] Admission: 01/30/21 Attend Phys: Haroldo Dickens MD Discharge: Date of : 63 Report #: [id number] THIS REPORT FOR: cc: [facility] - Clinic physician unknown [facility] - Clinic physician unknown Eric Chavez MD ~ DATE OF SERVICE: 02/01/2021 WOUND CARE CONSULTATION PERSONAL PHYSICIAN: Not on staff. CHIEF COMPLAINT: Bilateral lower extremity venous leg ulcers. HISTORY OF PRESENT ILLNESS: This is a 56-year-old white female who is well known to our service for multiple hospitalizations for recurrent cellulitis of bilateral chronic lower extremity venous leg ulcers. The patient states that after her last hospitalization in the middle of November. She did well for approximately 3 weeks and then went to the Emergency Department where she was diagnosed with mild cellulitis and put on Levaquin, which she said that did not see any significant improvement in her wounds. The patient's major difficulties are the fact that she has no insurance and is unable to back supplies and so, when she ran out of supplies, the wounds get worse and they get reinfected. The patient denies any other new wounds at this time. PAST MEDICAL HISTORY: Significant for peripheral vascular disease, bilateral venous stasis ulcers, which are chronic with recurrent cellulitis, multiple surgical debridements protein calorie malnutrition, recurrent MRSA infections. CURRENT MEDICATIONS: Multiple, I reviewed the patient's medication list. DRUG ALLERGIES: INCLUDE CLOTRIMAZOLE AND MICONAZOLE. SOCIAL HISTORY: The patient does not smoke or drink alcohol. FAMILY HISTORY: Not pertinent to current medical condition. REVIEW OF SYSTEMS: CONSTITUTIONAL: The patient denies fevers or chills. NEUROLOGIC: The patient denies numbness or tingling, weakness in arms or legs. EYES: No complaints. EARS, NOSE AND THROAT: No complaints. CARDIAC: The patient has chronic lower extremity edema, but denies chest pain or palpitation. RESPIRATORY: The patient denies shortness of breath, cough or wheezes. GASTROINTESTINAL: The patient denies nausea, vomiting or abdominal pain. [facility] [address] [place] [address] CONSULTATION Name: JOSSELYN HARRIS [facility] Room #: 453-P ADM IN M.R.#: [id number] Admission: 01/30/21 Attend Phys: Haroldo Dickens MD Discharge: Date of : 63 Report #: [id number] GENITOURINARY: The patient denies urgency or frequency. MUSCULOSKELETAL: No complaints. SKIN: There is chronic ulcerations, bilateral lower extremities, right greater than left with cellulitis. PHYSICAL EXAMINATION: VITAL SIGNS: Temperature 37.2, pulse 81, respirations 16, BP 98/56. GENERAL: This is alert and oriented x3, pleasant white female, who is in no acute distress. HEENT: Normocephalic, atraumatic. Mucous membranes are somewhat dry. Pupils are round. Sclerae white. NECK: Without JVD. LUNGS: Clear. HEART: Regular. ABDOMEN: Soft, nontender. EXTREMITIES: The patient moves all extremities without difficulty. There is 2+ edema in bilateral lower extremities. There is chronic venous stasis changes bilaterally with open ulcerations, which are slough filled with increased erythema, warmth and tenderness. Distal pulses are intact. Bilateral heels are intact. NEUROLOGIC: Cranial nerves II through XII grossly intact. Motor and sensory grossly intact. LABORATORY DATA: White count 7.2, hemoglobin 11.2. Sed rate is 60. BUN 18, creatinine 0.9, albumin 3.0. Lower extremity arterial Dopplers shows no significant stenosis in either lower extremity. IMPRESSION: 1. Chronic and recurrent cellulitis, bilateral lower extremities with chronic venous stasis ulcers. 2. Venous insufficiency with edema. 3. Generalized debility. 4. Protein calorie malnutrition, moderate with albumin of 3.0. PLAN: At this time, the patient is already scheduled to have an ultrasonic debridement with Dr. Foster. We will do morphine, Silvadene cream, Xeroform, ABD, Kerlix and Eduardo for control of edema. We will have elevate her legs as much as possible. The patient has already been started on IV antibiotics. We will continue these as well. The patient will also maximize her oral protein supplementation for healing. We will continue all other current medications. <ELECTRONICALLY SIGNED> By: Eric Chavez MD 02/05/21 [id number] Eric Chavez MD /nt
--- NOTE | 2021-02-05 15:16 | NUR ---
CARE TEAM INDICATED THAT WE ARE STILL WAITING ON FINAL CULTURES. IT IS ANTICIPATED THAT PT WILL DISCHARGE HOME ONCE MEDICALLY STABLE PT HAS BEEN PROVIDED [facility] PACKET AND RESOURCES FOR FOLLOW UP CARES IN THE PAST. PT WILL NEED TRANSPORT HOME. CAB VOUCHERS ARE IN THE TOP DRAWER ON THE UNIT. CM FOLLOWING REGARDING DISCHARGE PLANNING.
[2021-02-05 15:45] VITALS: BP 104/57
--- NOTE | 2021-02-05 18:37 | NUR ---
Assumed pt care this am, vs stable. Wound care done by wound care team, pt requesting for enormous portions for meals. Diet and medications are tolerated well. POC follwed with no signs or verbalizations distress noted. Endorsed to the [facility] nurse.
[2021-02-05 19:35] VITALS: BP 106/60
[2021-02-05 20:11] VITALS: BP 118/64
--- NOTE | 2021-02-06 05:07 | NUR ---
ASSUMED CARE OF PT AT SHIFT CHANGE. PT IS AOX4 AND LETS NEEDS BE KNOWN. ASSESSMENT CHARTED. PT REPORTED SOME PAIN; PRNS PROVIDED. PT DENIED NAUSEA OR SOA. PT WAS ABLE TO GET COMFORTABLE AND SLEEP PART OF THE SHIFT. VSS AND NO S/S OF ACUTE DISTRESS. WILL CONTINUE TO MOTOR FOR CHANGES.
[2021-02-06 07:00] VITALS: BP 103/63; BP 152/66
[2021-02-06 16:00] VITALS: BP 107/66
[2021-02-06 19:58] VITALS: BP 106/64
--- NOTE | 2021-02-06 20:00 | NUR ---
Assumed pt care vs stable, t and nedications are tolerated well. POC followed with no signs or verbalizations of distress noted. Endorsed to the night nurse.
--- NOTE | 2021-02-07 03:33 | NUR ---
Pt A/OX4,VSS. C/o pain to BLE medicated with Tramadol with relief reported. Dressing change done to BLE at HS without any problems. Up with SBA to BSC. Continent of B&B. Resting quietly w/o any distress at this time,will continue to monitor pt.
[2021-02-07 07:35] VITALS: BP 96/63
[2021-02-07 15:50] VITALS: BP 104/69
--- NOTE | 2021-02-07 17:53 | NUR ---
Pt A& O x4. Pt received medications as ordered. Pt VS stable. Pt is room air. Pt is independent to bedside commode. Pt is able to make needs known
[2021-02-07 19:34] VITALS: BP 106/66
--- NOTE | 2021-02-08 03:05 | NUR ---
ASSUMED CARE AT 1900, PT COMFORTABLY LAYING IN BED, REPORTS NO PAIN OR DISCOMFORT, ESTABLISHED PLAN TO PREMEDICATE PRIOR TO TX TO HELP ADDRESS PAIN. PT A & OX4, PREFER TO TAKE OFF HER DRESSINGS, TOLARATED TX, WOUND APPROPRIATE APPEARANCE, NO EXUDATE NOTED, PT COMPLIANT TO TX, NO ADVERSE REACTION NOTED, WILL CONTINTINUE TO MONITOR.
--- NOTE | 2021-02-08 09:56 | NUR ---
Followup: pt eating 100% of all meals consistently, able to order own preferences. Pt voices concern of wt loss due to food insecurity; purchases foods from dollar store but is trying to eat cheese and beans as protein source and using protein powders. CM following pt, provide resources. Possible discharge today. Low nutrition risk.
[2021-02-08 16:12] VITALS: BP 110/64
--- NOTE | 2021-02-08 16:34 | NUR ---
Case discussed with the care team. Pt now on ceftrixone 2gm daily as iv vanco q12 dc'd today per ID. Duration uncertain. Nursing reports pt needing more assist with mobility and not out of bed. Uncertain if home with outpt infusion is reasonable/safe. PT/OT evals requested. Awaiting wound care imput to determine best dc plan: rehab eval ([facility] 5N stay) or [facility] request for outpt infusion along with wound care and a cab ride daily. Case discussed with CM director. Pt does not have insurance and refuses to apply for [place].
[2021-02-08 20:09] VITALS: BP 97/67
[2021-02-08 20:38] VITALS: BP 115/61
--- NOTE | 2021-02-08 20:41 | NUR ---
Alert and orientated X4. Calm and cooperative, irritable at times. Breath sounds clear. Reg HR auscultated. Color pink with brisk capillary refill and palpable peripheral pulses. NS infusing with rocephin per R forearm, flushes easily. Stated slightly painful but did not want removed, wanted rate decreased. Site remained soft and flat, flushed easily. Yellow urine per BSC. Active bowel sounds over soft, flat abdomen. Buttocks slightly reddened but no breakdown. Tramadol given for pain with little change in report of pain. Smiling and laughing while reporting pain of 8. Wounds to lower legs red, painful to touch. Redressed X3.
--- NOTE | 2021-02-09 02:44 | NUR ---
ASSUMED PT CARE THIS EVENING. PT IS ALERT AND ORIENTED X4. PT HAS DRSG TO BLE WHICH C/DI. PT REFUSED WOUND DRSG ON THIS SHIFT. PT IS SBA TO THE BSC. PT C/O PAIN WHICH WAS MANAGED BY PRN PAIN MEDS. PT DID NOT EXPRESS ANY CONCERNS. FALL PRECAUTIONS IN PLACE. WILL CONTINUE TO MONITOR.
[2021-02-09 08:02] VITALS: BP 112/70
[2021-02-09] MEDS ORDERED: KEFLEX250 MG PO (09:39)
[2021-02-09 12:14] VITALS: BP 112/70
--- NOTE | 2021-02-09 14:20 | NUR ---
TODAY THIS PT IS GEARING UP FOR D/C AND HAS BEEN TOLERATING HER MEDICATIONS WELL. SHE HAS DRESSINGS TO TAKE HOME FOR HER DAILY WOUND CHAMGES AND IT HAS BEEN CHANGED TODAY. SHE OTHERWISE AWAITS FOR D/C
--- NOTE | 2021-02-09 14:30 | NUR ---
CARE TEAM INDICATED THAT PT IS MEDICALLY STABLE TO DC HOME THIS DAY. CM MET WITH PT AT BEDSIDE THIS DAY AND INICATED THAT ABOVE. PT INDICATED THAT SHE HAD WORKED WITH PT AND THAT SHE WAS HOPEING TO STAY AND DC TOMORROW AROUND 10 SO SHE WOULD WORK WITH PT AGAIN PRIOR TO DC. CM INDICATED THAT ORDERS WERE ALREADY ENTERED BUT THAT CM COULD CONVEY PREFERANCE TO PHYSICIAN. CM NOTIFIED DR. VALDEZ AND HE STATED PT IS TO DC HOME THIS DAY. PT REFUSED TO COMPLETE MEDICAID APPLICATION THIS STAY. PT IS TO DC HOME TO SELF CARE. CM TO VOUCHER PT TRACY DURAN FOR HER TO TAKE HOME WITH HER AT COST OF $18.07. PT TO BE GIVEN SOME WC SUPPLIES FOR USE UPON DC. PT HAS BEEN GIVEN RESOURCES/[facility] INFO TO ESTABLISH CARES IN THE COMMUNITY PREVIOUSLY. PT WAS OFFERED CAB VOUCHER TO DC HOME THIS DAY BUT SHE INDICATED THAT SHE WANTED TO TAKE THE BUS. CM INDICATED THAT [employer] WANTED TO VISIT WITH PT THIS DAY PRIOR TO DC BETWEEN [id number]. PT TO DC HOME WITH VOUCHERED MEDS, WC SUPPLIES, AND A CAB VOUCHER IF NEEDED.
[2021-02-09 16:45] VITALS: BP 133/89
== END 2021-02-09 18:56 | disposition home or self-care (01) | DRG 570 ==
LOC: ER 01:35 → EROBS 03:16 → 4W 04:28
PROVIDERS: Emergency Medicine; ADMIT Hospitalist; ATTEND Hospitalist
PROC: 0JBP0ZZ Excision of Left Lower Leg Subcutaneous Tissue and Fascia, Open Approach (ICD-10-PCS; principal; 2021-02-01)
PROC: 0JBN0ZZ Excision of Right Lower Leg Subcutaneous Tissue and Fascia, Open Approach (ICD-10-PCS; principal; 2021-02-01)
DX: L03.116 Cellulitis of left lower limb (principal); E43 Unspecified severe protein-calorie malnutrition; N17.9 Acute kidney failure, unspecified; Z68.1 Body mass index [BMI] 19.9 or less, adult; L03.115 Cellulitis of right lower limb; Z88.8 Allergy status to other drugs, medicaments and biological substances; E87.6 Hypokalemia; I83.009 Varicose veins of unspecified lower extremity with ulcer of unspecified site; B96.1 Klebsiella pneumoniae [K. pneumoniae] as the cause of diseases classified elsewhere; Z20.822 Contact with and (suspected) exposure to COVID-19; E11.51 Type 2 diabetes mellitus with diabetic peripheral angiopathy without gangrene
CPT/HCPCS: 10047; 50010; 50101; 50386; 57092; 57119; 57120; 62110; 62900; 70005

== ENCOUNTER 2021-03-01 22:46 | Observation (INO) | payer OTHER ==
[~2021-03-01] VITALS: Ht 175.3 cm; Wt 49.9 kg
--- NOTE | ~2021-03-01 | EMS ---
[place] [address] EMS Patient Care Report Name: JOSSELYN HARRIS Room #: 439-P ADM [facility] M.R.#: [id number] Admission: 03/02/21 Attend Phys: Janis Metz MD Discharge: Date of : 63 Report #: [id number] THIS REPORT FOR: //name// Report Transmitted: 03/02/2021 15:00 EMS Care Summary [place], [place]/[facility] Incident [id number] @ 03/01/2021 22:11 Incident Location [address] [place] [address] Patient JOSSELYN HARRIS Female, 56 Years 1965 Patient Address [address] [place] [address] Patient History Infectious disease, Patient Allergies No known allergies, Patient Medications Cephalexin, Chief Complaint Infected Foot Disposition Transported No Lights/[place] Dispatch Reason Sick Person Transported To [facility] Narrative Dispatched to a private residence in regards to a sick. On arrival, I saw patient . Initial assessment revealed that patient was A&Ox4 and did not appear to be in respiratory distress. Patient's chief complaint was . Patient stated that . Physical assessment [place] [address] EMS Patient Care Report Name: JOSSELYN HARRIS BRANDI Room #: 439-P [facility] MikeR.#: [id number] Admission: 03/02/21 Attend Phys: Janis Metz MD Discharge: Date of : 63 Report #: [id number] warm and dry. Patient was able to ambulate without assistance and was seated and secured to our cot inside the ambulance. Treatment rendered was obtaining a complete set of baseline vital signs Initial Vitals @22:45R: 18,BP: 100/72,Pain: 8/10,GCS: 15,SpO2: 92,Revised Trauma: 12, @22:31P: 113,R: 18,BP: 103/73,Pain: 8/10,GCS: 15,SpO2: 99,Revised Trauma: 12, Assessments @22:34MENTAL:No Abnormalities,SKIN:No Abnormalities,HEENT:Head/Face: No Abnormalities,Eyes: No Abnormalities,Neck/Airway: No Abnormalities,LUNG SOUNDS:General: No Abnormalities,Left Upper: No Abnormalities,Right Upper: No Abnormalities,Left Lower: No Abnormalities,Right Lower: No Abnormalities,ABDOMEN:General: No Abnormalities,Left Upper: No Abnormalities,Right Upper: No Abnormalities,Left Lower: No Abnormalities,Right Lower: No Abnormalities,PELVIS//GI:No Abnormalities,EXTREMITIES:Left Arm: No Abnormalities,Right Arm: No Abnormalities,Left Leg: No Abnormalities,Right Leg: No Abnormalities,PULSE:NEURO:No Abnormalities, Impression Infectious Disease Timeline 22:10,Call Received 22:10,Dispatch Notified 22:11,Dispatched 22:12,En Route 22:21,On Scene 22:30,At Patient 22:31,BP: 103/73 M,PULSE: 113,RR: 18 R,SPO2: 99 Ox,ETCO2: ,BG: ,PAIN: 8,GCS: 15, 22:34,Depart Scene 22:43,At Destination 22:45,BP: 100/72 M,PULSE: ,RR: 18 R,SPO2: 92 Ox,ETCO2: ,BG: ,PAIN: 8,GCS: 15, 22:56,Call Closed Disclaimer v1.1 Copyright 2020 [employer] This EMS Care Summary contains data elements from the applicable legal record (which may be displayed differently). It is designed to provide pertinent information for the following purposes: continuity of care, clinical quality, and state data reporting. The complete legal record is available to ED staff and administrators of the receiving hospital in [employer]'s Patient Tracker. All data is provided "as is."
--- NOTE | ~2021-03-01 | HC ---
[facility] [address] [place] [address] CONSULTATION Name: JOSSELYN HARRIS Room #: 439-P ANTWAN Stovall#: [id number] Admission: 03/02/21 Attend Phys: Sandra Gerson Yulisabrionna Discharge: 03/03/21 Date of : 63 Report #: [id number] THIS REPORT FOR: cc: FAM - No family physician/PCP FAM - No family physician/PCP Rohan Pugh MD ~ DATE OF SERVICE: 03/02/2021 CHIEF COMPLAINT: Venous ulcers, bilateral lower extremities. HISTORY: This is a 56-year-old female patient with whom we are familiar with chronic ulcerations to bilateral lower extremities. She has some underlying level of dementia, has been unwilling to do any followup care. After multiple hospitalizations, she had some pain. She was a bit confused. She has been having some diarrhea as well. PAST MEDICAL HISTORY: Positive for history of venous dermatitis and venous ulcerations, bilateral lower extremities; history of noncompliance; chronic anemia. She has no history of peripheral vascular disease with normal angiography approximately 1 year ago. MEDICATIONS: Include levofloxacin, famotidine, ondansetron, ceftriaxone. ALLERGIES: CLOTRIMAZOLE, MICONAZOLE, MOLD, MUSHROOMS AND STRAWBERRIES. FAMILY HISTORY: Noncontributory. REVIEW OF SYSTEMS: CONSTITUTIONAL: The patient denies fever, chills, weight loss. NEUROLOGICAL: The patient denies focal weakness, numbness, or tingling. EYES: The patient denies visual changes, redness or drainage. ENT: The patient denies earache, nasal drainage, sore throat. CARDIOVASCULAR: The patient denies chest pain, palpitations, diaphoresis. PULMONARY: Denies cough, shortness of breath. GASTROINTESTINAL: Denies nausea, abdominal pain. She does have diarrhea. ORTHOPEDIC: The patient has some pain and ulcerations of bilateral lower extremities, which are chronic in nature. Other systems in a 14-point review of systems are negative. PHYSICAL EXAMINATION: VITAL SIGNS: Include temperature 36.6, pulse 88, respiration of 20, blood pressure 108/61. GENERAL: This is a chronically ill-appearing female patient who appears in no distress. HEENT: Normocephalic. Nose and throat clear. [address] [address] CONSULTATION Name: JOSSELYN HARRIS [facility] Room #: 439-P [facility] Myah MBernardo#: [id number] Admission: 03/02/21 Attend Phys: Sandra Leon Discharge: 03/03/21 Date of : 63 Report #: [id number] LUNGS: Diminished. HEART: Regular. ABDOMEN: Soft, bowel sounds present. EXTREMITIES: Exam of the lower extremities demonstrate venous ulcers to bilateral lower legs and ankles, they are greater on the left than on the right. They are actually relatively clean and granulating with a little bit of fibrin present, but not overtly infected. CLINICAL IMPRESSION: 1. Recurring persistent venous ulcers, bilateral lower extremities with history of cellulitis. 2. Acute kidney injury. 3. Chronic anemia. 4. Generalized debility. RECOMMENDATIONS: At this point in time, recommend topical Xeroform gauze, Dakin's solution, ABD, Kerlix, Eduardo wrap toes to knees bilaterally. Elevation as much as she is willing to. Antibiotics are currently ordered. There are no new cultures to review at this time. Continue with other medical management and nutritional support. I appreciate being asked to see her in consultation. By: [id number] Rohan Pugh MD /nt
[~2021-03-01 22:46] MED LIST changes: +KEFLEX250 MG PO
[2021-03-01 23:02] VITALS: BP 102/74
[2021-03-02 00:04] LABS: ABSOLUTE NEUTROPHILS 7.3 thou/uL (1.4-8.2); BASOPHILS 0.4 % (0.0-2.0); EOSINOPHILS 0.2 % (0.0-3.0); HEMATOCRIT 41.8 % (37.0-47.0); LYMPHOCYTES 8.9 % (24.0-44.0); MCH 29.6 pg (26.0-34.0); MCHC 33.4 g/dL (28.0-37.0); MCV 88.5 fL (80.0-100.0); MONOCYTES 5.4 % (1.0-8.0); PLATELET COUNT 255 thou/uL (150-400); POLYS 85.1 % (36.0-66.0); RBC 4.73 mil/uL (4.20-5.00); RDW 15.7 % (10.5-14.5); WBC 8.6 thou/uL (4.0-11.0)
[2021-03-02 00:33] LABS: CALCIUM 9.2 mg/dL (8.5-10.1); CREATININE 1.1 mg/dL (0.6-1.0); POTASSIUM 3.7 mmol/L (3.5-5.1)
[2021-03-02 01:32] VITALS: BP 102/74
[2021-03-02 02:29] VITALS: BP 130/71
--- NOTE | 2021-03-02 06:25 | NUR ---
PT ARRIVED FROM ER. A&OX4. ADMISSION DONE AND PT ORIENTED TO THE UNIT. IV INTACT AND FLUIDS INFUSING. BLE CELLUITIS. WOUND DRESSING INTACT. PT UP X1 TO THE BSC. FALL PREC IN PLACE. PT ON RA. TYELNOL GIVEN FOR PAIN. CALL LIGHT AT REACH. NIGHT TIME SNACKS PROVIDED. WWILL CONT TO MONITOR TILL EOS.
[2021-03-02 07:13] VITALS: BP 108/61
--- NOTE | 2021-03-02 09:26 | NUR ---
Chart review. patient was just dc on feb 09, vouched home meds. she lives home alone. patient pay. noncompliant wit her wound care at home. [facility] [employer] at bedside visiting wit her and vu did agree to have [employer] look at medicaid for her. 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 Will need to vouch for medication r/t unable to cover her medication at dc. Cont. following as needed for dc needs.
[2021-03-02 16:52] VITALS: BP 112/63
--- NOTE | 2021-03-02 18:19 | NUR ---
Pt is A & O x4. Pt Vs stable. pt received medications as ordered. Pt had diarrhea noted this shift. pt continues on clear liq diet. pt is room Air. pt has bilat lower extremities wrapped due to wounds. pt is able to make needs known.
[2021-03-02 20:12] VITALS: BP 108/68
--- NOTE | 2021-03-03 02:09 | NUR ---
ASSESSED AT START OF SHIFT. PT RESTING IN BED. WOUND DRESSING DONE AND WOUND PICTURES TAKEN. TRAMADOL GIVEN FOR PAIN. NO DIARRHEA TONIGHT. UP WITH SBA TO THE BSC. GENERALIZED WEAKNESS. FALL PREC IN PLACE. PT ON CLR LIQUIDS. WILL CONT TO MONITOR.
[2021-03-03] MEDS ORDERED: LEVOFLOXACIN500 MG PO ×2 (09:18→11:07)
--- NOTE | 2021-03-03 09:45 | NUR ---
CM assist bedside nurse to change pharmacy to outpt [facility] pharmacy in order to vouch for medication at [place] today. On clear liquid diet. Cm notified outpt pharmacy to look for rx and call cm team with worley of medication.
--- NOTE | 2021-03-03 12:54 | NUR ---
PT a & o X4. pT VS STABLE. PT LEG WOUNDS DRESSING CHANGED BY THIS RN. PT RECEIVED DISCHARGE ORDERS TO HOME. PT RECEIVED DISCHARGE INSTRUCTIONS REVIEWED WITH PT AND PT VERBLAIZED UNDERSTANDING AND SIGNED INSTRUCTIONS. PT RECEIVED CAB VOUCHER.
--- NOTE | 2021-03-03 13:09 | NUR ---
pt received abt medications and also received wound wash to take home with her.
--- NOTE | 2021-03-03 13:19 | NUR ---
pt wheeled in wheelchair by staff with personal belongings and cab voucher
== END 2021-03-03 13:24 | disposition home or self-care (01) ==
LOC: ER 22:46 → EROBS 03-02 00:58 → 4S 03-02 00:58
PROVIDERS: Emergency Medicine; ADMIT Hospitalist; ATTEND Hospitalist
DX: I83.018 Varicose veins of right lower extremity with ulcer other part of lower leg (principal); I83.028 Varicose veins of left lower extremity with ulcer other part of lower leg; F03.90 Unspecified dementia, unspecified severity, without behavioral disturbance, psychotic disturbance, mood disturbance, and anxiety; Z20.822 Contact with and (suspected) exposure to COVID-19; I73.9 Peripheral vascular disease, unspecified; Z88.1 Allergy status to other antibiotic agents; Z91.018 Allergy to other foods; Z88.8 Allergy status to other drugs, medicaments and biological substances; Z74.1 Need for assistance with personal care; X58.XXXA Exposure to other specified factors, initial encounter; Y93.89 Activity, other specified; Y92.89 Other specified places as the place of occurrence of the external cause; Y99.8 Other external cause status

== ENCOUNTER 2021-04-12 23:07 | Emergency (ER) | payer OTHER ==
[~2021-04-12] VITALS: Ht 175.3 cm; Wt 63.5 kg
--- NOTE | ~2021-04-12 | EMS ---
[facility] [address] [place] [address] EMS Patient Care Report Name: JOSSELYN HARRIS BRANDI Room #: DEP M.R.#: [id number] Admission: 04/12/21 Attend Phys: Discharge: 04/13/21 Date of : 63 Report #: [id number] THIS REPORT FOR: //name// Report Transmitted: 04/16/2021 14:08 EMS Care Summary [place], [place]/[facility] Incident [id number] @ 04/12/2021 22:43 Incident Location [address] [place] [address] Patient JOSSELYN HARRIS Female, 56 Years 1965 Patient Address [address] [place] [address] Patient History Other,Cellulitis, Patient Allergies No known allergies, Chief Complaint leg pain/chronic wounds Disposition Transported No Lights/[place] Dispatch Reason Sick Person Transported To [facility] Narrative pt found ambulatory in driveway. she is a&o, c/o chronic pain in legs from wounds. her feet are wrapped w/ gauze. she has a sack of soiled gauze pads from weeping wounds on her legs and feet. she states, "they smell so bad and I wanted to show them to someone". pt has been trying to get into [facility] wound clinic. tonight, she req eval in the ER. pt also c/o mild dizziness for several days. pt seats self on cot, transport w/o change. pt to triage, [facility] [address] [place] [address] EMS Patient Care Report Name: JOSSELYN HARRIS BRANDI Room #: DEP MRick.#: [id number] Admission: 04/12/21 Attend Phys: Discharge: 04/13/21 Date of : 63 Report #: [id number] report to RN Initial Vitals @22:53P: 66,R: 18,BP: 125/80,Pain: 6/10,GCS: 15,SpO2: 98,Revised Trauma: 12, Assessments @22:49MENTAL:No Abnormalities,SKIN:No Abnormalities,HEENT:Head/Face: No Abnormalities,LUNG SOUNDS:ABDOMEN:PELVIS//GI:EXTREMITIES:Left Leg: Other,Right Leg: Other,PULSE:NEURO: Impression Skin infection Procedures @22:49 ALS Assessment Response: Unchanged @22:52 Stretcher Response: Unchanged Timeline 22:29,Call Received 22:29,Dispatch Notified 22:43,Dispatched 22:44,En Route 22:48,On Scene 22:49,At Patient 22:49,ALS Assessment,Response: Unchanged 22:52,Stretcher,Response: Unchanged 22:53,BP: 125/80 M,PULSE: 66,RR: 18 R,SPO2: 98 Ox,ETCO2: ,BG: ,PAIN: 6,GCS: 15, 22:54,Depart Scene 23:01,At Destination 23:11,Call Closed Disclaimer v1.1 Copyright 2020 [employer] This EMS Care Summary contains data elements from the applicable legal record (which may be displayed differently). It is designed to provide pertinent information for the following purposes: continuity of care, clinical quality, and state data reporting. The complete legal record is available to ED staff and administrators of the receiving hospital in [employer] Patient Tracker. All data is provided "as is."
[2021-04-13 02:26] LABS: ABSOLUTE NEUTROPHILS 3.1 thou/uL (1.4-8.2); BASOPHILS 0.6 % (0.0-2.0); EOSINOPHILS 7.4 % (0.0-3.0); HEMATOCRIT 34.7 % (37.0-47.0); HEMOGLOBIN 11.6 gm/dL (12.0-15.0); LYMPHOCYTES 24.4 % (24.0-44.0); MCH 29.4 pg (26.0-34.0); MCHC 33.4 g/dL (28.0-37.0); MCV 87.9 fL (80.0-100.0); MONOCYTES 8.4 % (1.0-8.0); PLATELET COUNT 256 thou/uL (150-400); POLYS 59.2 % (36.0-66.0); RBC 3.95 mil/uL (4.20-5.00); RDW 15.7 % (10.5-14.5); WBC 5.3 thou/uL (4.0-11.0)
[2021-04-13 02:47] LABS: CREATININE 0.7 mg/dL (0.6-1.0)
[2021-04-13 02:59] LABS: POTASSIUM 2.8 mmol/L (3.5-5.1)
[2021-04-13] MEDS ORDERED: KLOR-CON 1010 MEQ PO (03:15)
[2021-04-13 05:02] VITALS: BP 133/78
== END 2021-04-13 05:31 | disposition home or self-care (01) ==
LOC: ER 23:07
PROVIDERS: Student in an Organized Health Care Education/Training Program
DX: L97.229 Non-pressure chronic ulcer of left calf with unspecified severity (principal); L97.219 Non-pressure chronic ulcer of right calf with unspecified severity; E87.6 Hypokalemia; Z90.89 Acquired absence of other organs; Z79.899 Other long term (current) drug therapy; Z88.6 Allergy status to analgesic agent; Z88.8 Allergy status to other drugs, medicaments and biological substances; Z91.018 Allergy to other foods

== ENCOUNTER 2021-05-11 16:36 | Emergency (ER) | payer OTHER ==
[~2021-05-11] VITALS: Ht 175.3 cm; Wt 63.5 kg
[~2021-05-11 16:36] MED LIST changes: +KLOR-CON 1010 MEQ PO
[2021-05-11 17:33] VITALS: BP 135/74
[2021-05-11 18:37] LABS: BASOPHILS 0.8 % (0.0-2.0); EOSINOPHILS 2.6 % (0.0-3.0); HEMATOCRIT 33.5 % (37.0-47.0); HEMOGLOBIN 11.3 gm/dL (12.0-15.0); LYMPHOCYTES 20.3 % (24.0-44.0); MCH 29.7 pg (26.0-34.0); MCHC 33.6 g/dL (28.0-37.0); MCV 88.4 fL (80.0-100.0); MONOCYTES 8.2 % (1.0-8.0); PLATELET COUNT 265 thou/uL (150-400); POLYS 68.1 % (36.0-66.0); RBC 3.79 mil/uL (4.20-5.00); RDW 14.5 % (10.5-14.5); WBC 7.4 thou/uL (4.0-11.0)
[2021-05-11 19:05] LABS: ALBUMIN 3.5 g/dL (3.4-5.0); CALCIUM 9.3 mg/dL (8.5-10.1); CREATININE 0.8 mg/dL (0.6-1.0); TOTAL BILIRUBIN 0.4 mg/dL (0.2-1.0); TOTAL PROTEIN 7.2 g/dL (6.4-8.2)
[2021-05-11] MEDS ORDERED: CEPHALEXIN500 MG PO (21:08)
== END 2021-05-12 01:12 | disposition home or self-care (01) ==
LOC: ER 16:36
PROVIDERS: Nurse Practitioner
DX: R22.43 Localized swelling, mass and lump, lower limb, bilateral (principal); Z90.89 Acquired absence of other organs; Z79.899 Other long term (current) drug therapy

== ENCOUNTER 2021-05-18 12:24 | Emergency (ER) | payer OTHER ==
[~2021-05-18] VITALS: Ht 175.3 cm; Wt 54.4 kg
[~2021-05-18 12:24] MED LIST changes: +CEPHALEXIN500 MG PO
[2021-05-18] MEDS ORDERED: CEPHALEXIN500 MG PO (13:58)
[2021-05-18 14:26] VITALS: BP 102/61
== END 2021-05-18 14:26 | disposition home or self-care (01) ==
LOC: ER 12:24
DX: L08.9 Local infection of the skin and subcutaneous tissue, unspecified (principal); Z48.00 Encounter for change or removal of nonsurgical wound dressing; Z90.89 Acquired absence of other organs; Z91.02 Food additives allergy status

== ENCOUNTER → 2021-05-19 | Outpatient (CLI) | payer OTHER | LOC: HYPER 09:03 | PROVIDERS: ATTEND Emergency Medicine | DX: I87.313 Chronic venous hypertension (idiopathic) with ulcer of bilateral lower extremity (principal); L97.812 Non-pressure chronic ulcer of other part of right lower leg with fat layer exposed; L97.822 Non-pressure chronic ulcer of other part of left lower leg with fat layer exposed; I70.245 Atherosclerosis of native arteries of left leg with ulceration of other part of foot; L97.522 Non-pressure chronic ulcer of other part of left foot with fat layer exposed; L03.90 Cellulitis, unspecified ==

== ENCOUNTER 2021-06-01 13:17 | Emergency (ER) | payer OTHER ==
[~2021-06-01] VITALS: Ht 175.3 cm; Wt 63.5 kg
[2021-06-01 13:18] VITALS: BP 128/75
== END 2021-06-01 15:38 | disposition home or self-care (01) ==
LOC: ER 13:17
DX: G89.29 Other chronic pain (principal); R59.9 Enlarged lymph nodes, unspecified; Z90.89 Acquired absence of other organs; Z91.02 Food additives allergy status

== ENCOUNTER 2021-06-07 11:54 | Inpatient (IN) | payer OTHER ==
[~2021-06-07] VITALS: Ht 175.3 cm; Wt 63.5 kg
[2021-06-07 11:55] VITALS: BP 99/72
[2021-06-07 15:34] LABS: ABSOLUTE NEUTROPHILS 6.2 thou/uL (1.4-8.2); BASOPHILS 1.3 % (0.0-2.0); CALCIUM 9.7 mg/dL (8.5-10.1); CREATININE 0.7 mg/dL (0.6-1.0); HEMATOCRIT 40.1 % (37.0-47.0); HEMOGLOBIN 13.1 gm/dL (12.0-15.0); LYMPHOCYTES 14.8 % (24.0-44.0); MCH 28.4 pg (26.0-34.0); MCHC 32.6 g/dL (28.0-37.0); MCV 87.1 fL (80.0-100.0); MONOCYTES 5.1 % (1.0-8.0); PLATELET COUNT 341 thou/uL (150-400); POLYS 77.8 % (36.0-66.0); RDW 14.5 % (10.5-14.5)
[2021-06-07 15:40] LABS: ALBUMIN 4.1 g/dL (3.4-5.0); TOTAL BILIRUBIN 0.5 mg/dL (0.2-1.0); TOTAL PROTEIN 8.1 g/dL (6.4-8.2)
[2021-06-07 22:28] VITALS: BP 88/45
--- NOTE | 2021-06-08 02:31 | NUR ---
REPORT TO RECEIVING NURSE
[2021-06-08 02:32] VITALS: BP 81/44
--- NOTE | 2021-06-08 03:38 | NUR ---
PT ARRIVED TO THE UNIT AT AROUND 0300 HRS. ALERT AND ORIENTED X 4. ADMISSION COMPLETED. IV ABTS AND FLUIDS INFUSING. BLE WRAPPED. LLE MORE SWOLLEN. PT ASKING FOR FOOD. AFEBRILE.CALL LIGHT WITHIN REACH.
[2021-06-08 06:06] VITALS: BP 97/52
[2021-06-08 06:08] LABS: ABSOLUTE NEUTROPHILS 2.6 thou/uL (1.4-8.2); BASOPHILS 0.9 % (0.0-2.0); EOSINOPHILS 4.1 % (0.0-3.0); HEMATOCRIT 27.3 % (37.0-47.0); LYMPHOCYTES 33.5 % (24.0-44.0); MCH 29.2 pg (26.0-34.0); MCHC 33.2 g/dL (28.0-37.0); MONOCYTES 9.1 % (1.0-8.0); POLYS 52.4 % (36.0-66.0); RBC 3.11 mil/uL (4.20-5.00); RDW 14.8 % (10.5-14.5); WBC 4.9 thou/uL (4.0-11.0)
[2021-06-08 06:17] LABS: HEMOGLOBIN 9.1 gm/dL (12.0-15.0); PLATELET COUNT 202 thou/uL (150-400)
[2021-06-08 06:23] LABS: CALCIUM 7.8 mg/dL (8.5-10.1); CREATININE 0.8 mg/dL (0.6-1.0); MAGNESIUM 1.6 mg/dL (1.8-2.4); POTASSIUM 4.2 mmol/L (3.5-5.1)
[2021-06-08 07:47] VITALS: BP 89/54
--- NOTE | 2021-06-08 12:12 | NUR ---
pt would like to avoid taking anything but tylenol or ibuprofen, pt states it makes her too drowsy and lasts longer than four hours, pt states it lasts closer to 24 hours.
--- NOTE | 2021-06-08 13:40 | NUR ---
WOUND CONSULT; THIS IS A LONGSTANDING PATIENT OF DR PINO. BILATERAL LE WOUNDS. THE LEFT LE WOUND IS APPROX 18 CM X 9CM. THE ENTIRE WOUND IS COVERED WITH A PSUDO-SCAB MIXED WITH HAIR AND OTHER WOUND CONTAMINENTS. PLAN RIGHT KNOW IS A SURGICAL DEBRIDEMENT WITH XEROFORM/ABD/KERLIX/KHOA. FOR KNOW I APPLIED XEROFOR/KERLIX/KHOA PER DR RISHABH PINO.
[2021-06-08 14:38] LABS: FOLIC ACID 14.9 ng/mL (8.6-58.9)
[2021-06-08 16:20] VITALS: BP 97/54
[2021-06-08 19:52] VITALS: BP 124/79
[2021-06-08 19:55] VITALS: BP 106/59
--- NOTE | 2021-06-09 05:32 | NUR ---
ASSUMED PT CARE THIS PM. PT IS ALERT AND ORIENTED X4. WOUND DRGS COMPLETED WHICH WAS WELL TOLERATED BY PT. PT C/O PAIN WHICH WAS MANAGED BY PRN MEDS. MEDS WERE GIVEN PER EMAR ORDERS. NO OTHER CONCERN WAS VERBALIZED BY PT. FALL PRECAUTIONS IN PLACE. WILL CONTINUE TO MONITOR.
[2021-06-09 08:17] VITALS: BP 110/63
--- NOTE | 2021-06-09 16:07 | NUR ---
Met with patient who admits with cellulitis of lower extrememity. 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 She walks, or takes bus for transport. She follows with [facility] wound clinic outpatient. Primary care at wound clinic. Patient in past has not had health insurance. Now that she has health insurance. She quetions if she can get a job if her insurance will be kicked off. Patient spoke often regarding her job. Discussed home health with patient. She wants to discuss with wound care team. She reports they were to mail her supplies and she never received. In past [facility] has arranged [facility] and patient did not return call or allow home health in her home. [facility] following for dc planning.
[2021-06-09 16:10] VITALS: BP 110/61
[2021-06-09 19:36] VITALS: BP 103/55
[2021-06-09 20:23] VITALS: BP 110/61
--- NOTE | 2021-06-10 04:16 | NUR ---
ASSUMED PT CARE THIS PM.PT IS ALERT AND ORIENTED. WOUND DRSG COMPLETED WHICH WAS WELL TOLERATED BY PT. PAIN WAS MANGAGED BY PRN MEDS. MEDS GIVEN PER EMAR ORDERS. NO VISIBLE SIGN OF DISTRESS NOTED. FALL PRECAUTIONS IN PLACE. WILL CONTINUE TO MONITOR.
--- NOTE | 2021-06-10 09:31 | NUR ---
Assumed care of pt at 0700. Pt a&ox4. Denies pain. IV antibiotics infusing. RA. Pt scheduled for surgery today. Call light within reach. Will continue to monitor.
[2021-06-10 20:17] VITALS: BP 94/57
--- NOTE | 2021-06-11 04:58 | NUR ---
ASSUMED PT CARE THIS PM. PT IS ALERT AND ORIENTED X4. DRSG COMPLETED WHICH WAS WELL TOLERATEDBY PT. PT IS NPO FOR I&D. PT IS ON RA. NO VISIBLE SIGN OF DISTRESS NOTED. WILL CONTINUE TO MONITOR.
[2021-06-11 08:15] VITALS: BP 101/59
[2021-06-11 11:50] VITALS: BP 113/71
--- NOTE | 2021-06-11 15:26 | NUR ---
Patient to have I/D and no plan for discharge over weekend.
[2021-06-11 17:30] VITALS: BP 100/63
--- NOTE | 2021-06-11 18:07 | NUR ---
PATIENT ARRIVED BACK FROM SURGERY AT APPROX 1730. ALERT AND ORIENTED X 4. C/O OF BURNING PAIN AT WOUND SITES. TRAMADOL GIVEN PER MEDICAL CHIEF TECHNICIAN. IBUPROFEN GIVEN PER PATIENT REQUEST. MORRIS. ADELAIDA D/I
[2021-06-11 19:45] VITALS: BP 100/60
--- NOTE | 2021-06-12 06:05 | NUR ---
RECEIVED CARE OF THIS PATIENT AT 1900. PATIENT ALERT AND ORIENTED X4. UP TO BSC. DRESSING ON [place] LOWER EXT D/I. C/O PAIN, MED GIVEN. SLEPT OFF AND ON DURING NIGHT.
[2021-06-12 07:13] VITALS: BP 98/55
--- NOTE | 2021-06-12 10:23 | NUR ---
Assumed care of pt at 0700. Pt a&ox4. Dressings c/d/i. IV antibiotics infusing. No c/o at this time. Call light within reach. Will continue to monitor.
[2021-06-12 15:00] VITALS: BP 107/66
[2021-06-12 21:46] VITALS: BP 129/71
--- NOTE | 2021-06-13 05:39 | NUR ---
PT TRANSFERRING TO BSC INDEPENDENTLY AND IS TOLERATING FAIR. IBUPROFEN PROVIDING PAIN RELIEF. RESTING COMFORTABLY. NO NEEDS VOICED. CALL LIGHT WITHIN REACH. FREQUENT OBSERVATION.
[2021-06-13 07:30] VITALS: BP 140/61
[2021-06-13 17:08] VITALS: BP 105/57
--- NOTE | 2021-06-13 17:44 | NUR ---
Patient alert, awake and oriented x 4. ibuprofen given prn for pain, good appetite, use bsc, call light within reach.
[2021-06-13 19:21] VITALS: BP 109/65
--- NOTE | 2021-06-14 07:56 | NUR ---
PT TRANSFERRING TO BEDSIDE COMMODE INDEPENDENTLY AND IS TOLERATING WELL. IBUPROFEN PROVIDING PAIN RELIEF. RESTING COMFORTABLY. NO NEEDS VOICED. CALL LIGHT WITHIN REACH. FREQUENT OBSERVATION.
[2021-06-14] MEDS ORDERED: CEFUROXIME500 MG PO (08:00)
[2021-06-14 08:26] VITALS: BP 96/60
[2021-06-14 10:03] VITALS: BP 96/58
[2021-06-14 10:42] VITALS: BP 96/58
--- NOTE | 2021-06-14 11:04 | NUR ---
Anticipating dc home today. HH referral faxed to [facility] for their consideration. They are in network with her ins plan. [facility] not able to accept and neither is [facility] as they are capped on medicaid plan pts. [facility] is not in network. [facility] would consider a one time contract but they are known to the pt and will not accept her back due to hoarding and "unsafe" living situation. Pt is up ad endy in her room. Referral faxed to [facility] also as they are in network.
[2021-06-14 13:57] VITALS: BP 96/58
[2021-06-14 15:28] VITALS: BP 96/58
--- NOTE | 2021-06-15 08:31 | O ---
[facility] [place] [place] [address] OPERATIVE REPORT Name: JOSSELYN HARRIS Room #: 442-P [facility] M.R.#: [id number] Admission: 06/07/21 Attend Phys: Sandra Leon Discharge: 06/14/21 Date of : 63 Report #: [id number] THIS REPORT FOR: cc: NO FAMILY PHYSICIAN or PCP NO FAMILY PHYSICIAN or PCP Jose Dueñas MD ~ DATE OF SERVICE: 06/11/2021 PREOPERATIVE DIAGNOSES: Left lower leg venous stasis ulcers measuring 15 x 7 cm and 4 x 4 cm, right-sided venous stasis ulcer measuring 7 x 5 cm. OPERATION: 1. Excisional debridement of left-sided venous stasis ulcer, 15 x 7 cm. 2. Excisional debridement of left-sided lower leg venous stasis ulcer, 4 x 4 cm. 3. Excision of right-sided venous stasis ulcer, 7 x 5 cm. SURGEON: Jose Dueñas. ANESTHESIA: General. ESTIMATED BLOOD LOSS: Minimal. SPECIMENS: None. DESCRIPTION OF PROCEDURE: After informed consent was obtained, the patient was brought to the operating room and placed supine. SCDs were placed and working, preoperative antibiotics were administered, general anesthesia was induced. The bilateral lower extremities were prepped and draped in the usual sterile fashion. Attention was then directed to the left medial lower leg. This was an excisional debridement. Depth was down through the subcutaneous tissue. The Misonix device was used. 100% of the wound was debrided. Post-debridement wound area was 15 x 7 cm. The wound bed was fair and did have some healthy bleeding. The 4 x 4 cm lateral wound was debrided with the Misonix as well. 100% of the wound was debrided. The right-sided lower leg venous stasis ulcer was debrided. This was an excisional debridement. Depth was subcutaneous. 100% of the wound was debrided. Post-debridement wound area was 5 x 7 cm. The wounds were dressed with Adaptic dressing and a Kerlix and Eduardo roll for compression. COMPLICATIONS: None. [facility] [address] [place] [address] OPERATIVE REPORT Name: JOSSELYN HARRIS [facility] Room #: 442-P [facility] M.R.#: [id number] Admission: 06/07/21 Attend Phys: Sandra Leon Discharge: 06/14/21 Date of : 63 Report #: [id number] DISPOSITION: The patient was taken to recovery in satisfactory condition. <ELECTRONICALLY SIGNED> By: Jose Dueñas MD 06/15/21 [id number] Jose Dueñas MD /nt
== END 2021-06-14 17:38 | disposition home or self-care (01) | DRG 570 ==
LOC: ER 11:54 → 4S 17:29 → EROBS 17:29 → 4S 06-08 02:34
PROVIDERS: Emergency Medicine; Nurse Practitioner; ADMIT Hospitalist; ATTEND Hospitalist
PROC: 0JBP0ZZ Excision of Left Lower Leg Subcutaneous Tissue and Fascia, Open Approach (ICD-10-PCS; principal; 2021-06-11)
PROC: 0JBN0ZZ Excision of Right Lower Leg Subcutaneous Tissue and Fascia, Open Approach (ICD-10-PCS; principal; 2021-06-11)
DX: L03.116 Cellulitis of left lower limb (principal); E43 Unspecified severe protein-calorie malnutrition; N17.9 Acute kidney failure, unspecified; I83.015 Varicose veins of right lower extremity with ulcer other part of foot; I83.025 Varicose veins of left lower extremity with ulcer other part of foot; L97.511 Non-pressure chronic ulcer of other part of right foot limited to breakdown of skin; L97.521 Non-pressure chronic ulcer of other part of left foot limited to breakdown of skin; D64.89 Other specified anemias; Z88.8 Allergy status to other drugs, medicaments and biological substances; Z20.822 Contact with and (suspected) exposure to COVID-19; Z68.20 Body mass index [BMI] 20.0-20.9, adult; Z86.14 Personal history of Methicillin resistant Staphylococcus aureus infection; I73.9 Peripheral vascular disease, unspecified; Z90.49 Acquired absence of other specified parts of digestive tract
CPT/HCPCS: 10195; 50010; 50101; 50386; 57092; 57119; 57120; 62110; 62900; 70005